=== PATIENT | female | born 1945 | race Caucasian/White ===

== ENCOUNTER 2016-12-06 22:24 | Inpatient (IN) | payer MEDICARE ==
[2016-12-06 22:41] LABS: Glucose,Whole Blood 226 mg/dL (75-99)
[2016-12-06] MEDS ORDERED: SODIUM CHLORIDE 0.9% 1,000 ML IV STA (22:51)
--- NOTE | 2016-12-06 22:58 | ED ---
Syncope HPI - General Chief Complaint: Syncope Stated Complaint: fall Time Seen by Provider: 12/06/16 22:44 Source: patient Mode of arrival: EMS Limitations: no limitations - History of Present Illness Initial Comments: This 71-year-old white female presents with a complaint of a syncopal episode. She states that she felt quite dizzy and lightheaded and then thinks she passed out felt and hit her head. She apparently hit her occipital region. She is complaining of a mild headache. She also is complaining of some pain into her sacral region of her pelvis. This occurred just prior to arrival and she presents via EMS. She further relates that she has had occasional chest pain and shortness breath or other day this is fairly normal for her. She does have a history of significant coronary artery disease with 7 previous stents. She obtained a slight abrasion to her right elbow. She denies any other injuries or complaints or modifying factors. - Related Data Home Medications Medication Instructions Recorded Confirmed Clopidogrel [Plavix] 75 mg PO DAILY 03/29/14 09/17/14 INSULIN LISPRO (humaLOG) [humaLOG 1 - 8 units SQ AC-TID PRN 03/29/14 09/17/14 (formulary)] Insulin Glargine [Lantus] 29 units SQ DAILY@1000 03/29/14 09/17/14 Lisinopril [Prinivil] 20 mg PO DAILY 03/29/14 09/17/14 Rosuvastatin Calcium [Crestor] 40 mg PO DAILY 03/29/14 09/17/14 Warfarin Sodium [Coumadin] 6 mg PO DAILY 03/29/14 09/17/14 Ascorbic Acid [Vitamin C] 500 mg PO DAILY@1200 07/01/14 09/17/14 Cholecalciferol [Vitamin D3] 1,000 unit PO DAILY@1200 07/01/14 09/17/14 Multivitamins, Thera [Multivitamin 1 tab PO DAILY@1200 07/01/14 09/17/14 (formulary)] Diazepam [Valium] 5 mg PO DAILY 08/24/14 09/17/14 Esomeprazole Magnesium [NexIUM] 40 mg PO DAILY 08/24/14 09/17/14 Loperamide [Imodium] 2 mg PO QID PRN 08/24/14 09/17/14 HYDROcodone/APAP 7.5-325MG [[place] 1 tab PO Q4H PRN 09/09/14 09/17/14 7.5-325] Levothyroxine Sodium [Synthroid] 150 mcg PO DAILY 09/09/14 09/17/14 Previous Rx's Medication Instructions Recorded Budesonide [Pulmicort] 0.5 mg INHALATION RT-BID #30 nebu 04/06/14 ALPRAZolam [Xanax] 0.25 mg PO HS PRN #14 tab 04/23/14 traMADol HCl [Ultram] 50 mg PO Q6H PRN #30 tab 04/23/14 Fludrocortisone [Florinef] 0.05 mg PO DAILY #60 tab 09/16/14 Gabapentin [Neurontin] 800 mg PO TID #180 cap 09/16/14 Levothyroxine Sodium [Synthroid] 150 mcg PO DAILY@0630 #120 tab 09/16/14 Allergies Allergy/AdvReac Type Severity Reaction Status Date / Time oxycodone HCl [From Percocet] AdvReac Rash/Hives Verified 09/17/14 12:53 oxycodone terephthalate AdvReac Rash/Hives Verified 09/17/14 12:53 [From Percodan] Review of Systems ROS Statement: Those systems with pertinent positive or pertinent negative responses have been documented in the HPI. ROS Other: All systems not noted in ROS Statement are negative. Past Medical History Past Medical History: Atrial Fibrillation, Asthma, Coronary Artery Disease (CAD) , Cancer, Chest Pain / Angina, Diabetes Mellitus, GERD/Reflux, Hyperlipidemia, Hypertension, Myocardial Infarction ([place]), Neurologic Disorder, Pulmonary Embolus (PE), Thyroid Disorder Additional Past Medical History / Comment(s): 09/09/14 Pt presented to [facility] ER with syncopal episode last Tuesday09/03/14 and painful L ribs following that fall. She had another syncopal episode today with no new injury. She is being admitted with syncopy and collapse, L rib injury. Other HX: Recent admission to [facility] 08/24/14 for abdominal pain N/V/D with acute gastroenteritis. Additional hx: [place] 2006 and 2011 or 2013, IDDM, chronic bronchial asthma, incontinent urine and stool, IBS, hemmorhoids, colonic polyps, R femur acetabular impingement syndrome, UTI with sepsis, DDD, RLS, neuropathy bilateral hands and feet, thyroid cancer with thyroidectomy, diverticulitis, pt takes coumadin for PE's, arthiritis, chronic back pain, laryngeal cancer with surgical removal. Last Myocardial Infarction Date:: 2011 or 2012 per pt History of Any Multi-Drug Resistant Organisms: None Reported, C-DIFF Date of last positivie culture/infection: 04/01/2014 MDRO Source:: stool Past Surgical History: Adenoidectomy, Bladder Surgery, Bowel Resection, Cholecystectomy, Coronary Bypass/CABG, Heart Catheterization With Stent, Hysterectomy, Joint Replacement, Orthopedic Surgery, Pacemaker, Tonsillectomy, Tubal Ligation Additional Past Surgical History / Comment(s): CABG 3 vessel in 2006, cardiac cath with stents 2007 and 2011, pacer 2011, total thyroidectomy, lap [place], total left shoulder, R shoulder arthroscopy, partial colectomy due to diverticulitis, bladder suspension and bladder repair and mesh x 2, rectal wall repair, hysterectomy 1977, laryngeal surgery for cancer, colonoscopy, EGD with bx, nasal deviated septum surgical correction, L knee arthroscopy. Past Anesthesia/Blood Transfusion Reactions: No Reported Reaction Additional Past Anesthesia/Blood Transfusion Reaction / Comment(s): Pt has recieved blood without any reaction. Date of Last Stent Placement:: 2011 Type of Cardiac Device: Permanent Pacemaker Device Placement Date:: 2010 or 2011 in [place], [place] Past Psychological History: No Psychological Hx Reported Smoking Status: Former smoker Past Alcohol Use History: None Reported Past Drug Use History: None Reported - Past Family History Father Family Medical History: Congestive Heart Failure (CHF), COPD Additional Family Medical History / Comment(s): Father at age 61 yrs of CHF and COPD. Mother Family Medical History: Congestive Heart Failure (CHF), COPD General Exam - General Exam Comments Initial Comments: GENERAL: The patient is well nourished and well hydrated. VITAL SIGNS: Heart rate, blood pressure, respiratory rate reviewed as recorded in nurse's notes. EYES: Pupils are round and reactive. Extraocular movements are intact. No conjunctival / lid redness or swelling. ENT: There is mild abrasion noted to the occipital region of the scalp. There is no swelling or hematoma noted. Airway is patent. Throat is clear. NECK: Nontender. No swelling or evidence of injury. No subcutaneous emphysema. Trachea is midline. No thyroid mass. HEART: Regular rate and rhythm. Good peripheral pulses. LUNGS/CHEST: Breath sounds clear and equal bilaterally. No rales, rhonchi, or wheezes. No ecchymosis, subcutaneous emphysema, or tenderness. ABDOMEN: Abdomen soft without tenderness. No palpable masses or organomegaly. No peritoneal signs. No abdominal wall swelling or ecchymosis. EXTREMITIES: No extremity tenderness. Normal muscle tone and function. No thoracolumbar tenderness. There is mild tenderness noted to the sacral region on the right side. There is no hip tenderness. There is excellent range of motion of the hips bilaterally. NEUROLOGIC: Sensation is grossly intact. Cranial nerve exam reveals face is symmetrical, tongue is midline, speech is clear. SKIN: There is a mild abrasion to the occiput. There is mild abrasion to the right elbow. No induration or masses noted. PSYCHIATRIC: Alert and oriented. Appropriate behavior and judgment. Limitations: no limitations Course Vital Signs 12/06/16 12/06/16 12/06/16 22:28 22:59 23:49 Temperature 97.4 F L 97.7 F Pulse Rate 60 60 60 Pulse Rate [ Sitting Software Developer] Pulse Rate [ Supine Software Developer] Respiratory 18 18 16 Rate Blood Pressure 130/65 135/68 148/66 Blood Pressure [Sitting] Blood Pressure [Standing] Blood Pressure [Supine] O2 Sat by Pulse 100 100 100 Oximetry 12/07/16 12/07/16 00:35 00:38 Temperature Pulse Rate 62 Pulse Rate [ 63 Sitting Software Developer] Pulse Rate [ 60 Supine Software Developer] Respiratory 18 18 Rate Blood Pressure 128/61 Blood Pressure 113/59 [Sitting] Blood Pressure 88/52 [Standing] Blood Pressure 128/60 [Supine] O2 Sat by Pulse 100 100 Oximetry Medical Decision Making - Medical Decision Making The patient was seen and examined. All diagnostics were reviewed. The patient had an EKG done which shows an atrial paced rhythm at a rate of 60. There is some mild artifact noted. There is mild ST-T wave changes noted more in the lateral and inferior leads. The OK interval is 184, QRS duration is 80, and the QTc interval is 370. The laboratory does show slight decrease in the CO2 consistent with some dehydration. The blood sugar is elevated as well. The patient has positive orthostatics and her blood pressure drops in the 80s with standing and she is very dizzy. The patient's computed tomography scan of the brain is negative for any acute processes. The x-rays of the chest, AP pelvis, sacrum/coccyx are all essentially negative or within normal limits. Is felt as though she does have some orthostatic hypotension causing her syncope. She does have a history of being on Coumadin however her INR is quite subtherapeutic at this time and is in the normal range. It is felt as though she would need to be admitted for further treatment in regards to her orthostatic hypotension and dehydration. Further workup of syncope may need to be further worked up as felt necessary per her primary service. It is not felt as though she needs admission in regards to the head injury along Coumadin as her INR is subtherapeutic and she would be discharged home for this complaint. It is not felt as though she requires transferred to any other facility in regards to the head injury. There is no signs of any intracranial bleed and her INR is subtherapeutic and normal. The case will be discussed with internal medicine the near future and patient will be admitted to the hospital for further treatment. Further anticoagulation will not be initiated at this time due to her recent history of falls/trauma. - Lab Data Result diagrams: 12/06/16 22:52 12/06/16 22:52 Lab Results 12/06/16 12/06/16 12/06/16 Range/Units 22:28 22:52 22:52 WBC 7.1 (3.8-10.6) k/uL RBC 4.43 (3.80-5.40) m/uL Hgb 14.1 (11.4-16.0) gm/dL Hct 40.7 (34.0-46.0) % MCV 91.8 (80.0-100.0) fL MCH 31.8 (25.0-35.0) pg MCHC 34.7 (31.0-37.0) g/dL RDW 13.1 (11.5-15.5) % Plt Count 227 (150-450) k/uL Neutrophils % 67 % Lymphocytes % 24 % Monocytes % 6 % Eosinophils % 2 % Basophils % 0 % Neutrophils # 4.8 (1.3-7.7) k/uL Lymphocytes # 1.7 (1.0-4.8) k/uL Monocytes # 0.4 (0-1.0) k/uL Eosinophils # 0.1 (0-0.7) k/uL Basophils # 0.0 (0-0.2) k/uL PT (9.0-12.0) sec INR (<1.2) APTT (22.0-30.0) sec Sodium (137-145) mmol/L Potassium (3.5-5.1) mmol/L Chloride (98-107) mmol/L Carbon Dioxide (22-30) mmol/L Anion Gap mmol/L BUN (7-17) mg/dL Creatinine (0.52-1.04) mg/dL Est GFR (MDRD) Af Amer (>60 ml/min/1.73 sqM) Est GFR (MDRD) Non-Af (>60 ml/min/1.73 sqM) Glucose (74-99) mg/dL POC Glucose (mg/dL) 226 H (75-99) mg/dL POC Glu Aircraft Loadmaster Superintendent ID Sarah Siddiqui Calcium (8.4-10.2) mg/dL Total Bilirubin (0.2-1.3) mg/dL AST (14-36) U/L ALT (9-52) U/L Alkaline Phosphatase (38-126) U/L Total Creatine Kinase 89 (30-135) U/L CK-MB (CK-2) 1.3 (0.0-2.4) ng/mL CK-MB (CK-2) Rel Index 1.5 Troponin I <0.012 (0.000-0.034) ng/mL Total Protein (6.3-8.2) g/dL Albumin (3.5-5.0) g/dL 12/06/16 12/06/16 Range/Units 22:52 22:52 WBC (3.8-10.6) k/uL RBC (3.80-5.40) m/uL Hgb (11.4-16.0) gm/dL Hct (34.0-46.0) % MCV (80.0-100.0) fL MCH (25.0-35.0) pg MCHC (31.0-37.0) g/dL RDW (11.5-15.5) % Plt Count (150-450) k/uL Neutrophils % % Lymphocytes % % Monocytes % % Eosinophils % % Basophils % % Neutrophils # (1.3-7.7) k/uL Lymphocytes # (1.0-4.8) k/uL Monocytes # (0-1.0) k/uL Eosinophils # (0-0.7) k/uL Basophils # (0-0.2) k/uL PT 10.4 (9.0-12.0) sec INR 1.0 (<1.2) APTT 22.2 (22.0-30.0) sec Sodium 139 (137-145) mmol/L Potassium 3.7 (3.5-5.1) mmol/L Chloride 109 H (98-107) mmol/L Carbon Dioxide 20 L (22-30) mmol/L Anion Gap 10 mmol/L BUN 14 (7-17) mg/dL Creatinine 0.70 (0.52-1.04) mg/dL Est GFR (MDRD) Af Amer >60 (>60 ml/min/1.73 sqM) Est GFR (MDRD) Non-Af >60 (>60 ml/min/1.73 sqM) Glucose 235 H (74-99) mg/dL POC Glucose (mg/dL) (75-99) mg/dL POC Glu Aircraft Loadmaster Superintendent ID Calcium 9.5 (8.4-10.2) mg/dL Total Bilirubin 1.6 H (0.2-1.3) mg/dL AST 16 (14-36) U/L ALT 33 (9-52) U/L Alkaline Phosphatase 89 (38-126) U/L Total Creatine Kinase (30-135) U/L CK-MB (CK-2) (0.0-2.4) ng/mL CK-MB (CK-2) Rel Index Troponin I (0.000-0.034) ng/mL Total Protein 6.2 L (6.3-8.2) g/dL Albumin 3.8 (3.5-5.0) g/dL Disposition Clinical Impression: Syncope, Head injury, Abrasion of right arm, Scalp abrasion, Sacral contusion, Chest pain, Dyspnea, Orthostatic hypotension, Dehydration, Subtherapeutic anticoagulation Disposition: ADMITTED IP TO THIS [facility] Condition: Fair Time of Disposition: 01:07 Decision Date: 12/07/16 Decision Time: 01:07
[2016-12-06 23:06] LABS: Basophils % (A) 0 %; CH 31.8; CHCM 34.7; Eosinophils # (A) 0.1 k/uL (0-0.7); Eosinophils % (A) 2 %; HCT 40.7 % (34.0-46.0); HGB 14.1 gm/dL (11.4-16.0); Luc # (Auto) 0.07; Luc % (Auto) 1; Lymphocytes # (A) 1.7 k/uL (1.0-4.8); Lymphocytes % (A) 24 %; MCH 31.8 pg (25.0-35.0); MCHC 34.7 g/dL (31.0-37.0); MCV 91.8 fL (80.0-100.0); Mean Platelet Volume 6.6; Monocytes # (A) 0.4 k/uL (0-1.0); Monocytes % (A) 6 %; Neutrophils # (A) 4.8 k/uL (1.3-7.7); Neutrophils % (A) 67 %; RBC 4.43 m/uL (3.80-5.40); RDW 13.1 % (11.5-15.5); WBC 7.1 k/uL (3.8-10.6); WBC (Perox) 7.18
[2016-12-06] MEDS ORDERED: ONDANSETRON 4 MG/2 ML VIAL IVP STA (23:06)
[2016-12-06 23:12] LABS: ALT 33 U/L (9-52); AST 16 U/L (14-36); Alkaline Phosphatase 89 U/L (38-126); Anion Gap 10 mmol/L; Blood Urea Nitrogen 14 mg/dL (7-17); Calcium 9.5 mg/dL (8.4-10.2); Carbon Dioxide 20 mmol/L (22-30); Chloride 109 mmol/L (98-107); Glucose 235 mg/dL (74-99); Non-African American GFR(MDRD) >60 (>60 ml/min/1.73 sqM); Potassium 3.7 mmol/L (3.5-5.1); Prothrombin Time 10.4 sec (9.0-12.0); Sodium 139 mmol/L (137-145); Total Bilirubin 1.6 mg/dL (0.2-1.3); Total Protein 6.2 g/dL (6.3-8.2)
[2016-12-06 23:19] LABS: Partial Thromboplastin Time 22.2 sec (22.0-30.0)
[2016-12-06 23:25] LABS: Creatine Kinase 89 U/L (30-135)
--- NOTE | 2016-12-06 23:34 | CT ---
EXAMINATION TYPE: CT brain wo con DATE OF EXAM: 12/06/2016 COMPARISON: 09/09/2014 HISTORY: fall, syncope CT DLP: 995.50 mGycm Automated exposure control for dose reduction was used. FINDINGS: There is cerebral cortical atrophy. There is no mass effect nor midline shift. There is no sign of in tracranial hemorrhage. There is symmetric thalamic calcification. The calvarium is intact. IMPRESSION: CEREBRAL ATROPHY. NO ACUTE INTRACRANIAL ABNORMALITY. NO CHANGE.
[2016-12-06 23:36] LABS: Creatine Kinase MB 1.3 ng/mL (0.0-2.4); Troponin I <0.012 ng/mL (0.000-0.034)
--- NOTE | 2016-12-07 00:04 | XR ---
EXAMINATION TYPE: XR chest 2V DATE OF EXAM: 12/06/2016 COMPARISON: 09/17/2014 HISTORY: Fall. Chest pain TECHNIQUE: Frontal and lateral views of the chest are obtained. FINDINGS: Heart and mediastinum are within normal limits. Lungs are clear. Left shoulder prosthesis is noted. There are sternal wires. There is left axillary pacemaker with the lead tips in the right v entricle. There is no sign of a pneumothorax. Thoracic spine is intact. IMPRESSION: No active cardiopulmonary disease. There is improved inspiration compared to old exam..
--- NOTE | 2016-12-07 00:05 | XR ---
EXAMINATION TYPE: XR sacrum coccyx DATE OF EXAM: 12/06/2016 COMPARISON: NONE HISTORY: Fall. Pain. TECHNIQUE: 3 views FINDINGS: Segments have normal alignment. I see no fracture. Sacroiliac joints are intact. IMPRESSION: No acute abnormality of the sacrum and coccyx.
--- NOTE | 2016-12-07 00:06 | XR ---
EXAMINATION TYPE: XR pelvis AP view DATE OF EXAM: 12/06/2016 COMPARISON: NONE HISTORY: Fall. Pain. TECHNIQUE: Single view FINDINGS: Pelvic ring is intact. Proximal femurs and hip joints are intact. Sacroiliac joints appear normal. IMPRESSION: Normal pelvis
[2016-12-07 01:06] LABS: Appearance,Urine Cloudy (Clear); Bacteria,Urine Many /hpf; Bilirubin,Urine Negative (Negative); Glucose,Urine (UA) 3+ (Negative); Ketones,Urine Trace (Negative); Leukocyte Esterase,Urine Small (Negative); Mucus,Urine Many /hpf; Nitrite,Urine Positive (Negative); Particle Count 32905; Protein,Urine Trace (Negative); Specific Gravity,Urine 1.018 (1.001-1.035); Squamous Epithelial Cell,Urine 5 /hpf (0-4); UA Billing (MACRO vs. MICRO) MICRO; Urobilinogen,Urine <2.0 mg/dL (<2.0); WBC,Urine 6 /hpf (0-5)
[2016-12-07] MEDS ORDERED: NITROGLYCERIN OINT 1 INCH/GM PACKET TOPICAL STA (01:08)
[2016-12-07] MEDS ORDERED: ASPIRIN 81 MG PO STA (01:08)
[2016-12-07] MEDS ORDERED: NITROGLYCERIN SL TABS 0.4 MG TAB SUBLINGUAL PRN (01:09)
[2016-12-07] MEDS ORDERED: ALPRAZolam 0.25 MG TAB PO PRN (01:13)
[2016-12-07] MEDS ORDERED: LOPERAMIDE 2 MG CAP PO PRN (01:13)
[2016-12-07] MEDS ORDERED: SODIUM CHLORIDE 0.9% 1,000 ML IV STA (01:16)
[2016-12-07] MEDS: HYDROcodone/APAP 7.5-325MG 1 EACH TAB PO PRN ×3 (01:32→22:43)
[2016-12-07 02:26] VITALS: BMI 20.9
[2016-12-07] MEDS: MORPHINE SULFATE 2 MG/ML SYRINGE IVP PRN ×5 (02:48→20:51)
[2016-12-07] MEDS: NITROGLYCERIN OINT 1 INCH/GM PACKET TOPICAL SCH ×3 (06:25→17:35)
[2016-12-07 06:29] LABS: Glucose,Whole Blood 236 mg/dL (75-99)
[2016-12-07 06:29] LABS: Creatine Kinase 74 U/L (30-135)
[2016-12-07] MEDS ORDERED: LEVOTHYROXINE 75 MCG TAB PO SCH ×2 (06:30→09:00)
[2016-12-07] MEDS: INSULIN LISPRO (humaLOG) 300 UNIT/3 ML VIAL SQ SCH ×4 (06:30→22:33)
[2016-12-07 06:41] LABS: Creatine Kinase MB 1.2 ng/mL (0.0-2.4); Troponin I <0.012 ng/mL (0.000-0.034)
[2016-12-07] MEDS: ONDANSETRON 4 MG/2 ML VIAL IVP PRN (07:58)
[2016-12-07] MEDS: DIAZEPAM 5 MG TAB PO SCH (08:14)
[2016-12-07] MEDS: CLOPIDOGREL 75 MG TAB PO SCH (08:14)
[2016-12-07] MEDS: LISINOPRIL 20 MG TAB PO SCH (08:15)
[2016-12-07] MEDS: FLUDROCORTISONE 0.1 MG TAB PO SCH (08:15)
[2016-12-07] MEDS: PANTOPRAZOLE 40 MG TABLET PO SCH (08:15)
[2016-12-07] MEDS: BUDESONIDE 0.5 MG/2 ML NEBU INHALATION SCH ×2 (08:59→21:03)
[2016-12-07] MEDS ORDERED: GABAPENTIN 400 MG CAP PO SCH (09:00)
[2016-12-07] MEDS ORDERED: WARFARIN 3 MG TAB PO SCH (09:00)
[2016-12-07] MEDS ORDERED: ATORVASTATIN 80 MG TAB PO SCH (09:00)
--- NOTE | 2016-12-07 09:25 | P.CRDCN ---
History of Present Illness Consult date: 12/07/16 Requesting physician: Darlene Sosa Reason for Consult (text): Syncope Chief complaint: Fall, intermittent chest discomfort and shortness of breath History of present illness: This is a Pleasant 71-year-old female with history of hypertension, hyperlipidemia, coronary artery disease with prior coronary artery bypass grafting and stent placement following, atrial fibrillation, PE, sick sinus syndrome, permanent pacemaker, hypothyroidism, diabetes, and asthma. She recently moved here from [place] approximately 3 weeks ago and has not established with healthcare providers as of yet. She apparently has been out of all of her medications for the last 2 weeks. She presented to the emergency department after falling. Patient does not recall feeling dizzy, lightheaded or actually having a syncopal episode however she is a poor historian. She says she may have lost consciousness after falling. From what she recalls, she was walking to her mailbox with a friend, turned to sit on the seat of her walker thinks she lost her footing and fell. Upon arrival, vital signs are stable. Chest x-ray showed no active cardiopulmonary disease. CT of the brain showed cerebral atrophy with no acute intracranial abnormality. Chest x-rays of the pelvis, sacrum and coccyx showed no acute abnormality. EKG showed atrial paced rhythm with nonspecific ST-T wave abnormalities. The patient was previously on warfarin at home, has been out for approximately 2 weeks and INR is 1.0. Troponins were negative 2. UA shows patient to be positive for UTI. She has been complaining of some intermittent chest discomfort and shortness of breath over the last week or 2. She says overall she has been feeling poorly. Past Medical History Past Medical History: Atrial Fibrillation, Asthma, Coronary Artery Disease (CAD) , Cancer, Chest Pain / Angina, Diabetes Mellitus, GERD/Reflux, Hyperlipidemia, Hypertension, Myocardial Infarction ([place]), Neurologic Disorder, Pulmonary Embolus (PE), Thyroid Disorder Additional Past Medical History / Comment(s): 09/09/14 Pt presented to [facility] ER with syncopal episode last Tuesday09/03/14 and painful L ribs following that fall. She had another syncopal episode today with no new injury. She is being admitted with syncopy and collapse, L rib injury. Other HX: Recent admission to [facility] 08/24/14 for abdominal pain N/V/D with acute gastroenteritis. Additional hx: [place] 2006 and 2011 or 2013, IDDM, chronic bronchial asthma, incontinent urine and stool, IBS, hemmorhoids, colonic polyps, R femur acetabular impingement syndrome, UTI with sepsis, DDD, RLS, neuropathy bilateral hands and feet, thyroid cancer with thyroidectomy, diverticulitis, pt takes coumadin for PE's, arthiritis, chronic back pain, laryngeal cancer with surgical removal. Last Myocardial Infarction Date:: 2011 or 2012 per pt History of Any Multi-Drug Resistant Organisms: None Reported, C-DIFF Date of last positivie culture/infection: 04/01/2014 MDRO Source:: stool Past Surgical History: Adenoidectomy, Bladder Surgery, Bowel Resection, Cholecystectomy, Coronary Bypass/CABG, Heart Catheterization With Stent, Hysterectomy, Joint Replacement, Orthopedic Surgery, Pacemaker, Tonsillectomy, Tubal Ligation Additional Past Surgical History / Comment(s): CABG 3 vessel in 2006, cardiac cath with stents 2007 and 2011, pacer 2011, total thyroidectomy, lap [place], total left shoulder, R shoulder arthroscopy, partial colectomy due to diverticulitis, bladder suspension and bladder repair and mesh x 2, rectal wall repair, hysterectomy 1977, laryngeal surgery for cancer, colonoscopy, EGD with bx, nasal deviated septum surgical correction, L knee arthroscopy. Past Anesthesia/Blood Transfusion Reactions: No Reported Reaction Additional Past Anesthesia/Blood Transfusion Reaction / Comment(s): Pt has recieved blood without any reaction. Date of Last Stent Placement:: 2011 Type of Cardiac Device: Permanent Pacemaker Device Placement Date:: 2010 or 2011 in [place], [place] Past Psychological History: No Psychological Hx Reported Additional Psychological History / Comment(s): Pt lives alone with her 2 cats. She is normally independent. She has a cane and walker and electric wheelchair. She has no home care. She no longer drives a car- she uses [employer] for ride needs. She is a retired nurse. She used to live in [place]. Smoking Status: Former smoker Past Alcohol Use History: None Reported Additional Past Alcohol Use History / Comment(s): Pt states she started smoking about 1963. She smoked for 50 yrs and quit in 2013. Past Drug Use History: None Reported - Past Family History Father Family Medical History: Congestive Heart Failure (CHF), COPD Additional Family Medical History / Comment(s): Father at age 61 yrs of CHF and COPD. Mother Family Medical History: Congestive Heart Failure (CHF), COPD Medications and Allergies Home Medications Medication Instructions Recorded Confirmed Type Clopidogrel [Plavix] 75 mg PO DAILY 03/29/14 09/17/14 History INSULIN LISPRO (humaLOG) [humaLOG 1 - 8 units SQ AC-TID PRN 03/29/14 09/17/14 History (formulary)] Insulin Glargine [Lantus] 29 units SQ DAILY@1000 03/29/14 09/17/14 History Lisinopril [Prinivil] 20 mg PO DAILY 03/29/14 09/17/14 History Rosuvastatin Calcium [Crestor] 40 mg PO DAILY 03/29/14 09/17/14 History Warfarin Sodium [Coumadin] 6 mg PO DAILY 03/29/14 09/17/14 History Budesonide [Pulmicort] 0.5 mg INHALATION RT-BID #30 nebu 04/06/14 09/17/14 Rx ALPRAZolam [Xanax] 0.25 mg PO HS PRN #14 tab 04/23/14 09/17/14 Rx traMADol HCl [Ultram] 50 mg PO Q6H PRN #30 tab 04/23/14 09/17/14 Rx Ascorbic Acid [Vitamin C] 500 mg PO DAILY@1200 07/01/14 09/17/14 History Cholecalciferol [Vitamin D3] 1,000 unit PO DAILY@1200 07/01/14 09/17/14 History Multivitamins, Thera [Multivitamin 1 tab PO DAILY@1200 07/01/14 09/17/14 History (formulary)] Diazepam [Valium] 5 mg PO DAILY 08/24/14 09/17/14 History Esomeprazole Magnesium [NexIUM] 40 mg PO DAILY 08/24/14 09/17/14 History Loperamide [Imodium] 2 mg PO QID PRN 08/24/14 09/17/14 History HYDROcodone/APAP 7.5-325MG [[place] 1 tab PO Q4H PRN 09/09/14 09/17/14 History 7.5-325] Levothyroxine Sodium [Synthroid] 150 mcg PO DAILY 09/09/14 09/17/14 History Fludrocortisone [Florinef] 0.05 mg PO DAILY #60 tab 09/16/14 09/17/14 Rx Gabapentin [Neurontin] 800 mg PO TID #180 cap 09/16/14 09/17/14 Rx Levothyroxine Sodium [Synthroid] 150 mcg PO DAILY@0630 #120 tab 09/16/14 Rx Allergies Allergy/AdvReac Type Severity Reaction Status Date / Time No Known Allergies Allergy Verified 12/07/16 01:32 Physical Exam Vitals: Vital Signs Temp Pulse Pulse Pulse Pulse Resp BP 12/07/16 09:02 62 12/07/16 07:52 61 16 12/07/16 07:51 97.7 F 12/07/16 07:48 61 16 12/07/16 03:16 98.7 F 66 16 12/07/16 01:31 99.1 F 67 16 12/07/16 01:24 98.0 F 66 18 158/68 12/07/16 00:38 63 60 18 12/07/16 00:35 62 18 128/61 12/06/16 23:49 97.7 F 60 16 148/66 12/06/16 22:59 60 18 135/68 12/06/16 22:28 97.4 F L 60 18 130/65 BP BP BP Pulse Ox 12/07/16 09:02 99 12/07/16 07:52 12/07/16 07:51 12/07/16 07:48 131/61 95 12/07/16 03:16 122/85 96 12/07/16 01:31 137/70 99 12/07/16 01:24 99 12/07/16 00:38 113/59 88/52 128/60 100 12/07/16 00:35 100 12/06/16 23:49 100 12/06/16 22:59 100 12/06/16 22:28 100 Intake and Output 12/06/16 12/07/16 12/07/16 22:59 06:59 14:59 Intake Total 500 Balance 500 Intake: IV 500 Sodium Chloride 0.9% 1, 500 000 ml @ 100 mls/hr IV . Q10H STA Rx#:[id number] Other: Voiding Method Diaper Diaper Weight 57.153 kg 58.9 kg PHYSICAL EXAMINATION: HEENT: Head is atraumatic, normocephalic. Pupils equal, round. Neck is supple. There is no elevated jugular venous pressure. No carotid bruit bilaterally. HEART EXAMINATION: Heart sounds regular, S1 and S2 normal. No murmur or gallop heard. CHEST EXAMINATION: Lungs are clear to auscultation and precussion. No chest wall tenderness is noted on palpation or with deep breathing. ABDOMEN: Soft, nontender. Bowel sounds are heard. No organomegaly noted. EXTREMITIES: 2+ peripheral pulses with no evidence of peripheral edema and no calf tenderness noted. NEUROLOGIC patient is awake, alert and oriented x3, mild forgetfulness and confusion noted. . Results 12/06/16 22:52 12/06/16 22:52 Cardiac Enzymes 12/06/16 12/06/16 12/07/16 Range/Units 22:52 22:52 05:18 AST 16 (14-36) U/L CK-MB (CK-2) 1.3 1.2 (0.0-2.4) ng/mL Troponin I <0.012 <0.012 (0.000-0.034) ng/mL Coagulation 12/06/16 Range/Units 22:52 PT 10.4 (9.0-12.0) sec APTT 22.2 (22.0-30.0) sec CBC 12/06/16 Range/Units 22:52 WBC 7.1 (3.8-10.6) k/uL RBC 4.43 (3.80-5.40) m/uL Hgb 14.1 (11.4-16.0) gm/dL Hct 40.7 (34.0-46.0) % Plt Count 227 (150-450) k/uL Comprehensive Metabolic Panel 12/06/16 Range/Units 22:52 Sodium 139 (137-145) mmol/L Potassium 3.7 (3.5-5.1) mmol/L Chloride 109 H (98-107) mmol/L Carbon Dioxide 20 L (22-30) mmol/L BUN 14 (7-17) mg/dL Creatinine 0.70 (0.52-1.04) mg/dL Glucose 235 H (74-99) mg/dL Calcium 9.5 (8.4-10.2) mg/dL AST 16 (14-36) U/L ALT 33 (9-52) U/L Alkaline Phosphatase 89 (38-126) U/L Total Protein 6.2 L (6.3-8.2) g/dL Albumin 3.8 (3.5-5.0) g/dL Current Medications Generic Name Dose Route Start Last Admin Trade Name Freq PRN Reason Stop Dose Admin Hydrocodone Bitart/Acetaminophen 1 each 12/07/16 01:13 12/07/16 01:32 [place] 7.5-325 PO 1 each Q4H PRN Administration Pain Scale 1 to 5 Alprazolam 0.25 mg 12/07/16 01:13 Xanax PO HS PRN Anxiety Ascorbic Acid 500 mg 12/07/16 12:00 Vitamin C PO DAILY@1200 [facility] Aspirin 325 mg 12/08/16 09:00 Aspirin PO DAILY [facility] Atorvastatin Calcium 80 mg 12/07/16 09:00 12/07/16 08:14 Lipitor PO 80 mg DAILY [facility] Administration Budesonide 0.5 mg 12/07/16 08:00 12/07/16 08:59 Pulmicort INHALATION 0.5 mg RT-BID [facility] Administration Cholecalciferol 1,000 unit 12/07/16 12:00 Vitamin D3 PO DAILY@1200 [facility] Clopidogrel Bisulfate 75 mg 12/07/16 09:00 12/07/16 08:14 Plavix PO 75 mg DAILY [facility] Administration Diazepam 5 mg 12/07/16 09:00 12/07/16 08:14 Valium PO 5 mg DAILY [facility] Administration Fludrocortisone Acetate 0.05 mg 12/07/16 09:00 12/07/16 08:15 Florinef PO 0.05 mg DAILY [facility] Administration Gabapentin 800 mg 12/07/16 09:00 12/07/16 08:15 Neurontin PO 800 mg TID [facility] Administration Insulin Glargine 29 unit 12/07/16 10:00 Lantus SQ DAILY@1000 [facility] Insulin Human Lispro 0 unit 12/07/16 07:30 12/07/16 06:30 Humalog SQ Not Given ACHS [facility] Protocol Levothyroxine Sodium 150 mcg 12/07/16 09:00 12/07/16 08:15 Synthroid PO 150 mcg DAILY [facility] Administration Lisinopril 20 mg 12/07/16 09:00 12/07/16 08:15 Zestril PO 20 mg DAILY [facility] Administration Loperamide HCl 2 mg 12/07/16 01:13 Imodium PO QID PRN Diarrhea Morphine Sulfate 2 mg 12/07/16 02:38 12/07/16 08:16 Morphine Sulfate (Inj) IVP 2 mg Q3H PRN Administration Pain Scale 6 to 10 Multivitamins 1 each 12/07/16 12:00 Theragran PO DAILY@1200 [facility] Nitroglycerin 1 inch 12/07/16 06:00 12/07/16 06:25 Nitro-Bid Oint TOPICAL Not Given Q6HR [facility] Nitroglycerin 0.4 mg 12/07/16 01:09 Nitrostat SUBLINGUAL Q5M PRN Chest Pain Ondansetron HCl 8 mg 12/07/16 01:13 12/07/16 07:58 Zofran IVP 8 mg Q8H PRN Administration Nausea Pantoprazole Sodium 40 mg 12/07/16 09:00 12/07/16 08:15 Protonix PO 40 mg DAILY [facility] Administration Warfarin Sodium 6 mg 12/07/16 09:00 12/07/16 08:15 Coumadin PO 6 mg DAILY [facility] Administration Intake and Output 12/06/16 12/07/16 12/07/16 22:59 06:59 14:59 Intake Total 500 Balance 500 Intake: IV 500 Sodium Chloride 0.9% 1, 500 000 ml @ 100 mls/hr IV . Q10H STA Rx#:[id number] Other: Voiding Method Diaper Diaper Weight 57.153 kg 58.9 kg 12/06/16 22:52 12/06/16 22:52 EKG Interpretations (text) Atrial paced rhythm with nonspecific ST-T wave abnormalities Assessment and Plan Plan: Assessment and plan #1 questionable syncope #2 fall #3 intermittent chest pain and shortness of breath #4 history of atrial fibrillation, paroxysmal, INR currently 1.0 #5 prior history of PE #6 coronary artery disease with prior coronary artery bypass grafting and stenting #7 diabetes mellitus #8 hypertension #9 hyperlipidemia #10 hypothyroidism #11 Permanent Pacemaker From cardiology's perspective, we will obtain a d-dimer, TSH and echocardiogram. We will call for pacemaker interrogation to ensure normal function of device. Further recommendations to follow. BILLBOARD MECHANIC note has been reviewed, I agree with a documented findings and plan of care. Patient was seen and examined.
[2016-12-07] MEDS: INSULIN GLARGINE 100 UNIT/ML 10 ML VIAL SQ SCH (10:13)
--- NOTE | 2016-12-07 11:55 | ECHOF ---
Referral Reason:cp, syncope MEASUREMENTS -------- HEIGHT: 167.6 cm WEIGHT: 58.5 kg BP: 122/85 IVSd: 1.0 cm (0.6 - 1.1) LVIDd: 3.6 cm (3.9 - 5.3) LVPWd: 1.2 cm (0.6 - 1.1) IVSs: 1.4 cm LVIDs: 2.2 cm LVPWs: 1.9 cm Ao Diam: 3.3 cm (2.0 - 3.7) AV Cusp: 1.8 cm (1.5 - 2.6) LA Diam: 3.3 cm (2.7 - 3.8) MV EXCURSION: 21.150 mm (> 18.000) MV EF SLOPE: 149 mm/s (70 - 150) EPSS: 0.9 cm MV E Joni: 0.78 m/s MV DecT: 228 ms MV A Joni: 0.73 m/s MV E/A Ratio: 1.07 AR PHT: 473 ms RAP: 5.00 mmHg RVSP: 10.61 mmHg FINDINGS -------- Sinus rhythm. This was a technically good study. The left ventricular size is normal. There is borderline concentric left ventricular hypertrophy. Overall left ventricular systolic function is normal with, an EF between 55 - 60 %. The right ventricle is normal in size and function. The left atrium is normal in size. The right atrium is normal in size. Aortic valve is trileaflet and is mildly thickened. Trace amount of aortic regurgitation. The mitral valve leaflets are mildly thickened. There is trace mitral regurgitation. Trace tricuspid regurgitation present. The right ventricular systolic pressure, as measured by Doppler, is 10.61mmHg. Pulmonic valve appears structurally normal. The aortic root size is normal. The pericardium is normal. CONCLUSIONS -------- 1. Sinus rhythm. 2. Trace amount of aortic regurgitation. 3. The mitral valve leaflets are mildly thickened. 4. There is trace mitral regurgitation. 5. Trace tricuspid regurgitation present. 6. The right ventricular systolic pressure, as measured by Doppler, is 10.61mmHg. 7. Pulmonic valve appears structurally normal. 8. The aortic root size is normal. 9. The pericardium is normal. 10. This was a technically good study. 11. The left ventricular size is normal. 12. There is borderline concentric left ventricular hypertrophy. 13. Overall left ventricular systolic function is normal with, an EF between 55 - 60 %. 14. The right ventricle is normal in size and function. 15. The left atrium is normal in size. 16. The right atrium is normal in size. 17. Aortic valve is trileaflet and is mildly thickened. MOTORSPORTS TECHNICIAN: Liv Daniel RDCS
[2016-12-07 12:05] LABS: Glucose,Whole Blood 279 mg/dL (75-99)
[2016-12-07] MEDS: CHOLECALCIFEROL 1,000 UNIT TAB PO SCH (12:18)
[2016-12-07] MEDS: MULTIVITAMINS, THERA 1 EACH TAB PO SCH (12:18)
[2016-12-07] MEDS: ASCORBIC ACID 500 MG TAB PO SCH (12:18)
--- NOTE | 2016-12-07 12:19 | NM ---
EXAMINATION TYPE: NM pul vent and perfuse DATE OF EXAM: 12/07/2016 COMPARISON: Chest x-ray 12/06/2016 HISTORY: Syncope elevated d-dimer TECHNIQUE: Utilizing inhalation of 67.4 mCi Tc 99m DTPA aerosol and intravenous injection of 5.5 mCi of Tc 99m MAA, ventilation and perfusion images are acquired post injection in multiple projections. FINDINGS: Normal radiotracer distribution is noted in the lungs. There is no evidence of mismatched defects. IMPRESSION: Low probability for pulmonary embolism.
[2016-12-07] MEDS ORDERED: REGADENOSON 0.4 MG/5 ML SYRINGE IV ONE (12:32)
[2016-12-07] MEDS ORDERED: AMINOPHYLLINE 500 MG/20 ML VIAL IV PRN (12:32)
[2016-12-07] MEDS ORDERED: SODIUM CHLORIDE 0.9% 1,000 ML IV ONE (12:32)
[2016-12-07 13:11] LABS: Creatine Kinase 75 U/L (30-135)
[2016-12-07 13:23] LABS: Hemoglobin A1C 9.4 % (4.2-6.1)
[2016-12-07 13:23] LABS: Creatine Kinase MB 1.1 ng/mL (0.0-2.4); Troponin I <0.012 ng/mL (0.000-0.034)
--- NOTE | 2016-12-07 13:55 | US ---
EXAMINATION TYPE: US venous doppler duplex LE BI DATE OF EXAM: 12/07/2016 1:08 PM COMPARISON: NONE CLINICAL HISTORY: r/o DVT. SOB, elevated d-dimer SIDE PERFORMED: Bilateral TECHNIQUE: The lower extremity deep venous system is examined utilizing real time linear array sonog adeline with graded compression, doppler sonography and color-flow sonography. VESSELS IMAGED: External Iliac Vein (EIV) Common Femoral Vein Deep Femoral Vein Greater Saphenous Vein * Femoral Vein Popliteal Vein Small Saphenous Vein * Proximal Calf Veins (* superficial vessels) Right Leg: Negative for DVT Left Leg: Negative for DVT IMPRESSION: 1. Bilateral lower extremity ultrasound negative for deep venous thrombosis.
--- NOTE | 2016-12-07 14:35 | P.HPIM ---
History of Present Illness This is a Pleasant 71-year-old female with history of hypertension, hyperlipidemia, coronary artery disease with prior coronary artery bypass grafting and stent placement following, atrial fibrillation, PE, sick sinus syndrome, permanent pacemaker, hypothyroidism, diabetes, and asthma. She recently moved here from [place] approximately 3 weeks ago and has not established with healthcare providers as of yet. She apparently has been out of all of her medications for the last 2 weeks. She presented to the emergency department after falling. Patient does not recall feeling dizzy, lightheaded or actually having a syncopal episode however she is a poor historian. She says she may have lost consciousness after falling. Upon arrival, vital signs are stable. Chest x-ray showed no active cardiopulmonary disease. CT of the brain showed cerebral atrophy with no acute intracranial abnormality. Chest x- rays of the pelvis, sacrum and coccyx showed no acute abnormality. EKG showed atrial paced rhythm with nonspecific ST-T wave abnormalities. The patient was previously on warfarin at home, has been out for approximately 2 weeks and INR is 1.0. Troponins were negative 3. Urinalysis was abnormal although patient denied any dysuria nausea or vomiting or fever chills. Considering her syncopal episode" and start her on antibiotics for 3 days patient was discharged on Cipro. Patient has not been taking any of her medications as she says she ran out of all the medications patient is on multiple narcotics including trazodone and Xanax along with oxycodone prescriptions of which will not be refilled today rest of the prescriptions will be provided and patient underwent workup with echocardiogram, VQ scan and bilateral lower limb Doppler all of which came back negative. Telemetry essentially normal sinus rhythm. Patient TSH is high in T4 is low as she is noncompliant with her medications and patient was started back on levothyroxin patient will be referred to Dr. Lara and will be discharged today Review of Systems REVIEW OF SYSTEMS: CONSTITUTIONAL: No fever, no malaise, no fatigue. HEENT: No recent visual problems or hearing problems. Denied any sore throat. CARDIOVASCULAR: No chest pain, orthopnea, PND, no palpitations, PULMONARY: No shortness of breath, no cough, no hemoptysis. GASTROINTESTINAL: No diarrhea, no nausea, no vomiting, no abdominal pain. Normoactive bowel sounds. NEUROLOGICAL: No headaches, no weakness, no numbness. HEMATOLOGICAL: Denies any bleeding or petechiae. GENITOURINARY: Denies any burning micturition, frequency, or urgency. MUSCULOSKELETAL/RHEUMATOLOGICAL: Denies any joint pain, swelling, or any muscle pain. ENDOCRINE: Denies any polyuria or polydipsia. The rest of the 14-point review of systems is negative. Past Medical History Past Medical History: Atrial Fibrillation, Asthma, Coronary Artery Disease (CAD) , Cancer, Chest Pain / Angina, Diabetes Mellitus, GERD/Reflux, Hyperlipidemia, Hypertension, Myocardial Infarction (CT), Neurologic Disorder, Pulmonary Embolus (PE), Thyroid Disorder Additional Past Medical History / Comment(s): 09/09/14 Pt presented to [facility] ER with syncopal episode last Tuesday09/03/14 and painful L ribs following that fall. She had another syncopal episode today with no new injury. She is being admitted with syncopy and collapse, L rib injury. Other HX: Recent admission to [facility] 08/24/14 for abdominal pain N/V/D with acute gastroenteritis. Additional hx: CT 2006 and 2011 or 2012, IDDM, chronic bronchial asthma, incontinent urine and stool, IBS, hemmorhoids, colonic polyps, R femur acetabular impingement syndrome, UTI with sepsis, DDD, RLS, neuropathy bilateral hands and feet, thyroid cancer with thyroidectomy, diverticulitis, pt takes coumadin for PE's, arthiritis, chronic back pain, laryngeal cancer with surgical removal. Last Myocardial Infarction Date:: 2011 or 2012 per pt History of Any Multi-Drug Resistant Organisms: None Reported Date of last positivie culture/infection: None MDRO Source:: None Past Surgical History: Adenoidectomy, Bladder Surgery, Bowel Resection, Cholecystectomy, Coronary Bypass/CABG, Heart Catheterization With Stent, Hysterectomy, Joint Replacement, Orthopedic Surgery, Pacemaker, Tonsillectomy, Tubal Ligation Additional Past Surgical History / Comment(s): CABG 3 vessel in 2006, cardiac cath with stents 2007 and 2011, pacer 2011, total thyroidectomy, lap [place]ia [place], total left shoulder, R shoulder arthroscopy, partial colectomy due to diverticulitis, bladder suspension and bladder repair and mesh x 2, rectal wall repair, hysterectomy 1977, laryngeal surgery for cancer, colonoscopy, EGD with bx, nasal deviated septum surgical correction, L knee arthroscopy. Past Anesthesia/Blood Transfusion Reactions: No Reported Reaction Additional Past Anesthesia/Blood Transfusion Reaction / Comment(s): Pt has recieved blood without any reaction. Date of Last Stent Placement:: 2011 Type of Cardiac Device: Permanent Pacemaker Device Placement Date:: 2010 or 2011 in [place], [place] Past Psychological History: No Psychological Hx Reported Additional Psychological History / Comment(s): Pt lives alone with her 2 cats. She is normally independent. She has a cane and walker and electric wheelchair. She has no home care. She no longer drives a car- she uses [employer] for ride needs. 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 Smoking Status: Former smoker Past Alcohol Use History: None Reported Additional Past Alcohol Use History / Comment(s): Pt states she started smoking about 1963. She smoked for 50 yrs and quit in 2013. Past Drug Use History: None Reported - Past Family History Father Family Medical History: Congestive Heart Failure (CHF), COPD Additional Family Medical History / Comment(s): Father at age 61 yrs of CHF and COPD. Mother Family Medical History: Congestive Heart Failure (CHF), COPD Medications and Allergies Home Medications Medication Instructions Recorded Confirmed Type INSULIN LISPRO (humaLOG) [humaLOG See Protocol SQ AC-TID PRN 03/29/14 12/07/16 History (formulary)] Atorvastatin Calcium [Lipitor] 80 mg PO HS #30 12/07/16 Rx Atorvastatin [Lipitor] 80 mg PO DAILY #30 tab 12/07/16 Rx Clopidogrel [Plavix] 75 mg PO DAILY #30 12/07/16 Rx Fludrocortisone [Florinef] 0.05 mg PO DAILY #30 tab 12/07/16 Rx Gabapentin [Neurontin] 100 mg PO HS #30 12/07/16 Rx Gabapentin [Neurontin] 800 mg PO TID #60 cap 12/07/16 Rx Insulin Glargine [Lantus] 29 units SQ HS #30 12/07/16 Rx Levothyroxine Sodium [Synthroid] 137 mcg PO DAILY 12/07/16 12/07/16 History Levothyroxine Sodium [Synthroid] 150 mcg PO DAILY #30 tab 12/07/16 Rx Lisinopril [Zestril] 10 mg PO DAILY #30 tab 12/07/16 Rx Loperamide [Imodium] 2 mg PO QID PRN #0 cap 12/07/16 Rx Warfarin Sodium [Coumadin] 5 mg PO DAILY #30 12/07/16 Rx Allergies Allergy/AdvReac Type Severity Reaction Status Date / Time No Known Allergies Allergy Verified 12/07/16 01:32 Physical Exam Vitals: Vital Signs Temp Pulse Pulse Pulse Pulse Resp BP 12/07/16 12:00 96.7 F L 62 16 12/07/16 09:09 68 12/07/16 09:02 62 12/07/16 07:52 61 16 12/07/16 07:51 97.7 F 12/07/16 07:48 61 16 12/07/16 03:16 98.7 F 66 16 12/07/16 01:31 99.1 F 67 16 12/07/16 01:24 98.0 F 66 18 158/68 12/07/16 00:38 63 60 18 12/07/16 00:35 62 18 128/61 12/06/16 23:49 97.7 F 60 16 148/66 12/06/16 22:59 60 18 135/68 12/06/16 22:28 97.4 F L 60 18 130/65 BP BP BP Pulse Ox 12/07/16 12:00 93/52 96 12/07/16 09:09 12/07/16 09:02 99 12/07/16 07:52 12/07/16 07:51 12/07/16 07:48 131/61 95 12/07/16 03:16 122/85 96 12/07/16 01:31 137/70 99 12/07/16 01:24 99 12/07/16 00:38 113/59 88/52 128/60 100 12/07/16 00:35 100 12/06/16 23:49 100 12/06/16 22:59 100 12/06/16 22:28 100 Intake and Output 12/06/16 12/07/16 12/07/16 22:59 06:59 14:59 Intake Total 500 360 Balance 500 360 Intake: IV 500 Sodium Chloride 0.9% 1, 500 000 ml @ 100 mls/hr IV . Q10H STA Rx#:[id number] Oral 360 Other: Voiding Method Diaper Diaper Weight 57.153 kg 58.9 kg PHYSICAL EXAMINATION: GENERAL: The patient is alert and oriented x3, not in any acute distress. Well developed, well nourished. HEENT: Pupils are round and equally reacting to light. EOMI. No scleral icterus. No conjunctival pallor. Normocephalic, atraumatic. No pharyngeal erythema. No thyromegaly. CARDIOVASCULAR: S1 and S2 present. No murmurs, rubs, or gallops. PULMONARY: Chest is clear to auscultation, no wheezing or crackles. ABDOMEN: Soft, nontender, nondistended, normoactive bowel sounds. No palpable organomegaly. MUSCULOSKELETAL: No joint swelling or deformity. EXTREMITIES: No cyanosis, clubbing, or pedal edema. NEUROLOGICAL: Gross neurological examination did not reveal any focal deficits. SKIN: No rashes. Results CBC & Chem 7: 12/06/16 22:52 12/06/16 22:52 Labs: Abnormal Lab Results - Last 24 Hours (Table) 12/06/16 12/06/16 12/07/16 Range/Units 22:28 22:52 00:32 D-Dimer (<0.60) mg/L FEU Chloride 109 H (98-107) mmol/L Carbon Dioxide 20 L (22-30) mmol/L Glucose 235 H (74-99) mg/dL POC Glucose (mg/dL) 226 H (75-99) mg/dL Hemoglobin A1c (4.2-6.1) % Total Bilirubin 1.6 H (0.2-1.3) mg/dL Total Protein 6.2 L (6.3-8.2) g/dL TSH (0.465-4.680) mIU/L Free T4 (0.78-2.19) ng/dL Urine Appearance Cloudy H (Clear) Urine Protein Trace H (Negative) Urine Glucose (UA) 3+ H (Negative) Urine Ketones Trace H (Negative) Urine Nitrite Positive H (Negative) Ur Leukocyte Esterase Small H (Negative) Urine WBC 6 H (0-5) /hpf Ur Squamous Epith Cells 5 H (0-4) /hpf Urine Bacteria Many H (None) /hpf Urine Mucus Many H (None) /hpf 12/07/16 12/07/16 12/07/16 Range/Units 05:18 05:20 06:26 D-Dimer 3.88 H (<0.60) mg/L FEU Chloride (98-107) mmol/L Carbon Dioxide (22-30) mmol/L Glucose (74-99) mg/dL POC Glucose (mg/dL) 236 H (75-99) mg/dL Hemoglobin A1c 9.4 H (4.2-6.1) % Total Bilirubin (0.2-1.3) mg/dL Total Protein (6.3-8.2) g/dL TSH (0.465-4.680) mIU/L Free T4 (0.78-2.19) ng/dL Urine Appearance (Clear) Urine Protein (Negative) Urine Glucose (UA) (Negative) Urine Ketones (Negative) Urine Nitrite (Negative) Ur Leukocyte Esterase (Negative) Urine WBC (0-5) /hpf Ur Squamous Epith Cells (0-4) /hpf Urine Bacteria (None) /hpf Urine Mucus (None) /hpf 12/07/16 12/07/16 Range/Units 12:01 12:29 D-Dimer (<0.60) mg/L FEU Chloride (98-107) mmol/L Carbon Dioxide (22-30) mmol/L Glucose (74-99) mg/dL POC Glucose (mg/dL) 279 H (75-99) mg/dL Hemoglobin A1c (4.2-6.1) % Total Bilirubin (0.2-1.3) mg/dL Total Protein (6.3-8.2) g/dL TSH 31.800 H (0.465-4.680) mIU/L Free T4 0.70 L (0.78-2.19) ng/dL Urine Appearance (Clear) Urine Protein (Negative) Urine Glucose (UA) (Negative) Urine Ketones (Negative) Urine Nitrite (Negative) Ur Leukocyte Esterase (Negative) Urine WBC (0-5) /hpf Ur Squamous Epith Cells (0-4) /hpf Urine Bacteria (None) /hpf Urine Mucus (None) /hpf Thrombosis Risk Factor Assmnt - Choose All That Apply Each Risk Factor Represents 2 Points: Age 61-74 years Thrombosis Risk Factor Assessment Total Risk Factor Score: 2 Thrombosis Risk Factor Assessment Level: Low Risk Assessment and Plan Plan: #1 possible syncope: Secondary to intravascular depletion and probable low blood pressure vasovagal event patient is highly noncompliant with medications counseling was provided all the workup is negative patient will be discharged today. After interrogation of the pacemaker. #2 atrial fibrillation: Rate controlled presently patient was on Coumadin will be started back on Coumadin and repeat INR need to be done in 3-5 days. #3 hypothyroidism: Patient will be restarted back on levothyroxine patient's TSH is 74 is low. #4 elevated d-dimer secondary to fall nonspecific ruled out PE and DVT in bilateral lower limbs. #5 type 2 diabetes mellitus highly noncompliant with medications counseling was provided patient will be given prescriptions and will be discharged. Patient did to check her blood sugars twice a day. #5 coronary artery disease #6 gastric residual effects disease #7 hyperlipidemia #8 hypertension #9 possibly of urinary tract infection for which patient will be discharged on 3 more days of Cipro #10 depression #11 noncompliance with medications, possible narcotic abuse
--- NOTE | 2016-12-07 14:36 | P.DS ---
Providers Date of admission: 12/07/16 01:16 Attending physician: Darlene Sosa Consults: 12/07/16 01:09 Consult Physician Urgent Consulting Provider: Erica Cosme Consult Reason/Comments: cp, syncope Do you want consulting provider notified?: Yes Primary care physician: Jane Urban [facility] Course: Please refer to my HPI Patient Condition at Discharge: Fair Plan - Discharge Summary New Discharge Prescriptions: New Atorvastatin [Lipitor] 80 mg PO DAILY #30 tab Fludrocortisone [Florinef] 0.05 mg PO DAILY #30 tab Gabapentin [Neurontin] 800 mg PO TID #60 cap Levothyroxine Sodium [Synthroid] 150 mcg PO DAILY #30 tab Lisinopril [Zestril] 10 mg PO DAILY #30 tab Loperamide [Imodium] 2 mg PO QID PRN #0 cap PRN Reason: Diarrhea Ciprofloxacin HCl [Cipro] 500 mg PO Q12HR #6 tablet Continue Levothyroxine Sodium [Synthroid] 137 mcg PO DAILY Atorvastatin Calcium [Lipitor] 80 mg PO HS #30 Clopidogrel [Plavix] 75 mg PO DAILY #30 Gabapentin [Neurontin] 100 mg PO HS #30 Insulin Glargine [Lantus] 29 units SQ HS #30 Warfarin Sodium [Coumadin] 5 mg PO DAILY #30 Discontinued traZODone HCL 50 mg PO HS Lisinopril [Zestril] 10 mg PO DAILY oxyCODONE HCL [oxyCODONE HCL] 20 mg PO QID No Action INSULIN LISPRO (humaLOG) [humaLOG (formulary)] See Protocol SQ AC-TID PRN PRN Reason: Blood Sugar - High Discharge Medication List INSULIN LISPRO (humaLOG) [humaLOG (formulary)] See Protocol SQ AC-TID PRN [History] Atorvastatin Calcium [Lipitor] 80 mg PO HS #30 12/07/16 [Rx] Atorvastatin [Lipitor] 80 mg PO DAILY #30 tab 12/07/16 [Rx] Ciprofloxacin HCl [Cipro] 500 mg PO Q12HR #6 tablet 12/07/16 [Rx] Clopidogrel [Plavix] 75 mg PO DAILY #30 12/07/16 [Rx] Fludrocortisone [Florinef] 0.05 mg PO DAILY #30 tab 12/07/16 [Rx] Gabapentin [Neurontin] 100 mg PO HS #30 12/07/16 [Rx] Gabapentin [Neurontin] 800 mg PO TID #60 cap 12/07/16 [Rx] Insulin Glargine [Lantus] 29 units SQ HS #30 12/07/16 [Rx] Levothyroxine Sodium [Synthroid] 137 mcg PO DAILY 12/07/16 [History] Levothyroxine Sodium [Synthroid] 150 mcg PO DAILY #30 tab 12/07/16 [Rx] Lisinopril [Zestril] 10 mg PO DAILY #30 tab 12/07/16 [Rx] Loperamide [Imodium] 2 mg PO QID PRN #0 cap 12/07/16 [Rx] Warfarin Sodium [Coumadin] 5 mg PO DAILY #30 12/07/16 [Rx] Follow up Appointment(s)/Referral(s): Raven Lara MD [Primary Care Provider] - 1 Week (PLEASE CALL TO MAKE APPOINMENT. UNABLE TO GET THROUGH AT THIS TIME) Patient Instructions/Handouts: Syncope (DC)
[2016-12-07 16:46] LABS: Glucose,Whole Blood 174 mg/dL (75-99)
[2016-12-07 20:58] LABS: Glucose,Whole Blood 151 mg/dL (75-99)
[2016-12-07] MEDS ORDERED: GABAPENTIN 100 MG CAP PO SCH (21:00)
[2016-12-08] MEDS: NITROGLYCERIN OINT 1 INCH/GM PACKET TOPICAL SCH ×3 (00:02→11:21)
[2016-12-08] MEDS: MORPHINE SULFATE 2 MG/ML SYRINGE IVP PRN (03:14)
[2016-12-08 06:02] LABS: Glucose,Whole Blood 162 mg/dL (75-99)
[2016-12-08 06:26] LABS: Cholesterol 174 mg/dL (<200); HDL Cholesterol 41 mg/dL (40-60)
[2016-12-08] MEDS ORDERED: LEVOTHYROXINE 137 MCG TAB PO SCH (06:30)
[2016-12-08] MEDS: INSULIN LISPRO (humaLOG) 300 UNIT/3 ML VIAL SQ SCH ×2 (06:34→13:35)
[2016-12-08] MEDS: ONDANSETRON 4 MG/2 ML VIAL IVP PRN (08:38)
[2016-12-08] MEDS: CLOPIDOGREL 75 MG TAB PO SCH (08:41)
[2016-12-08] MEDS: FLUDROCORTISONE 0.1 MG TAB PO SCH (08:41)
[2016-12-08] MEDS: PANTOPRAZOLE 40 MG TABLET PO SCH (08:42)
[2016-12-08] MEDS: LISINOPRIL 20 MG TAB PO SCH (08:42)
[2016-12-08] MEDS: DIAZEPAM 5 MG TAB PO SCH (08:48)
[2016-12-08] MEDS ORDERED: ASPIRIN 81 MG PO SCH (09:00)
[2016-12-08] MEDS ORDERED: ASPIRIN 325 MG TAB PO SCH (09:00)
[2016-12-08] MEDS: BUDESONIDE 0.5 MG/2 ML NEBU INHALATION SCH (09:04)
[2016-12-08] MEDS: INSULIN GLARGINE 100 UNIT/ML 10 ML VIAL SQ SCH (11:06)
[2016-12-08 11:18] VITALS: BP 156/72; RESP 16; TEMP 97.2
[2016-12-08] MEDS: MULTIVITAMINS, THERA 1 EACH TAB PO SCH (11:21)
[2016-12-08] MEDS: ASCORBIC ACID 500 MG TAB PO SCH (11:21)
[2016-12-08] MEDS: CHOLECALCIFEROL 1,000 UNIT TAB PO SCH (11:21)
[2016-12-08 11:37] LABS: Glucose,Whole Blood 211 mg/dL (75-99)
--- NOTE | 2016-12-08 11:55 | P.PN ---
Subjective Principal diagnosis: significant orthostatic hypotension This is a Pleasant 71-year-old female with history of hypertension, hyperlipidemia, coronary artery disease with prior coronary artery bypass grafting and stent placement most recent 2011 VG to RCA x2, atrial fibrillation , PE, sick sinus syndrome, permanent pacemaker, hypothyroidism, diabetes, and asthma. She recently moved here from [place] approximately 3 weeks ago and has not established with healthcare providers as of yet. She apparently has been out of all of her medications for the last 2 weeks. She presented to the emergency department after falling. Patient does not recall feeling dizzy, lightheaded or actually having a syncopal episode however she is a poor historian. She says she may have lost consciousness after falling. From what she recalls, she was walking to her mailbox with a friend, turned to sit on the seat of her walker thinks she lost her footing and fell. Upon arrival, vital signs are stable. Chest x-ray showed no active cardiopulmonary disease. CT of the brain showed cerebral atrophy with no acute intracranial abnormality. Chest x-rays of the pelvis, sacrum and coccyx showed no acute abnormality. EKG showed atrial paced rhythm with nonspecific ST-T wave abnormalities. The patient was previously on warfarin at home, has been out for approximately 2 weeks and INR is 1.0. Troponins were negative 3. UA shows patient to be positive for UTI. Her d-dimer came in to be positive and subsequent VQ scan showed low probability for PE. TSH came in to be elevated at 31.8 and a T4 of 0.70. Her pacemaker was interrogated yesterday and shows normal function and measurements. She was found to be significantly positive for orthostatic blood pressure changes, at one point dropped into the 60s systolic. Echocardiogram with Doppler shows an ejection fraction of 55-60% without any significant valvular abnormalities. Upon examination this morning, she's feeling fairly well but is a bit nauseous. She denies complaints of dizziness. According to the nursing staff, upon standing she does seem to be off balance but does not complain of any significant dizziness or lightheadedness. Objective - Vital Signs Vital signs: Vital Signs Temp 97.2 F L 12/08/16 11:16 Pulse 54 L 12/08/16 11:16 Resp 16 12/08/16 11:16 BP 156/72 12/08/16 11:16 Pulse Ox 98 12/08/16 11:16 Intake & Output 12/07/16 12/08/16 12/08/16 18:59 06:59 18:59 Intake Total 920 800 180 Output Total 2 289 Balance 918 800 -109 Weight 58.9 kg 63.5 kg Intake: IV 560 800 Sodium Chloride 0.9% 1, 560 800 000 ml @ 100 mls/hr IV . Q10H STA Rx#:[id number] Oral 360 180 Output: Post Void Residual 289 Stool 2 Other: Voiding Method Diaper Diaper Toilet Diaper # Voids 1 1 - Exam PHYSICAL EXAMINATION: HEENT: Head is atraumatic, normocephalic. Pupils equal, round. Neck is supple. There is no elevated jugular venous pressure. No carotid bruit bilaterally. HEART EXAMINATION: Heart sounds regular, S1 and S2 normal. No murmur or gallop heard. CHEST EXAMINATION: Lungs are clear to auscultation and precussion. No chest wall tenderness is noted on palpation or with deep breathing. ABDOMEN: Soft, nontender. Bowel sounds are heard. No organomegaly noted. EXTREMITIES: 2+ peripheral pulses with no evidence of peripheral edema and no calf tenderness noted. NEUROLOGIC patient is awake, alert and oriented x3, mild forgetfulness and confusion noted. - Labs CBC & Chem 7: 12/06/16 22:52 12/06/16 22:52 Labs: Abnormal Lab Results - Last 24 Hours (Table) 12/07/16 12/07/16 12/07/16 Range/Units 05:18 12:01 12:29 POC Glucose (mg/dL) 279 H (75-99) mg/dL Hemoglobin A1c 9.4 H (4.2-6.1) % Triglycerides (<150) mg/dL TSH 31.800 H (0.465-4.680) mIU/L Free T4 0.70 L (0.78-2.19) ng/dL Urine Opiates Screen (Negative) ng/mL U Benzodiazepines Scrn (Negative) ng/mL 12/07/16 12/07/16 12/07/16 Range/Units 16:33 19:00 20:56 POC Glucose (mg/dL) 174 H 151 H (75-99) mg/dL Hemoglobin A1c (4.2-6.1) % Triglycerides (<150) mg/dL TSH (0.465-4.680) mIU/L Free T4 (0.78-2.19) ng/dL Urine Opiates Screen Positive H (Negative) ng/mL U Benzodiazepines Scrn Positive H (Negative) ng/mL 12/08/16 12/08/16 12/08/16 Range/Units 05:18 05:58 11:32 POC Glucose (mg/dL) 162 H 211 H (75-99) mg/dL Hemoglobin A1c (4.2-6.1) % Triglycerides 172 H (<150) mg/dL TSH (0.465-4.680) mIU/L Free T4 (0.78-2.19) ng/dL Urine Opiates Screen (Negative) ng/mL U Benzodiazepines Scrn (Negative) ng/mL Assessment and Plan Plan: Assessment and plan #1 questionable syncope #2 fall #3 intermittent chest pain and shortness of breath #4 history of atrial fibrillation, paroxysmal, INR currently 1.0 #5 prior history of PE, current VQ scan low probability PE #6 coronary artery disease with prior coronary artery bypass grafting and stenting #7 diabetes mellitus #8 hypertension #9 hyperlipidemia #10 hypothyroidism, not well controlled, levothyroxine has been resumed #11 Permanent Pacemaker, functioning normally #12 positive orthostatic hypotension, Florinef has been resumed From cardiology's perspective, we will hold lisinopril due to significant hypotension. Continue Florinef. Ensure the patient is adequately hydrated. We recommend keeping the patient for observation for at least another 24 hours. And is at high risk for falling at home. We will continue to monitor the patient provide further recommendations accordingly. INSURANCE COMPLIANCE ANALYST note has been reviewed, I agree with a documented findings and plan of care. Patient was seen and examined.
[2016-12-08 12:59] VITALS: PULSE 60
--- NOTE | 2016-12-08 13:16 | P.DS ---
Providers Date of admission: 12/07/16 01:16 Attending physician: Darlene Sosa Consults: 12/07/16 01:09 Consult Physician Urgent Consulting Provider: Erica Cosme Consult Reason/Comments: cp, syncope Do you want consulting provider notified?: Yes Primary care physician: Jane Urban [facility] Course: This is a Pleasant 71-year-old female with history of hypertension, hyperlipidemia, coronary artery disease with prior coronary artery bypass grafting and stent placement following, atrial fibrillation, PE, sick sinus syndrome, permanent pacemaker, hypothyroidism, diabetes, and asthma. She recently moved here from [place] approximately 3 weeks ago and has not established with healthcare providers as of yet. She apparently has been out of all of her medications for the last 2 weeks. She presented to the emergency department after falling. Patient does not recall feeling dizzy, lightheaded or actually having a syncopal episode however she is a poor historian. She says she may have lost consciousness after falling. Upon arrival, vital signs are stable. Chest x-ray showed no active cardiopulmonary disease. CT of the brain showed cerebral atrophy with no acute intracranial abnormality. Chest x- rays of the pelvis, sacrum and coccyx showed no acute abnormality. EKG showed atrial paced rhythm with nonspecific ST-T wave abnormalities. The patient was previously on warfarin at home, has been out for approximately 2 weeks and INR is 1.0. Troponins were negative 3. Urinalysis was abnormal although patient denied any dysuria nausea or vomiting or fever chills. Considering her syncopal episode" and start her on antibiotics for 3 days patient was discharged on Cipro. Patient has not been taking any of her medications as she says she ran out of all the medications patient is on multiple narcotics including trazodone and Xanax along with oxycodone prescriptions of which will not be refilled today rest of the prescriptions will be provided and patient underwent workup with echocardiogram, VQ scan and bilateral lower limb Doppler all of which came back negative. Telemetry essentially normal sinus rhythm. Patient TSH is high in T4 is low as she is noncompliant with her medications and patient was started back on levothyroxin. 12/08/2016 Patient underwent interrogation of her pacemaker which did not show any significant abnormality and patient will be discharged today patient appears to be highly noncompliant with medications. Patient blood pressure is on on the low side because of which lisinopril will be completely discontinued. PHYSICAL EXAMINATION: GENERAL: The patient is alert and oriented x3, not in any acute distress. Well developed, well nourished. HEENT: Pupils are round and equally reacting to light. EOMI. No scleral icterus. No conjunctival pallor. Normocephalic, atraumatic. No pharyngeal erythema. No thyromegaly. CARDIOVASCULAR: S1 and S2 present. No murmurs, rubs, or gallops. PULMONARY: Chest is clear to auscultation, no wheezing or crackles. ABDOMEN: Soft, nontender, nondistended, normoactive bowel sounds. No palpable organomegaly. MUSCULOSKELETAL: No joint swelling or deformity. EXTREMITIES: No cyanosis, clubbing, or pedal edema. NEUROLOGICAL: Gross neurological examination did not reveal any focal deficits. SKIN: No rashes. #1 possible syncope: Secondary to intravascular depletion and probable low blood pressure vasovagal event patient is highly noncompliant with medications counseling was provided all the workup is negative patient will be discharged today. #2 atrial fibrillation: Rate controlled presently patient was on Coumadin will be started back on Coumadin and repeat INR need to be done in 3-5 days. #3 hypothyroidism: Patient will be restarted back on levothyroxine patient's TSH is 74 is low. #4 elevated d-dimer secondary to fall nonspecific ruled out PE and DVT in bilateral lower limbs. #5 type 2 diabetes mellitus highly noncompliant with medications counseling was provided patient will be given prescriptions and will be discharged. Patient did to check her blood sugars twice a day. #5 coronary artery disease #6 gastric residual effects disease #7 hyperlipidemia #8 hypertension #9 possibly of urinary tract infection for which patient will be discharged on 3 more days of Cipro #10 depression #11 noncompliance with medications, possible narcotic abuse Patient Condition at Discharge: Fair Plan - Discharge Summary New Discharge Prescriptions: New Atorvastatin [Lipitor] 80 mg PO DAILY #30 tab Fludrocortisone [Florinef] 0.05 mg PO DAILY #30 tab Gabapentin [Neurontin] 800 mg PO TID #60 cap Levothyroxine Sodium [Synthroid] 150 mcg PO DAILY #30 tab Loperamide [Imodium] 2 mg PO QID PRN #0 cap PRN Reason: Diarrhea Ciprofloxacin HCl [Cipro] 500 mg PO Q12HR #6 tablet Continue INSULIN LISPRO (humaLOG) [humaLOG (formulary)] See Protocol SQ AC-TID PRN PRN Reason: Blood Sugar - High Levothyroxine Sodium [Synthroid] 137 mcg PO DAILY Atorvastatin Calcium [Lipitor] 80 mg PO HS #30 Clopidogrel [Plavix] 75 mg PO DAILY #30 Gabapentin [Neurontin] 100 mg PO HS #30 Insulin Glargine [Lantus] 29 units SQ HS #30 Warfarin Sodium [Coumadin] 5 mg PO DAILY #30 Discontinued traZODone HCL 50 mg PO HS Lisinopril [Zestril] 10 mg PO DAILY oxyCODONE HCL [oxyCODONE HCL] 20 mg PO QID Discharge Medication List INSULIN LISPRO (humaLOG) [humaLOG (formulary)] See Protocol SQ AC-TID PRN [History] Atorvastatin Calcium [Lipitor] 80 mg PO HS #30 12/07/16 [Rx] Atorvastatin [Lipitor] 80 mg PO DAILY #30 tab 12/07/16 [Rx] Ciprofloxacin HCl [Cipro] 500 mg PO Q12HR #6 tablet 12/07/16 [Rx] Clopidogrel [Plavix] 75 mg PO DAILY #30 12/07/16 [Rx] Fludrocortisone [Florinef] 0.05 mg PO DAILY #30 tab 12/07/16 [Rx] Gabapentin [Neurontin] 100 mg PO HS #30 12/07/16 [Rx] Gabapentin [Neurontin] 800 mg PO TID #60 cap 12/07/16 [Rx] Insulin Glargine [Lantus] 29 units SQ HS #30 12/07/16 [Rx] Levothyroxine Sodium [Synthroid] 137 mcg PO DAILY 12/07/16 [History] Levothyroxine Sodium [Synthroid] 150 mcg PO DAILY #30 tab 12/07/16 [Rx] Loperamide [Imodium] 2 mg PO QID PRN #0 cap 12/07/16 [Rx] Warfarin Sodium [Coumadin] 5 mg PO DAILY #30 12/07/16 [Rx] Follow up Appointment(s)/Referral(s): Raven Lara MD [Primary Care Provider] - 1 Week (PLEASE CALL TO MAKE APPOINMENT. UNABLE TO GET THROUGH AT THIS TIME) [facility], [NON-STAFF] - 1 Week Patient Instructions/Handouts: Syncope (DC) Discharge Disposition: HOME SELF-CARE
[2016-12-08] MEDS ORDERED: WARFARIN 5 MG TAB PO SCH (18:00)
[2016-12-08] MEDS ORDERED: ATORVASTATIN 80 MG TAB PO SCH (21:00)
== END 2016-12-08 16:50 | disposition home health service (06) | DRG 312 ==
LOC: EC 22:24 → 6SEL 12-07 01:16
PROVIDERS: ADMIT Hospitalist; ATTEND Hospitalist
PROC: 4B02XSZ Measurement of Cardiac Pacemaker, External Approach (ICD-10-PCS; principal; 2016-12-07)
DX: I95.1 Orthostatic hypotension (principal); E11.42 Type 2 diabetes mellitus with diabetic polyneuropathy; I49.5 Sick sinus syndrome; N39.0 Urinary tract infection, site not specified; I48.0 Paroxysmal atrial fibrillation; E86.0 Dehydration; I10 Essential (primary) hypertension; F32.9 Major depressive disorder, single episode, unspecified; E11.9 Type 2 diabetes mellitus without complications; I25.10 Atherosclerotic heart disease of native coronary artery without angina pectoris; I67.9 Cerebrovascular disease, unspecified; F11.10 Opioid abuse, uncomplicated; T46.4X5A Adverse effect of angiotensin-converting-enzyme inhibitors, initial encounter; K21.9 Gastro-esophageal reflux disease without esophagitis; T38.1X6A Underdosing of thyroid hormones and substitutes, initial encounter; T45.516A Underdosing of anticoagulants, initial encounter; T46.6X6A Underdosing of antihyperlipidemic and antiarteriosclerotic drugs, initial encounter; T45.526A Underdosing of antithrombotic drugs, initial encounter; T42.6X6A Underdosing of other antiepileptic and sedative-hypnotic drugs, initial encounter; T38.3X6A Underdosing of insulin and oral hypoglycemic [antidiabetic] drugs, initial encounter; T46.4X6A Underdosing of angiotensin-converting-enzyme inhibitors, initial encounter; T38.0X6A Underdosing of glucocorticoids and synthetic analogues, initial encounter; I25.2 Old myocardial infarction; G89.29 Other chronic pain; M54.9 Dorsalgia, unspecified; R32 Unspecified urinary incontinence; K58.9 Irritable bowel syndrome, unspecified; R29.6 Repeated falls; E03.9 Hypothyroidism, unspecified; E78.5 Hyperlipidemia, unspecified; R94.6 Abnormal results of thyroid function studies; R11.0 Nausea; R07.9 Chest pain, unspecified; R51 Headache; R41.0 Disorientation, unspecified; S30.0XXA Contusion of lower back and pelvis, initial encounter; R79.1 Abnormal coagulation profile; S00.01XA Abrasion of scalp, initial encounter; S50.311A Abrasion of right elbow, initial encounter; G25.81 Restless legs syndrome; J45.909 Unspecified asthma, uncomplicated; Z82.5 Family history of asthma and other chronic lower respiratory diseases; Z82.49 Family history of ischemic heart disease and other diseases of the circulatory system; Z95.1 Presence of aortocoronary bypass graft; Z86.711 Personal history of pulmonary embolism; Z79.4 Long term (current) use of insulin; Z79.01 Long term (current) use of anticoagulants; Z79.899 Other long term (current) drug therapy; Z79.02 Long term (current) use of antithrombotics/antiplatelets; Z85.850 Personal history of malignant neoplasm of thyroid; Z85.21 Personal history of malignant neoplasm of larynx; Z86.010 Personal history of colon polyps; Z90.710 Acquired absence of both cervix and uterus; Z87.440 Personal history of urinary (tract) infections; Z87.828 Personal history of other (healed) physical injury and trauma; Z71.3 Dietary counseling and surveillance; Z91.81 History of falling; Z86.19 Personal history of other infectious and parasitic diseases; Z87.891 Personal history of nicotine dependence; Z95.0 Presence of cardiac pacemaker; Z95.5 Presence of coronary angioplasty implant and graft; Z91.14 Patient's other noncompliance with medication regimen; Z92.241 Personal history of systemic steroid therapy; Z90.02 Acquired absence of larynx; Z96.612 Presence of left artificial shoulder joint; Z90.49 Acquired absence of other specified parts of digestive tract; Z86.79 Personal history of other diseases of the circulatory system; Z51.81 Encounter for therapeutic drug level monitoring; W18.30XA Fall on same level, unspecified, initial encounter; Y93.01 Activity, walking, marching and hiking; Y92.096 Garden or yard of other non-institutional residence as the place of occurrence of the external cause
CPT/HCPCS: 36415; 70450; 71020; 72170; 72220; 78582; 80053; 80061; 80306; 81001; 82550; 82553; 83036; 84439; 84443; 84484; 85025; 85379; 85610; 85730; 87324; 93005; 93306; 93970; 94640; 94760; 96361; 96374; 99285

== ENCOUNTER 2017-03-15 14:56 | Inpatient (IN) | payer MEDICARE ==
[2017-03-15] MEDS ORDERED: ASPIRIN 81 MG PO STA (15:27)
[2017-03-15] MEDS ORDERED: NITROGLYCERIN SL TABS 0.4 MG TAB SUBLINGUAL STA (15:27)
[2017-03-15] MEDS ORDERED: ONDANSETRON 4 MG/2 ML VIAL IVP STA ×2 (15:28→16:39)
--- NOTE | 2017-03-15 15:41 | ED ---
General Adult HPI <Elton Way - Last Filed: 03/15/17 16:20> - General Source: patient, EMS, RN notes reviewed Mode of arrival: EMS Limitations: no limitations <VictorianoHector - Last Filed: 03/15/17 16:46> - General Chief complaint: Nausea/Vomiting/Diarrhea Stated complaint: Light Headed Time Seen by Provider: 03/15/17 15:23 - History of Present Illness Initial comments: Patient is a 71-year-old female who presents emergency room today with chief complaint of nausea vomiting chest pain. Patient does admit that she was at her neurologist's office. She states she was sitting down. She states she went to get up and skin feeling dizzy lightheaded and nauseated. She admits that she's experiencing some chest discomfort anterior chest wall. Scratchiness achy. Currently rates it 09/20. Patient denies any other complaints or symptoms. Patient denies any recent fever, chills, shortness of breath, back pain, numbness or tingling, dysuria or hematuria, constipation or diarrhea, headaches or visual changes, or any other complaints. (Hector Pastrana) - Related Data Home Medications Medication Instructions Recorded Confirmed Levothyroxine Sodium [Synthroid] 137 mcg PO DAILY 12/07/16 03/15/17 Insulin Aspart [NovoLOG Flexpen] See Protocol SQ AC-TID 01/04/17 03/15/17 Insulin Glargine [Lantus] 60 unit SQ DAILY 01/04/17 03/15/17 Warfarin Sodium [Coumadin] 5 mg PO HS 01/04/17 03/15/17 Montelukast [Singulair] 10 mg PO HS 03/15/17 03/15/17 oxyCODONE-APAP 10-325MG [Percocet 1 tab PO TID PRN 03/15/17 03/15/17 10-325 mg] traZODone HCL 150 mg PO HS 03/15/17 03/15/17 Previous Rx's Medication Instructions Recorded Atorvastatin Calcium [Lipitor] 80 mg PO HS #30 12/07/16 Clopidogrel [Plavix] 75 mg PO DAILY #30 12/07/16 Gabapentin [Neurontin] 800 mg PO TID #60 cap 12/07/16 Allergies Allergy/AdvReac Type Severity Reaction Status Date / Time No Known Allergies Allergy Verified 03/15/17 16:28 Review of Systems ROS Other: All systems not noted in ROS Statement are negative. <Elton Way - Last Filed: 03/15/17 16:20> ROS Other: All systems not noted in ROS Statement are negative. <Hector Pastrana - Last Filed: 03/15/17 16:46> ROS Statement: Those systems with pertinent positive or pertinent negative responses have been documented in the HPI. Past Medical History Past Medical History: Atrial Fibrillation, Asthma, Coronary Artery Disease (CAD) , Cancer, Chest Pain / Angina, Diabetes Mellitus, GERD/Reflux, Hyperlipidemia, Hypertension, Myocardial Infarction (RI), Neurologic Disorder, Pulmonary Embolus (PE), Thyroid Disorder Additional Past Medical History / Comment(s): gastroenteritis. Additional hx: incontinent urine and stool, IBS, hemmorhoids, colonic polyps, R femur acetabular impingement syndrome, UTI with sepsis, DDD, RLS, neuropathy bilateral hands and feet, thyroid cancer with thyroidectomy, diverticulitis, pt takes coumadin for PE's, arthiritis, chronic back pain, laryngeal cancer with surgical removal, syncope Last Myocardial Infarction Date:: 2011 or 2012 per pt History of Any Multi-Drug Resistant Organisms: None Reported Date of last positivie culture/infection: None MDRO Source:: None Past Surgical History: Adenoidectomy, Bladder Surgery, Bowel Resection, Cholecystectomy, Coronary Bypass/CABG, Heart Catheterization With Stent, Hysterectomy, Joint Replacement, Orthopedic Surgery, Pacemaker, Tonsillectomy, Tubal Ligation Additional Past Surgical History / Comment(s): CABG 3 vessel in 2006, cardiac cath with stents 2007 and 2011, pacer 2011, total thyroidectomy, lap [place]ia [place], total left shoulder, R shoulder arthroscopy, partial colectomy due to diverticulitis, bladder suspension and bladder repair and mesh x 2, rectal wall repair, hysterectomy 1977, laryngeal surgery for cancer, colonoscopy, EGD with bx, nasal deviated septum surgical correction, L knee arthroscopy. Past Anesthesia/Blood Transfusion Reactions: No Reported Reaction Additional Past Anesthesia/Blood Transfusion Reaction / Comment(s): Pt has recieved blood without any reaction. Date of Last Stent Placement:: 2011 Type of Cardiac Device: Permanent Pacemaker Device Placement Date:: 2010 or 2011 in [place], [place] Past Psychological History: No Psychological Hx Reported Smoking Status: Current some day smoker Past Alcohol Use History: None Reported Past Drug Use History: None Reported - Past Family History Father Family Medical History: Congestive Heart Failure (CHF), COPD Additional Family Medical History / Comment(s): Father at age 61 yrs of CHF and COPD. Mother Family Medical History: Congestive Heart Failure (CHF), COPD <Hector Pastrana - Last Filed: 03/15/17 16:46> General Exam <Elton Way - Last Filed: 03/15/17 16:20> Limitations: no limitations <Hector Pastrana - Last Filed: 03/15/17 16:46> - General Exam Comments Initial Comments: General: The patient is awake and alert, in no distress, and does not appear acutely ill. Eye: Pupils are equal, round and reactive to light, extra-ocular movements are intact. No nystagmus. There is normal conjunctiva bilaterally. No signs of icterus. Ears, nose, mouth and throat: There are moist mucous membranes and no oral lesions. Neck: The neck is supple, there is no tenderness or JVD. Cardiovascular: There is a regular rate and rhythm. No murmur, rub or gallop is appreciated. Respiratory: Lungs are clear to auscultation, respirations are non-labored, breath sounds are equal. No wheezes, stridor, rales, or rhonchi. Gastrointestinal: Soft, non-distended, non-tender abdomen without masses or organomegaly noted. There is no rebound or guarding present. No CVA tenderness. Bowel sounds are unremarkable. Musculoskeletal: Normal ROM, no tenderness. Strength 5/5. Sensation intact. Pulses equal bilaterally 2+. Neurological: A&O x 3. CN II-XII intact, There are no obvious motor or sensory deficits. Coordination appears grossly intact. Speech is normal. Skin: Skin is warm and dry and no rashes or lesions are noted. Psychiatric: Cooperative, appropriate mood & affect, normal judgment. (Pastrana Hector) Course <Elton Way - Last Filed: 03/15/17 16:20> <Hector Pastrana - Last Filed: 03/15/17 16:46> Vital Signs 03/15/17 03/15/17 15:00 15:50 Temperature 96.9 F L Pulse Rate 60 61 Respiratory 14 16 Rate Blood Pressure 204/82 125/68 O2 Sat by Pulse 99 99 Oximetry - Reevaluation(s) Reevaluation #1: 03/15/17 16:20 Chloride is personally do a [id number] evaluation patient did discuss the findings with her. Patient will be admitted for evaluation of chest pain. I did discuss case with Dr. Steele. (Elton Way) EKG Findings - EKG Comments: EKG Findings:: EKG performed at 1515: Shows an electronically paced rhythm at 60 bpm. AR interval 98. QRS 84. QT/QTc 426/426. No acute ST changes. Compared to previous EKG on 01/05/2017. <Hector Pastrana - Last Filed: 03/15/17 16:46> Medical Decision Making - Lab Data Result diagrams: 03/15/17 15:45 03/15/17 15:[address] <[address] - Last Filed: 03/15/17 16:20> - Lab Data Result diagrams: 03/15/17 15:45 03/15/17 15:45 <Hector Pastrana - Last Filed: 03/15/17 16:46> - Medical Decision Making Patient's EKG is reviewed. See changes. Patient's chest x-ray is negative for any acute abnormalities. Patient's labs show negative cardiac enzymes. Patient will be admitted for serial enzymes. Patient is aware the plan states understanding. (Hector Pastrana) - Lab Data Lab Results 03/15/17 03/15/17 03/15/17 Range/Units 15:45 15:45 15:45 WBC 7.9 (3.8-10.6) k/uL RBC 4.61 (3.80-5.40) m/uL Hgb 14.4 (11.4-16.0) gm/dL Hct 42.3 (34.0-46.0) % MCV 91.7 (80.0-100.0) fL MCH 31.3 (25.0-35.0) pg MCHC 34.2 (31.0-37.0) g/dL RDW 12.7 (11.5-15.5) % Plt Count 182 (150-450) k/uL Neutrophils % 72 % Lymphocytes % 21 % Monocytes % 5 % Eosinophils % 1 % Basophils % 1 % Neutrophils # 5.7 (1.3-7.7) k/uL Lymphocytes # 1.6 (1.0-4.8) k/uL Monocytes # 0.4 (0-1.0) k/uL Eosinophils # 0.0 (0-0.7) k/uL Basophils # 0.0 (0-0.2) k/uL PT (9.0-12.0) sec INR (<1.2) APTT (22.0-30.0) sec Sodium 143 (137-145) mmol/L Potassium 3.7 (3.5-5.1) mmol/L Chloride 105 (98-107) mmol/L Carbon Dioxide 23 (22-30) mmol/L Anion Gap 15 mmol/L BUN 17 (7-17) mg/dL Creatinine 0.70 (0.52-1.04) mg/dL Est GFR (MDRD) Af Amer >60 (>60 ml/min/1.73 sqM) Est GFR (MDRD) Non-Af >60 (>60 ml/min/1.73 sqM) Glucose 112 H (74-99) mg/dL Calcium 10.4 H (8.4-10.2) mg/dL Magnesium 2.2 (1.6-2.3) mg/dL Total Bilirubin 1.0 (0.2-1.3) mg/dL AST 17 (14-36) U/L ALT 29 (9-52) U/L Alkaline Phosphatase 76 (38-126) U/L Total Creatine Kinase 50 (30-135) U/L CK-MB (CK-2) 1.9 (0.0-2.4) ng/mL CK-MB (CK-2) Rel Index 3.8 Troponin I <0.012 (0.000-0.034) ng/mL Total Protein 7.4 (6.3-8.2) g/dL Albumin 4.8 (3.5-5.0) g/dL 03/15/17 Range/Units 15:45 WBC (3.8-10.6) k/uL RBC (3.80-5.40) m/uL Hgb (11.4-16.0) gm/dL Hct (34.0-46.0) % MCV (80.0-100.0) fL MCH (25.0-35.0) pg MCHC (31.0-37.0) g/dL RDW (11.5-15.5) % Plt Count (150-450) k/uL Neutrophils % % Lymphocytes % % Monocytes % % Eosinophils % % Basophils % % Neutrophils # (1.3-7.7) k/uL Lymphocytes # (1.0-4.8) k/uL Monocytes # (0-1.0) k/uL Eosinophils # (0-0.7) k/uL Basophils # (0-0.2) k/uL PT 10.4 (9.0-12.0) sec INR 1.1 (<1.2) APTT 21.6 L (22.0-30.0) sec Sodium (137-145) mmol/L Potassium (3.5-5.1) mmol/L Chloride (98-107) mmol/L Carbon Dioxide (22-30) mmol/L Anion Gap mmol/L BUN (7-17) mg/dL Creatinine (0.52-1.04) mg/dL Est GFR (MDRD) Af Amer (>60 ml/min/1.73 sqM) Est GFR (MDRD) Non-Af (>60 ml/min/1.73 sqM) Glucose (74-99) mg/dL Calcium (8.4-10.2) mg/dL Magnesium (1.6-2.3) mg/dL Total Bilirubin (0.2-1.3) mg/dL AST (14-36) U/L ALT (9-52) U/L Alkaline Phosphatase (38-126) U/L Total Creatine Kinase (30-135) U/L CK-MB (CK-2) (0.0-2.4) ng/mL CK-MB (CK-2) Rel Index Troponin I (0.000-0.034) ng/mL Total Protein (6.3-8.2) g/dL Albumin (3.5-5.0) g/dL Disposition <Elton Way - Last Filed: 03/15/17 16:20> Time of Disposition: 16:46 <Hector Pastrana - Last Filed: 03/15/17 16:46> Clinical Impression: Chest pain, Nausea & vomiting Disposition: ADMITTED IP TO THIS [facility] Condition: Stable Referrals: Raven Lara MD [Primary Care Provider] - 1-2 days
[2017-03-15 16:11] LABS: ALT 29 U/L (9-52); AST 17 U/L (14-36); Albumin 4.8 g/dL (3.5-5.0); Alkaline Phosphatase 76 U/L (38-126); Anion Gap 15 mmol/L; Blood Urea Nitrogen 17 mg/dL (7-17); Calcium 10.4 mg/dL (8.4-10.2); Carbon Dioxide 23 mmol/L (22-30); Chloride 105 mmol/L (98-107); Glucose 112 mg/dL (74-99); Magnesium 2.2 mg/dL (1.6-2.3); Potassium 3.7 mmol/L (3.5-5.1); Sodium 143 mmol/L (137-145); Total Protein 7.4 g/dL (6.3-8.2)
--- NOTE | 2017-03-15 16:12 | XR ---
EXAMINATION TYPE: XR chest 2V DATE OF EXAM: 03/15/2017 COMPARISON: NONE HISTORY: Shortness of breath TECHNIQUE: Frontal and lateral views of the chest are obtained. FINDINGS: Scattered senescent parenchymal changes noted. Hyperinflation compatible with COPD. No evidence for infiltrate. No evidence for atelectasis. Heart size is stable. Mediastinal structures are stable and grossly unremarkable. No evidence for hilar prominence. Degenerative changes dorsal spine. IMPRESSION: 1. No evidence for acute pulmonary disease.
[2017-03-15 16:15] LABS: Basophils % (A) 1 %; Eosinophils % (A) 1 %; HCT 42.3 % (34.0-46.0); HGB 14.4 gm/dL (11.4-16.0); Lymphocytes # (A) 1.6 k/uL (1.0-4.8); Lymphocytes % (A) 21 %; MCH 31.3 pg (25.0-35.0); MCHC 34.2 g/dL (31.0-37.0); MCV 91.7 fL (80.0-100.0); Mean Platelet Volume 6.5; Monocytes # (A) 0.4 k/uL (0-1.0); Monocytes % (A) 5 %; Neutrophils # (A) 5.7 k/uL (1.3-7.7); Neutrophils % (A) 72 %; Platelet Count 182 k/uL (150-450); RBC 4.61 m/uL (3.80-5.40); RDW 12.7 % (11.5-15.5); WBC 7.9 k/uL (3.8-10.6)
[2017-03-15 16:18] LABS: Creatine Kinase 50 U/L (30-135)
[2017-03-15 16:31] LABS: Creatine Kinase MB 1.9 ng/mL (0.0-2.4); Troponin I <0.012 ng/mL (0.000-0.034)
[2017-03-15 16:36] LABS: INR 1.1 (<1.2); Partial Thromboplastin Time 21.6 sec (22.0-30.0); Prothrombin Time 10.4 sec (9.0-12.0)
[2017-03-15] MEDS ORDERED: NITROGLYCERIN SL TABS 0.4 MG TAB SUBLINGUAL PRN (16:46)
[2017-03-15] MEDS ORDERED: HEPARIN SODIUM,PORCINE 5,000 UNIT/ML 1 ML VIAL IV ONE (16:46)
[2017-03-15] MEDS ORDERED: SODIUM CHLORIDE 0.9% 1,000 ML IV ONE (16:46)
[2017-03-15] MEDS ORDERED: HEPARIN SOD,PORK IN 0.45% NACL 25,000 UNIT in 0.45% NACL 1 500ML.BAG IV SCH (17:00)
[2017-03-15] MEDS ORDERED: NITROGLYCERIN OINT 1 INCH/GM PACKET TOPICAL STA (17:24)
[2017-03-15] MEDS ORDERED: TEMAZEPAM 15 MG CAP PO PRN (19:39)
[2017-03-15] MEDS: ONDANSETRON 4 MG/2 ML VIAL IVP PRN (19:48)
[2017-03-15] MEDS: HYDROmorphone 1 MG/ML 1 ML SYRINGE IVP PRN (19:58)
[2017-03-15] MEDS ORDERED: diphenhydrAMINE 50 MG/ML 1 ML VIAL IVP PRN (20:26)
[2017-03-15] MEDS ORDERED: METOCLOPRAMIDE 5 MG/ML 2 ML VIAL IVP PRN (20:26)
[2017-03-15 20:50] LABS: Glucose,Whole Blood 161 mg/dL (75-99)
[2017-03-15] MEDS ORDERED: WARFARIN 5 MG TAB PO SCH (21:00)
[2017-03-15 21:27] LABS: Creatine Kinase MB 2.2 ng/mL (0.0-2.4); Troponin I 0.016 ng/mL (0.000-0.034)
[2017-03-15] MEDS: INSULIN ASPART 100 UNIT/ML 1 ML 10 ML VIAL SQ SCH (21:56)
[2017-03-15] MEDS: GABAPENTIN 400 MG CAP PO SCH (22:14)
[2017-03-15] MEDS: MONTELUKAST 10 MG TAB PO SCH (22:14)
[2017-03-15] MEDS: traZODone HCL 50 MG TAB PO SCH (22:14)
[2017-03-15] MEDS: ATORVASTATIN 80 MG TAB PO SCH (22:14)
[2017-03-15] MEDS: PANTOPRAZOLE 40 MG/10 ML VIAL IVP SCH (22:15)
--- NOTE | 2017-03-15 22:25 | HP ---
HISTORY AND PHYSICAL DATE OF SERVICE: 03/15/2017 CHIEF COMPLAINTS: Abdominal and chest pain as well as vomiting and presyncope. HISTORY OF PRESENT ILLNESS: This 71-year-old woman with a past medical history of multiple medical problems including atrial fibrillation, CAD, history of diabetes, hypertension, myocardial infarction, history of pulmonary embolism being followed by Dr. Lara in the outpatient setting apparently was in Dr. Gordon's office for the preliminary testing before inserting a pain pump. Apparently in the office, the patient passed out almost syncopal episode. Subsequently patient had weakness, aching and chills and the patient felt dizzy. Patient taken to [facility] and was admitted for further evaluation and treatment. Patient also complaining of pain in the upper abdomen as well as radiating chest pain up to the left shoulder. The patient also had an episode of vomiting and the patient admitted for further evaluation and treatment. The patient also had hypotension in the office, but hypertension in the office. There is no history of fever, chills at this time. PAST MEDICAL HISTORY: History of atrial fibrillation, history of CAD, chest pain, GERD, diabetes, hypertension, hyperlipidemia, myocardial infarction, history of pulmonary embolism. MEDICATIONS: Prior to admission include home medications are: 1. Trazodone 150 mg p.o. q.h.s. 2. Oxycodone 10 mg t.i.d. p.r.n. 3. Coumadin 5 mg q.h.s. 4. Singular 10 mg q.h.s. 5. Synthroid 137 mcg p.o. daily. 6. Lantus 60 units subcu daily. 7. NovoLog FlexPen a.c. t.i.d. 8. Neurontin 800 mg t.i.d. 9. Plavix 75 mg p.o. daily. 10.Lipitor 80 mg q.h.s. ALLERGIES: None. FAMILY HISTORY: History of CHF and COPD in the family. SOCIAL HISTORY: History of smoking on a daily basis. No history of alcohol intake. REVIEW OF SYSTEMS: ENT: As mentioned earlier. Cardiovascular System: As mentioned earlier. RESPIRATORY: As mentioned earlier. GI: No nausea or vomiting. : No dysuria. Nervous system: No numbness, weakness. Allergy/Immunology: No asthma or hayfever. Musculoskeletal as mentioned earlier. Hematology/Oncology: No history of anemia. Endocrine: Hypothyroidism. Constitutional: As mentioned earlier. Dermatology negative. Rheumatology negative. Psychiatric : As mentioned earlier. PHYSICAL EXAMINATION: Alert and oriented x3. Pulse 64, blood pressure 118/92, respiration 18, temperature 98.4, pulse ox 100% on room air. HEENT is conjunctivae normal. Oral mucosa moist. Neck is no jugular venous distention. No carotid bruit. No lymph node enlargement. Cardiovascular system: S1, S2 muffled. Respiratory: Breath sounds diminished in the bases. No rhonchi. No crackles. ABDOMEN: Soft, nontender. No mass palpable. Legs no edema. No swelling. Central nervous system: Higher functions as mentioned earlier. Moves all four extremities. No focal deficits. Lymphatics: No lymph nodes palpable in the neck, axillae or groin. SKIN: No ulcer, rash or bleeding. LABS: CBC within normal limits. INR is 1.1. Calcium is 10.4. ASSESSMENT: 1. Chest pain, abdominal pain for evaluation rule out coronary artery disease. 2. Possible acute gastritis. 3. Presyncope, rule out orthostatic hypotension. 4. History of atrial fibrillation. 5. History of asthma. 6. History of diabetes type 2. 7. Gastroesophageal reflux disease. 8. Hypertension. 9. History of myocardial infarction. 10.History of pulmonary embolism. 11.History of degenerative joint disease. 12.History of restless leg syndrome. 13.History of chronic pain syndrome. 14.History of adenoidectomy. 15.History of coronary artery disease, coronary artery bypass grafting, stent. 16.History of pacemaker. RECOMMENDATIONS AND DISCUSSION: In this 71-year-old woman who presented with multiple complex medical issues, we will monitor the patient closely. Continue the current medications. Continue symptomatic treatment. Otherwise, at this time, I recommend to resume the home medications. Keep the patient n.p.o. or clear liquids. The patient is still asymptomatic. Orthostatic vitals. Cardiology consultation. Overall prognosis guarded because of multiple complex medical issues. Further recommendations to follow. A copy of dictation being forwarded to Dr. Lara, who is the primary physician. [id number] / MARYN: [id number] / [id number]
[2017-03-15] MEDS: oxyCODONE-APAP 10-325MG 1 EACH TAB PO PRN (22:42)
[2017-03-16 01:08] LABS: Hemoglobin A1C 10.2 % (4.0-6.0)
[2017-03-16] MEDS: NITROGLYCERIN OINT 1 INCH/GM PACKET TOPICAL SCH ×2 (02:54→05:54)
[2017-03-16 04:11] LABS: Creatine Kinase 52 U/L (30-135)
[2017-03-16 04:24] LABS: Creatine Kinase MB 2.1 ng/mL (0.0-2.4); Troponin I <0.012 ng/mL (0.000-0.034)
[2017-03-16] MEDS: HYDROmorphone 1 MG/ML 1 ML SYRINGE IVP PRN (04:53)
[2017-03-16] MEDS: LEVOTHYROXINE 137 MCG TAB PO SCH (05:54)
[2017-03-16 06:46] LABS: Glucose,Whole Blood 150 mg/dL (75-99)
[2017-03-16 06:58] LABS: Basophils % (A) 1 %; Eosinophils # (A) 0.1 k/uL (0-0.7); Eosinophils % (A) 1 %; HCT 38.2 % (34.0-46.0); HGB 12.6 gm/dL (11.4-16.0); Lymphocytes # (A) 1.7 k/uL (1.0-4.8); Lymphocytes % (A) 24 %; MCH 30.9 pg (25.0-35.0); MCHC 32.9 g/dL (31.0-37.0); MCV 93.9 fL (80.0-100.0); Monocytes # (A) 0.3 k/uL (0-1.0); Monocytes % (A) 4 %; Neutrophils # (A) 5.1 k/uL (1.3-7.7); Neutrophils % (A) 70 %; Platelet Count 175 k/uL (150-450); RBC 4.07 m/uL (3.80-5.40); RDW 12.5 % (11.5-15.5); WBC 7.3 k/uL (3.8-10.6)
[2017-03-16 07:05] LABS: INR 1.1 (<1.2); Partial Thromboplastin Time 59.5 sec (22.0-30.0); Prothrombin Time 11.1 sec (9.0-12.0)
[2017-03-16 07:37] LABS: Anion Gap 8 mmol/L; Blood Urea Nitrogen 17 mg/dL (7-17); Calcium 9.3 mg/dL (8.4-10.2); Carbon Dioxide 24 mmol/L (22-30); Chloride 108 mmol/L (98-107); Cholesterol 233 mg/dL (<200); Glucose 166 mg/dL (74-99); HDL Cholesterol 56 mg/dL (40-60); LDL Cholesterol,Calculated 145 mg/dL (0-99); Potassium 4.1 mmol/L (3.5-5.1); Sodium 140 mmol/L (137-145); Triglycerides 158 mg/dL (<150)
[2017-03-16] MEDS ORDERED: CLOPIDOGREL 75 MG TAB PO SCH (09:00)
[2017-03-16] MEDS ORDERED: ASPIRIN 325 MG TAB PO SCH (09:00)
--- NOTE | 2017-03-16 09:23 | P.CRDCN ---
History of Present Illness History of present illness: Patient interviewed and examined. Please see full dictation by nurse practitioner Patient presented with nausea and vomiting as well as a syncopal spell in the neurologists office as she will be evaluated for pain pump. She is a dual- chamber pacemaker implanted at an outside hospital She's been a patient of Dr. KURT Cobb Heart sounds are normal abdomen is soft nontender She denies any chest discomfort at this time She has known coronary artery disease and she underwent coronary angiography by Dr. Cobb about 2 years back She has diabetes, dyslipidemia LDL is high and apparently she is on atorvastatin 80 mg by mouth daily Suggest Interrogation of the dual-chamber pacemaker [facility] Continue cardiac medications Follow-up with Dr. Cobb as an outpatient within the next 2-3 weeks Past Medical History Past Medical History: Atrial Fibrillation, Asthma, Coronary Artery Disease (CAD) , Cancer, Chest Pain / Angina, Diabetes Mellitus, GERD/Reflux, Hyperlipidemia, Hypertension, Myocardial Infarction ([place]), Neurologic Disorder, Pulmonary Embolus (PE), Thyroid Disorder Additional Past Medical History / Comment(s): gastroenteritis. Additional hx: incontinent urine and stool, IBS, hemmorhoids, colonic polyps, R femur acetabular impingement syndrome, UTI with sepsis, DDD, RLS, neuropathy bilateral hands and feet, thyroid cancer with thyroidectomy, diverticulitis, pt takes coumadin for PE's, arthiritis, chronic back pain, laryngeal cancer with surgical removal, syncope Last Myocardial Infarction Date:: 2011 or 2012 per pt History of Any Multi-Drug Resistant Organisms: None Reported Date of last positivie culture/infection: None MDRO Source:: None Past Surgical History: Adenoidectomy, Bladder Surgery, Bowel Resection, Cholecystectomy, Coronary Bypass/CABG, Heart Catheterization With Stent, Hysterectomy, Joint Replacement, Orthopedic Surgery, Pacemaker, Tonsillectomy, Tubal Ligation Additional Past Surgical History / Comment(s): CABG 3 vessel in 2006, cardiac cath with stents 2007 and 2011, pacer 2011, total thyroidectomy, lap maria del rosario, total left shoulder, R shoulder arthroscopy, partial colectomy due to diverticulitis, bladder suspension and bladder repair and mesh x 2, rectal wall repair, hysterectomy 1977, laryngeal surgery for cancer, colonoscopy, EGD with bx, nasal deviated septum surgical correction, L knee arthroscopy. Past Anesthesia/Blood Transfusion Reactions: No Reported Reaction Additional Past Anesthesia/Blood Transfusion Reaction / Comment(s): Pt has recieved blood without any reaction. Date of Last Stent Placement:: 2011 Type of Cardiac Device: Permanent Pacemaker Device Placement Date:: 2010 or 2011 in [place], [place] Past Psychological History: No Psychological Hx Reported Additional Psychological History / Comment(s): Pt lives with a "friend" with her 2 cats. She is normally independent. She has a cane and walker and electric wheelchair. She has no home care. She no longer drives a car- she uses [employer] for ride needs. 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 Smoking Status: Current some day smoker Past Alcohol Use History: None Reported Additional Past Alcohol Use History / Comment(s): Pt states she started smoking about 1963. patient states she stil smokes a cigarette on occasion. Past Drug Use History: None Reported - Past Family History Father Family Medical History: Congestive Heart Failure (CHF), COPD Additional Family Medical History / Comment(s): Father at age 61 yrs of CHF and COPD. Mother Family Medical History: Congestive Heart Failure (CHF), COPD Medications and Allergies Home Medications Medication Instructions Recorded Confirmed Type Atorvastatin Calcium [Lipitor] 80 mg PO HS #30 12/07/16 03/15/17 Rx Clopidogrel [Plavix] 75 mg PO DAILY #30 12/07/16 03/15/17 Rx Gabapentin [Neurontin] 800 mg PO TID #60 cap 12/07/16 03/15/17 Rx Levothyroxine Sodium [Synthroid] 137 mcg PO DAILY 12/07/16 03/15/17 History Insulin Aspart [NovoLOG Flexpen] See Protocol SQ AC-TID 01/04/17 03/15/17 History Insulin Glargine [Lantus] 60 unit SQ DAILY 01/04/17 03/15/17 History Warfarin Sodium [Coumadin] 5 mg PO HS 01/04/17 03/15/17 History Montelukast [Singulair] 10 mg PO HS 03/15/17 03/15/17 History oxyCODONE-APAP 10-325MG [Percocet 1 tab PO TID PRN 03/15/17 03/15/17 History 10-325 mg] traZODone HCL 150 mg PO HS 03/15/17 03/15/17 History Allergies Allergy/AdvReac Type Severity Reaction Status Date / Time No Known Allergies Allergy Verified 03/15/17 16:28 Physical Exam Vitals: Vital Signs Temp Pulse Pulse Pulse Pulse Pulse Resp 03/16/17 07:35 98.2 F 67 16 03/16/17 06:04 77 80 70 03/16/17 04:00 98.1 F 66 16 03/16/17 00:00 98.5 F 68 16 03/15/17 20:00 81 18 03/15/17 19:52 97.6 F 63 18 03/15/17 19:05 98.4 F 64 18 03/15/17 18:00 97.1 F L 03/15/17 17:48 60 16 03/15/17 17:18 60 16 03/15/17 16:43 61 16 03/15/17 15:50 61 16 03/15/17 15:00 96.9 F L 60 14 BP BP BP BP BP Pulse Ox 03/16/17 07:35 111/98 98 03/16/17 06:04 106/52 78/44 95/50 03/16/17 04:00 116/60 99 03/16/17 00:00 151/82 94 L 03/15/17 20:00 03/15/17 19:52 182/91 100 03/15/17 19:05 184/92 100 03/15/17 18:00 03/15/17 17:48 168/81 100 03/15/17 17:18 195/79 100 03/15/17 16:43 196/89 96 03/15/17 15:50 125/68 99 03/15/17 15:00 204/82 99 Intake and Output 03/15/17 03/16/17 03/16/17 22:59 06:59 14:59 Other: Voiding Method Toilet Toilet Diaper Diaper # Voids 1 # Bowel Movements 1 Weight 60.237 kg Results 03/16/17 06:26 03/16/17 06:26 Cardiac Enzymes 03/15/17 03/15/17 03/15/17 Range/Units 15:45 15:45 20:35 AST 17 (14-36) U/L CK-MB (CK-2) 1.9 2.2 (0.0-2.4) ng/mL Troponin I <0.012 0.016 (0.000-0.034) ng/mL 03/16/17 Range/Units 03:23 AST (14-36) U/L CK-MB (CK-2) 2.1 (0.0-2.4) ng/mL Troponin I <0.012 (0.000-0.034) ng/mL Coagulation 03/15/17 03/16/17 03/16/17 Range/Units 15:45 00:30 06:26 PT 10.4 11.1 (9.0-12.0) sec APTT 21.6 L 70.8 H 59.5 H (22.0-30.0) sec Lipids 03/16/17 Range/Units 06:26 Triglycerides 158 H (<150) mg/dL Cholesterol 233 H (<200) mg/dL HDL Cholesterol 56 (40-60) mg/dL CBC 03/15/17 03/16/17 Range/Units 15:45 06:26 WBC 7.9 7.3 (3.8-10.6) k/uL RBC 4.61 4.07 (3.80-5.40) m/uL Hgb 14.4 12.6 (11.4-16.0) gm/dL Hct 42.3 38.2 (34.0-46.0) % Plt Count 182 175 (150-450) k/uL Comprehensive Metabolic Panel 03/15/17 03/16/17 Range/Units 15:45 06:26 Sodium 143 140 (137-145) mmol/L Potassium 3.7 4.1 (3.5-5.1) mmol/L Chloride 105 108 H (98-107) mmol/L Carbon Dioxide 23 24 (22-30) mmol/L BUN 17 17 (7-17) mg/dL Creatinine 0.70 0.72 (0.52-1.04) mg/dL Glucose 112 H 166 H (74-99) mg/dL Calcium 10.4 H 9.3 (8.4-10.2) mg/dL AST 17 (14-36) U/L ALT 29 (9-52) U/L Alkaline Phosphatase 76 (38-126) U/L Total Protein 7.4 (6.3-8.2) g/dL Albumin 4.8 (3.5-5.0) g/dL Current Medications Generic Name Dose Route Start Last Admin Trade Name Freq PRN Reason Stop Dose Admin Alprazolam 0.25 mg 03/15/17 19:39 Xanax PO TID PRN Anxiety Aspirin 325 mg 03/16/17 09:00 Aspirin PO DAILY [facility] Atorvastatin Calcium 80 mg 03/15/17 21:00 03/15/17 22:14 Lipitor PO 80 mg HS [facility] Administration Clopidogrel Bisulfate 75 mg 03/16/17 09:00 Plavix PO DAILY [facility] Diphenhydramine HCl 25 mg 03/15/17 20:26 03/15/17 20:34 Benadryl IVP 25 mg ONCE PRN Administration Itching Gabapentin 800 mg 03/15/17 22:00 03/15/17 22:14 Neurontin PO 800 mg TID [facility] Administration Hydromorphone HCl 0.25 mg 03/15/17 19:39 03/16/17 04:53 Dilaudid IVP 0.25 mg Q6HR PRN Administration Severe Pain Sodium Chloride 1,000 mls @ 20 mls/hr 03/15/17 16:46 03/15/17 17:10 Saline 0.9% IV 03/16/17 16:45 20 mls/hr .Q24H ONE Administration Insulin Aspart 0 unit 03/15/17 21:00 03/15/17 21:56 Novolog SQ Not Given [facility] Protocol Insulin Detemir 60 unit 03/16/17 09:00 Levemir SQ DAILY [facility] Levothyroxine Sodium 137 mcg 03/16/17 06:30 03/16/17 05:54 Synthroid PO Not Given DAILY@0630 [facility] Metoclopramide HCl 10 mg 03/15/17 20:26 03/15/17 20:34 Reglan IVP 10 mg Q6HR PRN Administration Nausea Montelukast Sodium 10 mg 03/15/17 21:00 03/15/17 22:14 Singulair PO 10 mg HS [facility] Administration Nitroglycerin 1 inch 03/16/17 00:00 03/16/17 05:54 Nitro-Bid Oint TOPICAL Not Given Q6HR [facility] Ondansetron HCl 4 mg 03/15/17 16:48 03/15/17 19:48 Zofran IVP 4 mg Q6HR PRN Administration Nausea And Vomiting Oxycodone/Acetaminophen 1 each 03/15/17 19:38 03/15/17 22:42 Percocet 10-325 PO 1 each TID PRN Administration MODERATE Pain Pantoprazole Sodium 40 mg 03/15/17 21:00 03/15/17 22:15 Protonix IVP 40 mg BID [facility] Administration Temazepam 15 mg 03/15/17 19:39 Restoril PO HS PRN Insomnia Trazodone HCl 150 mg 03/15/17 21:00 03/15/17 22:14 Desyrel PO 150 mg HS [facility] Administration Intake and Output 03/15/17 03/16/17 03/16/17 22:59 06:59 14:59 Other: Voiding Method Toilet Toilet Diaper Diaper # Voids 1 # Bowel Movements 1 Weight 60.237 kg 03/16/17 06:26 03/16/17 06:26
[2017-03-16] MEDS: INSULIN ASPART 100 UNIT/ML 1 ML 10 ML VIAL SQ SCH ×4 (09:28→22:09)
[2017-03-16] MEDS: GABAPENTIN 400 MG CAP PO SCH ×3 (09:36→22:11)
[2017-03-16] MEDS: INSULIN DETEMIR 100 UNIT/ML 10 ML VIAL SQ SCH (09:37)
[2017-03-16] MEDS: PANTOPRAZOLE 40 MG/10 ML VIAL IVP SCH ×2 (09:37→22:11)
[2017-03-16] MEDS ORDERED: FLUDROCORTISONE 0.1 MG TAB PO SCH (11:00)
[2017-03-16 12:12] LABS: Glucose,Whole Blood 304 mg/dL (75-99)
[2017-03-16] MEDS: ONDANSETRON 4 MG/2 ML VIAL IVP PRN (13:04)
--- NOTE | 2017-03-16 14:08 | P.CRDCN ---
History of Present Illness Consult date: 03/16/17 History of present illness: Mrs. Donahue is a pleasant 71-year-old female with past medical history significant for CABG with subsequent stenting, hypertension, dyslipidemia, paroxysmal atrial fibrillation, pulmonary embolism, sick sinus syndrome with permanent pacemaker implantation, hypothyroidism and diabetes mellitus. She had most of her cardiac care out of state in [place] and [place]. She sees Dr. KURT Cobb as an outpatient, last appointment was 2014. We have been asked to see her in consultation for a pre-syncopal episode yesterday at Dr. Rogers's office after getting a pain shot injection in the back. She states she was sitting on the exam table and waiting for her ride. When he arrived she stood up and walked towards the counter to get her things. She then felt dizzy and lightheaded. She denies loc but did become nauseated and vomited. She denies chest pain, shortness of breath, dizziness, palpitations, diaphoresis, nausea or vomiting at the time of my exam. She is concerned with getting her pain pump implanted. She is somewhat of a poor historian. Plavix was discontinued at recent hospitalization but she continues to take. Again was recommended she stop taking secondary to no recent stenting in the previous year. At the time of my exam patient is very lethargic. Per nursing staff she was up all night agitated, arguing with the staff and pulled out her IV. EKG on arrival sinus mechanism with nonspecific lateral ST changes that are consistent with old EKG's. Chest xray is negative for an acute cardiopulmonary process. Laboratory data reviewed, INR 1.1, potassium 4.1, HDL 56, LDL 145, triglycerides 158, total cholesterol 233. Most recent echocardiogram performed reveals preserved LV function with EF 55-60 % with mild AR and trace MR. Most recent catheterization done by Dr. Cobb in 2014 reveals 2 grafts . GRANT- LAD was occluded with a patent stent of the [place] LAD. Left main is widely patent, RCA totally occluded, SVG to PDA branch of RCA and diagonal branch of LAD with 30-40% narrowing. Current cardiac medications include coumadin 5mg daily, plavix 75mg daily and atorvastatin 80mg daily. Orthostatic vital signs actually reveal the blood pressure rising with movement although all blood pressure readings are low. Telemetry tracings reveal sinus mechanism with no episodes of atrial fibrillation evident. Review of Systems CONSTITUTIONAL: Denies fever. Denies chills. EYES: Denies blurred vision. Denies vision changes. Denies eye pain. EARS, NOSE, MOUTH & THROAT: Denies headache. Denies sore throat. Denies ear pain. CARDIOVASCULAR: Denies chest pain. Denies shortness of breath. Denies orthopnea. Denies PND. Denies palpitations. RESPIRATORY: Denies cough. GASTROINTESTINAL: Denies abdominal pain. Denies diarrhea. Denies constipation. Denies nausea. Denies vomiting. MUSCULOSKELETAL: Complains of lower back pain. INTEGUMENTARY: Denies pruitis. Denies rash. NEUROLOGIC: Denies numbness. Denies tingling. Denies weakness. PSYCHIATRIC: Denies anxiety. Denies depression. ENDOCRINE: Denies fatigue. Denies weight change. Denies polydipsia. Denies polyurina. GENITOURINARY: Denies burning, hematuria or urgency with micturation. HEMATOLOGIC: Denies history of anemia. Denies bleeding. Past Medical History Past Medical History: Atrial Fibrillation, Asthma, Coronary Artery Disease (CAD) , Cancer, Chest Pain / Angina, Diabetes Mellitus, GERD/Reflux, Hyperlipidemia, Hypertension, Myocardial Infarction ([place]), Neurologic Disorder, Pulmonary Embolus (PE), Thyroid Disorder Additional Past Medical History / Comment(s): gastroenteritis. Additional hx: incontinent urine and stool, IBS, hemmorhoids, colonic polyps, R femur acetabular impingement syndrome, UTI with sepsis, DDD, RLS, neuropathy bilateral hands and feet, thyroid cancer with thyroidectomy, diverticulitis, pt takes coumadin for PE's, arthiritis, chronic back pain, laryngeal cancer with surgical removal, syncope Last Myocardial Infarction Date:: 2011 or 2012 per pt History of Any Multi-Drug Resistant Organisms: None Reported Date of last positivie culture/infection: None MDRO Source:: None Past Surgical History: Adenoidectomy, Bladder Surgery, Bowel Resection, Cholecystectomy, Coronary Bypass/CABG, Heart Catheterization With Stent, Hysterectomy, Joint Replacement, Orthopedic Surgery, Pacemaker, Tonsillectomy, Tubal Ligation Additional Past Surgical History / Comment(s): CABG 3 vessel in 2006, cardiac cath with stents 2007 and 2011, pacer 2011, total thyroidectomy, lap maria del rosario, total left shoulder, R shoulder arthroscopy, partial colectomy due to diverticulitis, bladder suspension and bladder repair and mesh x 2, rectal wall repair, hysterectomy 1977, laryngeal surgery for cancer, colonoscopy, EGD with bx, nasal deviated septum surgical correction, L knee arthroscopy. Past Anesthesia/Blood Transfusion Reactions: No Reported Reaction Additional Past Anesthesia/Blood Transfusion Reaction / Comment(s): Pt has recieved blood without any reaction. Date of Last Stent Placement:: 2011 Type of Cardiac Device: Permanent Pacemaker Device Placement Date:: 2010 or 2011 in [place], [place] Past Psychological History: No Psychological Hx Reported Additional Psychological History / Comment(s): Pt lives with a "friend" with her 2 cats. She is normally independent. She has a cane and walker and electric wheelchair. She has no home care. She no longer drives a car- she uses [employer] for ride needs. 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 Smoking Status: Current some day smoker Past Alcohol Use History: None Reported Additional Past Alcohol Use History / Comment(s): Pt states she started smoking about 1963. patient states she stil smokes a cigarette on occasion. Past Drug Use History: None Reported - Past Family History Father Family Medical History: Congestive Heart Failure (CHF), COPD Additional Family Medical History / Comment(s): Father at age 61 yrs of CHF and COPD. Mother Family Medical History: Congestive Heart Failure (CHF), COPD Medications and Allergies Home Medications Medication Instructions Recorded Confirmed Type Atorvastatin Calcium [Lipitor] 80 mg PO HS #30 12/07/16 03/15/17 Rx Clopidogrel [Plavix] 75 mg PO DAILY #30 12/07/16 03/15/17 Rx Gabapentin [Neurontin] 800 mg PO TID #60 cap 12/07/16 03/15/17 Rx Levothyroxine Sodium [Synthroid] 137 mcg PO DAILY 12/07/16 03/15/17 History Insulin Aspart [NovoLOG Flexpen] See Protocol SQ AC-TID 01/04/17 03/15/17 History Insulin Glargine [Lantus] 60 unit SQ DAILY 01/04/17 03/15/17 History Warfarin Sodium [Coumadin] 5 mg PO HS 01/04/17 03/15/17 History Montelukast [Singulair] 10 mg PO HS 03/15/17 03/15/17 History oxyCODONE-APAP 10-325MG [Percocet 1 tab PO TID PRN 03/15/17 03/15/17 History 10-325 mg] traZODone HCL 150 mg PO HS 03/15/17 03/15/17 History Allergies Allergy/AdvReac Type Severity Reaction Status Date / Time No Known Allergies Allergy Verified 03/15/17 16:28 Physical Exam Vitals: Vital Signs Temp Pulse Pulse Pulse Pulse Pulse Resp 03/16/17 07:35 98.2 F 67 16 03/16/17 06:04 77 80 70 03/16/17 04:00 98.1 F 66 16 03/16/17 00:00 98.5 F 68 16 03/15/17 20:00 81 18 03/15/17 19:52 97.6 F 63 18 03/15/17 19:05 98.4 F 64 18 03/15/17 18:00 97.1 F L 03/15/17 17:48 60 16 03/15/17 17:18 60 16 03/15/17 16:43 61 16 03/15/17 15:50 61 16 03/15/17 15:00 96.9 F L 60 14 BP BP BP BP BP Pulse Ox 03/16/17 07:35 111/98 98 03/16/17 06:04 106/52 78/44 95/50 03/16/17 04:00 116/60 99 03/16/17 00:00 151/82 94 L 03/15/17 20:00 03/15/17 19:52 182/91 100 03/15/17 19:05 184/92 100 03/15/17 18:00 03/15/17 17:48 168/81 100 03/15/17 17:18 195/79 100 03/15/17 16:43 196/89 96 03/15/17 15:50 125/68 99 03/15/17 15:00 204/82 99 Intake and Output 03/15/17 03/16/17 03/16/17 22:59 06:59 14:59 Other: Voiding Method Toilet Toilet Diaper Diaper # Voids 1 # Bowel Movements 1 Weight 60.237 kg Blood pressure 111/98 with a heart rate of 67 afebrile GENERAL: This is a 71-year-old female in no apparent distress at the time of my examination. Lethargic and mumbling. HEENT: Head is atraumatic, normocephalic. Pupils are equal, round. Sclerae anicteric. Conjunctivae are clear. Mucous membranes of the mouth are moist. Neck is supple. There is no jugular venous distention. No carotid bruit is heard. LUNGS: Clear to auscultation no wheezes, rales or rhonchi. No chest wall tenderness is noted on palpation or with deep breathing. HEART: Regular rate and rhythm without murmurs, rubs or gallops. S1 and S2 heard. ABDOMEN: Soft, nontender. Bowel sounds are heard. No organomegaly noted. EXTREMITIES: 2+ peripheral pulses with no evidence of peripheral edema and no calf tenderness noted. NEUROLOGIC: Patient is lethargic and talks with eyes closed. She is mumbling her words and seems sleepy during exam. Results 03/16/17 06:26 03/16/17 06:26 Cardiac Enzymes 03/15/17 03/15/17 03/15/17 Range/Units 15:45 15:45 20:35 AST 17 (14-36) U/L CK-MB (CK-2) 1.9 2.2 (0.0-2.4) ng/mL Troponin I <0.012 0.016 (0.000-0.034) ng/mL 03/16/17 Range/Units 03:23 AST (14-36) U/L CK-MB (CK-2) 2.1 (0.0-2.4) ng/mL Troponin I <0.012 (0.000-0.034) ng/mL Coagulation 03/15/17 03/16/17 03/16/17 Range/Units 15:45 00:30 06:26 PT 10.4 11.1 (9.0-12.0) sec APTT 21.6 L 70.8 H 59.5 H (22.0-30.0) sec Lipids 03/16/17 Range/Units 06:26 Triglycerides 158 H (<150) mg/dL Cholesterol 233 H (<200) mg/dL HDL Cholesterol 56 (40-60) mg/dL CBC 03/15/17 03/16/17 Range/Units 15:45 06:26 WBC 7.9 7.3 (3.8-10.6) k/uL RBC 4.61 4.07 (3.80-5.40) m/uL Hgb 14.4 12.6 (11.4-16.0) gm/dL Hct 42.3 38.2 (34.0-46.0) % Plt Count 182 175 (150-450) k/uL Comprehensive Metabolic Panel 03/15/17 03/16/17 Range/Units 15:45 06:26 Sodium 143 140 (137-145) mmol/L Potassium 3.7 4.1 (3.5-5.1) mmol/L Chloride 105 108 H (98-107) mmol/L Carbon Dioxide 23 24 (22-30) mmol/L BUN 17 17 (7-17) mg/dL Creatinine 0.70 0.72 (0.52-1.04) mg/dL Glucose 112 H 166 H (74-99) mg/dL Calcium 10.4 H 9.3 (8.4-10.2) mg/dL AST 17 (14-36) U/L ALT 29 (9-52) U/L Alkaline Phosphatase 76 (38-126) U/L Total Protein 7.4 (6.3-8.2) g/dL Albumin 4.8 (3.5-5.0) g/dL Current Medications Generic Name Dose Route Start Last Admin Trade Name Freq PRN Reason Stop Dose Admin Alprazolam 0.25 mg 03/15/17 19:39 Xanax PO TID PRN Anxiety Aspirin 325 mg 03/16/17 09:00 Aspirin PO DAILY [facility] Atorvastatin Calcium 80 mg 03/15/17 21:00 03/15/17 22:14 Lipitor PO 80 mg HS [facility] Administration Clopidogrel Bisulfate 75 mg 03/16/17 09:00 Plavix PO DAILY [facility] Diphenhydramine HCl 25 mg 03/15/17 20:26 03/15/17 20:34 Benadryl IVP 25 mg ONCE PRN Administration Itching Gabapentin 800 mg 03/15/17 22:00 03/15/17 22:14 Neurontin PO 800 mg TID [facility] Administration Hydromorphone HCl 0.25 mg 03/15/17 19:39 03/16/17 04:53 Dilaudid IVP 0.25 mg Q6HR PRN Administration Severe Pain Heparin Sodium/Sodium Chloride 500 mls @ 14.45 mls/hr 03/15/17 17:00 17:12 25,000 unit/ Sodium Chloride IV 12 units/kg/hr .Q24H [facility] 14.45 mls/hr Protocol Administration 12 UNITS/KG/HR Sodium Chloride 1,000 mls @ 20 mls/hr 03/15/17 16:46 03/15/17 17:10 Saline 0.9% IV 03/16/17 16:45 20 mls/hr .Q24H ONE Administration Insulin Aspart 0 unit 03/15/17 21:00 03/15/17 21:56 Novolog SQ Not Given ACHS [facility] Protocol Insulin Detemir 60 unit 03/16/17 09:00 Levemir SQ DAILY [facility] Levothyroxine Sodium 137 mcg 03/16/17 06:30 03/16/17 05:54 Synthroid PO Not Given DAILY@0630 [facility] Metoclopramide HCl 10 mg 03/15/17 20:26 03/15/17 20:34 Reglan IVP 10 mg Q6HR PRN Administration Nausea Montelukast Sodium 10 mg 03/15/17 21:00 03/15/17 22:14 Singulair PO 10 mg HS [facility] Administration Nitroglycerin 1 inch 03/16/17 00:00 03/16/17 05:54 Nitro-Bid Oint TOPICAL Not Given Q6HR [facility] Ondansetron HCl 4 mg 03/15/17 16:48 03/15/17 19:48 Zofran IVP 4 mg Q6HR PRN Administration Nausea And Vomiting Oxycodone/Acetaminophen 1 each 03/15/17 19:38 03/15/17 22:42 Percocet 10-325 PO 1 each TID PRN Administration MODERATE Pain Pantoprazole Sodium 40 mg 03/15/17 21:00 03/15/17 22:15 Protonix IVP 40 mg BID [facility] Administration Temazepam 15 mg 03/15/17 19:39 Restoril PO HS PRN Insomnia Trazodone HCl 150 mg 03/15/17 21:00 03/15/17 22:14 Desyrel PO 150 mg HS [facility] Administration Intake and Output 03/15/17 03/16/17 03/16/17 22:59 06:59 14:59 Other: Voiding Method Toilet Toilet Diaper Diaper # Voids 1 # Bowel Movements 1 Weight 60.237 kg 03/16/17 06:26 01/03/18 06:26 Assessment and Plan Assessment: ASSESSMENT 1. Questionable pre-syncope 2. Increased agitation and lethargy possibly related to overuse of pain medication 3. Coronary artery disease with subsequent 2-vessel CABG and stenting 4. Paroxysmal atrial fibrillation on intermediate teacher anti-coagulation with coumadin 5. Subtherapeutic INR, questionable whether she is taking at all. 6. Dyslipidemia on statin with LDL 145, questionable whether she is taking at all. PLAN Pacemaker was recently interrogated and revealed proper functionality with no AF /AT burden reported. She no longer requires plavix, stents are over 1 year. Unclear how compliant she is with medication secondary to sub-therapeutic INR. Consider decreasing pain medications and any mind altering medications. If she is consistently falling coumadin may need to be discontinued as well. Please have her follow up with Dr. Cobb as an outpatient. Nurse Practitioner note has been reviewed, I agree with a documented findings and plan of care. Patient was seen and examined.
[2017-03-16] MEDS: oxyCODONE-APAP 10-325MG 1 EACH TAB PO PRN ×2 (15:48→23:45)
[2017-03-16 16:33] LABS: Appearance,Urine Cloudy (Clear); Bacteria,Urine Rare /hpf; Bilirubin,Urine Negative (Negative); Blood,Urine Negative (Negative); Color,Urine Yellow; Glucose,Urine (UA) 3+ (Negative); Hyaline Casts,Urine 4 /lpf (0-2); Ketones,Urine Negative (Negative); Leukocyte Esterase,Urine Negative (Negative); Mucus,Urine Few /hpf; Nitrite,Urine Negative (Negative); PH, Urine 5.5 (5.0-8.0); Protein,Urine Trace (Negative); RBC,Urine 5 /hpf (0-5); Specific Gravity,Urine 1.021 (1.001-1.035); Squamous Epithelial Cell,Urine 7 /hpf (0-4); Urobilinogen,Urine <2.0 mg/dL (<2.0); WBC,Urine 4 /hpf (0-5)
[2017-03-16 17:35] LABS: Glucose,Whole Blood 101 mg/dL (75-99)
[2017-03-16] MEDS: FLUDROCORTISONE 0.1 MG TAB PO SCH (18:38)
[2017-03-16] MEDS: WARFARIN 5 MG TAB PO SCH (18:46)
--- NOTE | 2017-03-16 19:35 | PN ---
PROGRESS NOTE DATE OF SERVICE: 03/16/2017. HISTORY: This is a 71-year-old woman who was admitted with chest pain and possibly gastritis, also presyncope and orthostatic hypotension also. No chest pain. No palpitations. No fever. EXAM: Alert, oriented x3. Pulse 77, blood pressure is 130/94, orthostatic changes present, going down to 84/49. HEENT: Conjunctivae normal. NECK: No jugular venous distention. CARDIOVASCULAR: S1, S2 muffled. RESPIRATORY: Breath sounds diminished in the bases. Few scattered rhonchi and crackles. ABDOMEN: Soft. EXTREMITIES: Legs, no edema. NERVOUS SYSTEM: No focal deficits. LABS: Labs Accu-Cheks 150, 304. Cholesterol is 233. UA noted. INR is 1.1. ASSESSMENT: 1. Chest pain and abdominal pain, rule out coronary artery disease. 2. Possible acute gastritis. 3. Presyncope with orthostatic hypotension. 4. History of atrial fibrillation. 5. History of asthma. 6. History of diabetes mellitus type 2. 7. History of gastroesophageal reflux disease. 8. Hypertension history. 9. History of myocardial infarction. 10.History of pulmonary embolism. 11.History of degenerative joint disease. 12.Restless legs syndrome. 13.Chronic pain syndrome. 14.History of adenoidectomy. 15.History of coronary artery disease, coronary artery bypass grafting with stenting. 16.History of pacemaker. RECOMMENDATIONS AND DISCUSSION: Continue current medications, continue with monitoring and symptomatic treatment. Otherwise I would recommend to add Florinef to the current regimen. Otherwise there is a strong possibility of noncompliance in this patient because the patient is subtherapeutic as far as INR is concerned. I would recommend to continue evaluation by social science professor and continue to monitor. Further recommendations to follow. MMODL / IJN: [id number] /
[2017-03-16] MEDS ORDERED: VANCOMYCIN 1,250 MG in SODIUM CHLORIDE 0.9% 250 ML IVPB STA (20:36)
[2017-03-16] MEDS ORDERED: VANCOMYCIN IV PER PHARMACY 1 EACH MISC MISCELLANE PRN (20:37)
[2017-03-16 20:51] LABS: Glucose,Whole Blood 145 mg/dL (75-99)
[2017-03-16] MEDS: ATORVASTATIN 80 MG TAB PO SCH (22:11)
[2017-03-16] MEDS: traZODone HCL 50 MG TAB PO SCH (22:11)
[2017-03-16] MEDS: MONTELUKAST 10 MG TAB PO SCH (22:12)
[2017-03-16 23:15] VITALS: BMI 21.4
[2017-03-17] MEDS ORDERED: VANCOMYCIN 1,000 MG in SODIUM CHLORIDE 0.9% 250 ML IVPB SCH (06:00)
[2017-03-17] MEDS: FLUDROCORTISONE 0.1 MG TAB PO SCH ×2 (06:13→17:05)
[2017-03-17] MEDS: LEVOTHYROXINE 137 MCG TAB PO SCH (06:14)
[2017-03-17] MEDS: HYDROmorphone 1 MG/ML 1 ML SYRINGE IVP PRN (06:26)
[2017-03-17 07:06] LABS: Glucose,Whole Blood 197 mg/dL (75-99)
[2017-03-17 07:54] LABS: Basophils % (A) 1 %; Eosinophils # (A) 0.1 k/uL (0-0.7); Eosinophils % (A) 2 %; HCT 35.6 % (34.0-46.0); HGB 11.3 gm/dL (11.4-16.0); Lymphocytes # (A) 1.7 k/uL (1.0-4.8); Lymphocytes % (A) 31 %; MCH 30.9 pg (25.0-35.0); MCHC 31.9 g/dL (31.0-37.0); MCV 96.8 fL (80.0-100.0); Mean Platelet Volume 7.3; Monocytes # (A) 0.3 k/uL (0-1.0); Monocytes % (A) 5 %; Neutrophils # (A) 3.3 k/uL (1.3-7.7); Neutrophils % (A) 61 %; Platelet Count 142 k/uL (150-450); RBC 3.67 m/uL (3.80-5.40); WBC 5.4 k/uL (3.8-10.6)
[2017-03-17 08:04] LABS: INR 1.2 (<1.2); Prothrombin Time 11.1 sec (9.0-12.0)
[2017-03-17 08:30] LABS: Anion Gap 7 mmol/L; Blood Urea Nitrogen 14 mg/dL (7-17); Calcium 8.7 mg/dL (8.4-10.2); Carbon Dioxide 23 mmol/L (22-30); Chloride 110 mmol/L (98-107); Glucose 181 mg/dL (74-99); Potassium 3.8 mmol/L (3.5-5.1); Sodium 140 mmol/L (137-145)
[2017-03-17] MEDS: GABAPENTIN 400 MG CAP PO SCH ×3 (08:34→22:08)
[2017-03-17] MEDS: INSULIN ASPART 100 UNIT/ML 1 ML 10 ML VIAL SQ SCH ×4 (08:35→21:14)
[2017-03-17] MEDS: ASPIRIN 81 MG PO SCH (08:35)
[2017-03-17] MEDS: PANTOPRAZOLE 40 MG TABLET PO SCH ×2 (08:35→22:08)
[2017-03-17] MEDS: INSULIN DETEMIR 100 UNIT/ML 10 ML VIAL SQ SCH (09:02)
[2017-03-17 11:48] LABS: Glucose,Whole Blood 121 mg/dL (75-99)
[2017-03-17 12:02] LABS: Amphetamine Screen,Urine Not Detected (NotDetected); Benzodiazepines Screen,Urine Detected (NotDetected); Cocaine Screen,Urine Not Detected (NotDetected); Methadone Screen, Urine Not Detected (NotDetected); Opiate Screen,Urine Detected (NotDetected); Phencyclidine Screen,Urine Not Detected (NotDetected); Tricyclic Antidepressant,Urine Not Detected (NotDetected); Urn Cannabinoid Scrn Not Detected (NotDetected)
[2017-03-17 12:03] LABS: Barbiturate Screen,Urine Not Detected (NotDetected); Oxycodone Screen, Urine Detected (NotDetected)
--- NOTE | 2017-03-17 15:24 | CONS ---
CONSULTATION DATE OF SERVICE: 03/17/2017 REASON FOR CONSULTATION: Positive blood culture. HISTORY OF PRESENT ILLNESS: The patient is a 71-year-old female who was admitted to the hospital at [facility] from neurology office where apparently the patient felt dizzy and passed out. The patient felt some nauseated prior to that episode and some chest pain, but no vomiting. No diarrhea. No fever. No chills. Subsequently, the patient was evaluated by the ER physician. On arrival to the ER, patient has been afebrile. Patient did not have any elevated white count. As a part of the workup, the patient did have a UA that was negative. Influenza serology was negative. She did have blood cultures drawn, which was came in gram-positive cocci. Hence, ID was consulted for further recommendation regarding antibiotic therapy. As of this morning, the patient remains to be afebrile. She denies having any chest pain or shortness of breath. Occasional cough. No abdominal pain. No nausea, vomiting. No diarrhea. The patient did have a pacemaker, that side looks clean on the left chest wall. She has no joint replacement, currently with no cellulitis and no skin wounds. REVIEW OF SYSTEMS: CONSTITUTIONAL: Positive for weakness, no fever. EYES: No complaint. ENT: No complaint. RESPIRATORY: As per HPI. CARDIOVASCULAR: As per HPI. GENITOURINARY: No complaint. GASTROINTESTINAL: No complaint. MUSCULOSKELETAL: No complaint. INTEGUMENTARY: No complaint. PSYCHOLOGICAL: No complaint. ENDOCRINE: No complaint. NEUROLOGIC: No complaint. PAST MEDICAL HISTORY: Significant for atrial fibrillation, asthma, coronary artery disease, diabetes mellitus, gastroesophageal reflux disease, hypertension, hyperlipidemia, pulmonary embolism, UTI. PAST SURGICAL HISTORY: Adenoidectomy, bladder surgery, bowel resection, cholecystectomy, coronary bypass grafting, PTCA with stenting, hysterectomy, pacemaker placement, tonsillectomy and tubal ligation. SOCIAL HISTORY: Current everyday smoker. No drinking or drug use. FAMILY HISTORY: Father history of COPD, congestive heart failure. Mother with COPD, congestive heart failure as well. ALLERGIES: No known drug allergies. MEDICATION: Include the patient is currently on Xanax, aspirin, Lipitor, Benadryl, Florinef, Neurontin, Dilaudid, NovoLog, Levemir, Synthroid, vancomycin pharmacy to dose. She is on Singulair, Zofran, Percocet, Protonix, Restoril, Desyrel, and Coumadin. PHYSICAL EXAMINATION: Her blood pressure is 117/63 with a pulse of 61, temperature of 97.8. She is 94 % on room air. General description is an elderly female, lying in bed in no distress. No tachypnea or accessory muscle for respiration use. HEENT: Shows no pallor or scleral icterus. Oral mucosa is dry. No pharyngeal erythema or thrush NECK: Trachea central, no thyromegaly. LUNGS: Unlabored breathing, clear to auscultation anteriorly. HEART: S1, S2. Regular rate and rhythm. No murmur, the mid left chest wall, pacemaker site looks clean. ABDOMEN: Soft, no tenderness. No guarding. EXTREMITIES: No edema of the feet. SKIN EXAMINATION: No rash or mass palpable. No joint swelling or redness was noticed. NEUROLOGICAL: Patient is awake, alert, oriented x3. Mood and affect normal. LABS: Hemoglobin is 11.8, white count 5.4, BUN of 14, creatinine 0.72. Electrolytes have been normal. Urine was negative. Influenza serology was negative. Blood culture with E coli with negative Staph. DIAGNOSTIC IMPRESSION AND PLAN: Patient with a positive blood culture with coagulase-negative Staph, likely representing a skin contamination as the patient has no clinical disease to go along with it. She is afebrile, white count normal. No evidence of any active cellulitis or wound. PLAN: 1. Will recommend discontinuation of vancomycin as clinically doubt any significant infection. 2. Monitor closely off antibiotic therapy. If she does spike any fever or any change in condition, she may be recultured and started on appropriate antibiotic at that time. MMODL / IJN: [id number] / [facility]
[2017-03-17] MEDS: WARFARIN 5 MG TAB PO SCH (17:06)
[2017-03-17 17:12] LABS: Glucose,Whole Blood 48 mg/dL (75-99)
[2017-03-17 17:12] LABS: Glucose,Whole Blood 52 mg/dL (75-99)
[2017-03-17 17:17] LABS: Glucose,Whole Blood 75 mg/dL (75-99)
[2017-03-17 20:53] LABS: Glucose,Whole Blood 132 mg/dL (75-99)
--- NOTE | 2017-03-17 21:48 | PN ---
PROGRESS NOTE DATE OF SERVICE: 03/17/2017 This 71-year-old woman who was admitted with chest and abdominal pain is being closely monitored. Patient was found to have severe orthostatic hypotension. Patient also had coag-negative staph in the blood from the blood culture, one out of two. There is no history of any fever, rigor, chills. No history of headache, loss of consciousness, seizures. PHYSICAL EXAMINATION: Alert and oriented x3. Pulse 61, blood pressure 117/63 and orthostatic 87/47, respiration 20, temperature 97.8, pulse ox 97% on room air. HEENT: Conjunctivae normal. NECK: No jugular venous distention. CARDIOVASCULAR SYSTEM: S1, S2 muffled. RESPIRATORY SYSTEM: Breath sounds diminished at the bases. A few scattered rhonchi and crackles. ABDOMEN: Soft, non-tender. No mass palpable. LEGS: No edema. No swelling. NERVOUS SYSTEM: No focal deficit. LABS: WBC 5.4, hemoglobin 7.3. Accu-Cheks 120, 152. ASSESSMENT: 1. Chest pain and abdominal pain, possibly musculoskeletal. 2. Myocardial infarction ruled out. Possible acute gastritis. 3. Presyncope as well as orthostatic hypotension. 4. History of atrial fibrillation. 5. History of asthma. 6. Diabetes mellitus, type 2, with hypoglycemia. 7. Gastroesophageal reflux disease. 8. Hypertension. 9. History of myocardial infarction. 10.History of pulmonary embolism. 11.History of degenerative joint disease. 12.History of restless leg syndrome. 13.History of chronic pain syndrome. 14.History of adenoidectomy. 15.History of coronary artery disease, coronary artery bypass grafting and stenting. 16.History of pacemaker. RECOMMENDATIONS AND DISCUSSION: I recommend to continue current medication, continue with the monitoring, symptomatic treatment. Otherwise, at this time we will we will monitor the patient closely. I would recommend holding the anti-diabetic continue with Levemir to 40 and continue to monitor. Further recommendations to follow. MMODL / IJN: [id number] / MTDD
[2017-03-17] MEDS: ATORVASTATIN 80 MG TAB PO SCH (22:07)
[2017-03-17] MEDS: MIDODRINE 5 MG TAB PO SCH (22:07)
[2017-03-17] MEDS: traZODone HCL 50 MG TAB PO SCH (22:08)
[2017-03-17] MEDS: MONTELUKAST 10 MG TAB PO SCH (22:08)
[2017-03-17] MEDS: oxyCODONE-APAP 10-325MG 1 EACH TAB PO PRN (22:14)
[2017-03-18] MEDS: HYDROmorphone 1 MG/ML 1 ML SYRINGE IVP PRN (03:44)
[2017-03-18] MEDS: LEVOTHYROXINE 137 MCG TAB PO SCH (06:38)
[2017-03-18] MEDS: FLUDROCORTISONE 0.1 MG TAB PO SCH ×2 (06:38→17:05)
[2017-03-18 08:11] LABS: Basophils % (A) 1 %; Eosinophils # (A) 0.1 k/uL (0-0.7); Eosinophils % (A) 2 %; HCT 38.7 % (34.0-46.0); HGB 12.1 gm/dL (11.4-16.0); Lymphocytes # (A) 1.8 k/uL (1.0-4.8); Lymphocytes % (A) 39 %; MCH 30.3 pg (25.0-35.0); MCHC 31.2 g/dL (31.0-37.0); MCV 97.2 fL (80.0-100.0); Mean Platelet Volume 7.3; Monocytes # (A) 0.3 k/uL (0-1.0); Monocytes % (A) 6 %; Neutrophils # (A) 2.3 k/uL (1.3-7.7); Neutrophils % (A) 50 %; Platelet Count 141 k/uL (150-450); RBC 3.98 m/uL (3.80-5.40); RDW 14.3 % (11.5-15.5); WBC 4.6 k/uL (3.8-10.6)
[2017-03-18 08:11] LABS: Glucose,Whole Blood 59 mg/dL (75-99)
[2017-03-18 08:12] LABS: Glucose,Whole Blood 77 mg/dL (75-99)
[2017-03-18 08:13] LABS: INR 1.3 (<1.2)
[2017-03-18 08:20] LABS: Anion Gap 10 mmol/L; Blood Urea Nitrogen 13 mg/dL (7-17); Calcium 8.9 mg/dL (8.4-10.2); Carbon Dioxide 21 mmol/L (22-30); Chloride 112 mmol/L (98-107); Glucose 93 mg/dL (74-99); Potassium 3.4 mmol/L (3.5-5.1); Sodium 143 mmol/L (137-145)
[2017-03-18] MEDS ORDERED: HYDROmorphone 2 MG/ML 1 ML SYRINGE IVP PRN (08:54)
[2017-03-18] MEDS: INSULIN ASPART 100 UNIT/ML 1 ML 10 ML VIAL SQ SCH ×4 (09:11→20:57)
[2017-03-18] MEDS: MIDODRINE 5 MG TAB PO SCH ×2 (09:14→17:05)
[2017-03-18] MEDS: PANTOPRAZOLE 40 MG TABLET PO SCH ×2 (09:14→20:53)
[2017-03-18] MEDS: GABAPENTIN 400 MG CAP PO SCH ×3 (09:15→20:53)
[2017-03-18] MEDS: ASPIRIN 81 MG PO SCH (09:15)
[2017-03-18] MEDS: INSULIN DETEMIR 100 UNIT/ML 10 ML VIAL SQ SCH (09:15)
[2017-03-18] MEDS: POTASSIUM CHLORIDE ER 20 MEQ TAB.ER PO SCH (11:03)
[2017-03-18 12:14] LABS: Glucose,Whole Blood 184 mg/dL (75-99)
[2017-03-18] MEDS ORDERED: VANCOMYCIN TROUGH DUE 1 EACH MISC MISCELLANE ONE (17:00)
[2017-03-18] MEDS: WARFARIN 5 MG TAB PO SCH (17:05)
[2017-03-18 17:18] LABS: Glucose,Whole Blood 214 mg/dL (75-99)
--- NOTE | 2017-03-18 18:49 | PN ---
PROGRESS NOTE DATE OF SERVICE: 03/18/2017 This 71-year-old woman was admitted chest pain also had orthostatic hypotension. The patient also appears to have coagulase negative contaminated in the blood culture. No chest pain. No palpitations. No fever. EXAM: Alert and oriented times three. Pulse 63, blood pressure 140/72. Minimal orthostatic changes. Respiration 18, temperature 97.2, pulse ox 88% on room air. HEENT: Conjunctivae normal. Neck: No jugular venous distention. Cardiovascular: S1, S2 muffled. Respiratory: Breath sounds diminished in the bases. No rhonchi and no crackles. Abdomen is soft, nontender. No edema. Central nervous system: No focal deficits. LABS: Potassium 3.4. Other labs are noted. ASSESSMENT: 1. Chest pain, abdominal pain possibly musculoskeletal. 2. Presyncope with orthostatic hypotension. 3. Myocardial infarction ruled out. Possible acute gastritis. 4. Coagulase negative contaminant from blood cultures. 5. History of atrial fibrillation. 6. History of asthma. 7. Diabetes type 2 with hypoglycemia. 8. Gastroesophageal reflux disease. 9. Hypertension. 10.History of myocardial infarction. 11.History of pulmonary embolism. 12.History of degenerative joint disease. 13.History of restless leg syndrome. 14.History of chronic pain syndrome. 15.History of adenoidectomy. 16.History of coronary artery disease, coronary artery bypass grafting. 17.History of pacemaker. RECOMMENDATIONS AND DISCUSSION: Recommend to continue current medications, continue with monitoring, symptomatic treatment. Otherwise, at this time, I recommend continue the current medication, continue symptomatic treatment. Otherwise continue with PT/OT evaluation and increase ambulation. Further recommendations to follow. MMODL / IJN: [id number] /
[2017-03-18] MEDS: oxyCODONE-APAP 10-325MG 1 EACH TAB PO PRN (20:51)
[2017-03-18] MEDS: MONTELUKAST 10 MG TAB PO SCH (20:53)
[2017-03-18] MEDS: ATORVASTATIN 80 MG TAB PO SCH (20:53)
[2017-03-18] MEDS: traZODone HCL 50 MG TAB PO SCH (20:53)
[2017-03-18 20:54] LABS: Glucose,Whole Blood 183 mg/dL (75-99)
[2017-03-19] MEDS: ALPRAZolam 0.25 MG TAB PO PRN ×2 (00:39→07:59)
[2017-03-19] MEDS: oxyCODONE-APAP 10-325MG 1 EACH TAB PO PRN ×2 (05:12→11:57)
[2017-03-19] MEDS: FLUDROCORTISONE 0.1 MG TAB PO SCH (06:36)
[2017-03-19] MEDS: LEVOTHYROXINE 137 MCG TAB PO SCH (06:36)
[2017-03-19 07:16] LABS: Glucose,Whole Blood 209 mg/dL (75-99)
--- NOTE | 2017-03-19 07:44 | PN ---
PROGRESS NOTE DATE OF SERVICE: 03/18/2017 REASON FOR FOLLOWUP: Positive blood culture. INTERVAL HISTORY: The patient is afebrile. She has been breathing comfortably. Denies significant chest pain. Occasional cough. No abdominal pain. No nausea, vomiting, or any diarrhea. EXAMINATION: Her blood pressure is 144/72 with a pulse of 53. Temperature 97.5. She is 98% on room air. General description is an elderly female lying in bed in no distress. Respiratory system: Unlabored breathing. Clear to auscultation anteriorly. Heart S1, S2. Regular rate and rhythm. Abdomen soft, no tenderness. LABS: Hemoglobin 12.1, white count 4.6, BUN of 13, creatinine 0.73. DIAGNOSTIC IMPRESSION AND PLAN: Patient with a positive blood culture with a coagulase-negative staph. Repeat blood culture has been negative. Patient has known disease to go along with it. Pacemaker site looks clean and no history of any joint replacement. The patient is currently off antibiotic therapy and doing well with the repeat blood culture negative. No need no need for further workup. ID will sign off. MMODL / IJN: [id number] / MTDD
[2017-03-19] MEDS: INSULIN ASPART 100 UNIT/ML 1 ML 10 ML VIAL SQ SCH ×2 (07:52→13:01)
[2017-03-19] MEDS: MIDODRINE 5 MG TAB PO SCH (07:53)
[2017-03-19] MEDS: ASPIRIN 81 MG PO SCH (07:53)
[2017-03-19] MEDS: INSULIN DETEMIR 100 UNIT/ML 10 ML VIAL SQ SCH (07:53)
[2017-03-19] MEDS: PANTOPRAZOLE 40 MG TABLET PO SCH (07:53)
[2017-03-19] MEDS: GABAPENTIN 400 MG CAP PO SCH (07:53)
[2017-03-19 07:59] VITALS: PULSE 60; RESP 18
[2017-03-19 08:26] LABS: INR 1.6 (<1.2)
[2017-03-19 08:31] LABS: Basophils % (A) 1 %; Eosinophils # (A) 0.1 k/uL (0-0.7); Eosinophils % (A) 2 %; HCT 36.8 % (34.0-46.0); Lymphocytes # (A) 1.7 k/uL (1.0-4.8); Lymphocytes % (A) 34 %; MCH 30.5 pg (25.0-35.0); MCHC 32.7 g/dL (31.0-37.0); MCV 93.3 fL (80.0-100.0); Mean Platelet Volume 7.5; Monocytes # (A) 0.3 k/uL (0-1.0); Monocytes % (A) 6 %; Neutrophils # (A) 2.8 k/uL (1.3-7.7); Neutrophils % (A) 57 %; Platelet Count 160 k/uL (150-450); RBC 3.94 m/uL (3.80-5.40); RDW 14.3 % (11.5-15.5); WBC 4.9 k/uL (3.8-10.6)
[2017-03-19 08:42] LABS: Anion Gap 8 mmol/L; Blood Urea Nitrogen 15 mg/dL (7-17); Calcium 9.2 mg/dL (8.4-10.2); Carbon Dioxide 26 mmol/L (22-30); Chloride 107 mmol/L (98-107); Glucose 214 mg/dL (74-99); Potassium 3.8 mmol/L (3.5-5.1); Sodium 141 mmol/L (137-145)
[2017-03-19 12:08] LABS: Glucose,Whole Blood 142 mg/dL (75-99)
[2017-03-19 15:33] VITALS: BP 126/64; TEMP 96.8
--- NOTE | 2017-03-20 10:51 | DS ---
DISCHARGE SUMMARY FINAL DIAGNOSES: 1. Chest pain, abdominal pain possibly musculoskeletal. 2. Presyncope with orthostatic hypotension. 3. Myocardial infarction ruled out. 4. Possible acute gastritis. 5. Coagulase-negative Staph, possibly contaminant from blood cultures. 6. History atrial fibrillation. 7. History of asthma. 8. Diabetes mellitus type 2 with hypoglycemia. 9. Gastroesophageal reflux disease. 10.Hypertension. 11.History of myocardial infarction. 12.History of pulmonary embolism. 13.History of degenerative joint disease. 14.History of restless legs syndrome. 15.History of chronic pain syndrome. 16.History of adenoidectomy. 17.History of coronary artery disease, CABG. 18.History of pacemaker. DISCHARGE DISPOSITION: The patient is discharged in stable condition with guarded prognosis. HISTORY OF PRESENT ILLNESS: This 71-year-old woman with a past medical history of multiple medical problems was admitted chest and abdominal pain as well as orthostatic hypotension, treated symptomatically, improved significantly. Patient started on Florinef also. On exam, vitals are stable. Cardiovascular: S1, S2. Abdomen: Soft. Nervous System: No focal deficits. DISCHARGE ADVICE: 1. Diet is cardiac. 2. Activities limited until followup. 3. Follow with Dr. Lara in 2 to 3 days. 4. Follow up with Cardiology as recommended. MEDICATIONS: 1. Xanax 0.5 t.i.d. p.r.n. 2. Aspirin 81 mg. 3. Lipitor 80 mg q.h.s. 4. Florinef 0.2 b.i.d. 5. Neurontin 800 mg p.o. t.i.d. 6. NovoLog FlexPen as before. 7. Lantus 45 units subcu daily. 8. Synthroid 137 mcg p.o. 9. Midodrine 5 mg a.c. b.i.d. 10.Singular 10 mg q.h.s. 11.Oxycodone 10 mg t.i.d. p.r.n. 12.Protonix 40 mg p.o. b.i.d. 13.Trazodone 50 mg q.h.s. 14.Coumadin 5 mg p.o. daily. Follow up labs with CMP, CBC, PT and INR with Dr. Lara. Dose of midodrine and Florinef to be adjusted in the outpatient setting depending upon the blood pressure. MMODL / IJN: [id number] /
== END 2017-03-19 16:00 | disposition home health service (06) | DRG 392 ==
LOC: EC 14:56 → 3OBS 16:21 → OBSVTOIN 03-17 12:18 → 4MS4W 03-17 20:31
PROVIDERS: ADMIT Internal Medicine; ATTEND Internal Medicine
DX: K29.00 Acute gastritis without bleeding (principal); E11.42 Type 2 diabetes mellitus with diabetic polyneuropathy; E11.649 Type 2 diabetes mellitus with hypoglycemia without coma; I48.0 Paroxysmal atrial fibrillation; G25.81 Restless legs syndrome; E78.5 Hyperlipidemia, unspecified; E89.0 Postprocedural hypothyroidism; F17.210 Nicotine dependence, cigarettes, uncomplicated; I95.1 Orthostatic hypotension; G89.4 Chronic pain syndrome; R07.89 Other chest pain; J45.909 Unspecified asthma, uncomplicated; K21.9 Gastro-esophageal reflux disease without esophagitis; M19.90 Unspecified osteoarthritis, unspecified site; I25.10 Atherosclerotic heart disease of native coronary artery without angina pectoris; I10 Essential (primary) hypertension; R79.1 Abnormal coagulation profile; K29.70 Gastritis, unspecified, without bleeding; R45.1 Restlessness and agitation; K58.0 Irritable bowel syndrome with diarrhea; I25.2 Old myocardial infarction; Z86.711 Personal history of pulmonary embolism; Z90.89 Acquired absence of other organs; Z95.1 Presence of aortocoronary bypass graft; Z95.0 Presence of cardiac pacemaker; Z82.49 Family history of ischemic heart disease and other diseases of the circulatory system; Z82.5 Family history of asthma and other chronic lower respiratory diseases; Z79.899 Other long term (current) drug therapy; Z79.4 Long term (current) use of insulin; Z79.01 Long term (current) use of anticoagulants; Z79.02 Long term (current) use of antithrombotics/antiplatelets; Z79.891 Long term (current) use of opiate analgesic; Z85.850 Personal history of malignant neoplasm of thyroid; Z85.21 Personal history of malignant neoplasm of larynx; Z87.19 Personal history of other diseases of the digestive system; Z90.49 Acquired absence of other specified parts of digestive tract; Z90.710 Acquired absence of both cervix and uterus; Z98.51 Tubal ligation status; Z86.010 Personal history of colon polyps; Z87.440 Personal history of urinary (tract) infections; Z91.19 Patient's noncompliance with other medical treatment and regimen
CPT/HCPCS: 36415; 71046; 80048; 80053; 80061; 80306; 81001; 82550; 82553; 83036; 83735; 84484; 85025; 85610; 85730; 87040; 87077; 87086; 87186; 87502; 93005; 94760; 96365; 96375; 96376; 99285

== ENCOUNTER 2017-03-24 00:54 | Observation (INO) | payer MEDICARE ==
[2017-03-24] MEDS ORDERED: NITROGLYCERIN SL TABS 0.4 MG TAB SUBLINGUAL STA (00:57)
[2017-03-24] MEDS ORDERED: SODIUM CHLORIDE 0.9% 1,000 ML IV STA (00:57)
--- NOTE | 2017-03-24 01:01 | ED ---
Chest Pain HPI - General Stated Complaint: chest pain,diabetes Time Seen by Provider: 03/24/17 00:54 Source: patient, EMS, RN notes reviewed Mode of arrival: EMS - History of Present Illness Initial Comments: This is a 71-year-old female history of diabetes and heart disease who called EMS prior to admission with complaints of suspected low blood sugar. She was found have a blood sugar 75 upon arrival he was cool and diaphoretic that she started developing retrosternal left-sided upper chest pain radiated to her left arm and shoulder. It was 6/10 severity she was given aspirin and nitro with some relief upon arrival she states the pain was up to a 9/10 however. No cough or phlegm production no other complaints at this time. MD Complaint: chest pain, other - Related Data Home Medications Medication Instructions Recorded Confirmed Levothyroxine Sodium [Synthroid] 137 mcg PO DAILY 12/07/16 03/24/17 Insulin Aspart [NovoLOG Flexpen] See Protocol SQ AC-TID 01/04/17 03/24/17 Warfarin Sodium [Coumadin] 5 mg PO HS 01/04/17 03/24/17 Montelukast [Singulair] 10 mg PO HS 03/15/17 03/24/17 oxyCODONE-APAP 10-325MG [Percocet 1 tab PO TID PRN 03/15/17 03/24/17 10-325 mg] traZODone HCL 150 mg PO HS 03/15/17 03/24/17 Previous Rx's Medication Instructions Recorded Gabapentin [Neurontin] 800 mg PO TID #60 cap 12/07/16 Aspirin 81 mg PO DAILY chew 03/18/17 Fludrocortisone [Florinef] 0.2 mg PO Q12H #60 tab 03/18/17 Midodrine [ProAmatine] 5 mg PO AC-BID #60 tab 03/18/17 Pantoprazole [Protonix] 40 mg PO BID #60 tablet. 03/18/17 ALPRAZolam [Xanax] 0.25 mg PO TID PRN #20 tab 03/19/17 Insulin Glargine [Lantus] 45 unit SQ DAILY #0 03/19/17 oxyCODONE-APAP 5-325MG [Percocet 1 tab PO Q6HR PRN #20 tab 03/19/17 5-325 mg] Allergies Allergy/AdvReac Type Severity Reaction Status Date / Time No Known Allergies Allergy Verified 03/15/17 16:28 Review of Systems ROS Statement: Those systems with pertinent positive or pertinent negative responses have been documented in the HPI. ROS Other: All systems not noted in ROS Statement are negative. EKG Findings - EKG Results: EKG: interpreted by JORGED, sinus rhythm ( and duration) Past Medical History Past Medical History: Atrial Fibrillation, Asthma, Coronary Artery Disease (CAD) , Cancer, Chest Pain / Angina, Diabetes Mellitus, GERD/Reflux, Hyperlipidemia, Hypertension, Myocardial Infarction (GA), Neurologic Disorder, Pulmonary Embolus (PE), Thyroid Disorder Additional Past Medical History / Comment(s): gastroenteritis. Additional hx: incontinent urine and stool, IBS, hemmorhoids, colonic polyps, R femur acetabular impingement syndrome, UTI with sepsis, DDD, RLS, neuropathy bilateral hands and feet, thyroid cancer with thyroidectomy, diverticulitis, pt takes coumadin for PE's, arthiritis, chronic back pain, laryngeal cancer with surgical removal, syncope Last Myocardial Infarction Date:: 2011 or 2012 per pt History of Any Multi-Drug Resistant Organisms: None Reported Date of last positivie culture/infection: None MDRO Source:: None Past Surgical History: Adenoidectomy, Bladder Surgery, Bowel Resection, Cholecystectomy, Coronary Bypass/CABG, Heart Catheterization With Stent, Hysterectomy, Joint Replacement, Orthopedic Surgery, Pacemaker, Tonsillectomy, Tubal Ligation Additional Past Surgical History / Comment(s): CABG 3 vessel in 2006, cardiac cath with stents 2007 and 2011, pacer 2011, total thyroidectomy, lap [place], total left shoulder, R shoulder arthroscopy, partial colectomy due to diverticulitis, bladder suspension and bladder repair and mesh x 2, rectal wall repair, hysterectomy 1977, laryngeal surgery for cancer, colonoscopy, EGD with bx, nasal deviated septum surgical correction, L knee arthroscopy. Past Anesthesia/Blood Transfusion Reactions: No Reported Reaction Additional Past Anesthesia/Blood Transfusion Reaction / Comment(s): Pt has recieved blood without any reaction. Date of Last Stent Placement:: 2011 Type of Cardiac Device: Permanent Pacemaker Device Placement Date:: 2010 or 2011 in [place], [place] Past Psychological History: No Psychological Hx Reported Additional Psychological History / Comment(s): Pt lives with a "friend" with her 2 cats. She is normally independent. She has a cane and walker and electric wheelchair. She has no home care. She no longer drives a car- she uses [email or web address] for ride needs. She is a retired nurse. She used to live in [place]. Smoking Status: Current some day smoker Past Alcohol Use History: None Reported Additional Past Alcohol Use History / Comment(s): Pt states she started smoking about 1963. patient states she stil smokes a cigarette on occasion. Past Drug Use History: None Reported - Past Family History Father Family Medical History: Congestive Heart Failure (CHF), COPD Additional Family Medical History / Comment(s): Father at age 61 yrs of CHF and COPD. Mother Family Medical History: Congestive Heart Failure (CHF), COPD General Exam - General Exam Comments Initial Comments: This is a well-developed asthenic appearing female General appearance: alert, anxious Head exam: Present: atraumatic, normocephalic, normal inspection Eye exam: Present: normal appearance, PERRL, EOMI. Absent: scleral icterus, conjunctival injection, periorbital swelling ENT exam: Present: normal exam, mucous membranes moist Neck exam: Present: normal inspection. Absent: tenderness, meningismus, lymphadenopathy Respiratory exam: Present: normal lung sounds bilaterally, chest wall tenderness (This tenderness is different than the complaint of chest pain that she stated to the paramedics.). Absent: respiratory distress, wheezes, rales, rhonchi, stridor Cardiovascular Exam: Present: regular rate, normal rhythm, normal heart sounds. Absent: systolic murmur, diastolic murmur, rubs, gallop, clicks GI/Abdominal exam: Present: soft, normal bowel sounds. Absent: distended, tenderness, guarding, rebound, rigid Extremities exam: Present: normal inspection, full ROM, normal capillary refill. Absent: tenderness, pedal edema, joint swelling, calf tenderness Back exam: Present: normal inspection Neurological exam: Present: alert, oriented X3, CN II-XII intact Psychiatric exam: Present: normal affect, normal mood Skin exam: Present: warm, dry, intact, normal color. Absent: rash Course Vital Signs 03/24/17 03/24/17 03/24/17 00:59 01:27 01:38 Temperature 96.1 F L Pulse Rate 60 60 60 Respiratory 20 18 20 Rate Blood Pressure 142/79 142/79 112/62 O2 Sat by Pulse 99 100 98 Oximetry 03/24/17 02:36 Temperature Pulse Rate 60 Respiratory 20 Rate Blood Pressure 146/68 O2 Sat by Pulse 99 Oximetry Chest Pain MDM - MDM X-ray shows no acute findings. I did discuss findings with the patient she is feeling improved she will be admitted for evaluation chest pain. There is a reproducible component but also a nonreproducible component. Critical Care Time Critical Care Time: Yes Critical Care Time: 31 minutes of critical care time which includes initial presentation with history and physical monitoring the EMS run and discussed with paramedics reevaluation the patient discussion with the admitting service admitting orders and documentation of the above Disposition Clinical Impression: Unstable angina, Atypical chest pain, Hypokalemia Disposition: ADMITTED IP TO THIS HOSP Condition: Stable Referrals: Raven Lara MD [Primary Care Provider] - 1-2 days
[2017-03-24 01:02] LABS: Glucose,Whole Blood 92 mg/dL (75-99)
[2017-03-24 01:40] LABS: Basophils % (A) 0 %; Eosinophils % (A) 1 %; HCT 38.6 % (34.0-46.0); HGB 12.9 gm/dL (11.4-16.0); Lymphocytes # (A) 1.2 k/uL (1.0-4.8); Lymphocytes % (A) 26 %; MCH 30.4 pg (25.0-35.0); MCHC 33.4 g/dL (31.0-37.0); Mean Platelet Volume 6.4; Monocytes # (A) 0.4 k/uL (0-1.0); Monocytes % (A) 9 %; Neutrophils # (A) 2.8 k/uL (1.3-7.7); Neutrophils % (A) 63 %; Platelet Count 213 k/uL (150-450); RBC 4.25 m/uL (3.80-5.40); WBC 4.4 k/uL (3.8-10.6)
[2017-03-24] MEDS ORDERED: NITROGLYCERIN OINT 1 INCH/GM PACKET TOPICAL STA (01:48)
[2017-03-24 01:49] LABS: D-Dimer 0.71 mg/L FEU (<0.60)
[2017-03-24 01:51] LABS: ALT 29 U/L (9-52); AST 19 U/L (14-36); Alkaline Phosphatase 77 U/L (38-126); Amylase 62 U/L (30-110); Anion Gap 13 mmol/L; Blood Urea Nitrogen 12 mg/dL (7-17); Calcium 9.7 mg/dL (8.4-10.2); Carbon Dioxide 27 mmol/L (22-30); Chloride 106 mmol/L (98-107); Glucose 91 mg/dL (74-99); Lipase 64 U/L (23-300); Magnesium 2.2 mg/dL (1.6-2.3); Sodium 146 mmol/L (137-145); Total Bilirubin 0.5 mg/dL (0.2-1.3); Total Protein 6.4 g/dL (6.3-8.2)
[2017-03-24 01:53] LABS: Partial Thromboplastin Time 22.4 sec (22.0-30.0)
[2017-03-24 01:54] LABS: Potassium 2.8 mmol/L (3.5-5.1)
[2017-03-24 01:55] LABS: Prothrombin Time 10.1 sec (9.0-12.0)
[2017-03-24 01:59] LABS: Creatine Kinase 49 U/L (30-135)
[2017-03-24 02:12] LABS: Creatine Kinase MB 1.1 ng/mL (0.0-2.4); Troponin I <0.012 ng/mL (0.000-0.034)
--- NOTE | 2017-03-24 02:16 | XR ---
EXAM: XR Chest, 2 Views CLINICAL HISTORY: Reason: Chest Pain TECHNIQUE: Frontal and lateral views of the chest. COMPARISON: 03-15-17 FINDINGS: Lungs: Unremarkable. No consolidation. Pleural space: Unremarkable. No pneumothorax. Heart: Unremarkable. No cardiomegaly. Mediastinum: Unremarkable. Bones/joints: Left shoulder arthroplasty. Tubes, lines and devices: Stable left-sided cardiac device with intact leads. IMPRESSION: No acute findings.
[2017-03-24] MEDS ORDERED: NITROGLYCERIN SL TABS 0.4 MG TAB SUBLINGUAL PRN (03:09)
[2017-03-24] MEDS ORDERED: oxyCODONE-APAP 10-325MG 1 EACH TAB PO PRN (03:13)
[2017-03-24] MEDS ORDERED: oxyCODONE-APAP 5-325MG 1 EACH TAB PO PRN (03:13)
[2017-03-24] MEDS ORDERED: SODIUM CHLORIDE 0.9% 1,000 ML IV SCH (03:15)
[2017-03-24] MEDS ORDERED: POTASSIUM CHLORIDE 20 MEQ in WATER FOR INJECTION 1 100ML.BAG IVPB STA (03:18)
[2017-03-24 04:16] VITALS: RESP 18
[2017-03-24 05:32] VITALS: BMI 21.4
[2017-03-24] MEDS: FLUDROCORTISONE 0.1 MG TAB PO SCH ×2 (06:06→18:04)
[2017-03-24] MEDS: NITROGLYCERIN OINT 1 INCH/GM PACKET TOPICAL SCH ×3 (06:06→18:03)
[2017-03-24] MEDS ORDERED: LEVOTHYROXINE 137 MCG TAB PO SCH (06:30)
[2017-03-24 08:21] LABS: Creatine Kinase 38 U/L (30-135)
[2017-03-24 08:35] LABS: Creatine Kinase MB 1.1 ng/mL (0.0-2.4); Troponin I <0.012 ng/mL (0.000-0.034)
[2017-03-24] MEDS ORDERED: ASPIRIN 325 MG TAB PO SCH (09:00)
[2017-03-24] MEDS ORDERED: ASPIRIN 81 MG PO SCH (09:00)
[2017-03-24] MEDS ORDERED: INSULIN DETEMIR 100 UNIT/ML 10 ML VIAL SQ SCH (09:00)
[2017-03-24] MEDS: INSULIN ASPART 100 UNIT/ML 1 ML 10 ML VIAL SQ SCH ×3 (09:08→18:04)
[2017-03-24 09:15] LABS: Glucose,Whole Blood 133 mg/dL (75-99)
[2017-03-24 09:31] LABS: ALT 33 U/L (9-52); AST 17 U/L (14-36); Albumin 3.1 g/dL (3.5-5.0); Alkaline Phosphatase 58 U/L (38-126); Anion Gap 8 mmol/L; Blood Urea Nitrogen 11 mg/dL (7-17); Calcium 8.7 mg/dL (8.4-10.2); Carbon Dioxide 25 mmol/L (22-30); Chloride 110 mmol/L (98-107); Glucose 112 mg/dL (74-99); Potassium 3.4 mmol/L (3.5-5.1); Sodium 143 mmol/L (137-145); Total Bilirubin 0.5 mg/dL (0.2-1.3); Total Protein 5.2 g/dL (6.3-8.2)
--- NOTE | 2017-03-24 10:28 | P.CRDCN ---
History of Present Illness Consult date: 03/24/17 History of present illness: Mrs. Donahue is a pleasant 71-year-old female with past medical history significant for CABG with subsequent stenting, hypertension, dyslipidemia, paroxysmal atrial fibrillation, pulmonary embolism, sick sinus syndrome with permanent pacemaker implantation, hypothyroidism and diabetes mellitus. She had most of her cardiac care out of state in [place] and [place]. She sees Dr. KURT Cobb as an outpatient, last appointment was 2014. We have been asked to see her in consultation for an episode of left shoulder pain she experienced yesterday. She states she felt as though her blood sugar was getting low because she was getting very diaphorestic so she quickly ate 2 spoonfuls of sugar. She then developed pain in her back, left shoulder and left anterior chest wall. She denies associated shortness of breath, palpitations, dizziness or nausea/vomiting. She states she felt back to normal by the time she arrived to ED but thinks her sugar had normalized secondary to eating sugar. EKG on arrival atrial paced rhythm with nonspecific lateral ST changes that are consistent with old EKG's. Chest xray is negative for an acute cardiopulmonary process. Laboratory data reviewed, hemoglobin 12.9, platelets 213, d-dimer 0.71, potassium 2.8, magnesium 2.2, creatinine 0.7, cardiac enzymes negative 2, INR 1. Most recent echocardiogram performed reveals preserved LV function with EF 55-60 % with mild AR and trace MR. done November 2016. Most recent catheterization done by Dr. Cobb in 2014 reveals 2 grafts: GRANT- LAD was occluded with a patent stent of the chitimacha LAD. Left main is widely patent, RCA totally occluded, SVG to PDA branch of RCA and diagonal branch of LAD with 30-40% narrowing. Current cardiac medications include coumadin 5mg daily, aspirin 81 mg, Florinef 0.2 mg twice a day and Midodrine 5 mg twice a day. Of note the patient has multiple hospital visits for reasons chest pain, syncope , abdominal pain, COPD. She appears to be fairly noncompliant with medication recommendations. She states she has not taken her coumadin in the last few days because she dropped the bottle under the bed and feels too weak Review of Systems CONSTITUTIONAL: Denies fever. Denies chills. Complains of generalized fatigue. EYES: Denies blurred vision. Denies vision changes. Denies eye pain. EARS, NOSE, MOUTH & THROAT: Denies headache. Denies sore throat. Denies ear pain. CARDIOVASCULAR: Denies chest pain. Denies shortness of breath. Denies orthopnea. Denies PND. Denies palpitations. RESPIRATORY: Denies cough. GASTROINTESTINAL: Denies abdominal pain. Denies diarrhea. Denies constipation. Denies nausea. Denies vomiting. MUSCULOSKELETAL: Denies myalgias. INTEGUMENTARY: Denies pruitis. Denies rash. NEUROLOGIC: Denies numbness. Denies tingling. Denies weakness. PSYCHIATRIC: Denies anxiety. Denies depression. ENDOCRINE: Denies weight change. Denies polydipsia. Denies polyurina. GENITOURINARY: Denies burning, hematuria or urgency with micturation. HEMATOLOGIC: Denies history of anemia. Denies bleeding. Past Medical History Past Medical History: Atrial Fibrillation, Asthma, Coronary Artery Disease (CAD) , Cancer, Chest Pain / Angina, Diabetes Mellitus, GERD/Reflux, Hyperlipidemia, Hypertension, Myocardial Infarction ([place]), Neurologic Disorder, Pulmonary Embolus (PE), Thyroid Disorder Additional Past Medical History / Comment(s): gastroenteritis. Additional hx: incontinent urine and stool, IBS, hemmorhoids, colonic polyps, R femur acetabular impingement syndrome, UTI with sepsis, DDD, RLS, neuropathy bilateral hands and feet, thyroid cancer with thyroidectomy, diverticulitis, pt takes coumadin for PE's, arthiritis, chronic back pain, laryngeal cancer with surgical removal, syncope Last Myocardial Infarction Date:: 2011 or 2012 per pt History of Any Multi-Drug Resistant Organisms: None Reported Date of last positivie culture/infection: None MDRO Source:: None Past Surgical History: Adenoidectomy, Bladder Surgery, Bowel Resection, Cholecystectomy, Coronary Bypass/CABG, Heart Catheterization With Stent, Hysterectomy, Joint Replacement, Orthopedic Surgery, Pacemaker, Tonsillectomy, Tubal Ligation Additional Past Surgical History / Comment(s): CABG 3 vessel in 2006, cardiac cath with stents 2007 and 2011, pacer 2011, total thyroidectomy, lap maria del rosario, total left shoulder, R shoulder arthroscopy, partial colectomy due to diverticulitis, bladder suspension and bladder repair and mesh x 2, rectal wall repair, hysterectomy 1977, laryngeal surgery for cancer, colonoscopy, EGD with bx, nasal deviated septum surgical correction, L knee arthroscopy. Past Anesthesia/Blood Transfusion Reactions: No Reported Reaction Additional Past Anesthesia/Blood Transfusion Reaction / Comment(s): Pt has recieved blood without any reaction. Date of Last Stent Placement:: 2011 Type of Cardiac Device: Permanent Pacemaker Device Placement Date:: 2010 or 2011 in [place], [place] Past Psychological History: No Psychological Hx Reported Additional Psychological History / Comment(s): Pt lives with a "friend" with her 2 cats. She is normally independent. She has a cane and walker and electric wheelchair. She has no home care. She no longer drives a car- she uses [employer] for ride needs. She is a retired nurse. She used to live in [place]. Smoking Status: Current some day smoker Past Alcohol Use History: None Reported Additional Past Alcohol Use History / Comment(s): Pt states she started smoking about 1963. patient states she stil smokes a cigarette on occasion. Past Drug Use History: None Reported - Past Family History Father Family Medical History: Congestive Heart Failure (CHF), COPD Additional Family Medical History / Comment(s): Father at age 61 yrs of CHF and COPD. Mother Family Medical History: Congestive Heart Failure (CHF), COPD Medications and Allergies Home Medications Medication Instructions Recorded Confirmed Type Gabapentin [Neurontin] 800 mg PO TID #60 cap 12/07/16 03/24/17 Rx Levothyroxine Sodium [Synthroid] 137 mcg PO DAILY 12/07/16 03/24/17 History Insulin Aspart [NovoLOG Flexpen] See Protocol SQ AC-TID 01/04/17 03/24/17 History Warfarin Sodium [Coumadin] 5 mg PO HS 01/04/17 03/24/17 History Montelukast [Singulair] 10 mg PO HS 03/15/17 03/24/17 History traZODone HCL 150 mg PO HS 03/15/17 03/24/17 History Aspirin 81 mg PO DAILY chew 03/18/17 03/24/17 Rx Fludrocortisone [Florinef] 0.2 mg PO Q12H #60 tab 03/18/17 03/24/17 Rx Midodrine [ProAmatine] 5 mg PO AC-BID #60 tab 03/18/17 03/24/17 Rx Pantoprazole [Protonix] 40 mg PO BID #60 tablet 03/18/17 03/24/17 Rx ALPRAZolam [Xanax] 0.25 mg PO TID PRN #20 tab 03/19/17 03/24/17 Rx Insulin Glargine [Lantus] 45 unit SQ DAILY #0 03/19/17 03/24/17 Rx oxyCODONE-APAP 5-325MG [Percocet 1 tab PO Q6HR PRN #20 tab 03/19/17 03/24/17 Rx 5-325 mg] Allergies Allergy/AdvReac Type Severity Reaction Status Date / Time No Known Allergies Allergy Verified 03/24/17 06:43 Physical Exam Vitals: Vital Signs Temp Pulse Pulse Resp BP BP Pulse Ox 03/24/17 08:00 97.7 F 62 18 123/58 99 03/24/17 04:45 18 03/24/17 04:15 97.7 F 60 18 163/72 98 03/24/17 03:43 67 16 174/68 97 03/24/17 02:36 60 20 146/68 99 03/24/17 01:38 60 20 112/62 98 03/24/17 01:27 60 18 142/79 100 03/24/17 00:59 96.1 F L 60 20 142/79 99 Intake and Output 03/23/17 03/24/17 03/24/17 22:59 06:59 14:59 Intake Total 250 Balance 250 Intake: Amount of Fluid Infused ( 250 ml) Other: Weight 60.328 kg Blood pressure 123/58 heart rate 62 afebrile GENERAL: This is a 71-year-old female in no apparent distress at the time of my examination. HEENT: Head is atraumatic, normocephalic. Pupils are equal, round. Sclerae anicteric. Conjunctivae are clear. Mucous membranes of the mouth are moist. Neck is supple. There is no jugular venous distention. No carotid bruit is heard. LUNGS: Clear to auscultation no wheezes, rales or rhonchi. No chest wall tenderness is noted on palpation or with deep breathing. HEART: Regular rate and rhythm without murmurs, rubs or gallops. S1 and S2 heard. ABDOMEN: Soft, nontender. Bowel sounds are heard. No organomegaly noted. EXTREMITIES: 2+ peripheral pulses with no evidence of peripheral edema and no calf tenderness noted. NEUROLOGIC: Alert and oriented 3. Results 03/24/17 01:25 03/24/17 07:07 Cardiac Enzymes 03/24/17 03/24/17 03/24/17 Range/Units 01:25 01: 07:07 AST 19 (14-36) U/L CK-MB (CK-2) 1.1 1.1 (0.0-2.4) ng/mL Troponin I <0.012 <0.012 (0.000-0.034) ng/mL Coagulation 03/24/17 Range/Units 01: PT 10.1 (9.0-12.0) sec APTT 22.4 (22.0-30.0) sec CBC 03/24/17 Range/Units 01:25 WBC 4.4 (3.8-10.6) k/uL RBC 4.25 (3.80-5.40) m/uL Hgb 12.9 (11.4-16.0) gm/dL Hct 38.6 (34.0-46.0) % Plt Count 213 (150-450) k/uL Comprehensive Metabolic Panel 03/24/17 Range/Units 01:25 Sodium 146 H (137-145) mmol/L Potassium 2.8 L* (3.5-5.1) mmol/L Chloride 106 (98-107) mmol/L Carbon Dioxide 27 (22-30) mmol/L BUN 12 (7-17) mg/dL Creatinine 0.70 (0.52-1.04) mg/dL Glucose 91 (74-99) mg/dL Calcium 9.7 (8.4-10.2) mg/dL AST 19 (14-36) U/L ALT 29 (9-52) U/L Alkaline Phosphatase 77 (38-126) U/L Total Protein 6.4 (6.3-8.2) g/dL Albumin 4.0 (3.5-5.0) g/dL Current Medications Generic Name Dose Route Start Last Admin Trade Name Freq PRN Reason Stop Dose Admin Aspirin 325 mg 03/24/17 09:00 Aspirin PO DAILY HILARIA Fludrocortisone Acetate 0.2 mg 03/24/17 03:15 03/24/17 06:06 Florinef PO Not Given Q12H [facility]ILAR[facility] Gabapentin 800 mg 03/24/17 09:00 Neurontin PO TID HILARIA Sodium Chloride 1,000 mls @ 100 mls/hr 03/24/17 00:57 03/24/17 01:33 Saline 0.9% IV 03/24/17 10:56 100 mls/hr .Q10H STA Administration Sodium Chloride 1,000 mls @ 20 mls/hr 03/24/17 03:15 Saline 0.9% IV .Q24H [facility] Insulin Aspart 0 unit 03/24/17 07:30 03/24/17 09:08 Novolog SQ Not Given ACHS [facility] Protocol Insulin Detemir 45 unit 03/24/17 09:00 Levemir SQ DAILY [facility] Levothyroxine Sodium 137 mcg 03/24/17 06:30 03/24/17 06:42 Synthroid PO Not Given 0630 [facility] Midodrine 5 mg 03/24/17 07:30 Proamatine PO AC-BID [facility] Montelukast Sodium 10 mg 03/24/17 21:00 Singulair PO HS [facility] Nitroglycerin 0.5 inch 03/24/17 06:00 03/24/17 06:06 Nitro-Bid Oint TOPICAL Not Given Q6HR [facility] Nitroglycerin 0.4 mg 03/24/17 03:09 Nitrostat SUBLINGUAL Q5M PRN Chest Pain Oxycodone/Acetaminophen 1 each 03/24/17 03:13 Percocet 5-325 PO Q6HR PRN moderate Pain Pantoprazole Sodium 40 mg 03/24/17 07:30 Protonix PO AC-BID [facility] Trazodone HCl 150 mg 03/24/17 21:00 Desyrel PO HS [facility] Warfarin Sodium 5 mg 03/24/17 18:00 Coumadin PO 1800 [facility] Intake and Output 03/23/17 03/24/17 03/24/17 22:59 06:59 14:59 Intake Total 250 Balance 250 Intake: Amount of Fluid Infused ( 250 ml) Other: Weight 60.328 kg 03/24/17 01:25 03/24/17 01:25 Assessment and Plan Assessment: ASSESSMENT 1. Hypoglycemia 2. Atypical chest pain possibly secondary to hyoglycemia 3. Known history of coronary artery disease with bypass grafting 4. Paroxysmal atrial fibrillation on continuous churn buttermaker anticoagulation with coumadin, non-compliant 5. Sub-therapeutic INR, non-compliant with coumadin 6. Hypokalemia PLAN Cardiac enzymes and EKG are unremarkable. Acute coronary event has been ruled out. Importance of proper medication administration was discussed. Replace potassium per protocol. Possible consideration for assisted living setting was also recommended secondary to her co-morbid conditions and non-compliance. No further cardiac workup at this time. She should see Dr. Cobb in 2-3 weeks. Please make appointment before she leaves the hospital. The above impression and plan of care have been discussed and directed by the signing physician. Kacy Apple, nurse practitioner, acting as scribe for signing physician.
[2017-03-24] MEDS: MIDODRINE 5 MG TAB PO SCH ×2 (10:35→18:03)
[2017-03-24] MEDS: GABAPENTIN 400 MG CAP PO SCH ×2 (10:35→18:03)
[2017-03-24] MEDS: PANTOPRAZOLE 40 MG TABLET PO SCH ×2 (10:36→18:04)
[2017-03-24 12:22] LABS: Glucose,Whole Blood 331 mg/dL (75-99)
[2017-03-24 12:22] LABS: Glucose,Whole Blood 309 mg/dL (75-99)
[2017-03-24 14:34] LABS: Creatine Kinase 40 U/L (30-135)
--- NOTE | 2017-03-24 14:39 | P.HPIM ---
History of Present Illness 71-year-old female came to the hospital believing that she has low blood sugars patient is complaining of some suprapubic pain as well as epigastric abdominal pain and comparing of acid reflux symptoms although apparently she complained about chest pain in ER and does have history of CABG and subcu subsequent stenting in the past because of which cardiology was consulted the rule out acute coronary syndromes and patient was cleared for discharge patient has normal ejection fraction LV function in the past patient appears to have had history of orthostatic hypotension patient stays sugars she has been feeling weak and patient already has physical therapy at home patient checked her blood sugars after an episode of diaphoresis yesterday morning after she woke up and found to have blood sugars of 35. Patient denied any fever chills per her suprapubic pain is very minimal at this point of time and if UA if that's negative will also obtain a consultation from physical therapy, we'll get their opinion regarding necessity for subacute rehabitation patient already has home PT patient was comparing of some vague symptoms of dark stools although she didn 't have any stools today she had one episode yesterday she says will monitor the her for any clinical GI bleed including.stools here if she doesn't have any dark stools after evaluation by physical therapy patient will be discharged on decrease dose of Lantus from 40 pain next to 38 units. Patient is supposed to take Coumadin I do not believe she is taking Coumadin and her INR is subtherapeutic and patient had history of DVTs which is remote counseling regarding complex with medications was provided Review of Systems REVIEW OF SYSTEMS: CONSTITUTIONAL: As mentioned in HPI HEENT: No recent visual problems or hearing problems. Denied any sore throat. CARDIOVASCULAR: No chest pain, orthopnea, PND, no palpitations, no syncope. PULMONARY: No shortness of breath, no cough, no hemoptysis. GASTROINTESTINAL: As mentioned in HPI NEUROLOGICAL: No headaches, no weakness, no numbness. HEMATOLOGICAL: Denies any bleeding or petechiae. GENITOURINARY: Denies any burning micturition, frequency, or urgency. MUSCULOSKELETAL/RHEUMATOLOGICAL: Denies any joint pain, swelling, or any muscle pain. ENDOCRINE: Denies any polyuria or polydipsia. The rest of the 14-point review of systems is negative. Past Medical History Past Medical History: Atrial Fibrillation, Asthma, Coronary Artery Disease (CAD) , Cancer, Chest Pain / Angina, Diabetes Mellitus, GERD/Reflux, Hyperlipidemia, Hypertension, Myocardial Infarction ([place]), Neurologic Disorder, Pulmonary Embolus (PE), Thyroid Disorder Additional Past Medical History / Comment(s): gastroenteritis. Additional hx: incontinent urine and stool, IBS, hemmorhoids, colonic polyps, R femur acetabular impingement syndrome, UTI with sepsis, DDD, RLS, neuropathy bilateral hands and feet, thyroid cancer with thyroidectomy, diverticulitis, pt takes coumadin for PE's, arthiritis, chronic back pain, laryngeal cancer with surgical removal, syncope Last Myocardial Infarction Date:: 2011 or 2013 per pt History of Any Multi-Drug Resistant Organisms: None Reported Date of last positivie culture/infection: None MDRO Source:: None Past Surgical History: Adenoidectomy, Bladder Surgery, Bowel Resection, Cholecystectomy, Coronary Bypass/CABG, Heart Catheterization With Stent, Hysterectomy, Joint Replacement, Orthopedic Surgery, Pacemaker, Tonsillectomy, Tubal Ligation Additional Past Surgical History / Comment(s): CABG 3 vessel in 2006, cardiac cath with stents 2007 and 2011, pacer 2011, total thyroidectomy, lap maria del rosario, total left shoulder, R shoulder arthroscopy, partial colectomy due to diverticulitis, bladder suspension and bladder repair and mesh x 2, rectal wall repair, hysterectomy 1977, laryngeal surgery for cancer, colonoscopy, EGD with bx, nasal deviated septum surgical correction, L knee arthroscopy. Past Anesthesia/Blood Transfusion Reactions: No Reported Reaction Additional Past Anesthesia/Blood Transfusion Reaction / Comment(s): Pt has recieved blood without any reaction. Date of Last Stent Placement:: 2011 Type of Cardiac Device: Permanent Pacemaker Device Placement Date:: 2010 or 2011 in [place], [place] Past Psychological History: No Psychological Hx Reported Additional Psychological History / Comment(s): Pt lives with a "friend" with her 2 cats. She is normally independent. She has a cane and walker and electric wheelchair. She has no home care. She no longer drives a car- she uses [employer] [address] for ride needs. 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 Smoking Status: Current some day smoker Past Alcohol Use History: None Reported Additional Past Alcohol Use History / Comment(s): Pt states she started smoking about 1963. patient states she stil smokes a cigarette on occasion. Past Drug Use History: None Reported - Past Family History Father Family Medical History: Congestive Heart Failure (CHF), COPD Additional Family Medical History / Comment(s): Father at age 61 yrs of CHF and COPD. Mother Family Medical History: Congestive Heart Failure (CHF), COPD Medications and Allergies Home Medications Medication Instructions Recorded Confirmed Type Gabapentin [Neurontin] 800 mg PO TID #60 cap 12/07/16 03/24/17 Rx Levothyroxine Sodium [Synthroid] 137 mcg PO DAILY 12/07/16 03/24/17 History Insulin Aspart [NovoLOG Flexpen] See Protocol SQ AC-TID 01/04/17 03/24/17 History Warfarin Sodium [Coumadin] 5 mg PO HS 01/04/17 03/24/17 History Montelukast [Singulair] 10 mg PO HS 03/15/17 03/24/17 History traZODone HCL 150 mg PO HS 03/15/17 03/24/17 History Aspirin 81 mg PO DAILY chew 03/18/17 03/24/17 Rx Fludrocortisone [Florinef] 0.2 mg PO Q12H #60 tab 03/18/17 03/24/17 Rx Midodrine [ProAmatine] 5 mg PO AC-BID #60 tab 03/18/17 03/24/17 Rx Pantoprazole [Protonix] 40 mg PO BID #60 tablet. 03/18/17 03/24/17 Rx ALPRAZolam [Xanax] 0.25 mg PO TID PRN #20 tab 03/19/17 03/24/17 Rx oxyCODONE-APAP 5-325MG [Percocet 1 tab PO Q6HR PRN #20 tab 03/19/17 03/24/17 Rx 5-325 mg] Insulin Glargine [Lantus] 35 unit SQ DAILY #0 03/24/17 03/24/17 Rx Allergies Allergy/AdvReac Type Severity Reaction Status Date / Time No Known Allergies Allergy Verified 03/24/17 06:43 Physical Exam Vitals: Vital Signs Temp Pulse Pulse Resp BP BP BP 03/24/17 12:00 98.9 F 66 18 138/78 03/24/17 08:00 97.7 F 62 18 123/58 03/24/17 04:45 18 03/24/17 04:15 97.7 F 60 18 163/72 03/24/17 03:43 67 16 174/68 03/24/17 02:36 60 20 146/68 03/24/17 01:38 60 20 112/62 03/24/17 01:27 60 18 142/79 03/24/17 00:59 96.1 F L 60 20 142/79 Pulse Ox 03/24/17 12:00 99 03/24/17 08:00 99 03/24/17 04:45 03/24/17 04:15 98 03/24/17 03:43 97 03/24/17 02:36 99 03/24/17 01:38 98 03/24/17 01:27 100 03/24/17 00:59 99 Intake and Output 03/23/17 03/24/17 03/24/17 22:59 06:59 14:59 Intake Total 250 360 Balance 250 360 Intake: Amount of Fluid Infused ( 250 ml) Oral 360 Other: Voiding Method Diaper # Voids 1 Weight 60.328 kg PHYSICAL EXAMINATION: GENERAL: The patient is alert and oriented x3, not in any acute distress. Well developed, well nourished. HEENT: Pupils are round and equally reacting to light. EOMI. No scleral icterus. No conjunctival pallor. Normocephalic, atraumatic. No pharyngeal erythema. No thyromegaly. CARDIOVASCULAR: S1 and S2 present. No murmurs, rubs, or gallops. PULMONARY: Chest is clear to auscultation, no wheezing or crackles. ABDOMEN: Soft, nontender, nondistended, normoactive bowel sounds. No palpable organomegaly. MUSCULOSKELETAL: No joint swelling or deformity. EXTREMITIES: No cyanosis, clubbing, or pedal edema. NEUROLOGICAL: Gross neurological examination did not reveal any focal deficits. SKIN: No rashes. Results CBC & Chem 7: 03/24/17 01:25 03/24/17 07:07 Labs: Abnormal Lab Results - Last 24 Hours (Table) 03/24/17 03/24/17 03/24/17 Range/Units 01:25 01: 07:07 D-Dimer 0.71 H (<0.60) mg/L FEU Sodium 146 H (137-145) mmol/L Potassium 2.8 L* 3.4 L (3.5-5.1) mmol/L Chloride 110 H (98-107) mmol/L Glucose 112 H (74-99) mg/dL POC Glucose (mg/dL) (75-99) mg/dL Total Protein 5.2 L (6.3-8.2) g/dL Albumin 3.1 L (3.5-5.0) g/dL 03/24/17 03/24/17 03/24/17 Range/Units 09:07 12:10 12:14 D-Dimer (<0.60) mg/L FEU Sodium (137-145) mmol/L Potassium (3.5-5.1) mmol/L Chloride (98-107) mmol/L Glucose (74-99) mg/dL POC Glucose (mg/dL) 133 H 331 H 309 H (75-99) mg/dL Total Protein (6.3-8.2) g/dL Albumin (3.5-5.0) g/dL Thrombosis Risk Factor Assmnt - Choose All That Apply Each Factor Represents 1 point: Abnormal pulmonary function (COPD) Each Risk Factor Represents 2 Points: Age 61-74 years Each Risk Factor Represents 3 Points: History of DVT/PE Thrombosis Risk Factor Assessment Total Risk Factor Score: 6 Thrombosis Risk Factor Assessment Level: High Risk Assessment and Plan Plan: -Chest pain rule out acute concurrent syndromes daily valid the patient cleared for discharge. -Hypoglycemia insulin-dependent diabetes mellitus we'll increase the dose of Lantus here -History of orthostatic hypotension for which patient is on Florinef and midodrine which will be continued. -Generalized deconditioning for which patient has home PT -Suprapubic pain and vague we'll rule out cystitis patient does not have any fever or leukocytosis. -History of coronary artery disease with CABG in the past -History of DVTs. Subtherapeutic INR due to noncompliance with medication counseling was provided -Hypokalemia potassium, fasting will be supplemented -Gastroesophageal reflux disease with uncontrolled symptoms, patient was asked to take the proton pump inhibitor twice a day instead of once a day. -History of atrial fibrillation presently rate controlled -Hyperlipidemia
--- NOTE | 2017-03-24 14:39 | P.DS ---
Providers Date of admission: 03/24/17 03:15 Attending physician: Darlene Sosa Consults: 03/24/17 03:09 Consult Physician Urgent Consulting Provider: Travis Tate Consult Reason/Comments: Chest pain Do you want consulting provider notified?: Yes, Notify in am Primary care physician: Jane Carbajal [facility] Course: Please refer to my HPI Patient Condition at Discharge: Stable Plan - Discharge Summary New Discharge Prescriptions: Continue Levothyroxine Sodium [Synthroid] 137 mcg PO DAILY Gabapentin [Neurontin] 800 mg PO TID #60 cap Warfarin Sodium [Coumadin] 5 mg PO HS Insulin Aspart [NovoLOG Flexpen] See Protocol SQ AC-TID traZODone HCL 150 mg PO HS Montelukast [Singulair] 10 mg PO HS Fludrocortisone [Florinef] 0.2 mg PO Q12H #60 tab Midodrine [ProAmatine] 5 mg PO AC-BID #60 tab Pantoprazole [Protonix] 40 mg PO BID #60 tablet.dr Aspirin 81 mg PO DAILY chew oxyCODONE-APAP 5-325MG [Percocet 5-325 mg] 1 tab PO Q6HR PRN #20 tab PRN Reason: Pain ALPRAZolam [Xanax] 0.25 mg PO TID PRN #20 tab PRN Reason: Anxiety Changed Insulin Glargine [Lantus] 35 unit SQ DAILY #0 Discharge Medication List Gabapentin [Neurontin] 800 mg PO TID #60 cap 12/07/16 [Rx] Levothyroxine Sodium [Synthroid] 137 mcg PO DAILY 12/07/16 [History] Insulin Aspart [NovoLOG Flexpen] See Protocol SQ AC-TID 01/04/17 [History] Warfarin Sodium [Coumadin] 5 mg PO HS 01/04/17 [History] Montelukast [Singulair] 10 mg PO HS 03/15/17 [History] traZODone HCL 150 mg PO HS 03/15/17 [History] Aspirin 81 mg PO DAILY chew 03/18/17 [Rx] Fludrocortisone [Florinef] 0.2 mg PO Q12H #60 tab 03/18/17 [Rx] Midodrine [ProAmatine] 5 mg PO AC-BID #60 tab 03/18/17 [Rx] Pantoprazole [Protonix] 40 mg PO BID #60 tablet. 03/18/17 [Rx] ALPRAZolam [Xanax] 0.25 mg PO TID PRN #20 tab 03/19/17 [Rx] oxyCODONE-APAP 5-325MG [Percocet 5-325 mg] 1 tab PO Q6HR PRN #20 tab 03/19/17 [ Rx] Insulin Glargine [Lantus] 35 unit SQ DAILY #0 03/24/17 [Rx] Follow up Appointment(s)/Referral(s): Raven Lara MD [Primary Care Provider] - 3 Days Discharge Disposition: HOME WITH HOME HEALTH SERVICES
[2017-03-24 14:46] LABS: Troponin I <0.012 ng/mL (0.000-0.034)
[2017-03-24 15:45] VITALS: BP 158/83; PULSE 65; TEMP 98.1
[2017-03-24 17:24] LABS: Glucose,Whole Blood 217 mg/dL (75-99)
[2017-03-24 17:53] LABS: Appearance,Urine Clear (Clear); Bilirubin,Urine Negative (Negative); Blood,Urine Negative (Negative); Color,Urine Yellow; Glucose,Urine (UA) 4+ (Negative); Hyaline Casts,Urine 1 /lpf (0-2); Ketones,Urine Negative (Negative); Leukocyte Esterase,Urine Trace (Negative); Mucus,Urine Rare /hpf; Nitrite,Urine Negative (Negative); PH, Urine 6.5 (5.0-8.0); Protein,Urine Negative (Negative); RBC,Urine 2 /hpf (0-5); Specific Gravity,Urine 1.011 (1.001-1.035); Squamous Epithelial Cell,Urine 6 /hpf (0-4); Urobilinogen,Urine <2.0 mg/dL (<2.0); WBC,Urine 2 /hpf (0-5)
[2017-03-24] MEDS ORDERED: WARFARIN 5 MG TAB PO SCH (18:00)
[2017-03-24] MEDS ORDERED: traZODone HCL 100 MG TAB PO SCH (21:00)
[2017-03-24] MEDS ORDERED: MONTELUKAST 10 MG TAB PO SCH (21:00)
== END 2017-03-24 18:51 | disposition home health service (06) ==
LOC: EC 00:54 → 3OBS 03:15
PROVIDERS: ADMIT Hospitalist; ATTEND Hospitalist
DX: R07.89 Other chest pain (principal); E87.6 Hypokalemia; I25.10 Atherosclerotic heart disease of native coronary artery without angina pectoris; E11.649 Type 2 diabetes mellitus with hypoglycemia without coma; E11.40 Type 2 diabetes mellitus with diabetic neuropathy, unspecified; I95.1 Orthostatic hypotension; I48.0 Paroxysmal atrial fibrillation; K21.9 Gastro-esophageal reflux disease without esophagitis; I10 Essential (primary) hypertension; E78.5 Hyperlipidemia, unspecified; R79.1 Abnormal coagulation profile; E89.0 Postprocedural hypothyroidism; G89.29 Other chronic pain; M54.9 Dorsalgia, unspecified; G25.81 Restless legs syndrome; K58.9 Irritable bowel syndrome, unspecified; M19.90 Unspecified osteoarthritis, unspecified site; R53.81 Other malaise; R10.30 Lower abdominal pain, unspecified; F17.210 Nicotine dependence, cigarettes, uncomplicated; J45.909 Unspecified asthma, uncomplicated; Z79.01 Long term (current) use of anticoagulants; Z79.82 Long term (current) use of aspirin; Z79.4 Long term (current) use of insulin; Z79.52 Long term (current) use of systemic steroids; Z79.899 Other long term (current) drug therapy; Z91.14 Patient's other noncompliance with medication regimen; I25.2 Old myocardial infarction; Z86.711 Personal history of pulmonary embolism; Z86.718 Personal history of other venous thrombosis and embolism; Z87.440 Personal history of urinary (tract) infections; Z85.850 Personal history of malignant neoplasm of thyroid; Z85.21 Personal history of malignant neoplasm of larynx; Z95.1 Presence of aortocoronary bypass graft; Z95.5 Presence of coronary angioplasty implant and graft; Z90.49 Acquired absence of other specified parts of digestive tract; Z95.0 Presence of cardiac pacemaker; Z82.49 Family history of ischemic heart disease and other diseases of the circulatory system; Z83.6 Family history of other diseases of the respiratory system; Z90.710 Acquired absence of both cervix and uterus; Z90.02 Acquired absence of larynx; Z71.89 Other specified counseling
CPT/HCPCS: 96366; 96365; 99291; 36415; 93005; 97162; 85379; 80053; 82150; 82550; 82553; 83690; 83735; 84484; 85025; 85610; 85730; 81001; 71046; G0378; J3480

== ENCOUNTER 2017-05-08 21:13 | Inpatient (IN) | payer MEDICARE ==
[2017-05-08] MEDS ORDERED: METOCLOPRAMIDE 5 MG/ML 2 ML VIAL IVP STA (21:31)
[2017-05-08] MEDS ORDERED: SODIUM CHLORIDE 0.9% 1,000 ML IV STA (21:31)
[2017-05-08] MEDS ORDERED: SODIUM CHLORIDE 0.9% 500 ML IV ONE (21:32)
--- NOTE | 2017-05-08 21:38 | ED ---
General Adult HPI - General Chief complaint: Headache Stated complaint: hypertension Time Seen by Provider: 05/08/17 21:19 Source: patient, EMS Mode of arrival: EMS Limitations: no limitations - History of Present Illness Initial comments: 72-year-old female presents for evaluation of hypertension. Patient had a blood pressure 190/100 at home. She checked this because she developed a gradual onset frontal headache and thought this could be related to her blood pressure. She normally has an issue with low blood pressure and is on several medications to raise her blood pressure. No history of hypertension. Patient also had several episodes of vomiting earlier in the day. Denies abdominal pain with this. Denies diarrhea. Denies fever or chills. Headache is minimal at the time of my evaluation. This was gradual onset bifrontal headache similar to patient's previous headaches. Patient also is complaining of some mild anterior right-sided chest pain which is intermittent, sharp and minimal in nature. She does have history of coronary artery bypass grafting and multiple stents. No central substernal crushing or radiating chest pain. - Related Data Home Medications Medication Instructions Recorded Confirmed Levothyroxine Sodium [Synthroid] 137 mcg PO DAILY 12/07/16 05/08/17 Insulin Aspart [NovoLOG Flexpen] See Protocol SQ AC-TID 01/04/17 05/08/17 traZODone HCL 150 mg PO HS 03/15/17 05/08/17 Diazepam [Valium] 5 mg PO HS 05/08/17 05/08/17 Fludrocortisone [Florinef] 0.1 mg PO Q12H 05/08/17 05/08/17 Gabapentin [Neurontin] 800 mg PO QID 05/08/17 05/08/17 Lisinopril [Zestril] 10 mg PO DAILY 05/08/17 05/08/17 Warfarin Sodium 6 mg PO HS 05/08/17 05/08/17 oxyCODONE-APAP 5-325MG [Percocet 1 tab PO TID PRN 05/08/17 05/08/17 5-325 mg] Previous Rx's Medication Instructions Recorded Midodrine [ProAmatine] 5 mg PO AC-BID #60 tab 03/18/17 Pantoprazole [Protonix] 40 mg PO BID #60 tablet. 03/18/17 Insulin Glargine [Lantus] 35 unit SQ DAILY #0 01/11/18 Allergies Allergy/AdvReac Type Severity Reaction Status Date / Time No Known Allergies Allergy Verified 05/08/17 22:05 Review of Systems ROS Statement: Those systems with pertinent positive or pertinent negative responses have been documented in the HPI. ROS Other: All systems not noted in ROS Statement are negative. Past Medical History Past Medical History: Atrial Fibrillation, Asthma, Coronary Artery Disease (CAD) , Cancer, Chest Pain / Angina, Diabetes Mellitus, GERD/Reflux, Hyperlipidemia, Hypertension, Myocardial Infarction ([place]), Neurologic Disorder, Pulmonary Embolus (PE), Thyroid Disorder Additional Past Medical History / Comment(s): gastroenteritis. Additional hx: incontinent urine and stool, IBS, hemmorhoids, colonic polyps, R femur acetabular impingement syndrome, UTI with sepsis, DDD, RLS, neuropathy bilateral hands and feet, thyroid cancer with thyroidectomy, diverticulitis, pt takes coumadin for PE's, arthiritis, chronic back pain, laryngeal cancer with surgical removal, syncope Last Myocardial Infarction Date:: 2011 or 2012 per pt History of Any Multi-Drug Resistant Organisms: None Reported Date of last positivie culture/infection: None MDRO Source:: None Past Surgical History: Adenoidectomy, Bladder Surgery, Bowel Resection, Cholecystectomy, Coronary Bypass/CABG, Heart Catheterization With Stent, Hysterectomy, Joint Replacement, Orthopedic Surgery, Pacemaker, Tonsillectomy, Tubal Ligation Additional Past Surgical History / Comment(s): CABG 3 vessel in 2006, cardiac cath with stents 2007 and 2011, pacer 2011, total thyroidectomy, lap [place], total left shoulder, R shoulder arthroscopy, partial colectomy due to diverticulitis, bladder suspension and bladder repair and mesh x 2, rectal wall repair, hysterectomy 1977, laryngeal surgery for cancer, colonoscopy, EGD with bx, nasal deviated septum surgical correction, L knee arthroscopy. Past Anesthesia/Blood Transfusion Reactions: No Reported Reaction Additional Past Anesthesia/Blood Transfusion Reaction / Comment(s): Pt has recieved blood without any reaction. Date of Last Stent Placement:: 2011 Type of Cardiac Device: Permanent Pacemaker Device Placement Date:: 2010 or 2011 in [place], [place] Past Psychological History: No Psychological Hx Reported Smoking Status: Current some day smoker Past Alcohol Use History: None Reported Past Drug Use History: None Reported - Past Family History Father Family Medical History: Congestive Heart Failure (CHF), COPD Additional Family Medical History / Comment(s): Father at age 61 yrs of CHF and COPD. Mother Family Medical History: Congestive Heart Failure (CHF), COPD General Exam Limitations: no limitations General appearance: alert, in no apparent distress Head exam: Present: atraumatic, normocephalic Eye exam: Present: normal appearance, PERRL, EOMI ENT exam: Present: normal exam Neck exam: Present: normal inspection. Absent: tenderness, meningismus Respiratory exam: Present: normal lung sounds bilaterally. Absent: respiratory distress, wheezes Cardiovascular Exam: Present: regular rate, normal rhythm GI/Abdominal exam: Present: soft. Absent: distended, tenderness, guarding Extremities exam: Present: normal inspection, normal capillary refill. Absent: pedal edema Neurological exam: Present: alert, oriented X3, CN II-XII intact. Absent: motor sensory deficit Psychiatric exam: Present: normal affect, normal mood Skin exam: Present: warm, dry, intact. Absent: cyanosis, diaphoretic Course Vital Signs 05/08/17 05/08/17 05/08/17 21:19 22:02 22:25 Temperature 98.7 F Pulse Rate 60 69 64 Respiratory 16 16 18 Rate Blood Pressure 191/81 180/84 159/81 O2 Sat by Pulse 98 95 96 Oximetry EKG Findings - EKG Comments: EKG Findings:: EKG shows normal sinus rhythm, T-wave inversion in 23 and aVF, no ST segment elevation, ventricular rate 63, para 186, castration 86, QTC 374 Medical Decision Making - Medical Decision Making 72-year-old female presenting with headache, nausea vomiting, and chest pain. Chest pain is atypical and not concerning for ACS, EKG shows no significant changes regarding ischemia compared to prior. Patient has history of hypotension and is significantly elevated blood pressure. She did not take her Florinef or Midrin today secondary to her vomiting. Headache is gradual in onset, and bifrontal. CT is obtained, this is negative for intracranial hemorrhage or mass effect. Laboratory studies reveal normal white blood cell count 5.3, hemoglobin 13.1, electrolytes are normal, serum glucose is mildly elevated 310. Troponin is negative. Chest x-ray negative for focal pneumonia. Patient's Florinef and Midrin will be held, she is given IV hydration for degree of dehydration with contraction. On reevaluation, her headache is significantly improved. She will be placed in observation for continued IV hydration, and reevaluation. - Lab Data Result diagrams: 05/08/17 21:25 05/08/17 21:25 Lab Results 05/08/17 05/08/17 05/08/17 Range/Units 21:25 21:25 21:25 WBC 5.3 (3.8-10.6) k/uL RBC 4.27 (3.80-5.40) m/uL Hgb 13.1 (11.4-16.0) gm/dL Hct 40.9 (34.0-46.0) % MCV 95.9 (80.0-100.0) fL MCH 30.6 (25.0-35.0) pg MCHC 31.9 (31.0-37.0) g/dL RDW 12.8 (11.5-15.5) % Plt Count 181 (150-450) k/uL Neutrophils % 51 % Lymphocytes % 37 % Monocytes % 6 % Eosinophils % 4 % Basophils % 1 % Neutrophils # 2.7 (1.3-7.7) k/uL Lymphocytes # 2.0 (1.0-4.8) k/uL Monocytes # 0.3 (0-1.0) k/uL Eosinophils # 0.2 (0-0.7) k/uL Basophils # 0.1 (0-0.2) k/uL PT (9.0-12.0) sec INR (<1.2) APTT (22.0-30.0) sec Sodium 139 (137-145) mmol/L Potassium 4.1 (3.5-5.1) mmol/L Chloride 105 (98-107) mmol/L Carbon Dioxide 24 (22-30) mmol/L Anion Gap 10 mmol/L BUN 15 (7-17) mg/dL Creatinine 0.50 L (0.52-1.04) mg/dL Est GFR (MDRD) Af Amer >60 (>60 ml/min/1.73 sqM) Est GFR (MDRD) Non-Af >60 (>60 ml/min/1.73 sqM) Glucose 311 H (74-99) mg/dL Calcium 9.2 (8.4-10.2) mg/dL Magnesium 2.1 (1.6-2.3) mg/dL Total Bilirubin 0.7 (0.2-1.3) mg/dL AST 20 (14-36) U/L ALT 22 (9-52) U/L Alkaline Phosphatase 99 (38-126) U/L Total Creatine Kinase 31 (30-135) U/L CK-MB (CK-2) 0.8 (0.0-2.4) ng/mL CK-MB (CK-2) Rel Index 2.6 Troponin I <0.012 (0.000-0.034) ng/mL Total Protein 6.2 L (6.3-8.2) g/dL Albumin 3.7 (3.5-5.0) g/dL Lipase 142 (23-300) U/L 05/08/ Range/Units 21:25 WBC (3.8-10.6) k/uL RBC (3.80-5.40) m/uL Hgb (11.4-16.0) gm/dL Hct (34.0-46.0) % MCV (80.0-100.0) fL MCH (25.0-35.0) pg MCHC (31.0-37.0) g/dL RDW (11.5-15.5) % Plt Count (150-450) k/uL Neutrophils % % Lymphocytes % % Monocytes % % Eosinophils % % Basophils % % Neutrophils # (1.3-7.7) k/uL Lymphocytes # (1.0-4.8) k/uL Monocytes # (0-1.0) k/uL Eosinophils # (0-0.7) k/uL Basophils # (0-0.2) k/uL PT 9.7 (9.0-12.0) sec INR 1.0 (<1.2) APTT 21.5 L (22.0-30.0) sec Sodium (137-145) mmol/L Potassium (3.5-5.1) mmol/L Chloride (98-107) mmol/L Carbon Dioxide (22-30) mmol/L Anion Gap mmol/L BUN (7-17) mg/dL Creatinine (0.52-1.04) mg/dL Est GFR (MDRD) Af Amer (>60 ml/min/1.73 sqM) Est GFR (MDRD) Non-Af (>60 ml/min/1.73 sqM) Glucose (74-99) mg/dL Calcium (8.4-10.2) mg/dL Magnesium (1.6-2.3) mg/dL Total Bilirubin (0.2-1.3) mg/dL AST (14-36) U/L ALT (9-52) U/L Alkaline Phosphatase (38-126) U/L Total Creatine Kinase (30-135) U/L CK-MB (CK-2) (0.0-2.4) ng/mL CK-MB (CK-2) Rel Index Troponin I (0.000-0.034) ng/mL Total Protein (6.3-8.2) g/dL Albumin (3.5-5.0) g/dL Lipase (23-300) U/L Disposition Clinical Impression: Headache, Nausea & vomiting, Dehydration, Atypical chest pain, Hypertension Disposition: ADMITTED IP TO THIS [facility] Condition: Stable Referrals: Raven Lara MD [Primary Care Provider] - 1-2 days Decision to Admit Reason: Admit from EC Decision Date: 05/08/17 Decision Time: 22:59
[2017-05-08 21:47] LABS: Basophils # (A) 0.1 k/uL (0-0.2); Basophils % (A) 1 %; Eosinophils # (A) 0.2 k/uL (0-0.7); Eosinophils % (A) 4 %; HCT 40.9 % (34.0-46.0); HGB 13.1 gm/dL (11.4-16.0); Lymphocytes % (A) 37 %; MCH 30.6 pg (25.0-35.0); MCHC 31.9 g/dL (31.0-37.0); MCV 95.9 fL (80.0-100.0); Mean Platelet Volume 6.4; Monocytes # (A) 0.3 k/uL (0-1.0); Monocytes % (A) 6 %; Neutrophils # (A) 2.7 k/uL (1.3-7.7); Neutrophils % (A) 51 %; Platelet Count 181 k/uL (150-450); RBC 4.27 m/uL (3.80-5.40); RDW 12.8 % (11.5-15.5); WBC 5.3 k/uL (3.8-10.6)
[2017-05-08 21:55] LABS: Prothrombin Time 9.7 sec (9.0-12.0)
[2017-05-08 21:58] LABS: ALT 22 U/L (9-52); AST 20 U/L (14-36); Albumin 3.7 g/dL (3.5-5.0); Alkaline Phosphatase 99 U/L (38-126); Anion Gap 10 mmol/L; Blood Urea Nitrogen 15 mg/dL (7-17); Calcium 9.2 mg/dL (8.4-10.2); Carbon Dioxide 24 mmol/L (22-30); Chloride 105 mmol/L (98-107); Glucose 311 mg/dL (74-99); Lipase 142 U/L (23-300); Potassium 4.1 mmol/L (3.5-5.1); Sodium 139 mmol/L (137-145); Total Bilirubin 0.7 mg/dL (0.2-1.3); Total Protein 6.2 g/dL (6.3-8.2)
--- NOTE | 2017-05-08 21:58 | XR ---
EXAMINATION TYPE: XR chest 2V DATE OF EXAM: 05/08/2017 COMPARISON: 03/24/2017 HISTORY: Chest pain TECHNIQUE: Frontal and lateral views of the chest are obtained. FINDINGS: Dual lead left-sided cardiac device is again demonstrated. Mild multilevel degenerative ch anges of the thoracic spine are seen. Cardiac silhouette is within normal limits. No focal consolidat ion, pleural effusion or pneumothorax. Left humeral arthroplasty is again seen. Minimal left basilar subsegmental atelectasis is seen near the costophrenic angle. IMPRESSION: Minimal left basilar subsegmental atelectasis with no acute cardiopulmonary process.
[2017-05-08 22:02] LABS: Creatine Kinase 31 U/L (30-135)
--- NOTE | 2017-05-08 22:02 | CT ---
EXAMINATION TYPE: CT brain wo con DATE OF EXAM: 05/08/2017 COMPARISON: 12/06/2016 HISTORY: Hypertension and headache CT DLP: 1031.70 mGycm Automated exposure control for dose reduction was used. TECHNIQUE: CT scan of the head is performed without contrast. FINDINGS: There is no acute intracranial hemorrhage or midline shift identified. Dystrophic basal g anglia calcifications are seen bilaterally. There is diffuse ventricular and sulcal prominence consis tent with diffuse age-related cerebral atrophy. There is low-attenuation in the periventricular whit e matter consistent with chronic small vessel ischemic change. The globes are intact and the visuali zed sinuses are clear. IMPRESSION: No acute intracranial hemorrhage or midline shift. There is diffuse age-related cerebra l atrophy and chronic small vessel ischemic change noted.
[2017-05-08 22:05] LABS: Partial Thromboplastin Time 21.5 sec (22.0-30.0)
[2017-05-08 22:15] LABS: Creatine Kinase MB 0.8 ng/mL (0.0-2.4); Troponin I <0.012 ng/mL (0.000-0.034)
[2017-05-08] MEDS ORDERED: KETOROLAC 30 MG/ML 1 ML VIAL IVP STA (22:51)
[2017-05-08] MEDS ORDERED: ONDANSETRON 4 MG/2 ML VIAL IVP PRN (22:53)
[2017-05-08] MEDS ORDERED: NALOXONE 0.4 MG/ML 1 ML VIAL IV PRN (22:53)
[2017-05-09] LABS: Glucose,Whole Blood 253 mg/dL (75-99)
[2017-05-09] MEDS: MORPHINE SULFATE 4 MG/ML SYRINGE IV PRN ×3 (00:48→12:03)
[2017-05-09 07:14] LABS: Glucose,Whole Blood 323 mg/dL (75-99)
[2017-05-09] MEDS: LEVOTHYROXINE 137 MCG TAB PO SCH (07:20)
[2017-05-09 07:21] LABS: Basophils # (A) 0.1 k/uL (0-0.2); Basophils % (A) 1 %; Eosinophils # (A) 0.2 k/uL (0-0.7); Eosinophils % (A) 4 %; HCT 37.7 % (34.0-46.0); HGB 12.4 gm/dL (11.4-16.0); Lymphocytes # (A) 1.8 k/uL (1.0-4.8); Lymphocytes % (A) 42 %; MCH 30.6 pg (25.0-35.0); MCHC 32.8 g/dL (31.0-37.0); MCV 93.3 fL (80.0-100.0); Mean Platelet Volume 6.4; Monocytes # (A) 0.2 k/uL (0-1.0); Monocytes % (A) 6 %; Neutrophils % (A) 45 %; Platelet Count 203 k/uL (150-450); RBC 4.05 m/uL (3.80-5.40); RDW 12.8 % (11.5-15.5); WBC 4.4 k/uL (3.8-10.6)
[2017-05-09 07:35] LABS: ALT 22 U/L (9-52); AST 13 U/L (14-36); Alkaline Phosphatase 85 U/L (38-126); Anion Gap 7 mmol/L; Blood Urea Nitrogen 13 mg/dL (7-17); Calcium 8.6 mg/dL (8.4-10.2); Carbon Dioxide 25 mmol/L (22-30); Chloride 105 mmol/L (98-107); Glucose 344 mg/dL (74-99); Potassium 3.9 mmol/L (3.5-5.1); Sodium 137 mmol/L (137-145); Total Bilirubin 0.6 mg/dL (0.2-1.3); Total Protein 5.2 g/dL (6.3-8.2)
[2017-05-09 07:52] LABS: Prothrombin Time 10.1 sec (9.0-12.0)
[2017-05-09] MEDS ORDERED: INSULIN ASPART 100 UNIT/ML 1 ML 10 ML VIAL SQ ONE (08:30)
[2017-05-09] MEDS: LISINOPRIL 10 MG TAB PO SCH (09:18)
[2017-05-09] MEDS: INSULIN DETEMIR 100 UNIT/ML 10 ML VIAL SQ SCH (09:18)
[2017-05-09] MEDS: SODIUM CHLORIDE 0.9% 1,000 ML IV SCH (09:19)
[2017-05-09] MEDS ORDERED: RX INFO: IV CONTRAST WAS GIVEN 1 EACH MISC MISCELLANE PRN (10:13)
--- NOTE | 2017-05-09 10:43 | CONS ---
CONSULTATION Mrs. Donahue is a 72-year-old female with a known history of coronary artery disease who has been followed by Dr. Terri Cobb in the past, status post coronary artery bypass grafting who usually runs a low blood pressure. Yesterday, did not feel too well. Checked her blood pressure at home, it was elevated and because of that came into the emergency room and subsequently admitted. She has complained of some chest discomfort. The discomfort was in the middle, but according to her, that discomfort is chronic. She had that discomfort for many times and it is not any different than her baseline. She has dyspnea on exertion. She has some dizziness and palpitation. She has cough, but no fever. She denies any syncope. She has underwent the coronary artery bypass grafting and subsequent percutaneous revascularization of the LAD in 2008 and subsequently in 2011. She underwent a repeat cardiac catheterization by Dr. Terri Cobb in June of 2014 and at that time, there was no significant progression of disease and medical therapy was recommended. The patient is not very active physically, has the dyspnea on exertion. She had an echocardiogram performed in December 2016 and at that time, her left ventricular systolic function was preserved. She had mild tricuspid and aortic regurgitation. She has been feeling nauseated and weak recently. On her cardiac catheterization, she had the GRANT to LAD was occluded with patent chilkoot LAD. The RCA was totally occluded. Saphenous vein graft to the PDA and diagonal branch of the LAD had mild disease on her most recent cardiac catheterization. Her past medical history is remarkable for the history of coronary artery disease, history of paroxysmal atrial fibrillation, prior history of pulmonary embolism, history of sick sinus syndrome and permanent pacemaker implantation. Her coronary risk factors are positive for smoking. She has prior history of hypertension, although at times she has been hypotensive. She has history of diabetes. Her medications include Valium, Florinef 0.1 mg twice a day, gabapentin, insulin, levothyroxine 0.137 mg daily, Zestril 10 mg daily, Midodrine 5 mg twice a day, Protonix 40 mg daily, Coumadin, and trazodone. REVIEW OF SYSTEMS: RESPIRATORY SYSTEM: She had dyspnea on exertion and cough. GI SYSTEM: She had nausea. No vomiting. No GI bleeding. SYSTEM: No dysuria or hematuria. NERVOUS SYSTEM: No history of seizure. PHYSICAL EXAMINATION: She is a 72-year-old female, alert, oriented, in no apparent distress. Blood pressure 145/70 with a the heart rate in 60s. HEAD: Normocephalic. EYES: Sclerae anicteric. NECK: Good upstroke. No bruit. LUNGS: With decreased air exchange. No wheezes. HEART: Regular rate and rhythm. S1, S2. No S3 with systolic murmur. No diastolic murmur. ABDOMEN: Soft, nontender. Positive bowel sounds. No organomegaly. EXTREMITIES: No edema. Intact distal pulses. LAB DATA: Lab data revealed troponin less than 0.012. BUN and creatinine 13 and 0.55. Potassium 3.9. D-dimer 0.63, hemoglobin 12.4. EKG revealed a sinus mechanism, poor R progression, nonspecific ST-T wave changes. Chest x-ray revealed questionable left basilar subsegmental atelectasis. IMPRESSION: 1. Episode of hypertension on presentation in a patient with history of orthostatic hypotension. Her blood pressure is stable at this time. 2. History of coronary artery disease, status post coronary artery bypass grafting. 3. Chest discomfort, atypical for ischemic heart disease. 4. Symptoms of nausea and headache. 5. History of diabetes. 6. Chronic tobacco use. RECOMMENDATION: From the cardiac standpoint, I see no active cardiac disease. At this time, her blood pressure is stable and her chest discomfort according to her is not any different than her baseline. I will continue present therapy. Increase her level of activity and when she is stable and discharged home, then I would recommend that she follows up on a regular basis with Dr. Terri Cobb. Thank you for this consult. I will follow with you. MMODL / IJN: [id number] /
--- NOTE | 2017-05-09 11:24 | CT ---
CT CHEST FOR PULMONARY EMBOLISM. EXAMINATION TYPE: CT chest angio for PE DATE OF EXAM: 05/09/2017 INDICATION: Shortness of breath. CT DLP: 240.3 mGycm, Automated exposure control for dose reduction was used. CONTRAST: Patient injected with 67 mL of Omnipaque 350. COMPARISON: NONE TECHNIQUE: CT of the chest is performed on a spiral scan at 2 mm thick sections. Study is performed with intravenous contrast timed for evaluation for pulmonary embolism. This will limit additional po rtions of the evaluation. 3-D MIP images reconstructed by the technologist are reviewed on the compu ter in the coronal and sagittal planes. FINDINGS: No persistent filling defects are evident to suggest an acute pulmonary embolism. No mediastinal or hilar adenopathy enlarged by CT criteria is evident. The ascending aorta diameter at the level of the main pulmonary artery is 3.2 cm. The main pulmonary artery diameter at the bifur cation is 3.2 cm. Some minimal subsegmental atelectasis is likely present bilateral lung bases. Mild bronchiectasis is noted. Limited CT section through the upper abdomen are unremarkable. IMPRESSIONS: 1. No acute pulmonary embolism. 2. Minimal bronchiectasis.
[2017-05-09 11:35] LABS: Glucose,Whole Blood 221 mg/dL (75-99)
--- NOTE | 2017-05-09 12:06 | CT ---
EXAMINATION TYPE: CT abdomen pelvis wo con DATE OF EXAM: 05/09/2017 COMPARISON: 08/23/2014 INDICATION: Generalized pain with nausea DLP: 316.8 mGycm, Automated exposure control for dose reduction was used. CONTRAST: None Study performed without Oral Contrast TECHNIQUE: Axial images were obtained from above the diaphragm to the pubic rami in the axial plane a t 5 mm thick sections. Reconstructed images are reviewed on the computer in the coronal plane. FINDINGS: Limited CT sections are obtained the lung bases. There is some subtle groundglass opacities in the p osterior lateral left lung base. This was present previously. Reticular nodular pattern appears dimin ished. CT ABDOMEN: Liver: Normal Spleen: Normal Pancreas: Atrophic Adrenal glands: The adrenal glands are normal. Gallbladder: Surgically absent Kidneys: No masses are evident. No hydronephrosis is present. No cysts are present. No suspicious renal calcifications are evident. Aorta: Vascular calcification is within the aorta. Inferior vena cava: Normal. CT PELVIS: Loops of bowel within the abdomen and pelvis are normal. Fecal debris is within the colon. Appendix: Normal as visualized. Urinary bladder: Normal. Genitourinary structures: Uterus and ovaries are not identified. Osseous structures: No suspicious lytic or sclerotic lesions. Facet degenerative changes are within t he lower lumbar spine. IMPRESSIONS: 1. Mild fecal retention. 2. Stable appearance of the left posterior lateral left lung.
[2017-05-09 13:06] LABS: Appearance,Urine Clear (Clear); Bilirubin,Urine Negative (Negative); Blood,Urine Negative (Negative); Color,Urine Yellow; Glucose,Urine (UA) 4+ (Negative); Ketones,Urine Negative (Negative); Leukocyte Esterase,Urine Negative (Negative); PH, Urine 5.5 (5.0-8.0); Protein,Urine Negative (Negative); Specific Gravity,Urine 1.039 (1.001-1.035); Urobilinogen,Urine <2.0 mg/dL (<2.0)
[2017-05-09] MEDS: INSULIN ASPART 100 UNIT/ML 1 ML 10 ML VIAL SQ SCH ×3 (13:15→22:22)
[2017-05-09] MEDS ORDERED: MORPHINE ORAL SOLN 10 MG/5 ML CUP PO PRN (13:19)
[2017-05-09 13:28] LABS: Amphetamine Screen,Urine Not Detected (NotDetected); Barbiturate Screen,Urine Not Detected (NotDetected); Benzodiazepines Screen,Urine Detected (NotDetected); Cocaine Screen,Urine Not Detected (NotDetected); Methadone Screen, Urine Not Detected (NotDetected); Opiate Screen,Urine Detected (NotDetected); Oxycodone Screen, Urine Not Detected (NotDetected); Phencyclidine Screen,Urine Not Detected (NotDetected); Tricyclic Antidepressant,Urine Not Detected (NotDetected); Urn Cannabinoid Scrn Not Detected (NotDetected)
[2017-05-09] MEDS: ACETAMINOPHEN TAB 325 MG TAB PO PRN (16:45)
[2017-05-09 16:55] LABS: Glucose,Whole Blood 72 mg/dL (75-99)
--- NOTE | 2017-05-09 17:06 | HP ---
HISTORY AND PHYSICAL CHIEF COMPLAINTS: Hypertension, headache as well as nausea and vomiting. HISTORY OF PRESENT ILLNESS: This 72-year-old woman with a past medical history of multiple medical problems, including CAD, CABG, history of atrial fibrillation, history of asthma, chest pain, CHF, GERD, hypertension, hyperlipidemia, history of myocardial function, history of pulmonary embolism, being followed by Dr. Lara in the outpatient setting, is also following with Cardiology. Yesterday the patient had elevated blood pressure of 190/100 and the patient also had gradual onset of frontal headache and also felt nauseous. Some vomiting was also recorded. The patient came to [facility] and was admitted for further evaluation and treatment. Patient also complains of vague chest pains in the anterior part of the chest, and cardiology evaluation is in progress at this time. The pain is situated in the right side of the chest, sharp and mild to moderate in intensity. There is no history of any fever, rigor or chills. No history of headache, loss of consciousness, seizures at this time. PAST MEDICAL HISTORY: 1. History of atrial fibrillation. 2. History of CAD, CABG and stent. 3. History of GERD. 4. Hypertension. 5. Hyperlipidemia. 6. History of pulmonary embolism. 7. History of adenoidectomy. 8. History of bladder surgery. HOME MEDICATIONS: 1. Zestril 10 mg p.o. daily. 2. Neurontin 800 mg p.o. q.i.d. 3. Florinef 0.1 b.i.d. 4. Valium 5 mg at bedtime. 5. Protonix 40 mg b.i.d. 6. ProAmatine 5 mg before meals b.i.d. 7. Synthroid 137 mcg p.o. daily. 8. Lantus 35 units subcutaneously daily. 9. NovoLog FlexPen. 10.Percocet 5 mg t.i.d. p.r.n. 11.Coumadin 6 mg p.o. at bedtime. 12.Trazodone 50 mg at bedtime. ALLERGIES: NONE. FAMILY HISTORY: History of CHF and COPD in the family. SOCIAL HISTORY: History of smoking, continued, ongoing. No history of alcohol intake. REVIEW OF SYSTEMS: ENT: No diminished hearing. No diminished vision. CARDIOVASCULAR SYSTEM: No angina, palpitations. RESPIRATORY SYSTEM: As mentioned earlier. GI: No nausea, vomiting. : No dysuria or retention. NERVOUS SYSTEM: No numbness, weakness. ALLERGY/IMMUNOLOGY: No asthma, hayfever. MUSCULOSKELETAL: As mentioned earlier. HEMATOLOGY/ONCOLOGY: No history of anemia. ENDOCRINE: Hypothyroidism and diabetes mellitus. CONSTITUTIONAL: As mentioned earlier. DERMATOLOGY: Negative. RHEUMATOLOGY: Negative. PSYCHIATRY: As mentioned earlier. PHYSICAL EXAMINATION: Patient is alert and oriented x3. Pulse 60, blood pressure 140/74, respiration 16, temperature 98.4, pulse ox 97% on room air. HEENT: Conjunctivae normal. Oral mucosa moist. NECK: No jugular venous distention. No carotid bruit. No lymph node enlargement. CARDIOVASCULAR SYSTEM: S1, S2 muffled. RESPIRATORY SYSTEM: Breath sounds diminished at the bases. A few scattered rhonchi. No crackles. ABDOMEN: Soft, nontender. No mass palpable. LEGS: No edema. No swelling. NERVOUS SYSTEM: Higher functions as mentioned earlier. Moves all 4 limbs. No focal motor or sensory deficit. LYMPHATICS: No lymph node palpable in neck, axillae or groin. SKIN: No ulcer, rash, bleeding. LABS: CBC within normal limits and glucose 344 and 323. UA noted. Drug screen is negative. Influenza negative. ASSESSMENT: 1. Nausea, vomiting; possible acute gastritis. 2. Accelerated hypertension with hypertensive urgency. 3. Chest pain for evaluation. 4. Diabetes mellitus, type 2, uncontrolled. 5. History of atrial fibrillation. 6. History of coronary artery disease, coronary artery bypass grafting, stent. 7. History of congestive heart failure. 8. Gastroesophageal reflux disease. 9. Hyperlipidemia. 10.History of myocardial infarction. 11.History of pulmonary embolism. 12.History of gastroenteritis. 13.History of irritable bowel syndrome. 14.Restless leg syndrome. 15.History of bowel resection. 16.History of pacemaker. 17.Degenerative joint disease. RECOMMENDATIONS AND DISCUSSION: In this 72-year-old woman who presented with multiple complex medical issues, at this time we will monitor the patient closely, continue the current medications, continue symptomatic treatment. Otherwise at this time I recommend rule out myocardial infarction. Cardiology evaluation. Symptomatic treatment for the GI symptoms will be provided. Otherwise the blood pressure will be closely monitored. Medications will be adjusted. The prognosis is guarded because of the multiple complex medical issues. P.r.n. medication ordered. Discussed with staff. Monitor blood sugars closely. Further recommendations to follow. A copy of this dictation is being forwarded to Dr. Lara, who is the primary physician. We will monitor the PT/INR closely also. MMODL / IJN: [id number] /
[2017-05-09] MEDS: GABAPENTIN 400 MG CAP PO SCH ×2 (18:12→22:21)
[2017-05-09] MEDS: WARFARIN 3 MG TAB PO SCH (18:12)
[2017-05-09] MEDS: PANTOPRAZOLE 40 MG TABLET PO SCH (18:13)
[2017-05-09 18:49] LABS: Hemoglobin A1C 10.7 % (4.0-6.0)
[2017-05-09] MEDS ORDERED: INFLUENZA VACCINE (6 MOS+) 60 MCG/0.5 ML SYRINGE IM ONE (18:54)
[2017-05-09 20:39] LABS: Glucose,Whole Blood 188 mg/dL (75-99)
[2017-05-09] MEDS: traZODone HCL 50 MG TAB PO SCH (20:43)
[2017-05-09] MEDS: DIAZEPAM 5 MG TAB PO SCH (20:43)
[2017-05-09] MEDS ORDERED: PANTOPRAZOLE 40 MG/10 ML VIAL IVP SCH (21:00)
[2017-05-10 01:51] LABS: Glucose,Whole Blood 171 mg/dL (75-99)
[2017-05-10 07:03] LABS: Glucose,Whole Blood 120 mg/dL (75-99)
[2017-05-10 07:14] LABS: Basophils # (A) 0.1 k/uL (0-0.2); Basophils % (A) 1 %; Eosinophils # (A) 0.2 k/uL (0-0.7); Eosinophils % (A) 5 %; HCT 37.8 % (34.0-46.0); HGB 12.3 gm/dL (11.4-16.0); Lymphocytes # (A) 1.9 k/uL (1.0-4.8); Lymphocytes % (A) 45 %; MCH 30.1 pg (25.0-35.0); MCHC 32.5 g/dL (31.0-37.0); MCV 92.5 fL (80.0-100.0); Mean Platelet Volume 6.5; Monocytes # (A) 0.2 k/uL (0-1.0); Monocytes % (A) 5 %; Neutrophils # (A) 1.9 k/uL (1.3-7.7); Neutrophils % (A) 43 %; Platelet Count 181 k/uL (150-450); Prothrombin Time 10.2 sec (9.0-12.0); RBC 4.09 m/uL (3.80-5.40); RDW 12.8 % (11.5-15.5); WBC 4.3 k/uL (3.8-10.6)
[2017-05-10 07:19] LABS: ALT 23 U/L (9-52); AST 15 U/L (14-36); Albumin 2.8 g/dL (3.5-5.0); Alkaline Phosphatase 58 U/L (38-126); Anion Gap 4 mmol/L; Blood Urea Nitrogen 12 mg/dL (7-17); Calcium 9.2 mg/dL (8.4-10.2); Carbon Dioxide 28 mmol/L (22-30); Chloride 107 mmol/L (98-107); Glucose 117 mg/dL (74-99); Sodium 139 mmol/L (137-145); Total Bilirubin 0.5 mg/dL (0.2-1.3); Total Protein 4.9 g/dL (6.3-8.2)
[2017-05-10] MEDS: LEVOTHYROXINE 137 MCG TAB PO SCH (07:20)
[2017-05-10] MEDS: SODIUM CHLORIDE 0.9% 1,000 ML IV SCH ×2 (07:21→13:06)
[2017-05-10] MEDS: INSULIN ASPART 100 UNIT/ML 1 ML 10 ML VIAL SQ SCH ×4 (07:58→21:37)
[2017-05-10] MEDS: PANTOPRAZOLE 40 MG TABLET PO SCH ×2 (08:50→17:31)
[2017-05-10] MEDS: INSULIN DETEMIR 100 UNIT/ML 10 ML VIAL SQ SCH (08:50)
[2017-05-10] MEDS ORDERED: SODIUM CHLORIDE 0.9% 250 ML IV ONE (09:09)
[2017-05-10] MEDS: ACETAMINOPHEN TAB 325 MG TAB PO PRN ×2 (09:11→18:05)
[2017-05-10] MEDS: LISINOPRIL 10 MG TAB PO SCH (09:13)
[2017-05-10] MEDS ORDERED: SODIUM CHLORIDE 0.9% 250 ML IV SCH (09:15)
[2017-05-10] MEDS: GABAPENTIN 400 MG CAP PO SCH ×4 (10:24→21:38)
[2017-05-10 11:51] LABS: Glucose,Whole Blood 222 mg/dL (75-99)
[2017-05-10] MEDS: oxyCODONE-APAP 5-325MG 1 EACH TAB PO PRN ×2 (12:44→21:38)
[2017-05-10 16:42] LABS: Glucose,Whole Blood 299 mg/dL (75-99)
[2017-05-10] MEDS: FLUDROCORTISONE 0.1 MG TAB PO SCH (17:28)
[2017-05-10] MEDS: WARFARIN 3 MG TAB PO SCH (17:31)
[2017-05-10] MEDS: MIDODRINE 5 MG TAB PO SCH (17:32)
--- NOTE | 2017-05-10 17:47 | PN ---
PROGRESS NOTE DATE OF SERVICE: 05/10/2017 This 72-year-old woman was admitted with nausea, vomiting, possible acute gastritis, also complained of abdomen discomfort. Patient also had accelerated hypertension also. The patient underwent abdominal and pelvis CAT scan and chest CT also. Abdomen and pelvis CAT scan showed mild fecal retention and stable appearance of the left posterior lateral lung. CTA of the chest showed no evidence of pulmonary embolism and minimal bronchiectasis also noted. No chest pain. No palpitations. No fever. EXAM: Alert and oriented x3. Pulse is 62, blood pressure 116/70, respiration 20, temperature normal. Pulse ox 98% on room air. HEENT: Conjunctivae normal. Neck: No jugular venous distention. Cardiovascular: S1, S2 muffled. Respirations: Breath sounds diminished in the bases. A few scattered rhonchi. No crackles. Abdomen is soft, nontender. Legs are no edema. No swelling. central nervous system: No focal deficits. LABS: CBC and BMP within normal limits. Glucose 120 and albumin is 2.8. ASSESSMENT: 1. Nausea, vomiting, possible acute gastritis or gastroenteritis. 2. Accelerated hypertension with hypertensive urgency. 3. Chest pain possibly musculoskeletal. 4. Diabetes type 2 uncontrolled. 5. History of atrial fibrillation. 6. History of coronary artery disease, coronary artery bypass grafting stent. 7. History of congestive heart failure. 8. Gastroesophageal reflux disease. 9. Hyperlipidemia. 10.History of myocardial infarction. 11.History of pulmonary embolus. 12.History of gastroenteritis. 13.Irritable bowel syndrome. 14.Restless legs syndrome. 15.History of bowel resection. 16.History of pacemaker. 17.History bronchiectasis. 18.History of degenerative joint disease. RECOMMENDATIONS AND DISCUSSION: Recommend to continue current medications, management and symptomatic treatment. Otherwise closely monitor. Cardiology has been consulted because of chest pain. The evaluation was noted. CT scans as mentioned earlier. I would recommend continue with current medications. The patient's blood pressure is fluctuating. The patient had history of orthostatic hypotension. I would recommend restart some of the home medications at this point and continue to monitor. I would recommend midodrine and fludrocortisone to be restarted. See orders for further details. The drug screen is positive only for opiates and benzodiazepines. Influenza is negative. MMODL / IJN: [id number] /
[2017-05-10 20:04] LABS: Glucose,Whole Blood 237 mg/dL (75-99)
[2017-05-10] MEDS: DIAZEPAM 5 MG TAB PO SCH (21:37)
[2017-05-10] MEDS: traZODone HCL 50 MG TAB PO SCH (21:38)
[2017-05-11] MEDS: oxyCODONE-APAP 5-325MG 1 EACH TAB PO PRN ×3 (05:17→21:15)
[2017-05-11] MEDS: FLUDROCORTISONE 0.1 MG TAB PO SCH ×2 (06:00→17:59)
[2017-05-11] MEDS: LEVOTHYROXINE 137 MCG TAB PO SCH (06:00)
[2017-05-11 07:05] LABS: Glucose,Whole Blood 206 mg/dL (75-99)
[2017-05-11 07:16] LABS: INR 1.2 (<1.2); Prothrombin Time 11.3 sec (9.0-12.0)
[2017-05-11 07:19] LABS: Basophils % (A) 1 %; Eosinophils # (A) 0.2 k/uL (0-0.7); Eosinophils % (A) 5 %; HCT 36.5 % (34.0-46.0); HGB 11.8 gm/dL (11.4-16.0); Lymphocytes # (A) 1.4 k/uL (1.0-4.8); Lymphocytes % (A) 41 %; MCH 30.3 pg (25.0-35.0); MCHC 32.4 g/dL (31.0-37.0); MCV 93.5 fL (80.0-100.0); Mean Platelet Volume 6.8; Monocytes # (A) 0.2 k/uL (0-1.0); Monocytes % (A) 7 %; Neutrophils # (A) 1.6 k/uL (1.3-7.7); Neutrophils % (A) 46 %; Platelet Count 162 k/uL (150-450); RDW 13.1 % (11.5-15.5); WBC 3.5 k/uL (3.8-10.6)
[2017-05-11] MEDS: SODIUM CHLORIDE 0.9% 1,000 ML IV SCH ×4 (09:19→17:59)
[2017-05-11] MEDS: INSULIN ASPART 100 UNIT/ML 1 ML 10 ML VIAL SQ SCH ×4 (09:25→21:14)
[2017-05-11] MEDS: ACETAMINOPHEN TAB 325 MG TAB PO PRN (09:26)
[2017-05-11] MEDS: INSULIN DETEMIR 100 UNIT/ML 10 ML VIAL SQ SCH (09:26)
[2017-05-11] MEDS: GABAPENTIN 400 MG CAP PO SCH ×4 (09:26→21:15)
[2017-05-11] MEDS: PANTOPRAZOLE 40 MG TABLET PO SCH ×2 (09:27→17:59)
[2017-05-11] MEDS: LISINOPRIL 10 MG TAB PO SCH (09:27)
[2017-05-11] MEDS: MIDODRINE 5 MG TAB PO SCH ×2 (09:27→17:59)
[2017-05-11 11:49] LABS: Glucose,Whole Blood 264 mg/dL (75-99)
[2017-05-11] MEDS ORDERED: SODIUM CHLORIDE 0.9% 500 ML IV ONE (13:18)
[2017-05-11 16:28] LABS: Glucose,Whole Blood 168 mg/dL (75-99)
[2017-05-11] MEDS: WARFARIN 3 MG TAB PO SCH (17:59)
[2017-05-11 20:13] LABS: Glucose,Whole Blood 204 mg/dL (75-99)
--- NOTE | 2017-05-11 20:27 | PN ---
PROGRESS NOTE DATE OF SERVICE: 05/11/2017 This 72-year-old woman who was admitted with nausea and vomiting also had significant orthostatic hypotension. The patient has dropped almost 30 points in the blood pressure. The patient is symptomatic also. No chest pain. No palpitations. No fever. On exam, alert and oriented x3. Pulse is 63. Blood pressure is 157/80 lying and then 112/61 standing. Respiration 18, temperature 97.24, pulse ox 99% on room air. HEENT: Conjunctivae normal. Oral mucosa moist. NECK: No jugular venous distention. No carotid bruit. No lymph node enlargement. CARDIOVASCULAR SYSTEM: S1, S2 muffled. No S3. No S4. RESPIRATORY SYSTEM: Breath sounds diminished at the bases. A few scattered rhonchi and crackles. ABDOMEN: Soft, non-tender. LEGS: No edema. No swelling. NERVOUS SYSTEM: No focal deficit. LABS: WBC 3.5, INR 3.2. ASSESSMENT: 1. Nausea, vomiting; possible acute gastritis and gastroenteritis. 2. Accelerated hypertension with hypertensive urgency. 3. Chest pain, possibly musculoskeletal. 4. Orthostatic hypotension, symptomatic. 5. Diabetes mellitus, type 2, uncontrolled. 6. History of atrial fibrillation. 7. History of coronary artery disease, coronary artery bypass grafting, stent. 8. History of congestive heart failure. 9. Gastroesophageal reflux disease. 10.Hyperlipidemia. 11.History of myocardial infarction. 12.History of pulmonary embolism. 13.History of gastroenteritis. 14.History of irritable bowel syndrome. 15.History of restless leg syndrome. 16.History of bowel resection. 17.History of pacemaker. 18.History of bronchiectasis. 19.History of degenerative joint disease. RECOMMENDATIONS AND DISCUSSION: I recommend to continue current medication, continue symptomatic treatment. Otherwise I would continue with IV fluids, resume the home medications. CT scan of the abdomen and pelvis noted. I would repeat the portable chest x-ray tomorrow to rule out the possibility of CHF. We will continue to monitor. Prognosis guarded. Discussed with the patient. Further recommendations to follow. MMODL / IJN: [id number] /
[2017-05-11] MEDS: traZODone HCL 50 MG TAB PO SCH (21:14)
[2017-05-11] MEDS: DIAZEPAM 5 MG TAB PO SCH (21:14)
[2017-05-12] MEDS: SODIUM CHLORIDE 0.9% 1,000 ML IV SCH ×2 (04:14→13:41)
[2017-05-12] MEDS: LEVOTHYROXINE 137 MCG TAB PO SCH ×2 (04:15→04:45)
[2017-05-12] MEDS: FLUDROCORTISONE 0.1 MG TAB PO SCH ×4 (04:15→21:13)
[2017-05-12 06:52] LABS: INR 1.3 (<1.2)
[2017-05-12 06:53] LABS: Basophils % (A) 1 %; Eosinophils # (A) 0.2 k/uL (0-0.7); Eosinophils % (A) 4 %; HCT 35.2 % (34.0-46.0); HGB 11.5 gm/dL (11.4-16.0); Lymphocytes # (A) 1.4 k/uL (1.0-4.8); Lymphocytes % (A) 34 %; MCH 30.8 pg (25.0-35.0); MCHC 32.6 g/dL (31.0-37.0); MCV 94.5 fL (80.0-100.0); Mean Platelet Volume 6.6; Monocytes # (A) 0.2 k/uL (0-1.0); Monocytes % (A) 6 %; Neutrophils # (A) 2.2 k/uL (1.3-7.7); Neutrophils % (A) 54 %; Platelet Count 171 k/uL (150-450); RBC 3.73 m/uL (3.80-5.40); RDW 13.1 % (11.5-15.5); WBC 4.1 k/uL (3.8-10.6)
[2017-05-12 07:01] LABS: Glucose,Whole Blood 260 mg/dL (75-99)
--- NOTE | 2017-05-12 07:47 | XR ---
EXAMINATION TYPE: XR chest 1V portable DATE OF EXAM: 05/12/2017 CLINICAL HISTORY: Difficulty breathing and CHF progress study. TECHNIQUE: Single AP portable frontal view of the chest is obtained. COMPARISON: Chest x-ray from May 08, 2017. CTA chest May 09, 2017. FINDINGS: Sternal wires are redemonstrated. Inferior sternal wire is broken similar to prior. There is mild cardiomegaly with dual lead pacemaker redemonstrated. There is new right basilar opacity cons istent with developing infiltrate and atelectasis. There is interval resolution of left basilar atele ctasis. Metallic hardware from left shoulder surgery is partially imaged. IMPRESSION: New developing right basilar atelectasis and/or infiltrate.
[2017-05-12] MEDS: INSULIN ASPART 100 UNIT/ML 1 ML 10 ML VIAL SQ SCH ×4 (08:22→21:13)
[2017-05-12] MEDS: INSULIN DETEMIR 100 UNIT/ML 10 ML VIAL SQ SCH (08:23)
[2017-05-12] MEDS: GABAPENTIN 400 MG CAP PO SCH ×4 (08:23→21:13)
[2017-05-12] MEDS: oxyCODONE-APAP 5-325MG 1 EACH TAB PO PRN ×2 (08:23→16:48)
[2017-05-12] MEDS: LISINOPRIL 10 MG TAB PO SCH (08:24)
[2017-05-12] MEDS: PANTOPRAZOLE 40 MG TABLET PO SCH ×2 (08:24→16:44)
[2017-05-12] MEDS: MIDODRINE 5 MG TAB PO SCH ×2 (08:24→16:52)
[2017-05-12 11:19] LABS: Glucose,Whole Blood 239 mg/dL (75-99)
[2017-05-12 17:13] LABS: Glucose,Whole Blood 191 mg/dL (75-99)
[2017-05-12] MEDS: WARFARIN 3 MG TAB PO SCH (17:29)
[2017-05-12] MEDS: traZODone HCL 50 MG TAB PO SCH (21:12)
[2017-05-12] MEDS: DIAZEPAM 5 MG TAB PO SCH (21:12)
[2017-05-12 21:18] LABS: Glucose,Whole Blood 303 mg/dL (75-99)
[2017-05-12] MEDS ORDERED: LEVOFLOXACIN 500MG-D5W PMX 500 MG in DEXTROSE/WATER 1 100ML.BAG IVPB SCH (23:00)
--- NOTE | 2017-05-12 23:39 | PN ---
PROGRESS NOTE DATE OF SERVICE: 05/12/2017 This 72-year-old woman who was admitted with nausea and vomiting also had significant orthostatic hypotension. The patient is dropping about 30 to 40 points. The patient is highly symptomatic with dizziness and nausea. The patient is being closely monitored. Patient is on IV fluid boluses, and they are also giving increased doses of Florinef and midodrine. Otherwise, a chest x-ray was ordered today which showed new developing possible right basilar infiltrate and atelectasis indicating pneumonia, also. Past medical history reviewed. REVIEW OF SYSTEMS: CARDIOVASCULAR SYSTEM: As mentioned earlier. RESPIRATORY SYSTEM: As mentioned earlier. GI: As mentioned earlier. : No dysuria or retention NERVOUS SYSTEM: No numbness, weakness. CURRENT MEDICATIONS: Current medications are reviewed and include: 1. Tylenol 650 q.6 p.r.n. 2. Valium 5 mg at bedtime p.r.n. 3. Florinef 0.1 t.i.d. 4. Neurontin 800 mg daily. 5. NovoLog scale. 6. Synthroid. 7. Zestril. 8. Narcan. 9. Zofran. 10.Percocet. 11.Protonix. 12.Desyrel. 13.Coumadin. PHYSICAL EXAMINATION: Patient is alert, oriented x3. Pulse 71, blood pressure 170/74, respiration 18, temperature 97.2, pulse ox 97% on room air. HEENT: Conjunctivae normal. Oral mucosa moist. NECK: No jugular venous distention. No carotid bruit. No lymph node enlargement. CARDIOVASCULAR SYSTEM: S1, S2 muffled. RESPIRATORY SYSTEM: Breath sounds diminished at the bases. A few scattered rhonchi and crackles. ABDOMEN: Soft, non-tender. No mass palpable. LEGS: No edema. No swelling. NERVOUS SYSTEM: No focal deficit. LABS AT THIS TIME: CBC noted. INR is 1.3. Glucose 303. Albumin is 2.8. Influenza is negative. ASSESSMENT: 1. Nausea, vomiting; possible acute gastritis and gastroenteritis. 2. Right lower lobe pneumonia, possibly community-acquired. 3. Accelerated hypertension with hypertensive urgency. 4. Severe orthostatic hypotension, symptomatic. 5. Chest pain, possibly musculoskeletal. 6. Diabetes mellitus, type 2, uncontrolled. 7. History of atrial fibrillation. 8. Coronary artery disease, coronary artery bypass grafting, stent. 9. History of congestive heart failure. 10.Gastroesophageal reflux disease. 11.Hyperlipidemia. 12.History of myocardial infarction. 13.History of pulmonary embolism. 14.History of gastroenteritis. 15.History of irritable bowel syndrome. 16.History of restless leg syndrome. 17.History of bowel resection. 18.History of pacemaker. 19.History of bronchiectasis. 20.History of degenerative joint disease. RECOMMENDATIONS AND DISCUSSION: I recommend to continue current medication, continue symptomatic treatment. I would also recommend adding Levaquin to the current regimen. We will obtain cultures. Otherwise, continue the rest of the medications. Prognosis guarded. Further recommendations to follow. This patient requires more than a 2-night stay in the hospital as a full admit for evaluation and treatment of the above-mentioned multiple medical issues. SARMAD / DOMENICO: [id number] /
[2017-05-13] MEDS: oxyCODONE-APAP 5-325MG 1 EACH TAB PO PRN ×3 (01:29→17:51)
[2017-05-13] MEDS: LEVOTHYROXINE 137 MCG TAB PO SCH (06:22)
[2017-05-13] MEDS: SODIUM CHLORIDE 0.9% 1,000 ML IV SCH ×2 (06:23→10:38)
[2017-05-13 06:56] LABS: Glucose,Whole Blood 131 mg/dL (75-99)
[2017-05-13 07:11] LABS: Basophils % (A) 1 %; Eosinophils # (A) 0.2 k/uL (0-0.7); Eosinophils % (A) 4 %; HCT 33.6 % (34.0-46.0); HGB 11.1 gm/dL (11.4-16.0); Lymphocytes # (A) 1.7 k/uL (1.0-4.8); Lymphocytes % (A) 39 %; MCH 30.6 pg (25.0-35.0); MCHC 33.2 g/dL (31.0-37.0); MCV 92.4 fL (80.0-100.0); Monocytes # (A) 0.3 k/uL (0-1.0); Monocytes % (A) 7 %; Neutrophils # (A) 2.1 k/uL (1.3-7.7); Neutrophils % (A) 48 %; Platelet Count 172 k/uL (150-450); RBC 3.63 m/uL (3.80-5.40); RDW 13.4 % (11.5-15.5); WBC 4.4 k/uL (3.8-10.6)
[2017-05-13 07:16] LABS: INR 1.6 (<1.2); Prothrombin Time 15.1 sec (9.0-12.0)
[2017-05-13] MEDS: INSULIN ASPART 100 UNIT/ML 1 ML 10 ML VIAL SQ SCH ×4 (09:25→20:34)
[2017-05-13] MEDS: LISINOPRIL 10 MG TAB PO SCH (09:39)
[2017-05-13] MEDS: GABAPENTIN 400 MG CAP PO SCH ×4 (09:39→21:20)
[2017-05-13] MEDS: MIDODRINE 5 MG TAB PO SCH ×2 (09:39→17:52)
[2017-05-13] MEDS: FLUDROCORTISONE 0.1 MG TAB PO SCH ×3 (09:39→20:13)
[2017-05-13] MEDS: PANTOPRAZOLE 40 MG TABLET PO SCH ×2 (09:40→17:52)
[2017-05-13] MEDS: INSULIN DETEMIR 100 UNIT/ML 10 ML VIAL SQ SCH (09:42)
[2017-05-13 11:35] LABS: Anion Gap 3 mmol/L; Blood Urea Nitrogen 17 mg/dL (7-17); Calcium 8.4 mg/dL (8.4-10.2); Carbon Dioxide 25 mmol/L (22-30); Chloride 114 mmol/L (98-107); Glucose 136 mg/dL (74-99); Potassium 3.4 mmol/L (3.5-5.1); Sodium 142 mmol/L (137-145)
[2017-05-13 11:48] LABS: Glucose,Whole Blood 157 mg/dL (75-99)
[2017-05-13] MEDS ORDERED: FUROSEMIDE 10 MG/ML 4 ML VIAL IV STA (12:23)
--- NOTE | 2017-05-13 13:54 | P.GSCN ---
History of Present Illness Consult date: 05/13/17 Reason for Consult: Abdominal pain, dysphagia History of present illness: We were asked to see this patient for complaints of abdominal pain. She is also having complaints of dysphagia although states this is chronic and is been going on for at least 10 years and it relates to a prior thyroidectomy for cancer. She was told back in 2004 she had residual cancer but that it could not be treated further. She feels food gets stuck in the upper aspect of her throat at times. Bedside swallow evaluation was reportedly normal. She is currently on a diet. Also complaining of left lower quadrant abdominal pain. CT done on 05/09 showed significant constipation but otherwise normal. She is now stooling nicely. No vomiting. No fevers. White blood cell count normal. History of previous sigmoid colectomy for diverticulitis. The anastomosis seemed widely patent on recent CAT scan. Patient's last colonoscopy approximately 8-10 years ago. She believes that she had polyps. No recent upper GI or upper endoscopy. Admitting diagnosis was primarily headache and hypertension. Denies rectal bleeding or melena. Review of Systems The patient denies any acute changes in vision or hearing, no odynophagia, no chest pain or shortness of breath, no dysuria or hematuria, no headache, no runny nose, no rectal bleeding or melena, no unexplained weight loss Past Medical History Past Medical History: Atrial Fibrillation, Asthma, Coronary Artery Disease (CAD) , Cancer, Chest Pain / Angina, Heart Failure, Diabetes Mellitus, GERD/Reflux, Hyperlipidemia, Hypertension, Myocardial Infarction (DE), Neurologic Disorder, Pulmonary Embolus (PE), Thyroid Disorder Additional Past Medical History / Comment(s): gastroenteritis. Additional hx: incontinent urine and stool, IBS, hemmorhoids, colonic polyps, R femur acetabular impingement syndrome, UTI with sepsis, DDD, RLS, neuropathy bilateral hands and feet, thyroid cancer with thyroidectomy, diverticulitis, pt takes coumadin for PE's, arthiritis, chronic back pain, laryngeal cancer with surgical removal, syncope Last Myocardial Infarction Date:: 2011 or 2012 per pt History of Any Multi-Drug Resistant Organisms: None Reported Year Discovered:: None MDRO Source:: None Past Surgical History: Adenoidectomy, Bladder Surgery, Bowel Resection, Cholecystectomy, Coronary Bypass/CABG, Heart Catheterization With Stent, Hysterectomy, Joint Replacement, Orthopedic Surgery, Pacemaker, Tonsillectomy, Tubal Ligation Additional Past Surgical History / Comment(s): CABG 3 vessel in 2006, cardiac cath with stents 2007 and 2011, pacer 2011, total thyroidectomy, lap [place], total left shoulder, R shoulder arthroscopy, partial colectomy due to diverticulitis, bladder suspension and bladder repair and mesh x 2, rectal wall repair, hysterectomy 1977, laryngeal surgery for cancer, colonoscopy, EGD with bx, nasal deviated septum surgical correction, L knee arthroscopy. Past Anesthesia/Blood Transfusion Reactions: No Reported Reaction Additional Past Anesthesia/Blood Transfusion Reaction / Comm: Pt has recieved blood without any reaction. Date of Last Stent Placement:: 2011 Type of Cardiac Device: Permanent Pacemaker Device Placement Date:: 2010 or 2011 in [place], [place] Past Psychological History: No Psychological Hx Reported Additional Psychological History / Comment(s): Pt lives with a "friend" with her 2 cats. She is normally independent. She has a cane and walker and electric wheelchair. She has no home care. She no longer drives a car- she uses [facility] [employer] for ride needs. She is a retired nurse. She used to live in [place]. Smoking Status: Current some day smoker Past Alcohol Use History: None Reported Additional Past Alcohol Use History / Comment(s): Pt states she started smoking about 1963. patient states she stil smokes a cigarette on occasion. Past Drug Use History: None Reported - Past Family History Father Family Medical History: Congestive Heart Failure (CHF), COPD Additional Family Medical History / Comment(s): Father at age 61 yrs of CHF and COPD. Mother Family Medical History: Congestive Heart Failure (CHF), COPD Medications and Allergies Home Medications Medication Instructions Recorded Confirmed Type Levothyroxine Sodium [Synthroid] 137 mcg PO DAILY 12/07/16 05/08/17 History Insulin Aspart [NovoLOG Flexpen] See Protocol SQ AC-TID 01/04/17 05/08/17 History traZODone HCL 150 mg PO HS 03/15/17 05/08/17 History Midodrine [ProAmatine] 5 mg PO AC-BID #60 tab 03/18/17 05/08/17 Rx Pantoprazole [Protonix] 40 mg PO BID #60 tablet. 03/18/17 05/08/17 Rx Diazepam [Valium] 5 mg PO HS 05/08/17 05/08/17 History Fludrocortisone [Florinef] 0.1 mg PO Q12H 05/08/17 05/08/17 History Gabapentin [Neurontin] 800 mg PO QID 05/08/17 05/08/17 History Lisinopril [Zestril] 10 mg PO DAILY 05/08/17 05/08/17 History Warfarin Sodium 6 mg PO HS 05/08/17 05/08/17 History oxyCODONE-APAP 5-325MG [Percocet 1 tab PO TID PRN 05/08/17 05/08/17 History 5-325 mg] Insulin Glargine [Lantus] 40 unit SQ DAILY #0 05/11/17 05/08/17 Rx Allergies Allergy/AdvReac Type Severity Reaction Status Date / Time No Known Allergies Allergy Verified 05/08/17 22:05 Surgical - Exam Vital Signs Temp Pulse Resp BP Pulse Ox 98.7 F 60 16 191/81 98 05/08/17 21:19 05/08/17 21:19 05/08/17 21:19 05/08/17 21:19 05/08/17 21:19 Physical exam: General: Well-developed, well-nourished HEENT: Normocephalic, sclerae nonicteric Abdomen: Mild left lower quadrant tenderness, nondistended Extremities: No edema Neuro: Alert and oriented Results - Labs 05/13/17 06:33 05/13/17 06:33 Abnormal Lab Results - Last 24 Hours (Table) 05/12/17 05/12/17 05/13/17 Range/Units 17:11 21:06 06:33 RBC 3.63 L (3.80-5.40) m/uL Hgb 11.1 L (11.4-16.0) gm/dL Hct 33.6 L (34.0-46.0) % PT (9.0-12.0) sec INR (<1.2) Potassium (3.5-5.1) mmol/L Chloride (98-107) mmol/L Glucose (74-99) mg/dL POC Glucose (mg/dL) 191 H 303 H (75-99) mg/dL 05/13/17 05/13/17 05/13/17 Range/Units 06:33 06:33 06:44 RBC (3.80-5.40) m/uL Hgb (11.4-16.0) gm/dL Hct (34.0-46.0) % PT 15.1 H (9.0-12.0) sec INR 1.6 H (<1.2) Potassium 3.4 L (3.5-5.1) mmol/L Chloride 114 H (98-107) mmol/L Glucose 136 H (74-99) mg/dL POC Glucose (mg/dL) 131 H (75-99) mg/dL 05/13/17 Range/Units 11:35 RBC (3.80-5.40) m/uL Hgb (11.4-16.0) gm/dL Hct (34.0-46.0) % PT (9.0-12.0) sec INR (<1.2) Potassium (3.5-5.1) mmol/L Chloride (98-107) mmol/L Glucose (74-99) mg/dL POC Glucose (mg/dL) 157 H (75-99) mg/dL Microbiology - Last 24 Hours (Table) 05/13/17 01:25 Urine Culture - Preliminary Urine,Clean Catch Diabetes panel 05/13/17 Range/Units 06:33 Sodium 142 (137-145) mmol/L Potassium 3.4 L (3.5-5.1) mmol/L Chloride 114 H (98-107) mmol/L Carbon Dioxide 25 (22-30) mmol/L BUN 17 (7-17) mg/dL Creatinine 0.59 (0.52-1.04) mg/dL Glucose 136 H (74-99) mg/dL Calcium 8.4 (8.4-10.2) mg/dL Calcium panel 05/13/17 Range/Units 06:33 Calcium 8.4 (8.4-10.2) mg/dL Pituitary panel 05/13/17 Range/Units 06:33 Sodium 142 (137-145) mmol/L Potassium 3.4 L (3.5-5.1) mmol/L Chloride 114 H (98-107) mmol/L Carbon Dioxide 25 (22-30) mmol/L BUN 17 (7-17) mg/dL Creatinine 0.59 (0.52-1.04) mg/dL Glucose 136 H (74-99) mg/dL Calcium 8.4 (8.4-10.2) mg/dL Adrenal panel 05/13/17 Range/Units 06:33 Sodium 142 (137-145) mmol/L Potassium 3.4 L (3.5-5.1) mmol/L Chloride 114 H (98-107) mmol/L Carbon Dioxide 25 (22-30) mmol/L BUN 17 (7-17) mg/dL Creatinine 0.59 (0.52-1.04) mg/dL Glucose 136 H (74-99) mg/dL Calcium 8.4 (8.4-10.2) mg/dL Assessment and Plan (1) Abdominal pain Narrative/Plan: Recent CAT scan reviewed. Constipation seems to be partially explaining her complaints of abdominal pain. Dysphagia seems to be chronic. Would recommend upper and lower endoscopy either later during this hospitalization or possibly as an outpatient. We'll follow with you. Current Visit: No Status: Acute Code(s): R10.9 - UNSPECIFIED ABDOMINAL PAIN SNOMED Code(s): 06563246
[2017-05-13 17:18] LABS: Glucose,Whole Blood 134 mg/dL (75-99)
[2017-05-13] MEDS: WARFARIN 3 MG TAB PO SCH (17:52)
[2017-05-13] MEDS: traZODone HCL 50 MG TAB PO SCH (20:13)
[2017-05-13] MEDS: DIAZEPAM 5 MG TAB PO SCH (20:13)
[2017-05-13] MEDS: LEVOFLOXACIN 500 MG TAB PO SCH (20:13)
[2017-05-13 20:34] LABS: Glucose,Whole Blood 95 mg/dL (75-99)
--- NOTE | 2017-05-13 21:49 | PN ---
PROGRESS NOTE DATE OF SERVICE: 05/13/2017. HISTORY OF PRESENT ILLNESS: This 72-year-old woman was admitted to the hospital with multiple medical problems, also had complaints of abdominal pain. Patient also had hypertension at this time. Patient also had orthostatic hypotension. Dr. Schulz has evaluated the patient today and thought constipation is a major issue at this time. No chest pain. No palpitations. No fever. Recommend endoscope as an outpatient. EXAM: Alert and oriented x3. Pulse 65, blood pressure 190/80, respiration 18, temperature 98.2, pulse ox 97% on room air. HEENT: Conjunctivae normal. Neck: No jugular venous distention. Cardiovascular: S1, S2 muffled. Respiratory: Breath sounds diminished in the bases. No rhonchi. No crackles. Abdomen is soft. Mild diffuse discomfort. Legs are no edema. No swelling. Central nervous system: No focal deficits. LABS: Sodium 142, potassium 3.4, hemoglobin 11.1. ASSESSMENT: 1. Nausea, vomiting, possible acute gastritis and gastroenteritis. 2. History of constipation. 3. Right lower lobe pneumonia possibly community acquired. 4. Accelerated hypertension with hypertensive urgency. 5. Severe orthostatic hypotension, asymptomatic. 6. Labile hypertension. 7. Chest pain possibly musculoskeletal. 8. Diabetes type 2 uncontrolled. 9. History atrial fibrillation, history of CAD, CABG, stent. 10.History of congestive heart failure. 11.Gastroesophageal reflux disease. 12.Hyperlipidemia. 13.History of myocardial infarction. 14.History of pulmonary embolism. 15.History of gastroenteritis. 16.History of irritable bowel syndrome. 17.History of restless legs. 18.History of bowel resection. 19.History of pacemaker. 20.History of bronchiectasis. 21.History of degenerative joint disease. RECOMMENDATIONS AND DISCUSSION: Recommend to continue current medications, management and symptomatic treatment. I would recommend to monitor the blood pressure closely. Otherwise, guarded prognosis because of multiple complex medical issues. Further recommendations to follow. MMODL / IJN: [id number] /
[2017-05-14] MEDS: oxyCODONE-APAP 5-325MG 1 EACH TAB PO PRN ×3 (02:32→20:26)
[2017-05-14] MEDS: LEVOTHYROXINE 137 MCG TAB PO SCH (05:45)
[2017-05-14 07:22] LABS: Glucose,Whole Blood 140 mg/dL (75-99)
[2017-05-14 08:06] LABS: Basophils % (A) 1 %; Eosinophils # (A) 0.2 k/uL (0-0.7); Eosinophils % (A) 4 %; HCT 35.7 % (34.0-46.0); HGB 11.6 gm/dL (11.4-16.0); Lymphocytes # (A) 1.4 k/uL (1.0-4.8); Lymphocytes % (A) 33 %; MCH 30.5 pg (25.0-35.0); MCHC 32.4 g/dL (31.0-37.0); MCV 94.4 fL (80.0-100.0); Mean Platelet Volume 6.5; Monocytes # (A) 0.2 k/uL (0-1.0); Monocytes % (A) 5 %; Neutrophils # (A) 2.3 k/uL (1.3-7.7); Neutrophils % (A) 56 %; Platelet Count 176 k/uL (150-450); RBC 3.79 m/uL (3.80-5.40); RDW 13.5 % (11.5-15.5); WBC 4.2 k/uL (3.8-10.6)
[2017-05-14 08:15] LABS: INR 2.1 (<1.2)
[2017-05-14 08:19] LABS: Anion Gap 7 mmol/L; Blood Urea Nitrogen 14 mg/dL (7-17); Calcium 8.3 mg/dL (8.4-10.2); Carbon Dioxide 26 mmol/L (22-30); Chloride 109 mmol/L (98-107); Glucose 115 mg/dL (74-99); Sodium 142 mmol/L (137-145)
[2017-05-14] MEDS: GABAPENTIN 400 MG CAP PO SCH ×4 (08:22→21:15)
[2017-05-14] MEDS: PANTOPRAZOLE 40 MG TABLET PO SCH ×2 (08:22→18:26)
[2017-05-14] MEDS: FLUDROCORTISONE 0.1 MG TAB PO SCH ×2 (08:22→21:15)
[2017-05-14] MEDS: MIDODRINE 5 MG TAB PO SCH ×2 (08:22→18:26)
[2017-05-14] MEDS: INSULIN ASPART 100 UNIT/ML 1 ML 10 ML VIAL SQ SCH ×4 (08:22→21:34)
[2017-05-14] MEDS: LISINOPRIL 10 MG TAB PO SCH (08:23)
[2017-05-14] MEDS: INSULIN DETEMIR 100 UNIT/ML 10 ML VIAL SQ SCH (08:24)
[2017-05-14 08:30] LABS: Potassium 2.6 mmol/L (3.5-5.1)
[2017-05-14] MEDS ORDERED: Potassium Replacement Protocol 1 EACH MISC MISCELLANE PRN (09:32)
--- NOTE | 2017-05-14 10:09 | P.PN ---
Subjective Progress Note Date: 05/14/17 Patient is a 72-year-old white female who was admitted with complaints of headache and hypertension. Surgery was consult is secondary to abdominal discomfort and chronic left lower quadrant abdominal discomfort. The patient states today she is feeling well. She has no change in abdominal discomfort at this time. Objective - Vital Signs Vital signs: Vital Signs Temp 97.3 F L 05/14/17 07:24 Pulse 60 05/14/17 07:24 Resp 16 05/14/17 07:24 BP 139/77 05/14/17 07:24 Pulse Ox 98 05/14/17 07:24 Intake & Output 05/13/17 05/14/17 05/14/17 18:59 06:59 18:59 Intake Total 640 620 Balance 640 620 Weight 74 kg Intake: IV 160 80 Sodium Chloride 0.9% 1, 160 80 000 ml @ 100 mls/hr IV . Q10H HILARIA Rx#:[id number] Oral 480 540 Other: Voiding Method Toilet Diaper # Voids 3 - Constitutional General appearance: Present: average body habitus - Respiratory Details: Decreased breath sounds bilaterally at the bases - Cardiovascular Rhythm: regular Heart sounds: normal: S1, S2 - Gastrointestinal General gastrointestinal: Present: normal bowel sounds, soft - Psychiatric Psychiatric: Present: A&O x's 3, appropriate affect, intact judgment & insight - Labs CBC & Chem 7: 05/14/17 07:43 05/14/17 07:43 Labs: Abnormal Lab Results - Last 24 Hours (Table) 05/13/17 05/13/17 05/13/17 Range/Units 06:33 11:35 17:15 RBC (3.80-5.40) m/uL PT (9.0-12.0) sec INR (<1.2) Potassium 3.4 L (3.5-5.1) mmol/L Chloride 114 H (98-107) mmol/L Glucose 136 H (74-99) mg/dL POC Glucose (mg/dL) 157 H 134 H (75-99) mg/dL Calcium (8.4-10.2) mg/dL 05/14/17 05/14/17 05/14/17 Range/Units 07:07 07:43 07:43 RBC 3.79 L (3.80-5.40) m/uL PT 19.0 H (9.0-12.0) sec INR 2.1 H (<1.2) Potassium (3.5-5.1) mmol/L Chloride (98-107) mmol/L Glucose (74-99) mg/dL POC Glucose (mg/dL) 140 H (75-99) mg/dL Calcium (8.4-10.2) mg/dL 05/14/17 Range/Units 07:43 RBC (3.80-5.40) m/uL PT (9.0-12.0) sec INR (<1.2) Potassium 2.6 L* (3.5-5.1) mmol/L Chloride 109 H (98-107) mmol/L Glucose 115 H (74-99) mg/dL POC Glucose (mg/dL) (75-99) mg/dL Calcium 8.3 L (8.4-10.2) mg/dL Microbiology - Last 24 Hours (Table) 05/12/17 23:35 Blood Culture - Preliminary Blood No Growth after 24 hours 05/13/17 01:25 Urine Culture - Preliminary Urine,Clean Catch Assessment and Plan Plan: Impression/plan: 1. Chronic difficulty with swallowing 2. Constipation with resolved abdominal discomfort at this time 3. Patient does not have an acute surgical problem at this time Plan: 1. We'll follow as needed would plan on EGD and colonoscopy as an outpatient or later during this hospitalization
[2017-05-14] MEDS: POTASSIUM CHLORIDE ER 20 MEQ TAB.ER PO SCH ×2 (10:58→12:11)
[2017-05-14] MEDS: POTASSIUM CHLORIDE 10 MEQ in SODIUM CHLORIDE 0.9% 100 ML IVPB SCH ×4 (11:05→16:27)
[2017-05-14 11:19] LABS: Glucose,Whole Blood 181 mg/dL (75-99)
--- NOTE | 2017-05-14 12:16 | P.NPCON ---
History of Present Illness - Reason for Consult Consult date: 05/14/17 hypokalemia - Chief Complaint Hypotension orthostatic, hypokalemia - History of Present Illness This is 72-year-old female seen in consultation because of hypokalemia and labile blood pressure. She is diabetic since 1999 and has neuropathy. She has orthostatic changes. Home pressures are 160s lying down supine and standing up is 80. She has had history of falls. She came in because of abdominal discomfort as well as a pressure of 190 systolic at home one time. Denies any chest pain no nausea vomiting diarrhea. She has a good appetite. No fever chills. Her past history significant for diabetes for the last 17-18 years, uncontrolled. Also she is known with thyroid cancer, pulmonary embolism, neurogenic bladder, pacemaker A. fib and coronary artery disease. Past Medical History Past Medical History: Atrial Fibrillation, Asthma, Coronary Artery Disease (CAD) , Cancer, Chest Pain / Angina, Heart Failure, Diabetes Mellitus, GERD/Reflux, Hyperlipidemia, Hypertension, Myocardial Infarction (IN), Neurologic Disorder, Pulmonary Embolus (PE), Thyroid Disorder Additional Past Medical History / Comment(s): gastroenteritis. Additional hx: incontinent urine and stool, IBS, hemmorhoids, colonic polyps, R femur acetabular impingement syndrome, UTI with sepsis, DDD, RLS, neuropathy bilateral hands and feet, thyroid cancer with thyroidectomy, diverticulitis, pt takes coumadin for PE's, arthiritis, chronic back pain, laryngeal cancer with surgical removal, syncope Last Myocardial Infarction Date:: 2011 or 2012 per pt History of Any Multi-Drug Resistant Organisms: None Reported Date of last positivie culture/infection: None MDRO Source:: None Past Surgical History: Adenoidectomy, Bladder Surgery, Bowel Resection, Cholecystectomy, Coronary Bypass/CABG, Heart Catheterization With Stent, Hysterectomy, Joint Replacement, Orthopedic Surgery, Pacemaker, Tonsillectomy, Tubal Ligation Additional Past Surgical History / Comment(s): CABG 3 vessel in 2006, cardiac cath with stents 2007 and 2011, pacer 2011, total thyroidectomy, lap [place], total left shoulder, R shoulder arthroscopy, partial colectomy due to diverticulitis, bladder suspension and bladder repair and mesh x 2, rectal wall repair, hysterectomy 1977, laryngeal surgery for cancer, colonoscopy, EGD with bx, nasal deviated septum surgical correction, L knee arthroscopy. Past Anesthesia/Blood Transfusion Reactions: No Reported Reaction Additional Past Anesthesia/Blood Transfusion Reaction / Comment(s): Pt has recieved blood without any reaction. Date of Last Stent Placement:: 2011 Type of Cardiac Device: Permanent Pacemaker Device Placement Date:: 2010 or 2011 in [place], [place] Past Psychological History: No Psychological Hx Reported Additional Psychological History / Comment(s): Pt lives with a "friend" with her 2 cats. She is normally independent. She has a cane and walker and electric wheelchair. She has no home care. She no longer drives a car- she uses [employer] for ride needs. She is a retired nurse. She used to live in [place]. Smoking Status: Current some day smoker Past Alcohol Use History: None Reported Additional Past Alcohol Use History / Comment(s): Pt states she started smoking about 1963. patient states she stil smokes a cigarette on occasion. Past Drug Use History: None Reported - Past Family History Father Family Medical History: Congestive Heart Failure (CHF), COPD Additional Family Medical History / Comment(s): Father at age 61 yrs of CHF and COPD. Mother Family Medical History: Congestive Heart Failure (CHF), COPD Medications and Allergies Home Medications Medication Instructions Recorded Confirmed Type Levothyroxine Sodium [Synthroid] 137 mcg PO DAILY 12/07/16 05/08/17 History Insulin Aspart [NovoLOG Flexpen] See Protocol SQ AC-TID 01/04/17 05/08/17 History traZODone HCL 150 mg PO HS 03/15/17 05/08/17 History Midodrine [ProAmatine] 5 mg PO AC-BID #60 tab 03/18/17 05/08/17 Rx Pantoprazole [Protonix] 40 mg PO BID #60 tablet.dr 03/18/17 05/08/17 Rx Diazepam [Valium] 5 mg PO HS 05/08/17 05/08/17 History Fludrocortisone [Florinef] 0.1 mg PO Q12H 05/08/17 05/08/17 History Gabapentin [Neurontin] 800 mg PO QID 05/08/17 05/08/17 History Lisinopril [Zestril] 10 mg PO DAILY 05/08/17 05/08/17 History Warfarin Sodium 6 mg PO HS 05/08/17 05/08/17 History oxyCODONE-APAP 5-325MG [Percocet 1 tab PO TID PRN 05/08/17 05/08/17 History 5-325 mg] Insulin Glargine [Lantus] 40 unit SQ DAILY #0 05/11/17 05/08/17 Rx Allergies Allergy/AdvReac Type Severity Reaction Status Date / Time peaches AdvReac Nausea & Uncoded 05/13/17 18:02 Vomiting Physical Exam Vitals: Vital Signs Temp Pulse Pulse Resp BP BP BP 05/14/17 10:30 114/69 132/75 98/55 05/14/17 07:24 97.3 F L 60 16 05/14/17 02:28 156/84 05/14/17 02:15 126/72 05/14/17 01:45 85/42 05/13/17 19:00 60 161/69 119/58 175/76 05/13/17 15:00 96.9 F L 65 18 195/88 BP Pulse Ox 05/14/17 10:30 05/14/17 07:24 139/77 98 05/14/17 02:28 05/14/17 02:15 05/14/17 01:45 05/13/17 19:00 05/13/17 15:00 Intake and Output 05/13/17 05/14/17 05/14/17 22:59 06:59 14:59 Intake Total 80 540 Balance 80 540 Intake: IV 80 Sodium Chloride 0.9% 1, 80 000 ml @ 100 mls/hr IV . Q10H HILARIA Rx#:[id number] Oral 540 Other: Voiding Method Toilet Diaper # Voids 3 1 # Bowel Movements 1 Weight 74 kg On examination she is comfortable cheerful and has no significant complaints she wants to eat normal food she is currently on a soft diet. HEENT exam no JVP neck is supple no facial asymmetry Pupils are equal. Heart sounds are unremarkable for any murmur rub gallop. She is in atrial fib. Lungs are clear to auscultation good air entry bilaterally no dullness to percussion Abdomen soft nontender, no organomegaly status masses Extremity exam was trace edema Neurologically awake alert oriented no focal motor deficit. Results - Lab Results Most recent lab results Calcium 8.3 mg/dL (8.4-10.2) L 05/14/17 07:43 Magnesium 2.1 mg/dL (1.6-2.3) 05/08/17 21:25 05/14/17 07:43 05/14/17 07:43 Assessment and Plan Assessment: Impression. 1. Hypokalemia secondary to combination of Florinef and high blood sugars with osmotic diuresis. Potassium is 2.6 2 orthostatic hypotension secondary to severe diabetic autonomic neuropathy. History of falls and pressure in the 80s. Currently on Midrin and Florinef for the last few months. 3. Supine hypertension with blood pressure in the 160s usually at home. 4. Creatinine is normal at 0.5 5. Atrial fibrillation, but currently in normal sinus rhythm 6. History of coronary artery disease 7. History of hypothyroidism on replacement. Recommendation. 1. Replace potassium with 80 mEq, 20 mg hourly by mouth for 4 doses. 2. Check serum magnesium 3. Check TSH. 4. Convert to regular diet with diabetic restriction. 5. Check orthostatic changes.
[2017-05-14] MEDS ORDERED: POTASSIUM CHLORIDE ER 20 MEQ TAB.ER PO ONE (13:00)
[2017-05-14] MEDS ORDERED: POTASSIUM CHLORIDE ER 20 MEQ TAB.ER PO SCH (14:00)
[2017-05-14 17:11] LABS: Glucose,Whole Blood 116 mg/dL (75-99)
--- NOTE | 2017-05-14 17:18 | PN ---
PROGRESS NOTE DATE OF SERVICE: 05/14/2017. This 72-year-old woman is admitted with nausea and vomiting for possible acute gastroenteritis, also had fluctuating labile hypertension also. The patient also had constipation issues improving. Multiple consultants are following the patient closely including Nephrology and Surgery. The potassium is 2.6 today. EXAM: Alert and oriented x3. Pulse is 56, blood pressure 130/72, respiration 14, temperature 97.6, pulse ox 97% on room air. HEENT: Conjunctivae normal. NECK: No jugular venous distention. CARDIOVASCULAR: S1, S2. RESPIRATORY: Breath sounds diminished in the bases. ABDOMEN: Soft, nontender. No mass palpable. LEGS: No edema. NERVOUS SYSTEM: No focal deficits. LABS: WBC 4.2, hemoglobin 11, INR is 2.1, sodium 140, potassium 2.6. TSH is 19.700. ASSESSMENT: 1. Nausea, vomiting, possible acute gastritis and gastroenteritis. 2. History of constipation. 3. Right lower lobe pneumonia possibly community-acquired. 4. Accelerated hypertension with hypertensive urgency. 5. Severe orthostatic hypotension, symptomatic. 6. Labile hypertension. 7. Severe hypokalemia. 8. Chest pain possibly musculoskeletal. 9. Diabetes mellitus type 2 uncontrolled. 10.History atrial fibrillation, history of coronary artery disease, CABG and stent. 11.History of congestive heart failure. 12.History of gastroesophageal reflux disease. 13.Hyperlipidemia. 14.History of myocardial infarction. 15.History of pulmonary embolism. 16.History of gastroenteritis. 17.History of irritable bowel syndrome. 18.History of restless leg syndrome. 19.History of bowel resection. 20.History of pacemaker. 21.History of bronchitis. 22.History of degenerative joint disease. 23.Increased TSH. RECOMMENDATIONS AND DISCUSSION: I recommend to continue current medications, continue with monitoring, and symptomatic treatment at this time. We will monitor the patient closely. Otherwise continue with the current medications. Continue symptomatic treatment. Supplement potassium. Hold lisinopril. Free T3 and free T4. Guarded prognosis. Further recommendations to follow. MMODL / IJN: [id number] /
[2017-05-14 18:04] LABS: Potassium 4.2 mmol/L (3.5-5.1)
[2017-05-14 18:20] LABS: T4, Free (Free Thyroxine) 0.6 ng/dL (0.78-2.19)
[2017-05-14] MEDS: WARFARIN 3 MG TAB PO SCH (18:25)
[2017-05-14] MEDS ORDERED: NITROGLYCERIN SL TABS 0.4 MG TAB SUBLINGUAL PRN (18:40)
[2017-05-14] MEDS ORDERED: IPRATROPIUM-ALBUTEROL 3 ML NEB INHALATION PRN (18:47)
[2017-05-14] MEDS ORDERED: MORPHINE SULFATE 4 MG/ML SYRINGE IVP PRN (18:48)
[2017-05-14] MEDS: IPRATROPIUM-ALBUTEROL 3 ML NEB INHALATION SCH (18:52)
[2017-05-14 19:25] LABS: Creatine Kinase 38 U/L (30-135)
[2017-05-14 19:39] LABS: Creatine Kinase MB 0.6 ng/mL (0.0-2.4); Troponin I <0.012 ng/mL (0.000-0.034)
[2017-05-14] MEDS: traZODone HCL 50 MG TAB PO SCH (21:15)
[2017-05-14] MEDS: LEVOFLOXACIN 500 MG TAB PO SCH (21:15)
[2017-05-14] MEDS: DIAZEPAM 5 MG TAB PO SCH (21:15)
[2017-05-14 21:26] LABS: Glucose,Whole Blood 218 mg/dL (75-99)
[2017-05-15 00:04] LABS: Creatine Kinase 35 U/L (30-135)
[2017-05-15 00:17] LABS: Creatine Kinase MB 0.5 ng/mL (0.0-2.4); Troponin I <0.012 ng/mL (0.000-0.034)
[2017-05-15] MEDS: oxyCODONE-APAP 5-325MG 1 EACH TAB PO PRN ×2 (05:57→19:36)
[2017-05-15] MEDS: MIDODRINE 5 MG TAB PO SCH ×2 (05:57→17:43)
[2017-05-15] MEDS: LEVOTHYROXINE 137 MCG TAB PO SCH (05:57)
[2017-05-15] MEDS: PANTOPRAZOLE 40 MG TABLET PO SCH ×2 (05:58→17:43)
[2017-05-15 06:23] LABS: Basophils % (A) 1 %; Eosinophils # (A) 0.2 k/uL (0-0.7); Eosinophils % (A) 5 %; HCT 35.9 % (34.0-46.0); HGB 11.6 gm/dL (11.4-16.0); Lymphocytes # (A) 1.6 k/uL (1.0-4.8); Lymphocytes % (A) 38 %; MCH 30.7 pg (25.0-35.0); MCHC 32.3 g/dL (31.0-37.0); MCV 95.3 fL (80.0-100.0); Mean Platelet Volume 6.8; Monocytes # (A) 0.3 k/uL (0-1.0); Monocytes % (A) 6 %; Neutrophils # (A) 2.1 k/uL (1.3-7.7); Neutrophils % (A) 48 %; Platelet Count 185 k/uL (150-450); RBC 3.77 m/uL (3.80-5.40); RDW 13.6 % (11.5-15.5); WBC 4.3 k/uL (3.8-10.6)
[2017-05-15 06:39] LABS: Anion Gap 5 mmol/L; Blood Urea Nitrogen 17 mg/dL (7-17); Calcium 8.6 mg/dL (8.4-10.2); Carbon Dioxide 24 mmol/L (22-30); Chloride 112 mmol/L (98-107); Glucose 172 mg/dL (74-99); Potassium 3.5 mmol/L (3.5-5.1); Sodium 141 mmol/L (137-145)
[2017-05-15 06:40] LABS: Glucose,Whole Blood 193 mg/dL (75-99)
[2017-05-15 06:47] LABS: Creatine Kinase 29 U/L (30-135)
[2017-05-15] MEDS: INSULIN ASPART 100 UNIT/ML 1 ML 10 ML VIAL SQ SCH ×4 (06:49→21:43)
[2017-05-15 07:01] LABS: Creatine Kinase MB 0.4 ng/mL (0.0-2.4); Troponin I <0.012 ng/mL (0.000-0.034)
[2017-05-15] MEDS: IPRATROPIUM-ALBUTEROL 3 ML NEB INHALATION SCH ×4 (08:07→20:15)
[2017-05-15] MEDS: FLUDROCORTISONE 0.1 MG TAB PO SCH ×2 (08:55→21:43)
[2017-05-15] MEDS: GABAPENTIN 400 MG CAP PO SCH ×4 (08:55→21:42)
[2017-05-15] MEDS: INSULIN DETEMIR 100 UNIT/ML 10 ML VIAL SQ SCH (08:57)
--- NOTE | 2017-05-15 09:48 | P.PN ---
Subjective Progress Note Date: 05/15/17 Principal diagnosis: This is a 72-year-old female seen because of hypokalemia and orthostatic hypotension, with falls. She is known with diabetes since 2014 with neuropathy orthostatic changes. She is on Midrin and Florinef for that time. She has hypokalemia, Likely from the Florinef. She had replacement with 80 mEq., Potassium is up to 3.5 today. Her renal function is normal with creatinine 0.54. Also a TSH is extremely high at 19, with low free T3 and T4 both. she is on on any replacement at home because she could not afford it I discontinued the lisinopril yesterday to allow her standing blood pressure to be reasonable so she doesn't fall Objective - Vital Signs Vital signs: Vital Signs Temp 97 F L 05/14/17 20:00 Pulse 60 05/15/17 08:17 Resp 16 05/15/17 04:00 BP 132/72 05/15/17 04:00 Pulse Ox 95 05/15/17 04:00 Intake & Output 05/14/17 05/15/17 05/15/17 18:59 06:59 18:59 Intake Total 590 360 Balance 590 360 Weight 74 kg Intake: Oral 590 360 Other: Voiding Method Toilet Diaper # Voids 2 1 # Bowel Movements 1 On examination she is comfortable cheerful and has no significant complaints she wants to eat normal food she is currently on a soft diet. HEENT exam no JVP neck is supple no facial asymmetry Pupils are equal. Heart sounds are unremarkable for any murmur rub gallop. She is in atrial fib. Lungs are clear to auscultation good air entry bilaterally no dullness to percussion Abdomen soft nontender, no organomegaly status masses Extremity exam was trace edema Neurologically awake alert oriented no focal motor deficit. - Labs CBC & Chem 7: 05/15/17 05:28 05/15/17 05:28 Labs: Abnormal Lab Results - Last 24 Hours (Table) 05/14/17 05/14/17 05/14/17 Range/Units 07:43 11:15 17:09 RBC (3.80-5.40) m/uL Chloride (98-107) mmol/L Glucose (74-99) mg/dL POC Glucose (mg/dL) 181 H 116 H (75-99) mg/dL Total Creatine Kinase (30-135) U/L TSH 19.700 H (0.465-4.680) mIU/L Free T4 (0.78-2.19) ng/dL Free T3 pg/mL (2.8-5.3) pg/ml 05/14/17 05/14/17 05/15/17 Range/Units 17:20 21:23 05:28 RBC 3.77 L (3.80-5.40) m/uL Chloride 111 H (98-107) mmol/L Glucose (74-99) mg/dL POC Glucose (mg/dL) 218 H (75-99) mg/dL Total Creatine Kinase (30-135) U/L TSH (0.465-4.680) mIU/L Free T4 0.60 L (0.78-2.19) ng/dL Free T3 pg/mL 1.8 L (2.8-5.3) pg/ml 05/15/17 05/15/17 05/15/17 Range/Units 05:28 05:28 06:37 RBC (3.80-5.40) m/uL Chloride 112 H (98-107) mmol/L Glucose 172 H (74-99) mg/dL POC Glucose (mg/dL) 193 H (75-99) mg/dL Total Creatine Kinase 29 L (30-135) U/L TSH (0.465-4.680) mIU/L Free T4 (0.78-2.19) ng/dL Free T3 pg/mL (2.8-5.3) pg/ml Microbiology - Last 24 Hours (Table) 05/12/17 23:35 Blood Culture - Preliminary Blood No Growth after 48 hours 05/13/17 01:25 Urine Culture - Final Urine,Clean Catch Assessment and Plan Assessment: Impression. 1. Hypokalemia secondary to combination of Florinef and high blood sugars with osmotic diuresis. Potassium is 2.6 improved to 3.5 with replacement., 2 orthostatic hypotension secondary to severe diabetic autonomic neuropathy. History of falls and pressure in the 80s. Currently on Midrin and Florinef for the last few months.Improved blood pressure currently with stocking up to her knees which she does not like 3. Supine hypertension with blood pressure in the 160s usually at home. 4. Creatinine is normal at 0.5 5. Atrial fibrillation, but currently in normal sinus rhythm 6. History of coronary artery disease 7. History of hypothyroidism on replacement.Patient has been missing and her TSH is 19 and she has low free T3 and free T4. Recommendation. 1. maintain potassium 20 mEq a day and watch closely if discharged. She needs to have repeat labs done in 24-48 hours on maintenance doses of potassium. 2. Because of monetary constraints we'll have to help her with her medications reduce the cost and ensure she is able to afford her medication including the levothyroxine which she admitted to not taking because of problems buying it. 3. resume Synthroid at her 137 g does 3. continue to monitor labs
--- NOTE | 2017-05-15 11:30 | P.PN ---
Subjective Progress Note Date: 05/15/17 Patient is a 72-year-old white female who was admitted with complaints of headache and hypertension. Surgery was consult is secondary to abdominal discomfort and chronic left lower quadrant abdominal discomfort. The patient states today she is feeling well. She has no change in abdominal discomfort at this time. Patient is being followed by medicine secondary to her hypokalemia and orthostatic hypotension. She had her lisinopril discontinued. At this time she is feeling well. She is tolerating her diet. Objective - Vital Signs Vital signs: Vital Signs Temp 96.6 F L 05/15/17 08:00 Pulse 60 05/15/17 08:17 Resp 18 05/15/17 08:00 BP 106/61 05/15/17 08:00 Pulse Ox 96 05/15/17 08:00 Intake & Output 05/14/17 05/15/17 05/15/17 18:59 06:59 18:59 Intake Total 590 360 Balance 590 360 Weight 74 kg Intake: Oral 590 360 Other: Voiding Method Toilet Toilet Diaper Diaper # Voids 2 1 # Bowel Movements 1 - Constitutional General appearance: Present: average body habitus - Respiratory Respiratory: bilateral: CTA - Cardiovascular Rhythm: regular Heart sounds: normal: S1, S2 - Gastrointestinal General gastrointestinal: Present: normal bowel sounds, soft - Psychiatric Psychiatric: Present: A&O x's 3, appropriate affect - Labs CBC & Chem 7: 05/15/17 05:28 05/15/17 05:28 Labs: Abnormal Lab Results - Last 24 Hours (Table) 05/14/17 05/14/17 05/14/17 Range/Units 07:43 17:09 17:20 RBC (3.80-5.40) m/uL Chloride 111 H (98-107) mmol/L Glucose (74-99) mg/dL POC Glucose (mg/dL) 116 H (75-99) mg/dL Total Creatine Kinase (30-135) U/L TSH 19.700 H (0.465-4.680) mIU/L Free T4 0.60 L (0.78-2.19) ng/dL Free T3 pg/mL 1.8 L (2.8-5.3) pg/ml 05/14/17 05/15/17 05/15/17 Range/Units 21:23 05:28 05:28 RBC 3.77 L (3.80-5.40) m/uL Chloride 112 H (98-107) mmol/L Glucose 172 H (74-99) mg/dL POC Glucose (mg/dL) 218 H (75-99) mg/dL Total Creatine Kinase (30-135) U/L TSH (0.465-4.680) mIU/L Free T4 (0.78-2.19) ng/dL Free T3 pg/mL (2.8-5.3) pg/ml 05/15/17 05/15/17 Range/Units 05:28 06:37 RBC (3.80-5.40) m/uL Chloride (98-107) mmol/L Glucose (74-99) mg/dL POC Glucose (mg/dL) 193 H (75-99) mg/dL Total Creatine Kinase 29 L (30-135) U/L TSH (0.465-4.680) mIU/L Free T4 (0.78-2.19) ng/dL Free T3 pg/mL (2.8-5.3) pg/ml Microbiology - Last 24 Hours (Table) 05/12/17 23:35 Blood Culture - Preliminary Blood No Growth after 48 hours 05/13/17 01:25 Urine Culture - Final Urine,Clean Catch Assessment and Plan Plan: Impression/plan: 1. Chronic difficulty with swallowing 2. Constipation with resolved abdominal discomfort at this time 3. Patient does not have an acute surgical problem at this time Plan: 1. Will follow as needed would plan on EGD and colonoscopy as an outpatient or later during this hospitalization 2. Continued medical management of hypokalemia and orthostatic hypotension
[2017-05-15 11:45] LABS: Glucose,Whole Blood 217 mg/dL (75-99)
--- NOTE | 2017-05-15 13:27 | XR ---
EXAMINATION TYPE: XR chest 1V portable DATE OF EXAM: 05/15/2017 COMPARISON: 05/12/2017 HISTORY: Heart failure or chest pain TECHNIQUE: Single frontal view of the chest is obtained. FINDINGS: I see no heart failure nor confluent pneumonic infiltrate. There is left axillary pacemake r with the lead tip in the right ventricle. There are chest leads. There are sternal wires. There is very slight blunting of costophrenic angles. IMPRESSION: Small pleural effusions. Pleural fluid is improved on the right side and probably increa sed on the left side compared to last exam. No gross heart failure. There is clearing of infiltrate a t the right lung base compared to last exam.
[2017-05-15 16:36] LABS: Glucose,Whole Blood 190 mg/dL (75-99)
[2017-05-15] MEDS: WARFARIN 3 MG TAB PO SCH (17:43)
--- NOTE | 2017-05-15 19:34 | PN ---
PROGRESS NOTE DATE OF SERVICE: 05/15/2017 INTERVAL HISTORY: This 72-year-old woman is admitted with possible acute gastritis and gastroenteritis is being closely monitored. Patient also has a history of constipation, pneumonia. The patient is complaining of left-sided chest pain. A chest x-ray which I ordered today showed . The patient was transferred to telemetry last night to rule out the possibility of cardiac cause of chest pain. The chest x-ray showed significant clearing and multiple consultants are following the patient closely. EXAM: Alert and oriented times three. Pulse is 60. Blood pressure 140/60, respiration 18, temperature 97 degrees, pulse ox 93% on room air. HEENT: Conjunctivae normal. Neck: No jugular venous distention. Cardiovascular : S1, S2 muffled. Respiratory: Breath sounds diminished in the bases. A few rhonchi. No crackles. Abdomen is soft, nontender. No mass palpable. Legs are no edema. No swelling. Central nervous system: No focal deficits. LABS: WBC 4.2, hemoglobin 11.6, sodium 140, potassium 3.5. Accu-Cheks noted. ASSESSMENT: 1. Nausea, vomiting, possible acute gastritis, gastroenteritis, history of constipation. 2. History of right lower lobe pneumonia possibly community-acquired. 3. Left sided chest tube, possible bronchitis. 4. Severe orthostatic hypotension, symptomatic. 5. Labile hypertension. 6. Severe hypokalemia. 7. Chest pain possible musculoskeletal. 8. Diabetes type 2 uncontrolled. 9. History of atrial fibrillation. 10.History of coronary artery disease/coronary artery bypass grafting stent. 11.History of congestive heart failure. 12.History of gastroesophageal reflux disease. 13.Hyperlipidemia. 14.History of myocardial infarction. 15.History of pulmonary embolus. 16.History of gastroenteritis. 17.History of irritable bowel syndrome. 18.History of restless legs syndrome. 19.History of bowel resection. 20.History of pacemaker. 21.History of bronchitis. 22.History of degenerative joint disease. 23.Increased TSH low free T3 and free T4. 24.Hypothyroidism. RECOMMENDATIONS AND DISCUSSION: Recommend to continue current medication, continue symptomatic treatment. Otherwise I would increase the dose of levothyroxine to 200 mg daily and continue to monitor. Guarded prognosis. Further recommendations to follow. MMODL / IJN: [id number] / [facility]
[2017-05-15 21:14] LABS: Glucose,Whole Blood 233 mg/dL (75-99)
[2017-05-15] MEDS: traZODone HCL 50 MG TAB PO SCH (21:42)
[2017-05-15] MEDS: LEVOFLOXACIN 500 MG TAB PO SCH (21:43)
[2017-05-15] MEDS: DIAZEPAM 5 MG TAB PO SCH (21:43)
[2017-05-16] MEDS: oxyCODONE-APAP 5-325MG 1 EACH TAB PO PRN ×2 (04:28→23:12)
[2017-05-16 06:10] LABS: Glucose,Whole Blood 132 mg/dL (75-99)
[2017-05-16] MEDS: LEVOTHYROXINE 100 MCG TAB PO SCH (06:12)
[2017-05-16] MEDS: PANTOPRAZOLE 40 MG TABLET PO SCH ×2 (06:12→17:14)
[2017-05-16] MEDS: INSULIN ASPART 100 UNIT/ML 1 ML 10 ML VIAL SQ SCH ×4 (06:13→21:34)
[2017-05-16] MEDS: MIDODRINE 5 MG TAB PO SCH ×2 (06:13→17:14)
[2017-05-16 06:26] LABS: Basophils # (A) 0.1 k/uL (0-0.2); Basophils % (A) 1 %; Eosinophils # (A) 0.2 k/uL (0-0.7); Eosinophils % (A) 4 %; HCT 35.3 % (34.0-46.0); HGB 11.2 gm/dL (11.4-16.0); Lymphocytes # (A) 1.4 k/uL (1.0-4.8); Lymphocytes % (A) 34 %; MCH 30.5 pg (25.0-35.0); MCHC 31.7 g/dL (31.0-37.0); MCV 96.4 fL (80.0-100.0); Mean Platelet Volume 6.9; Monocytes # (A) 0.2 k/uL (0-1.0); Monocytes % (A) 6 %; Neutrophils # (A) 2.1 k/uL (1.3-7.7); Neutrophils % (A) 51 %; Platelet Count 174 k/uL (150-450); RBC 3.66 m/uL (3.80-5.40); RDW 13.6 % (11.5-15.5); WBC 4.2 k/uL (3.8-10.6)
[2017-05-16 06:43] LABS: Anion Gap 6 mmol/L; Blood Urea Nitrogen 18 mg/dL (7-17); Calcium 8.6 mg/dL (8.4-10.2); Carbon Dioxide 26 mmol/L (22-30); Chloride 111 mmol/L (98-107); Glucose 140 mg/dL (74-99); Potassium 3.5 mmol/L (3.5-5.1); Sodium 143 mmol/L (137-145)
[2017-05-16 08:15] LABS: INR 2.1 (<1.2); Prothrombin Time 18.9 sec (9.0-12.0)
[2017-05-16] MEDS: IPRATROPIUM-ALBUTEROL 3 ML NEB INHALATION SCH ×4 (08:46→21:22)
[2017-05-16] MEDS: GABAPENTIN 400 MG CAP PO SCH ×4 (09:15→21:33)
[2017-05-16] MEDS: FLUDROCORTISONE 0.1 MG TAB PO SCH ×2 (09:15→21:33)
[2017-05-16] MEDS: POTASSIUM CHLORIDE ER 20 MEQ TAB.ER PO SCH (09:16)
[2017-05-16] MEDS: INSULIN DETEMIR 100 UNIT/ML 10 ML VIAL SQ SCH (09:18)
[2017-05-16 09:53] LABS: Glucose,Whole Blood 221 mg/dL (75-99)
[2017-05-16 11:41] LABS: Glucose,Whole Blood 235 mg/dL (75-99)
--- NOTE | 2017-05-16 13:12 | P.DS ---
Providers Date of admission: 05/12/17 08:22 Expected date of discharge: 05/16/17 Attending physician: Darlene Sosa Consults: 05/09/17 08:33 Consult Physician Routine Consulting Provider: Travis Tate Consult Reason/Comments: chest pain Do you want consulting provider notified?: Yes 05/13/17 11:07 Consult Physician Routine Consulting Provider: Yesica Hagan Consult Reason/Comments: hypertension Do you want consulting provider notified?: Yes 05/13/17 11:22 Consult Physician Routine Consulting Provider: Hector Schulz Consult Reason/Comments: abdominal pain, difficulty swallowing Do you want consulting provider notified?: Yes 05/14/17 18:48 Consult Physician Routine Consulting Provider: Brooks Villeda Consult Reason/Comments: Chest pressure Do you want consulting provider notified?: Yes Primary care physician: Jane Carbajal [facility] Course: Final Diagnoses: 1. Nausea, vomiting, possible acute gastritis, gastroenteritis, history of constipation 2. History of right lower lobe pneumonia, possibly community-acquired 3. Left-sided chest tube, possible bronchitis 4. Severe orthostatic hypotension, symptomatic 5. Labile hypertension 6. Severe hypokalemia 7. Chest pain, possible muscle skeletal 8. Diabetes mellitus type 2 9. Chronic persistent atrial fibrillation 10. hypothyroidism, Increased TSH, low free T3 and free T4 11. CAD Hospital course:this is a 72-year-old female admitted with possible acute gastritis and gastroenteritis, severe hypokalemia, severe symptomatic orthostatic hypotension,chest pain and multiple other medical issues.evaluated by cardiology, nephrology,Gen. surgery.received IV fluid hydration. maintained on Florinef, potassium, increased level thyroxineand antibiotics.Recent chest x -ray reporting small bilateral pleural effusions, clearing of infiltrate at right lung base, no gross heart failure. Significant clinical improvement. Patient has been cleared for discharge by all consults. Patient is being discharged to [facility] in a stable condition with guarded prognosis. Physical exam;VSS, alert and oriented 3, no acute distress.CV: irregular, S1 and O6whhmptk,LUNGS: bilateral bases diminished occasional scattered rhonchi and crackles.ABD: soft nontender positive bowel sounds.Neuro: no focal deficits. Microbiology 05/12/17 23:35 Blood Blood Culture - Preliminary No Growth after 72 hours 03/02/18 01:25 Urine,Clean Catch Urine Culture - Final The impression and plan of care has been dictated as directed. : I performed a history and examination of this patient, discussed the same with the dictator. I agree with the dictator's note ,documented as a scribe. Any additional findings or plans will be noted. Time taken: 35 minutes Patient Condition at Discharge: Stable Plan - Discharge Summary Discharge Rx Participant: Yes New Discharge Prescriptions: New Fludrocortisone [Florinef] 0.1 mg PO BID #60 tab Levofloxacin [Levaquin] 500 mg PO Q24H #5 tab Levothyroxine Sodium [Synthroid] 200 mcg PO DAILY@0630 #30 tab Ipratropium-Albuterol Nebulize [Duoneb 0.5 mg-3 mg/3 ml Soln] 3 ml INHALATION RT-QID ampul.neb Ipratropium-Albuterol Nebulize [Duoneb 0.5 mg-3 mg/3 ml Soln] 3 ml INHALATION Q4H PRN #1 ampul.neb PRN Reason: Shortness Of Breath Or Wheezing Potassium Chloride ER [K-Dur 20] 20 meq PO DAILY tab.er.prt Continue traZODone HCL 150 mg PO HS Midodrine [ProAmatine] 5 mg PO AC-BID #60 tab Pantoprazole [Protonix] 40 mg PO BID #60 tablet. Gabapentin [Neurontin] 800 mg PO QID Fludrocortisone [Florinef] 0.1 mg PO Q12H Warfarin Sodium 6 mg PO HS Diazepam [Valium] 5 mg PO HS #5 tab oxyCODONE-APAP 5-325MG [Percocet 5-325 mg] 1 tab PO TID PRN #20 tab PRN Reason: Pain Changed Insulin Glargine [Lantus] 40 unit SQ DAILY #0 Discontinued Levothyroxine Sodium [Synthroid] 137 mcg PO DAILY Insulin Aspart [NovoLOG Flexpen] See Protocol SQ AC-TID Lisinopril [Zestril] 10 mg PO DAILY Discharge Medication List traZODone HCL 150 mg PO HS 03/15/17 [History] Midodrine [ProAmatine] 5 mg PO AC-BID #60 tab 03/18/17 [Rx] Pantoprazole [Protonix] 40 mg PO BID #60 tablet. 03/18/17 [Rx] Fludrocortisone [Florinef] 0.1 mg PO Q12H 05/08/17 [History] Gabapentin [Neurontin] 800 mg PO QID 05/08/17 [History] Warfarin Sodium 6 mg PO HS 05/08/17 [History] Insulin Glargine [Lantus] 40 unit SQ DAILY #0 05/11/17 [Rx] Diazepam [Valium] 5 mg PO HS #5 tab 05/16/17 [Rx] Fludrocortisone [Florinef] 0.1 mg PO BID #60 tab 05/16/17 [Rx] Ipratropium-Albuterol Nebulize [Duoneb 0.5 mg-3 mg/3 ml Soln] 3 ml INHALATION Q4H PRN #1 ampul.neb 05/16/17 [Rx] Ipratropium-Albuterol Nebulize [Duoneb 0.5 mg-3 mg/3 ml Soln] 3 ml INHALATION RT -QID ampul.neb 05/16/17 [Rx] Levofloxacin [Levaquin] 500 mg PO Q24H #5 tab 05/16/17 [Rx] Levothyroxine Sodium [Synthroid] 200 mcg PO DAILY@0630 #30 tab 05/16/17 [Rx] Potassium Chloride ER [K-Dur 20] 20 meq PO DAILY tab.er.prt 05/16/17 [Rx] oxyCODONE-APAP 5-325MG [Percocet 5-325 mg] 1 tab PO TID PRN #20 tab 05/16/17 [Rx ] Follow up Appointment(s)/Referral(s): Hector Schulz MD [Medical Doctor] - 06/01/17 4:20 pm Yesica Hagan MD [STAFF PHYSICIAN] - 1 Week (Office will call patient with follow -up appointment) Travis Tate MD [STAFF PHYSICIAN] - 1 Week (Office will call you with your follow-up appt.) [facility], [NON-STAFF] - Raven Lara MD [Primary Care Provider] - 1 Week (after discharge from subacute rehab) Phil Capellan DO [STAFF PHYSICIAN] - 3 Days (while at [facility]) Ambulatory/Diagnostic Orders: Complete Blood Count w/diff [LAB.AMB] Time Frame: 3 Days, Location: Determined By Patient Activity/Diet/Wound Care/Special Instructions: [facility] orthostatic vital signs:pending Confirm follow-up visit with cardiology per to discharge. Diet: Cardiac, consistent carb Accu-Cheks before meals and at bedtime Activity: Limited until follow up PT/INR daily CBC, BMP in 3 days
--- NOTE | 2017-05-16 16:04 | P.PN ---
Subjective Progress Note Date: 05/16/17 Principal diagnosis: Abdominal pain Patient seems to be doing better. She is tolerating her diet. She is having normal bowel movements. Still having some abdominal discomfort. Dysphagia see says his back to its chronic nature. Plans are underway for discharge currently. Objective - Vital Signs Vital signs: Vital Signs Temp 97.9 F 05/16/17 15:55 Pulse 60 05/16/17 15:55 Resp 20 05/16/17 15:55 BP 106/56 05/16/17 15:55 Pulse Ox 95 05/16/17 15:55 Intake & Output 05/15/17 05/16/17 05/16/17 18:59 06:59 18:59 Intake Total 1080 650 580 Output Total 200 100 Balance 1080 450 480 Weight 77.2 kg Intake: Oral 1080 650 580 Output: Urine 200 100 Other: Voiding Method Toilet Toilet Bedside Commode Diaper Diaper Diaper # Voids 1 1 # Bowel Movements 1 - Exam Abdomen: Soft, nondistended, mild lower abdominal tenderness, no rebound or guarding - Labs CBC & Chem 7: 05/16/17 05:59 05/16/17 05:59 Labs: Abnormal Lab Results - Last 24 Hours (Table) 05/15/17 05/15/17 05/16/17 Range/Units 16:35 21:02 05:59 RBC 3.66 L (3.80-5.40) m/uL Hgb 11.2 L (11.4-16.0) gm/dL PT (9.0-12.0) sec INR (<1.2) Chloride (98-107) mmol/L BUN (7-17) mg/dL Glucose (74-99) mg/dL POC Glucose (mg/dL) 190 H 233 H (75-99) mg/dL 05/16/17 05/16/17 05/16/17 Range/Units 05:59 05:59 06:09 RBC (3.80-5.40) m/uL Hgb (11.4-16.0) gm/dL PT 18.9 H (9.0-12.0) sec INR 2.1 H (<1.2) Chloride 111 H (98-107) mmol/L BUN 18 H (7-17) mg/dL Glucose 140 H (74-99) mg/dL POC Glucose (mg/dL) 132 H (75-99) mg/dL 05/16/17 05/16/17 Range/Units 09:50 11:36 RBC (3.80-5.40) m/uL Hgb (11.4-16.0) gm/dL PT (9.0-12.0) sec INR (<1.2) Chloride (98-107) mmol/L BUN (7-17) mg/dL Glucose (74-99) mg/dL POC Glucose (mg/dL) 221 H 235 H (75-99) mg/dL Microbiology - Last 24 Hours (Table) 05/12/17 23:35 Blood Culture - Preliminary Blood No Growth after 72 hours Assessment and Plan (1) Abdominal pain Narrative/Plan: Continue diet as tolerated. Follow up as outpatient for upper and lower endoscopy. We'll sign off at this point. Please contact if needed. Current Visit: No Status: Acute Code(s): R10.9 - UNSPECIFIED ABDOMINAL PAIN SNOMED Code(s): 43625519
[2017-05-16 16:49] LABS: Glucose,Whole Blood 222 mg/dL (75-99)
[2017-05-16] MEDS: WARFARIN 3 MG TAB PO SCH (17:14)
[2017-05-16] MEDS: MORPHINE ORAL SOLN 10 MG/5 ML CUP PO PRN (19:57)
[2017-05-16 21:25] LABS: Glucose,Whole Blood 241 mg/dL (75-99)
[2017-05-16] MEDS: DIAZEPAM 5 MG TAB PO SCH (21:32)
[2017-05-16] MEDS: traZODone HCL 50 MG TAB PO SCH (21:33)
[2017-05-16] MEDS: LEVOFLOXACIN 500 MG TAB PO SCH (21:33)
--- NOTE | 2017-05-17 02:52 | PN ---
PROGRESS NOTE DATE OF SERVICE: 05/16/2017 This 72-year-old woman was admitted to the hospital with multiple medical problems, also complaining of generalized weakness and tiredness. ECF rehab is being planned. No chest pain. No palpitations. No fever. EXAM: Alert and oriented times three. Pulse 86, blood pressure 141/64, respiration 18, temperature 97.2, pulse ox 98% on room air. HEENT: Conjunctivae normal. Oral mucosa moist. Neck: No jugular venous distention. Cardiovascular: S1, S2 muffled. Respiratory: Breath sounds diminished in the bases. A few rhonchi. No. Crackles abdomen is soft, nontender. Legs are no edema. No swelling. Central nervous system: Diffusely weak. LABS: Accu-Cheks 224, 220, 240, other labs are noted. ASSESSMENT: 1. Nausea, vomiting, possible acute gastritis, gastroesophageal reflux disease, history of constipation. 2. History of right lower lobe pneumonia possibly community acquired. 3. History of left-sided chest pain, possible bronchitis. 4. Severe orthostatic hypotension, symptomatic. 5. Labile hypertension. 6. Multiple medical problems. RECOMMENDATIONS AND DISCUSSION: Recommend to continue current management and symptomatic treatment. Otherwise await preauthorization PT/OT evaluation, possible ECF rehab. Guarded prognosis. Further recommendations to follow. MMODL / IJN: [id number] /
[2017-05-17] MEDS: MORPHINE ORAL SOLN 10 MG/5 ML CUP PO PRN ×2 (05:14→11:44)
[2017-05-17] MEDS: LEVOTHYROXINE 100 MCG TAB PO SCH (06:19)
[2017-05-17 07:40] LABS: Glucose,Whole Blood 162 mg/dL (75-99)
[2017-05-17 08:07] LABS: Basophils % (A) 1 %; Eosinophils # (A) 0.2 k/uL (0-0.7); Eosinophils % (A) 5 %; HCT 32.8 % (34.0-46.0); HGB 10.6 gm/dL (11.4-16.0); Lymphocytes # (A) 1.3 k/uL (1.0-4.8); Lymphocytes % (A) 32 %; MCH 30.3 pg (25.0-35.0); MCHC 32.4 g/dL (31.0-37.0); MCV 93.5 fL (80.0-100.0); Mean Platelet Volume 7.4; Monocytes # (A) 0.3 k/uL (0-1.0); Monocytes % (A) 7 %; Neutrophils # (A) 2.3 k/uL (1.3-7.7); Neutrophils % (A) 54 %; Platelet Count 166 k/uL (150-450); RBC 3.51 m/uL (3.80-5.40); RDW 13.7 % (11.5-15.5); WBC 4.2 k/uL (3.8-10.6)
[2017-05-17] MEDS: INSULIN ASPART 100 UNIT/ML 1 ML 10 ML VIAL SQ SCH ×4 (08:33→21:44)
[2017-05-17] MEDS: MIDODRINE 5 MG TAB PO SCH ×2 (08:34→17:29)
[2017-05-17] MEDS: INSULIN DETEMIR 100 UNIT/ML 10 ML VIAL SQ SCH (08:34)
[2017-05-17] MEDS: GABAPENTIN 400 MG CAP PO SCH ×4 (08:34→21:42)
[2017-05-17] MEDS: FLUDROCORTISONE 0.1 MG TAB PO SCH ×2 (08:35→21:42)
[2017-05-17] MEDS: POTASSIUM CHLORIDE ER 20 MEQ TAB.ER PO SCH (08:35)
[2017-05-17] MEDS: IPRATROPIUM-ALBUTEROL 3 ML NEB INHALATION SCH ×4 (08:35→20:01)
[2017-05-17] MEDS: PANTOPRAZOLE 40 MG TABLET PO SCH ×2 (08:35→17:30)
[2017-05-17 08:40] LABS: Anion Gap 5 mmol/L; Blood Urea Nitrogen 17 mg/dL (7-17); Calcium 8.6 mg/dL (8.4-10.2); Carbon Dioxide 28 mmol/L (22-30); Chloride 110 mmol/L (98-107); Glucose 157 mg/dL (74-99); Potassium 3.8 mmol/L (3.5-5.1); Sodium 143 mmol/L (137-145)
[2017-05-17 10:38] LABS: INR 2.6 (<1.2); Prothrombin Time 23.1 sec (9.0-12.0)
[2017-05-17 11:38] VITALS: BMI 28.3
[2017-05-17 11:52] LABS: Glucose,Whole Blood 150 mg/dL (75-99)
[2017-05-17 17:18] LABS: Glucose,Whole Blood 144 mg/dL (75-99)
[2017-05-17] MEDS: WARFARIN 3 MG TAB PO SCH (17:29)
[2017-05-17 21:10] LABS: Glucose,Whole Blood 134 mg/dL (75-99)
[2017-05-17] MEDS: traZODone HCL 50 MG TAB PO SCH (21:41)
[2017-05-17] MEDS: LEVOFLOXACIN 500 MG TAB PO SCH (21:41)
[2017-05-17] MEDS: DIAZEPAM 5 MG TAB PO SCH (21:44)
[2017-05-18] MEDS: LEVOTHYROXINE 100 MCG TAB PO SCH (06:21)
[2017-05-18] MEDS: MORPHINE ORAL SOLN 10 MG/5 ML CUP PO PRN ×2 (06:26→21:38)
[2017-05-18 07:23] LABS: Glucose,Whole Blood 157 mg/dL (75-99)
[2017-05-18] MEDS: IPRATROPIUM-ALBUTEROL 3 ML NEB INHALATION SCH ×4 (07:31→20:28)
[2017-05-18] MEDS: MIDODRINE 5 MG TAB PO SCH ×2 (09:06→17:14)
[2017-05-18] MEDS: PANTOPRAZOLE 40 MG TABLET PO SCH ×2 (09:06→17:14)
[2017-05-18] MEDS: FLUDROCORTISONE 0.1 MG TAB PO SCH ×2 (09:06→21:39)
[2017-05-18] MEDS: POTASSIUM CHLORIDE ER 20 MEQ TAB.ER PO SCH (09:06)
[2017-05-18] MEDS: INSULIN DETEMIR 100 UNIT/ML 10 ML VIAL SQ SCH (09:07)
[2017-05-18] MEDS: GABAPENTIN 400 MG CAP PO SCH ×4 (09:07→21:40)
[2017-05-18] MEDS: INSULIN ASPART 100 UNIT/ML 1 ML 10 ML VIAL SQ SCH ×4 (09:07→21:40)
[2017-05-18 09:42] LABS: Prothrombin Time 26.6 sec (9.0-12.0)
[2017-05-18 09:53] LABS: Basophils % (A) 1 %; Eosinophils # (A) 0.2 k/uL (0-0.7); Eosinophils % (A) 4 %; HCT 35.2 % (34.0-46.0); HGB 11.7 gm/dL (11.4-16.0); Lymphocytes # (A) 1.4 k/uL (1.0-4.8); Lymphocytes % (A) 24 %; MCHC 33.3 g/dL (31.0-37.0); MCV 93.1 fL (80.0-100.0); Mean Platelet Volume 7.1; Monocytes # (A) 0.4 k/uL (0-1.0); Monocytes % (A) 7 %; Neutrophils # (A) 3.7 k/uL (1.3-7.7); Neutrophils % (A) 63 %; Platelet Count 179 k/uL (150-450); RBC 3.78 m/uL (3.80-5.40); RDW 13.6 % (11.5-15.5); WBC 5.9 k/uL (3.8-10.6)
[2017-05-18 10:11] LABS: Anion Gap 7 mmol/L; Blood Urea Nitrogen 18 mg/dL (7-17); Calcium 8.7 mg/dL (8.4-10.2); Carbon Dioxide 27 mmol/L (22-30); Chloride 107 mmol/L (98-107); Glucose 175 mg/dL (74-99); Potassium 4.1 mmol/L (3.5-5.1); Sodium 141 mmol/L (137-145)
[2017-05-18 12:47] LABS: Glucose,Whole Blood 158 mg/dL (75-99)
[2017-05-18 17:06] LABS: Glucose,Whole Blood 199 mg/dL (75-99)
[2017-05-18] MEDS: WARFARIN 3 MG TAB PO SCH (17:15)
--- NOTE | 2017-05-18 20:21 | P.PN ---
Subjective Progress Note Date: 05/17/17 Progress note being dictated for Dr. Sosa. Interval history: This is a 72-year-old female admitted with possible acute gastritis and gastroenteritis, severe hypokalemia, severe symptomatic orthostatic hypotension,chest pain and multiple other medical issues.evaluated by cardiology, nephrology,Gen. surgery.maintained on Florinef, potassium, increased levo- thyroxine and antibiotics.Recent chest x-ray reporting small bilateral pleural effusions, clearing of infiltrate at right lung base, no gross heart failure. Tolerating diet, no nausea or vomiting. Positive bowel movement. Objective - Vital Signs Vital signs: Vital Signs Temp 97.3 F L 05/18/17 15:00 Pulse 72 05/18/17 16:13 Resp 18 05/18/17 15:00 BP 145/69 05/18/17 15:00 Pulse Ox 94 L 05/18/17 15:00 Intake & Output 05/18/17 05/18/17 05/19/17 06:59 18:59 06:59 Intake Total 500 Balance 500 Weight 77 kg Intake: Oral 500 Other: Voiding Method Toilet Diaper # Voids 3 2 # Bowel Movements 1 1 - Exam PHYSICAL EXAM: VITAL SIGNS: Temperature 97.9, pulse 60, respiratory rate 20, blood pressure 106 /56, O2 sat 95% on room air GENERAL: Sitting up in bed, no acute distress HEENT: Conjunctivae normal. eyes normal. Oral mucosa moist NECK: No JVD. No thyroid enlargement. No LNs CARDIOVASCULAR: S1, S2 muffled. No murmur RESPIRATION: Breath sounds diminished in the bases. Occasional scattered rhonchi, fine crackles. ABDOMEN: Soft, minimal lower abdominal tenderness . No guarding. no masses palpable.Bowel sounds heard. LEGS: No edema. no swelling PSYCHIATRY: Alert and oriented -3, mood and affect normal. NERVOUS SYSTEM: Cranial N 2-12 grossly normal. Moves all 4 limbs. Diffuse weakness No focal deficits. Skin: no ulcer no rash Joints: No active swelling. No inflammation. Lymphatic system. No LN neck axilla or groin. - Labs CBC & Chem 7: 05/18/17 09:03 05/18/17 09:03 Labs: Abnormal Lab Results - Last 24 Hours (Table) 05/17/17 05/18/17 05/18/17 Range/Units 20:41 07:15 09:03 RBC 3.78 L (3.80-5.40) m/uL PT (9.0-12.0) sec INR (<1.2) BUN (7-17) mg/dL Glucose (74-99) mg/dL POC Glucose (mg/dL) 134 H 157 H (75-99) mg/dL 05/18/17 05/18/17 05/18/17 Range/Units 09:03 09:03 12:17 RBC (3.80-5.40) m/uL PT 26.6 H (9.0-12.0) sec INR 3.0 H (<1.2) BUN 18 H (7-17) mg/dL Glucose 175 H (74-99) mg/dL POC Glucose (mg/dL) 158 H (75-99) mg/dL 05/18/17 Range/Units 16:55 RBC (3.80-5.40) m/uL PT (9.0-12.0) sec INR (<1.2) BUN (7-17) mg/dL Glucose (74-99) mg/dL POC Glucose (mg/dL) 199 H (75-99) mg/dL Microbiology - Last 24 Hours (Table) 05/12/17 23:35 Blood Culture - Preliminary Blood No Growth after 120 hours Assessment and Plan Assessment: 1. Nausea, vomiting, possible acute gastritis, gastroenteritis, history of constipation 2. History of right lower lobe pneumonia, possibly community-acquired 3. Left-sided chest tube, possible bronchitis 4. Severe orthostatic hypotension, symptomatic 5. Labile hypertension 6. Severe hypokalemia 7. Chest pain, possible muscle skeletal 8. Diabetes mellitus type 2 9. Chronic persistent atrial fibrillation 10. hypothyroidism, Increased TSH, low free T3 and free T4 11. CAD Plan: Continue on current medication regime ,monitoring and symptomatic treatment. Aggressive pulmonary toileting. Continue diet as tolerated. Discharge planning in progress for subacute rehab pending preauthorization. Daily PT INR. Further recommendations to follow. The impression and plan of care has been dictated as directed. : I performed a history and examination of this patient, discussed the same with the dictator. I agree with the dictator's note ,documented as a scribe. Any additional findings or plans will be noted.
--- NOTE | 2017-05-18 20:23 | P.PN ---
Subjective Progress Note Date: 05/18/17 Progress note being dictated for Dr. Sosa. Interval history: This is a 72-year-old female admitted with possible acute gastritis and gastroenteritis, severe hypokalemia, severe symptomatic orthostatic hypotension,chest pain and multiple other medical issues.evaluated by cardiology, nephrology,Gen. surgery.maintained on Florinef, potassium, increased levo- thyroxine and antibiotics.Recent chest x-ray reporting small bilateral pleural effusions, clearing of infiltrate at right lung base, no gross heart failure. Tolerating diet, no nausea or vomiting. Positive bowel movement. 05/18/17 no overnight events. Tolerating diet. Blood sugars controlled. Afebrile. INR 3. Awaiting discharge to subacute rehab. Denies chest pain, palpitations. Objective - Vital Signs Vital signs: Vital Signs Temp 97.3 F L 05/18/17 15:00 Pulse 72 05/18/17 16:13 Resp 18 05/18/17 15:00 BP 145/69 05/18/17 15:00 Pulse Ox 94 L 05/18/17 15:00 Intake & Output 05/18/17 05/18/17 05/19/17 06:59 18:59 06:59 Intake Total 500 Balance 500 Weight 77 kg Intake: Oral 500 Other: Voiding Method Toilet Diaper # Voids 3 2 # Bowel Movements 1 1 - Exam PHYSICAL EXAM: VITAL SIGNS: As above GENERAL: Sitting up in bed, no acute distress HEENT: Conjunctivae normal. eyes normal. Oral mucosa moist NECK: No JVD. No thyroid enlargement. No LNs CARDIOVASCULAR: S1, S2 muffled. No murmur RESPIRATION: Breath sounds diminished in the bases. Occasional scattered rhonchi, fine crackles. ABDOMEN: Soft, minimal lower abdominal tenderness . No guarding. no masses palpable.Bowel sounds heard. LEGS: No edema. no swelling PSYCHIATRY: Alert and oriented -3, mood and affect normal. NERVOUS SYSTEM: Cranial N 2-12 grossly normal. Moves all 4 limbs. Diffuse weakness No focal deficits. Skin: no ulcer no rash Joints: No active swelling. No inflammation. Lymphatic system. No LN neck axilla or groin. - Labs CBC & Chem 7: 05/18/17 09:03 05/18/17 09:03 Labs: Abnormal Lab Results - Last 24 Hours (Table) 05/17/17 05/18/17 05/18/17 Range/Units 20:41 07:15 09:03 RBC 3.78 L (3.80-5.40) m/uL PT (9.0-12.0) sec INR (<1.2) BUN (7-17) mg/dL Glucose (74-99) mg/dL POC Glucose (mg/dL) 134 H 157 H (75-99) mg/dL 05/18/17 05/18/17 05/18/17 Range/Units 09:03 09:03 12:17 RBC (3.80-5.40) m/uL PT 26.6 H (9.0-12.0) sec INR 3.0 H (<1.2) BUN 18 H (7-17) mg/dL Glucose 175 H (74-99) mg/dL POC Glucose (mg/dL) 158 H (75-99) mg/dL 05/18/17 Range/Units 16:55 RBC (3.80-5.40) m/uL PT (9.0-12.0) sec INR (<1.2) BUN (7-17) mg/dL Glucose (74-99) mg/dL POC Glucose (mg/dL) 199 H (75-99) mg/dL Microbiology - Last 24 Hours (Table) 05/12/17 23:35 Blood Culture - Preliminary Blood No Growth after 120 hours Assessment and Plan Assessment: 1. Nausea, vomiting, possible acute gastritis, gastroenteritis, history of constipation 2. History of right lower lobe pneumonia, possibly community-acquired 3. Left-sided chest tube, possible bronchitis 4. Severe orthostatic hypotension, symptomatic 5. Labile hypertension 6. Severe hypokalemia 7. Chest pain, possible muscle skeletal 8. Diabetes mellitus type 2 9. Chronic persistent atrial fibrillation 10. hypothyroidism, Increased TSH, low free T3 and free T4 11. CAD Plan: Continue on current medication regime ,monitoring and symptomatic treatment. INR 3, hold Coumadin tonight Discharge planning in progress for subacute rehab pending preauthorization. Daily PT INR. Further recommendations to follow. The impression and plan of care has been dictated as directed. : I performed a history and examination of this patient, discussed the same with the dictator. I agree with the dictator's note ,documented as a scribe. Any additional findings or plans will be noted.
[2017-05-18 21:04] LABS: Glucose,Whole Blood 226 mg/dL (75-99)
[2017-05-18] MEDS: DIAZEPAM 5 MG TAB PO SCH (21:39)
[2017-05-18] MEDS: LEVOFLOXACIN 500 MG TAB PO SCH (21:40)
[2017-05-18] MEDS: traZODone HCL 50 MG TAB PO SCH (21:40)
[2017-05-19] MEDS: LEVOTHYROXINE 100 MCG TAB PO SCH (06:15)
[2017-05-19 07:31] LABS: Glucose,Whole Blood 157 mg/dL (75-99)
[2017-05-19 07:41] VITALS: BP 111/54; RESP 18; TEMP 99.1
[2017-05-19] MEDS: INSULIN ASPART 100 UNIT/ML 1 ML 10 ML VIAL SQ SCH (07:41)
[2017-05-19] MEDS: MIDODRINE 5 MG TAB PO SCH (07:43)
[2017-05-19] MEDS: GABAPENTIN 400 MG CAP PO SCH (07:43)
[2017-05-19] MEDS: FLUDROCORTISONE 0.1 MG TAB PO SCH (07:44)
[2017-05-19] MEDS: POTASSIUM CHLORIDE ER 20 MEQ TAB.ER PO SCH (07:44)
[2017-05-19] MEDS: IPRATROPIUM-ALBUTEROL 3 ML NEB INHALATION SCH (07:44)
[2017-05-19] MEDS: PANTOPRAZOLE 40 MG TABLET PO SCH (07:44)
[2017-05-19 08:30] VITALS: PULSE 66
[2017-05-19 09:15] LABS: Basophils % (A) 1 %; Eosinophils # (A) 0.2 k/uL (0-0.7); Eosinophils % (A) 4 %; HCT 33.2 % (34.0-46.0); HGB 11.1 gm/dL (11.4-16.0); Lymphocytes # (A) 1.5 k/uL (1.0-4.8); Lymphocytes % (A) 30 %; MCHC 33.4 g/dL (31.0-37.0); MCV 92.9 fL (80.0-100.0); Mean Platelet Volume 7.2; Monocytes # (A) 0.3 k/uL (0-1.0); Monocytes % (A) 7 %; Neutrophils # (A) 2.8 k/uL (1.3-7.7); Neutrophils % (A) 56 %; Platelet Count 198 k/uL (150-450); RBC 3.57 m/uL (3.80-5.40); RDW 13.5 % (11.5-15.5)
[2017-05-19 09:34] LABS: Anion Gap 5 mmol/L; Blood Urea Nitrogen 17 mg/dL (7-17); Calcium 8.4 mg/dL (8.4-10.2); Carbon Dioxide 27 mmol/L (22-30); Chloride 107 mmol/L (98-107); Glucose 191 mg/dL (74-99); Potassium 4.1 mmol/L (3.5-5.1); Sodium 139 mmol/L (137-145)
--- NOTE | 2017-05-19 21:20 | DS ---
DISCHARGE SUMMARY DATE OF SERVICE: 05/19/2017. DISCHARGE ADDENDUM: This 72-year-old woman who was admitted with nausea, vomiting and acute gastritis also had right lower lobe pneumonia. The patient had multiple other medical problems, including worsening chest pain, shortness of breath, and multiple other medical issues. The patient was monitored closely and the patient will be discharged to [facility] at this time. Please refer to my previous dictation for a list of diagnoses and list of medications. On exam, currently vitals are stable. CARDIOVASCULAR SYSTEM: S1, S2 muffled. RESPIRATORY SYSTEM: A few scattered rhonchi. ABDOMEN: Soft. NERVOUS SYSTEM: No focal deficit. I recommend that the patient follow up closely with Dr. Capellan in the ECF and Dr. Lara [facility] outpatient setting [facility] and with multiple other consultants, including Dr. Schulz, Dr. Hagan and Dr. Tate. The prognosis is guarded. MMODL / IJN: [id number] /
== END 2017-05-19 09:15 | DRG 391 ==
LOC: EC 21:13 → 3SUR 22:53 → OBSVTOIN 05-12 08:22 → 6SEL 05-14 19:19 → 4MS4W 05-16 18:34
PROVIDERS: ADMIT Hospitalist; ATTEND Hospitalist
DX: K29.00 Acute gastritis without bleeding (principal); J18.9 Pneumonia, unspecified organism; E11.65 Type 2 diabetes mellitus with hyperglycemia; E11.42 Type 2 diabetes mellitus with diabetic polyneuropathy; I48.0 Paroxysmal atrial fibrillation; I11.0 Hypertensive heart disease with heart failure; I08.2 Rheumatic disorders of both aortic and tricuspid valves; I50.9 Heart failure, unspecified; I48.1 Persistent atrial fibrillation; I48.2 Chronic atrial fibrillation; I25.82 Chronic total occlusion of coronary artery; G25.81 Restless legs syndrome; R13.10 Dysphagia, unspecified; E78.5 Hyperlipidemia, unspecified; E89.0 Postprocedural hypothyroidism; I25.10 Atherosclerotic heart disease of native coronary artery without angina pectoris; M19.90 Unspecified osteoarthritis, unspecified site; R51 Headache; K21.9 Gastro-esophageal reflux disease without esophagitis; I95.1 Orthostatic hypotension; E87.6 Hypokalemia; N31.9 Neuromuscular dysfunction of bladder, unspecified; J45.909 Unspecified asthma, uncomplicated; I16.0 Hypertensive urgency; F17.210 Nicotine dependence, cigarettes, uncomplicated; Z95.1 Presence of aortocoronary bypass graft; I25.2 Old myocardial infarction; Z86.711 Personal history of pulmonary embolism; Z90.89 Acquired absence of other organs; Z95.0 Presence of cardiac pacemaker; Z82.49 Family history of ischemic heart disease and other diseases of the circulatory system; Z82.5 Family history of asthma and other chronic lower respiratory diseases; Z79.899 Other long term (current) drug therapy; Z79.4 Long term (current) use of insulin; Z79.01 Long term (current) use of anticoagulants; Z91.81 History of falling; Z90.710 Acquired absence of both cervix and uterus; Z90.49 Acquired absence of other specified parts of digestive tract; Z85.850 Personal history of malignant neoplasm of thyroid; Z87.19 Personal history of other diseases of the digestive system; Z85.21 Personal history of malignant neoplasm of larynx; Z87.440 Personal history of urinary (tract) infections; Z86.010 Personal history of colon polyps; Z79.891 Long term (current) use of opiate analgesic
CPT/HCPCS: 36415; 70450; 71045; 71046; 71275; 74176; 80048; 80051; 80053; 80306; 81003; 82550; 82553; 83036; 83690; 83735; 84439; 84443; 84481; 84484; 85025; 85379; 85610; 85730; 87040; 87086; 87502; 90686; 93005; 94640; 94760; 96374; 96375; 99285

== ENCOUNTER 2017-06-06 18:37 | Inpatient (IN) | payer MEDICARE ==
[2017-06-06] MEDS ORDERED: SODIUM CHLORIDE 0.9% 1,000 ML IV STA ×2 (18:53)
--- NOTE | 2017-06-06 18:54 | ED ---
Chest Pain HPI - General Source: patient, RN notes reviewed, old records reviewed Mode of arrival: EMS Limitations: no limitations <Roxi Rdz - Last Filed: 06/06/17 23:38> <Chris Roca - Last Filed: 06/07/17 08:44> - General Chief Complaint: Chest Pain Stated Complaint: Increased Lethargy Time Seen by Provider: 06/06/17 18:50 - History of Present Illness Initial Comments: This patient is a 72-year-old female presents emergency department today chief complaint of increased lethargy for the past week. Patient was recently diagnosed with pneumonia and finished her antibiotics one week ago. Patient states that for the past week she's been having some discomfort in her chest. She states it occasionally seems to worse with movement and taking a deep breath. Patient reports that she is also having a headache at this time. She rates her chest pain is 7 out of 10 and her headache he 10 out of 10. She reports that when she started to have these chest pains the [facility] placed her on oxygen. Patient states that she normally does not have to have oxygen. She does complain of some difficulty in breathing. Patient reports that she has no nausea or vomiting. She's had normal bowel movements. She also complains of increased urinary frequency. (Roxi Rdz) - Related Data Home Medications Medication Instructions Recorded Confirmed traZODone HCL 150 mg PO HS 03/15/17 06/06/17 Gabapentin [Neurontin] 800 mg PO QID 05/08/17 06/06/17 Diazepam [Valium] 5 mg PO HS@199906/06/17 06/06/17 Furosemide [Lasix] 20 mg PO BID 06/06/17 06/06/17 Omeprazole 20 mg PO HS 06/06/17 06/06/17 Potassium Chloride ER [K-Dur 20] 20 meq PO BID 06/06/17 06/06/17 Warfarin Sodium [Coumadin] 5 mg PO HS@199906/06/17 06/06/17 Previous Rx's Medication Instructions Recorded Midodrine [ProAmatine] 5 mg PO AC-BID #60 tab 03/18/17 Fludrocortisone [Florinef] 0.1 mg PO BID #60 tab 05/16/17 Ipratropium-Albuterol Nebulize 3 ml INHALATION RT-QID ampul.neb 05/16/17 [Duoneb 0.5 mg-3 mg/3 ml Soln] Levothyroxine Sodium [Synthroid] 200 mcg PO DAILY@0630 #30 tab 05/16/17 oxyCODONE-APAP 5-325MG [Percocet 1 tab PO TID PRN #20 tab 05/16/17 5-325 mg] Allergies Allergy/AdvReac Type Severity Reaction Status Date / Time peaches AdvReac Nausea & Uncoded 06/07/17 01:23 Vomiting Review of Systems ROS Other: All systems not noted in ROS Statement are negative. <Roxi Rdz - Last Filed: 06/06/17 23:38> ROS Other: All systems not noted in ROS Statement are negative. <Chris Roca - Last Filed: 06/07/17 08:44> ROS Statement: Those systems with pertinent positive or pertinent negative responses have been documented in the HPI. EKG Findings - EKG Comments: EKG Findings:: Patient's EKG shows atrial paced rhythm. Nonspecific ST and T- wave abnormality. Prolonged QT. Abnormal EKG noted. No jugular rate of 60 bpm. CO interval 186 ms. QT QTc is 474 ms. QRS duration 82 ms. <Roxi Rdz - Last Filed: 06/06/17 23:38> Past Medical History Past Medical History: Atrial Fibrillation, Asthma, Coronary Artery Disease (CAD) , Cancer, Chest Pain / Angina, Heart Failure, Diabetes Mellitus, GERD/Reflux, Hyperlipidemia, Hypertension, Myocardial Infarction ([place]), Neurologic Disorder, Pulmonary Embolus (PE), Thyroid Disorder Additional Past Medical History / Comment(s): gastroenteritis. Additional hx: incontinent urine and stool, IBS, hemmorhoids, colonic polyps, R femur acetabular impingement syndrome, UTI with sepsis, DDD, RLS, neuropathy bilateral hands and feet, thyroid cancer with thyroidectomy, diverticulitis, pt takes coumadin for PE's, arthiritis, chronic back pain, laryngeal cancer with surgical removal, syncope Last Myocardial Infarction Date:: 2011 or 2012 per pt History of Any Multi-Drug Resistant Organisms: None Reported Date of last positivie culture/infection: None MDRO Source:: None Past Surgical History: Adenoidectomy, Bladder Surgery, Bowel Resection, Cholecystectomy, Coronary Bypass/CABG, Heart Catheterization With Stent, Hysterectomy, Joint Replacement, Orthopedic Surgery, Pacemaker, Tonsillectomy, Tubal Ligation Additional Past Surgical History / Comment(s): CABG 3 vessel in 2006, cardiac cath with stents 2007 and 2011, pacer 2011, total thyroidectomy, lap maria del rosario, total left shoulder, R shoulder arthroscopy, partial colectomy due to diverticulitis, bladder suspension and bladder repair and mesh x 2, rectal wall repair, hysterectomy 1977, laryngeal surgery for cancer, colonoscopy, EGD with bx, nasal deviated septum surgical correction, L knee arthroscopy. Past Anesthesia/Blood Transfusion Reactions: No Reported Reaction Additional Past Anesthesia/Blood Transfusion Reaction / Comment(s): Pt has recieved blood without any reaction. Date of Last Stent Placement:: 2011 Type of Cardiac Device: Permanent Pacemaker Device Placement Date:: 2010 or 2011 in [place], [place] Past Psychological History: No Psychological Hx Reported Smoking Status: Current some day smoker Past Alcohol Use History: None Reported Past Drug Use History: None Reported - Past Family History Father Family Medical History: Congestive Heart Failure (CHF), COPD Additional Family Medical History / Comment(s): Father at age 61 yrs of CHF and COPD. Mother Family Medical History: Congestive Heart Failure (CHF), COPD <Roxi Rdz - Last Filed: 06/06/17 23:38> General Exam Limitations: no limitations General appearance: alert, in no apparent distress Head exam: Present: atraumatic, normocephalic, normal inspection Eye exam: Present: normal appearance, PERRL, EOMI. Absent: scleral icterus, conjunctival injection, periorbital swelling ENT exam: Present: normal exam, mucous membranes moist Neck exam: Present: normal inspection. Absent: tenderness, meningismus, lymphadenopathy Respiratory exam: Present: normal lung sounds bilaterally, decreased breath sounds. Absent: respiratory distress, wheezes, rales, rhonchi, stridor Cardiovascular Exam: Present: regular rate, normal rhythm, normal heart sounds. Absent: systolic murmur, diastolic murmur, rubs, gallop, clicks GI/Abdominal exam: Present: soft, normal bowel sounds. Absent: distended, tenderness, guarding, rebound, rigid Extremities exam: Present: normal inspection, full ROM, normal capillary refill. Absent: tenderness, pedal edema, joint swelling, calf tenderness Back exam: Present: normal inspection Neurological exam: Present: alert, oriented X3, CN II-XII intact Psychiatric exam: Present: normal affect, normal mood Skin exam: Present: warm, dry, intact, normal color. Absent: rash <Roix Rdz - Last Filed: 06/06/17 23:38> <Chris Roca - Last Filed: 06/07/17 08:44> - General Exam Comments Initial Comments: Frail-appearing 72-year-old female. No acute distress. Patient is somewhat hard of hearing. She is pleasant. 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 Vitals are temperature 98.2. Pulse 61. Respiratory rate 17. Blood pressure 121/69. O2 saturation is 95% on room air. (Roxi Rdz) Course <Roxi Rdz - Last Filed: 06/06/17 23:38> <Chris Roca - Last Filed: 06/07/17 08:44> Vital Signs 06/06/17 06/06/17 06/06/17 18:45 20:10 23:21 Temperature 98.2 F Pulse Rate 61 66 60 Respiratory 17 17 16 Rate Blood Pressure 121/69 179/84 176/79 O2 Sat by Pulse 95 92 L 99 Oximetry - Reevaluation(s) Reevaluation #1: 06/06/17 19:11 Upon review patient's nursing records from patient's [facility] metal on she had a chest x-ray performed on 06/02/2017 which showed mild congestive heart failure. BNP at that time was 2720. Potassium was low at 3.2. White blood cell count was 4.8. Hemoglobin at that time was 13.0. Per the nursing records she is a full code. 06/06/17 19:11 (Roxi Rdz) Chest Pain [facility] <Roxi Rdz - Last Filed: 06/06/17 23:38> <Chris Roca - Last Filed: 06/07/17 08:44> - [facility] Patient is 72-year-old female brought in from [facility] care facility to plan of increased lethargy. She also complains of some chest pain and increasing shortness of breath. She has a history of heart failure she also reports that she is on Coumadin for history of blood clots. Patient does have some diminished lung sounds. Chest x-ray shows evidence of increasing pleural effusions. She has no significant coughing. She also complains of a headache. We did do a CT. CT brain shows mild atrophy but no acute intracranial normality. No changes. Chest x-ray shows new increasing bilateral pleural effusions compared to last exam. Cardiomegaly. No gross heart failure seen. Bilateral lower lobe pneumonia is possible. White blood cell count is within normal limits. Hemoglobin is stable. She did have a slightly elevated INR of 3.8. Patient is given oral potassium supplementation as well as 2 units of KCl IV. Discussed with Dr. Cervantes. Patient does appear not to be any acute distress. Her BNP is decreased from previous test done 1 week ago at 2700 is currently 1800. Vital signs are stable. We will check a urinalysis, no sign of infection. Patient is planning on some chest pain and discomfort. Patient will be admitted this time for chest pain, heart failure and bilateral pleural effusion. Increased lethargy. Dr. Cervantes discussed this with his Sound physician. (Roxi Rdz) I saw this patient in conjunction with the physician corporate administrative assistant. I performed independent history and physical exam. Agree with case management. (Chris Roca) Disposition Time of Disposition: 20:48 <Roxi Rdz - Last Filed: 06/06/17 23:38> <Chris Roca - Last Filed: 06/07/17 08:44> Clinical Impression: CHF (congestive heart failure), Hypokalemia, Headache, Diabetes, Lethargy, Bilateral pleural effusion Disposition: ADMITTED IP TO THIS HOSP Condition: Stable
[2017-06-06] MEDS ORDERED: ACETAMINOPHEN TAB 500 MG TAB PO STA (19:04)
[2017-06-06 19:47] LABS: Basophils # (A) 0.1 k/uL (0-0.2); Basophils % (A) 1 %; Eosinophils # (A) 0.2 k/uL (0-0.7); Eosinophils % (A) 5 %; HCT 38.9 % (34.0-46.0); HGB 13.1 gm/dL (11.4-16.0); Lymphocytes # (A) 1.5 k/uL (1.0-4.8); Lymphocytes % (A) 32 %; MCH 30.2 pg (25.0-35.0); MCHC 33.6 g/dL (31.0-37.0); Mean Platelet Volume 6.5; Monocytes # (A) 0.3 k/uL (0-1.0); Monocytes % (A) 6 %; Neutrophils # (A) 2.5 k/uL (1.3-7.7); Neutrophils % (A) 54 %; Platelet Count 212 k/uL (150-450); RBC 4.32 m/uL (3.80-5.40); RDW 13.1 % (11.5-15.5); WBC 4.6 k/uL (3.8-10.6)
[2017-06-06 19:55] LABS: ALT 18 U/L (9-52); AST 14 U/L (14-36); Albumin 3.4 g/dL (3.5-5.0); Alkaline Phosphatase 73 U/L (38-126); Anion Gap 11 mmol/L; Blood Urea Nitrogen 15 mg/dL (7-17); Carbon Dioxide 35 mmol/L (22-30); Chloride 102 mmol/L (98-107); Glucose 172 mg/dL (74-99); Magnesium 1.8 mg/dL (1.6-2.3); Sodium 148 mmol/L (137-145); Total Bilirubin 0.7 mg/dL (0.2-1.3); Total Protein 5.6 g/dL (6.3-8.2)
[2017-06-06 19:56] LABS: INR 3.8 (<1.2); Prothrombin Time 33.8 sec (9.0-12.0)
[2017-06-06 19:58] LABS: Potassium 2.9 mmol/L (3.5-5.1)
[2017-06-06 20:01] LABS: Partial Thromboplastin Time 33.4 sec (22.0-30.0)
[2017-06-06 20:13] LABS: Creatine Kinase 21 U/L (30-135)
--- NOTE | 2017-06-06 20:19 | CT ---
EXAMINATION TYPE: CT brain wo con DATE OF EXAM: 06/06/2017 COMPARISON: 05/08/2017 HISTORY: Headache. Increased lethargy. CT DLP: 1039.1 mGycm Automated exposure control for dose reduction was used. FINDINGS: There is mild cerebral cortical atrophy. There is no mass effect nor midline shift. There is no sign of intracranial hemorrhage. There is symmetric thalamic calcification. Calvarium is intact. IMPRESSION: MILD ATROPHY. NO ACUTE INTRACRANIAL ABNORMALITY. NO CHANGE.
--- NOTE | 2017-06-06 20:20 | XR ---
EXAMINATION TYPE: XR chest 2V DATE OF EXAM: 06/06/2017 COMPARISON: 05/15/2017 HISTORY: Chest pain TECHNIQUE: Frontal and lateral views of the chest are obtained. FINDINGS: There is blunting of the costophrenic angles bilaterally. Heart appears enlarged. There is left axillary pacemaker with the lead tips in the right ventricle. There are sternal wires. There is no gross heart failure. IMPRESSION: There are new or increasing bilateral pleural effusions compared to last exam. Cardiomeg robert. No gross heart failure seen. Bilateral lower lobe pneumonia is possible.
[2017-06-06 20:24] LABS: Creatine Kinase MB <0.2 ng/mL (0.0-2.4); Troponin I 0.012 ng/mL (0.000-0.034)
[2017-06-06] MEDS ORDERED: POTASSIUM CHLORIDE ER 20 MEQ TAB.ER PO STA (20:27)
[2017-06-06] MEDS ORDERED: MORPHINE SULFATE/PF 10MG/10ML VL IVP ONE (20:44)
[2017-06-06] MEDS: SODIUM CHLORIDE 0.9% 1,000 ML IV SCH (20:48)
[2017-06-06] MEDS ORDERED: METOCLOPRAMIDE 5 MG/ML 2 ML VIAL IVP STA (20:49)
[2017-06-06] MEDS ORDERED: diphenhydrAMINE 50 MG/ML 1 ML VIAL IVP STA (20:49)
[2017-06-06] MEDS ORDERED: POTASSIUM CHLORIDE 20 MEQ in WATER FOR INJECTION 1 100ML.BAG IVPB STA (20:51)
[2017-06-06 22:55] LABS: Appearance,Urine Clear (Clear); Bilirubin,Urine Negative (Negative); Blood,Urine Negative (Negative); Color,Urine Light Yellow; Glucose,Urine (UA) Negative (Negative); Ketones,Urine Negative (Negative); Leukocyte Esterase,Urine Negative (Negative); Nitrite,Urine Negative (Negative); Protein,Urine Negative (Negative); Specific Gravity,Urine 1.011 (1.001-1.035); Urobilinogen,Urine <2.0 mg/dL (<2.0)
--- NOTE | 2017-06-07 00:35 | P.HPIM ---
Past Medical History Past Medical History: Atrial Fibrillation, Asthma, Coronary Artery Disease (CAD) , Cancer, Chest Pain / Angina, Heart Failure, Diabetes Mellitus, GERD/Reflux, Hyperlipidemia, Hypertension, Myocardial Infarction ([place]), Neurologic Disorder, Pulmonary Embolus (PE), Thyroid Disorder Additional Past Medical History / Comment(s): gastroenteritis. Additional hx: incontinent urine and stool, IBS, hemmorhoids, colonic polyps, R femur acetabular impingement syndrome, UTI with sepsis, DDD, RLS, neuropathy bilateral hands and feet, thyroid cancer with thyroidectomy, diverticulitis, pt takes coumadin for PE's, arthiritis, chronic back pain, laryngeal cancer with surgical removal, syncope Last Myocardial Infarction Date:: 2011 or 2012 per pt History of Any Multi-Drug Resistant Organisms: None Reported Date of last positivie culture/infection: None MDRO Source:: None Past Surgical History: Adenoidectomy, Bladder Surgery, Bowel Resection, Cholecystectomy, Coronary Bypass/CABG, Heart Catheterization With Stent, Hysterectomy, Joint Replacement, Orthopedic Surgery, Pacemaker, Tonsillectomy, Tubal Ligation Additional Past Surgical History / Comment(s): CABG 3 vessel in 2006, cardiac cath with stents 2007 and 2011, pacer 2011, total thyroidectomy, lap maria del rosario, total left shoulder, R shoulder arthroscopy, partial colectomy due to diverticulitis, bladder suspension and bladder repair and mesh x 2, rectal wall repair, hysterectomy 1977, laryngeal surgery for cancer, colonoscopy, EGD with bx, nasal deviated septum surgical correction, L knee arthroscopy. Past Anesthesia/Blood Transfusion Reactions: No Reported Reaction Additional Past Anesthesia/Blood Transfusion Reaction / Comment(s): Pt has recieved blood without any reaction. Date of Last Stent Placement:: 2011 Type of Cardiac Device: Permanent Pacemaker Device Placement Date:: 2010 or 2011 in [place], [place] Past Psychological History: No Psychological Hx Reported Smoking Status: Current some day smoker Past Alcohol Use History: None Reported Past Drug Use History: None Reported - Past Family History Father Family Medical History: Congestive Heart Failure (CHF), COPD Additional Family Medical History / Comment(s): Father at age 61 yrs of CHF and COPD. Mother Family Medical History: Congestive Heart Failure (CHF), COPD Medications and Allergies Home Medications Medication Instructions Recorded Confirmed Type traZODone HCL 150 mg PO HS 03/15/17 06/06/17 History Midodrine [ProAmatine] 5 mg PO AC-BID #60 tab 03/18/17 06/06/17 Rx Gabapentin [Neurontin] 800 mg PO QID 05/08/17 06/06/17 History Fludrocortisone [Florinef] 0.1 mg PO BID #60 tab 05/16/17 06/06/17 Rx Ipratropium-Albuterol Nebulize 3 ml INHALATION RT-QID ampul.neb 05/16/17 Rx [Duoneb 0.5 mg-3 mg/3 ml Soln] Levothyroxine Sodium [Synthroid] 200 mcg PO DAILY@0630 #30 tab 05/16/17 Rx oxyCODONE-APAP 5-325MG [Percocet 1 tab PO TID PRN #20 tab 05/16/17 06/06/17 Rx 5-325 mg] Diazepam [Valium] 5 mg PO HS@199906/06/17 06/06/17 History Furosemide [Lasix] 20 mg PO BID 06/06/17 06/06/17 History Omeprazole 20 mg PO HS 06/06/17 06/06/17 History Potassium Chloride ER [K-Dur 20] 20 meq PO BID 06/06/17 06/06/17 History Warfarin Sodium [Coumadin] 5 mg PO HS@199906/06/17 06/06/17 History Allergies Allergy/AdvReac Type Severity Reaction Status Date / Time peaches AdvReac Nausea & Uncoded 06/06/17 18:45 Vomiting Physical Exam Vitals: Vital Signs Temp Pulse Resp BP Pulse Ox 06/06/17 23:21 60 16 176/79 99 06/06/17 20:10 66 17 179/84 92 L 06/06/17 18:45 98.2 F 61 17 121/69 95 Intake and Output 06/06/17 06/06/17 06/07/17 14:59 22:59 06:59 Other: Weight 83.007 kg Results CBC & Chem 7: 06/06/17 19:35 06/06/17 19:35 Labs: Abnormal Lab Results - Last 24 Hours (Table) 06/06/17 06/06/17 06/06/17 Range/Units 19:35 19:35 19:35 PT 33.8 H (9.0-12.0) sec INR 3.8 H (<1.2) APTT 33.4 H (22.0-30.0) sec Sodium 148 H (137-145) mmol/L Potassium 2.9 L* (3.5-5.1) mmol/L Carbon Dioxide 35 H (22-30) mmol/L Creatinine 0.50 L (0.52-1.04) mg/dL Glucose 172 H (74-99) mg/dL Total Creatine Kinase 21 L (30-135) U/L Total Protein 5.6 L (6.3-8.2) g/dL Albumin 3.4 L (3.5-5.0) g/dL
[2017-06-07] MEDS: NITROGLYCERIN OINT 1 INCH/GM PACKET TOPICAL SCH ×6 (01:01→21:06)
[2017-06-07] MEDS: FUROSEMIDE 10 MG/ML 4 ML VIAL IV SCH ×4 (01:01→23:43)
[2017-06-07] MEDS: oxyCODONE-APAP 5-325MG 1 EACH TAB PO PRN ×2 (01:02→08:31)
[2017-06-07] MEDS ORDERED: Potassium Replacement Protocol 1 EACH MISC MISCELLANE PRN (05:16)
[2017-06-07] MEDS: LEVOTHYROXINE 100 MCG TAB PO SCH (05:38)
[2017-06-07] MEDS: POTASSIUM CHLORIDE ER 20 MEQ TAB.ER PO SCH ×6 (05:39→22:10)
[2017-06-07] MEDS: SODIUM CHLORIDE 0.9% 1,000 ML IV SCH (05:48)
[2017-06-07] MEDS ORDERED: MIDODRINE 5 MG TAB PO SCH (07:30)
[2017-06-07 07:44] LABS: Glucose,Whole Blood 125 mg/dL (75-99)
[2017-06-07] MEDS: IPRATROPIUM-ALBUTEROL 3 ML NEB INHALATION SCH ×4 (07:48→19:38)
[2017-06-07] MEDS: GABAPENTIN 400 MG CAP PO SCH ×4 (08:31→22:10)
[2017-06-07] MEDS ORDERED: FUROSEMIDE 20 MG TAB PO SCH (09:00)
[2017-06-07] MEDS ORDERED: FLUDROCORTISONE 0.1 MG TAB PO SCH (09:00)
[2017-06-07 11:54] LABS: Glucose,Whole Blood 136 mg/dL (75-99)
[2017-06-07] MEDS ORDERED: BUTALB/APAP/CAFF 50-325-40MG TAB PO PRN (12:25)
[2017-06-07 17:50] LABS: Glucose,Whole Blood 109 mg/dL (75-99)
--- NOTE | 2017-06-07 18:40 | P.CNPUL ---
History of Present Illness Consult date: 06/07/17 Reason for consult: dyspnea, chest pain, hypoxemia, pleural effusion Chief complaint: Chest pain, increasing shortness of breath, hypoxemia, lethargy History of present illness: Olga Lidia a 72-year-old white female patient Dr. Bradley, who was brought to the emergency room per EMS on 06/06/2017 at 1837 complaints of increased lethargy for the past week, chest discomfort exacerbated by deep inspiration, a headache , hypoxemia, and increasing shortness of breath. She was recently hospitalized at the beginning of May for community acquired right lower lobe pneumonia, possible acute gastritis, symptomatic orthostatic hypotension, hypokalemia, atypical chest pain. Patient was treated with Levaquin, her hypokalemia was corrected, her hypotension improved with midodrine and Florinef, and patient was discharged to the subacute rehab on 05/19/2017. Chest x-ray ablated in the emergency room on 06/06/2017 showed increasing bilateral pleural effusions compared to the previous exam on 05/15/2017, cardiomegaly, no gross heart failure was seen. Bilateral lower lobe pneumonia could not be ruled out. Brain CT completed for the purpose of investigating patient's headache, showed mild atrophy, but no acute intracranial abnormality. EKG showed atrial paced rhythm with a rate of 60 BPM. Patient has been afebrile while inpatient, she has been on supplemental oxygen at 2 L per nasal cannula with O2 sat at 93-96%, he is hypertensive with SBP ranging from 140-170s, and DBP ranging from 70-90 mmHg. Patient's lab work was reviewed, WBC is 4.6, hemoglobin is 13.1, INR is 3.8, serum sodium is 148, potassium was 2.9, CO2 is 35, BUN was 15, creatinine was 0.50. Plasma lactic acid was 1.1, troponins were negative 3, proBNP was 1800, it is down from 2700 from 06/02/2017. Urinalysis was normal. Patient has a past medical history of chronic atrial fibrillation on Coumadin, coronary artery disease status post coronary artery bypass grafting, angina, heart failure, diabetes mellitus, GERD/reflux, hyperlipidemia, hypertension, myocardial infarction, pulmonary embolus, and hypothyroidism. Patient has a permanent pacemaker in place. Most recent echocardiogram from 01/05/2017 showed a normal left ventricular systolic function with an EF between 55-60%, there was mild aortic regurgitation, trace mitral and trace tricuspid regurgitation present. Patient had coronary artery bypass grafting and subsequent percutaneous revascularization of the LAD in 2008 and subsequently in 2011. She had a repeat cardiac catheterization in June 2014 and at that time GRANT to LAD was occluded, with patent napaimute LAD, the RCA was totally occluded, SVG to the PDA and diagonal branch of the LAD had mild disease. Medical therapy was recommended at that time. In addition patient had a history of pulmonary embolisms and 2014 following a bowel resection for diverticulitis. She had been on Coumadin therapy ever since. On today's evaluation patient is resting comfortably in bed, she denies any acute distress , she states her chest pain is in the localized spot at the right sternal border , it is very tender to palpation, appears to be a very prominent bony prominence. She denies any dyspnea at the moment, she denied any fever or chills, denied any chest congestion or sputum production. She states this right sternal border chest tenderness has been present for some time, but at times she has episodes of sharp chest pain in the same area at rest, and at times with exertion. As a matter fact she had an acute episode of the same mentioned Right sternal border sharp chest pain during the interview, the patient stopped talking, and was holding her chest for about 10 seconds. The pain then spontaneously resolved and the patient stated she was gallbladder, this was not associated with dyspnea, diaphoresis, nausea. This episode only lasted seconds. EKG in the ER showed atrial paced rhythm with a rate of [address] and T-wave abnormality in leads to 3 aVF V3 V4 V5 and V6. Patient has been initiated on IV Lasix at 40 mg every 8 hours, her potassium is being replaced per protocol, she has a half an inch of nitro glycerin ointment on. Patient is a current smoker, although she has not smoked since she left the hospital and has been staying at the [facility]. She carries a [id number] smoking history, 1-3 packs a day in her younger years, most recently she is down to 6 cigarettes a day. We were consulted in regards to the bilateral pleural effusions, most likely related to her acute diastolic heart failure. Review of Systems All systems: negative Constitutional: Denies chills, Denies fever Eyes: denies blurred vision, denies pain Ears, nose, mouth and throat: Denies headache, Denies sore throat Cardiovascular: Reports decreased exercise tolerance, Reports palpitations, Denies chest pain, Denies shortness of breath Respiratory: Reports dyspnea, Reports pain on inspiration, Denies cough Gastrointestinal: Denies abdominal pain, Denies diarrhea, Denies nausea, Denies vomiting Genitourinary: Denies dysuria, Denies hematuria Musculoskeletal: Denies myalgias Integumentary: Denies pruritus, Denies rash Neurological: Denies numbness, Denies weakness Psychiatric: Denies anxiety, Denies depression Endocrine: Denies fatigue, Denies weight change Past Medical History Past Medical History: Atrial Fibrillation, Asthma, Coronary Artery Disease (CAD) , Cancer, Chest Pain / Angina, Heart Failure, Diabetes Mellitus, GERD/Reflux, Hyperlipidemia, Hypertension, Myocardial Infarction (MS), Pulmonary Embolus (PE) , Thyroid Disorder Additional Past Medical History / Comment(s): gastroenteritis. Additional hx: incontinent urine and stool, IBS, hemmorhoids, colonic polyps, R femur acetabular impingement syndrome, UTI with sepsis, DDD, RLS, neuropathy bilateral hands and feet, thyroid cancer with thyroidectomy, diverticulitis, pt takes coumadin for PE's, arthiritis, chronic back pain, laryngeal cancer with surgical removal, syncope Last Myocardial Infarction Date:: 2011 or 2012 per pt History of Any Multi-Drug Resistant Organisms: None Reported Date of last positivie culture/infection: None MDRO Source:: None Past Surgical History: Adenoidectomy, Bladder Surgery, Bowel Resection, Cholecystectomy, Coronary Bypass/CABG, Heart Catheterization With Stent, Hysterectomy, Joint Replacement, Orthopedic Surgery, Pacemaker, Tonsillectomy, Tubal Ligation Additional Past Surgical History / Comment(s): CABG 3 vessel in 2006, cardiac cath with stents 2007 and 2011, pacer 2011, total thyroidectomy, lap maria [place] rosario, total left shoulder, R shoulder arthroscopy, partial colectomy due to diverticulitis, bladder suspension and bladder repair and mesh x 2, rectal wall repair, hysterectomy 1977, laryngeal surgery for cancer, colonoscopy, EGD with bx, nasal deviated septum surgical correction, L knee arthroscopy. Past Anesthesia/Blood Transfusion Reactions: No Reported Reaction Additional Past Anesthesia/Blood Transfusion Reaction / Comment(s): Pt has recieved blood without any reaction. Date of Last Stent Placement:: 2011 Type of Cardiac Device: Permanent Pacemaker Device Placement Date:: 2010 or 2011 in [place], [place] Smoking Status: Current some day smoker - Past Family History Father Family Medical History: Congestive Heart Failure (CHF), COPD Additional Family Medical History / Comment(s): Father at age 61 yrs of CHF and COPD. Mother Family Medical History: Congestive Heart Failure (CHF), COPD Medications and Allergies Home Medications Medication Instructions Recorded Confirmed Type traZODone HCL 150 mg PO HS 03/15/17 06/06/17 History Midodrine [ProAmatine] 5 mg PO AC-BID #60 tab 03/18/17 06/06/17 Rx Gabapentin [Neurontin] 800 mg PO QID 05/08/17 06/06/17 History Fludrocortisone [Florinef] 0.1 mg PO BID #60 tab 05/16/17 06/06/17 Rx Ipratropium-Albuterol Nebulize 3 ml INHALATION RT-QID ampul.neb 05/16/17 Rx [Duoneb 0.5 mg-3 mg/3 ml Soln] Levothyroxine Sodium [Synthroid] 200 mcg PO DAILY@0630 #30 tab 05/16/17 Rx oxyCODONE-APAP 5-325MG [Percocet 1 tab PO TID PRN #20 tab 05/16/17 06/06/17 Rx 5-325 mg] Diazepam [Valium] 5 mg PO HS@199906/06/17 06/06/17 History Furosemide [Lasix] 20 mg PO BID 06/06/17 06/06/17 History Omeprazole 20 mg PO HS 06/06/17 06/06/17 History Potassium Chloride ER [K-Dur 20] 20 meq PO BID 06/06/17 06/06/17 History Warfarin Sodium [Coumadin] 5 mg PO HS@199906/06/17 06/06/17 History Allergies Allergy/AdvReac Type Severity Reaction Status Date / Time peaches AdvReac Nausea & Uncoded 06/07/17 01:23 Vomiting Physical Exam Vitals: Vital Signs Temp Pulse Pulse Resp BP BP Pulse Ox 06/07/17 16:48 97.2 F L 66 20 167/96 93 L 06/07/17 15:00 97.7 F 67 20 162/71 96 06/07/17 06:32 98.2 F 61 16 175/73 93 L 06/07/17 03:30 141/72 06/07/17 00:25 97.7 F 63 16 176/79 97 06/06/17 23:21 60 16 176/79 99 06/06/17 20:10 66 17 179/84 92 L 06/06/17 18:45 98.2 F 61 17 121/69 95 Intake and Output 06/07/17 06/07/17 06/07/17 06:59 14:59 22:59 Other: Voiding Method Bedpan Diaper Diaper Incontinent # Voids 3 4 Weight 61.5 kg 61.5 kg - Constitutional General appearance: no acute distress, thin - EENT Eyes: edentulous, PERRLA, poor dentition ENT: NA/AT, normal oropharynx Ears: bilateral: normal - Neck Neck: no lymphadenopathy Carotids: bilateral: upstroke normal - Respiratory Respiratory: bilateral: diminished, rales ( bilateral bases) - Cardiovascular Rhythm: regular Heart sounds: normal: S1, S2 leg Peripheral Edema: bilateral: None foot Peripheral Edema: bilateral: None - Gastrointestinal General gastrointestinal: no organomegaly, soft, no tenderness - Integumentary Integumentary: normal, normal turgor - Neurologic Neurologic: CNII-XII intact - Musculoskeletal Musculoskeletal: generalized weakness, strength equal bilaterally - Psychiatric Psychiatric: A&O x's 3, appropriate affect, intact judgment & insight Results - Laboratory Findings CBC and BMP: 06/06/17 19:35 06/07/17 11:24 PT/INR, D-dimer PT 36.0 sec (9.0-12.0) H 06/07/17 08:42 INR 4.0 (<1.2) H 06/07/17 08:42 Abnormal lab findings: Abnormal Labs 06/06/17 06/06/17 06/06/17 19:35 19:35 19:35 PT 33.8 H INR 3.8 H APTT 33.4 H Sodium 148 H Potassium 2.9 L* Carbon Dioxide 35 H Creatinine 0.50 L Glucose 172 H POC Glucose (mg/dL) Total Creatine Kinase 21 L Total Protein 5.6 L Albumin 3.4 L 06/07/17 06/07/17 06/07/17 03:00 07:32 08:42 PT 36.0 H INR 4.0 H APTT Sodium Potassium 3.1 L Carbon Dioxide Creatinine Glucose POC Glucose (mg/dL) 125 H Total Creatine Kinase Total Protein Albumin 06/07/17 06/07/17 11:24 11:39 PT INR APTT Sodium Potassium 3.3 L Carbon Dioxide Creatinine Glucose POC Glucose (mg/dL) 136 H Total Creatine Kinase Total Protein Albumin - Diagnostic Findings Chest x-ray: report reviewed Additional studies: Twelve-lead EKG reviewed, brain CT reviewed Assessment and Plan Plan: Assessment: #1. Acute on chronic chest pain, patient has a localized right sternal border chest wall tenderness that is chronic in nature, tender to palpation. She reports intermittent episodes of sharp pain, at rest and sometimes with exertion , lasting a few seconds. Twelve-lead EKG completed in the emergency room showed atrial paced rhythm with a rate of 60 BPM, with nonspecific ST and T wave depression in the Inferior, anterior and lateral leads #2. Acute hypoxic respiratory failure secondary to bilateral pleural effusions , most likely related to acute congestive heart failure, diastolic based on the echo results from April 2017 #3. Chronic atrial fibrillation, patient has a permanent pacemaker in place, currently 100% atrial paced with a rate of 60 BPM. Patient is on chronic anticoagulation with Coumadin, with INR at 4.0 on admission #4. Coronary artery disease, status post coronary artery bypass grafting with subsequent percutaneous revascularization. Most recent cardiac catheterization was done in June 2014, which showed GRANT to LAD was occluded, with patent napaimute LAD, RCA was totally occluded, SVG to the PDA and diagonal branch of the LAD had mild disease. Most recently dobutamine echo on 01/10/2017 showed abnormal EKG in response to dobutamine, and severe underlying coronary artery disease with suspected #5. Recent hospitalization for community-acquired right lower lobe pneumonia, hypotension, gastroenteritis, and hypokalemia. Patient was treated with Levaquin, hypotension improved with midodrine and Florinef, hypokalemia was corrected, and patient was subsequently discharged to the [facility] on 05/19/2017 #6. Hypokalemia, serum potassium was 2.9, most likely related to Florinef #7. Mild hypernatremia, may possibly be related to Florinef. #8. Nicotine dependence, in remission since last hospitalization, carries 60- pack-year smoking history of up to 3 packs a day in her younger years. Most recently down to 6 cigarettes a day. #9. Diabetes mellitus type 2 #10. Hypertension, hyperlipidemia #11. History of myocardial infarction #12. Hypothyroidism #13. History of pulmonary embolisms and 2014 following colon resection for diverticulitis. Patient has been on Coumadin since Plan: Continue diuresis with Lasix at 40 mg every 8 hours, currently patient is not complaining of any acute dyspnea, she is wearing oxygen intermittently. Hold Florinef, replace serum potassium per protocol. We'll consult cardiology in regards to intermittent sharp chest pain, patient has an extensive history of coronary artery disease. Continue nebulized treatments, pain control, nitroglycerin, and morphine. We'll continue to follow, and reevaluate with a repeat chest x-ray in the next 24 hours. I performed a history & physical examination of the patient and discussed their management with my nurse practitioner, Lakeisha Fuentes. I reviewed the nurse practitioner's note and agree with the documented findings and plan of care. Lung sounds are positive for bibasilar rales. The findings and the impression was discussed with the patient. I attest to the documentation by the nurse practitioner. Time with Patient: Greater than 30
[2017-06-07] MEDS: DIAZEPAM 5 MG TAB PO SCH (21:09)
[2017-06-07] MEDS: traZODone HCL 50 MG TAB PO SCH (21:09)
[2017-06-07] MEDS: PANTOPRAZOLE 40 MG TABLET PO SCH (21:09)
[2017-06-08] MEDS: LEVOTHYROXINE 100 MCG TAB PO SCH (06:31)
[2017-06-08] MEDS: IPRATROPIUM-ALBUTEROL 3 ML NEB INHALATION SCH ×4 (07:25→21:02)
[2017-06-08] MEDS: NITROGLYCERIN OINT 1 INCH/GM PACKET TOPICAL SCH ×4 (08:00→22:18)
[2017-06-08] MEDS: GABAPENTIN 400 MG CAP PO SCH ×6 (08:05→21:08)
[2017-06-08] MEDS: POTASSIUM CHLORIDE ER 20 MEQ TAB.ER PO SCH ×2 (08:05→21:08)
[2017-06-08] MEDS: FUROSEMIDE 10 MG/ML 4 ML VIAL IV SCH (08:06)
--- NOTE | 2017-06-08 10:00 | P.HPIM ---
History of Present Illness H&P Date: 06/07/17 Chief Complaint: Shortness of breath, This patient is a 72-year-old female presented to the ER with chief complaint of increased lethargy for the past week, shortness of breath with chest discomfort with deep inspiration, hypoxemia, headache. Recently hospitalized with pneumonia, orthostatic hypotension and discharged to [facility] subacute rehab. Patient's past medical history includes CAD, CABG, history of atrial fibrillation, asthma, chest pain, CHF, GERD, hypertension, hyperlipidemia , history of AL, history of PE, [id number] smoking history -but has not smoked since her discharge to rehab, being followed by Dr. Lara in the outpatient setting. Brain CT reported mild atrophy, no acute intracranial abnormality, no change .Chest x-ray reporting increasing bilateral pleural effusions compared to prior exam, cardiomegaly, no gross heart failure with possible bilateral lower lobe pneumonia. EKG reported atrial paced rhythm, nonspecific ST, T-wave abnormality in leads 3, aVF V3, V4 V5 and 6.There is no history of fever, rigor, chills. No loss of consciousness, seizures at this time. Currently afebrile, WBC 4.6. Lactic acid 1.1. maintaining O2 sats of mid 90s on 2 L nasal cannula, hypertensive, systolic blood pressure ranging 140s to 170s. Patient is on Midrin and Florinef which will be discontinued. INR 3.8. Hemoglobin 13.1. Troponins negative 3. Recent echo of 01/05/2017 reported normal LV function, EF 55-60%. UA normal. Received Fioricet with headache subsided, currently denies chest pain. States breathing improved denies cough. Review of Systems Review of systems: CONSTITUTIONAL: No fever, complaints of fatigue. HEENT: No recent visual problems or hearing problems. Denied any sore throat. CARDIOVASCULAR: No chest pain , no palpitations , no syncope. PULMONARY: Improving shortness of breath, no cough, no hemoptysis. GASTROINTESTINAL: No diarrhea, no nausea, no vomiting, no abdominal pain. Normoactive bowel sounds. NEUROLOGICAL: Frontal headache, weakness, no numbness. HEMATOLOGICAL: Denies any bleeding or petechiae. GENITOURINARY: Denies any burning micturition, reports frequency, no urgency. MUSCULOSKELETAL/RHEUMATOLOGICAL: Denies any joint pain, swelling, or any muscle pain. ENDOCRINE: Denies any polyuria or polydipsia. PSYCHIATRIC: No anxiety, no depression The rest of the 14 point review of systems is negative Past Medical History Past Medical History: Atrial Fibrillation, Asthma, Coronary Artery Disease (CAD) , Cancer, Chest Pain / Angina, Heart Failure, Diabetes Mellitus, GERD/Reflux, Hyperlipidemia, Hypertension, Myocardial Infarction (AL), Pulmonary Embolus (PE) , Thyroid Disorder Additional Past Medical History / Comment(s): gastroenteritis. Additional hx: incontinent urine and stool, IBS, hemmorhoids, colonic polyps, R femur acetabular impingement syndrome, UTI with sepsis, DDD, RLS, neuropathy bilateral hands and feet, thyroid cancer with thyroidectomy, diverticulitis, pt takes coumadin for PE's, arthiritis, chronic back pain, laryngeal cancer with surgical removal, syncope Last Myocardial Infarction Date:: 2011 or 2012 per pt History of Any Multi-Drug Resistant Organisms: None Reported Date of last positivie culture/infection: None MDRO Source:: None Past Surgical History: Adenoidectomy, Bladder Surgery, Bowel Resection, Cholecystectomy, Coronary Bypass/CABG, Heart Catheterization With Stent, Hysterectomy, Joint Replacement, Orthopedic Surgery, Pacemaker, Tonsillectomy, Tubal Ligation Additional Past Surgical History / Comment(s): CABG 3 vessel in 2006, cardiac cath with stents 2007 and 2011, pacer 2011, total thyroidectomy, lap [place], total left shoulder, R shoulder arthroscopy, partial colectomy due to diverticulitis, bladder suspension and bladder repair and mesh x 2, rectal wall repair, hysterectomy 1977, laryngeal surgery for cancer, colonoscopy, EGD with bx, nasal deviated septum surgical correction, L knee arthroscopy. Past Anesthesia/Blood Transfusion Reactions: No Reported Reaction Additional Past Anesthesia/Blood Transfusion Reaction / Comment(s): Pt has recieved blood without any reaction. Date of Last Stent Placement:: 2011 Type of Cardiac Device: Permanent Pacemaker Device Placement Date:: 2010 or 2011 in [place], [place] Smoking Status: Current some day smoker - Past Family History Father Family Medical History: Congestive Heart Failure (CHF), COPD Additional Family Medical History / Comment(s): Father at age 61 yrs of CHF and COPD. Mother Family Medical History: Congestive Heart Failure (CHF), COPD Medications and Allergies Home Medications Medication Instructions Recorded Confirmed Type traZODone HCL 150 mg PO HS 03/15/17 06/06/17 History Midodrine [ProAmatine] 5 mg PO AC-BID #60 tab 03/18/17 06/06/17 Rx Gabapentin [Neurontin] 800 mg PO QID 05/08/17 06/06/17 History Fludrocortisone [Florinef] 0.1 mg PO BID #60 tab 05/16/17 06/06/17 Rx Ipratropium-Albuterol Nebulize 3 ml INHALATION RT-QID ampul.neb 05/16/17 Rx [Duoneb 0.5 mg-3 mg/3 ml Soln] Levothyroxine Sodium [Synthroid] 200 mcg PO DAILY@0630 #30 tab 05/16/17 Rx oxyCODONE-APAP 5-325MG [Percocet 1 tab PO TID PRN #20 tab 05/16/17 06/06/17 Rx 5-325 mg] Diazepam [Valium] 5 mg PO HS@199906/06/17 06/06/17 History Furosemide [Lasix] 20 mg PO BID 06/06/17 06/06/17 History Omeprazole 20 mg PO HS 06/06/17 06/06/17 History Potassium Chloride ER [K-Dur 20] 20 meq PO BID 06/06/17 06/06/17 History Warfarin Sodium [Coumadin] 5 mg PO HS@199906/06/17 06/06/17 History Allergies Allergy/AdvReac Type Severity Reaction Status Date / Time peaches AdvReac Nausea & Uncoded 06/07/17 01:23 Vomiting Physical Exam Vitals: Vital Signs Temp Pulse Pulse Resp BP BP Pulse Ox 06/07/17 17:24 66 06/07/17 16:48 97.2 F L 66 20 167/96 93 L 06/07/17 15:00 97.7 F 67 20 162/71 96 06/07/17 06:32 98.2 F 61 16 175/73 93 L 06/07/17 03:30 141/72 06/07/17 00:25 97.7 F 63 16 176/79 97 06/06/17 23:21 60 16 176/79 99 06/06/17 20:10 66 17 179/84 92 L 06/06/17 18:45 98.2 F 61 17 121/69 95 Intake and Output 06/07/17 06/07/17 06/07/17 06:59 14:59 22:59 Other: Voiding Method Bedpan Diaper Diaper Incontinent # Voids 3 4 Weight 61.5 kg 61.5 kg PHYSICAL EXAM: VITAL SIGNS: As above GENERAL: Sitting up in bed, resting comfortably HEENT: Conjunctivae normal. eyes normal. NECK: No JVD. No thyroid enlargement. No LNs CARDIOVASCULAR: S1, S2 muffled. No murmur RESPIRATION: Breath sounds diminished in the bases. No rhonchi, bibasilar crackles. No bronchial breathing. ABDOMEN: Soft, nontender . No guarding. no masses palpable. Bowel sounds heard. LEGS: No edema. no swelling PSYCHIATRY: Alert and oriented -3, mood and affect normal. NERVOUS SYSTEM: Cranial N 2-12 grossly normal. Moves all 4 limbs. Diffuse weakness No focal deficits. Skin: no ulcer no rash Joints: No active swelling. No inflammation. Lymphatic system. No LN neck axilla or groin. Results CBC & Chem 7: 06/06/17 19:35 06/07/17 21:31 Labs: Abnormal Lab Results - Last 24 Hours (Table) 06/06/17 06/06/17 06/06/17 Range/Units 19:35 19:35 19:35 PT 33.8 H (9.0-12.0) sec INR 3.8 H (<1.2) APTT 33.4 H (22.0-30.0) sec Sodium 148 H (137-145) mmol/L Potassium 2.9 L* (3.5-5.1) mmol/L Carbon Dioxide 35 H (22-30) mmol/L Creatinine 0.50 L (0.52-1.04) mg/dL Glucose 172 H (74-99) mg/dL POC Glucose (mg/dL) (75-99) mg/dL Total Creatine Kinase 21 L (30-135) U/L Total Protein 5.6 L (6.3-8.2) g/dL Albumin 3.4 L (3.5-5.0) g/dL 06/07/17 06/07/17 06/07/17 Range/Units 03:00 07:32 08:42 PT 36.0 H (9.0-12.0) sec INR 4.0 H (<1.2) APTT (22.0-30.0) sec Sodium (137-145) mmol/L Potassium 3.1 L (3.5-5.1) mmol/L Carbon Dioxide (22-30) mmol/L Creatinine (0.52-1.04) mg/dL Glucose (74-99) mg/dL POC Glucose (mg/dL) 125 H (75-99) mg/dL Total Creatine Kinase (30-135) U/L Total Protein (6.3-8.2) g/dL Albumin (3.5-5.0) g/dL 06/07/17 06/07/17 06/07/17 Range/Units 11:24 11:39 17:18 PT (9.0-12.0) sec INR (<1.2) APTT (22.0-30.0) sec Sodium (137-145) mmol/L Potassium 3.3 L (3.5-5.1) mmol/L Carbon Dioxide (22-30) mmol/L Creatinine (0.52-1.04) mg/dL Glucose (74-99) mg/dL POC Glucose (mg/dL) 136 H 109 H (75-99) mg/dL Total Creatine Kinase (30-135) U/L Total Protein (6.3-8.2) g/dL Albumin (3.5-5.0) g/dL Thrombosis Risk Factor Assmnt - Choose All That Apply Any of the Below Risk Factors Present?: Yes Each Factor Represents 1 point: Age 41-60 years, Medical pt on bed rest, Obesity (BMI >25) Other Risk Factors: Yes Each Risk Factor Represents 2 Points: Age 61-74 years, Patient confined to bed Each Risk Factor Represents 3 Points: History of DVT/PE Other congenital or acquired thrombophilia - If yes, enter type in comment: No Thrombosis Risk Factor Assessment Total Risk Factor Score: 10 Thrombosis Risk Factor Assessment Level: High Risk Assessment and Plan Assessment: 1. Chest pain, nonspecific ST, T-wave depression per EKG, for evaluation, in a patient with significant cardiac history 2. Acute hypoxic respiratory failure, secondary bilateral pleural effusions, possible acute CHF, diastolic dysfunction. Recently hospitalized for right lower lobe pneumonia. 3. CAD, history of AL, CABG, stent 4. Chronic atrial fibrillation, controlled ventricular rate with permanent pacemaker 5. Coumadin monitoring 6. Hypertension, Florinef and Midodrin will be discontinued 7. Hypokalemia 8. Diabetes mellitus type 2 9. Degenerative joint disease 10. Restless leg syndrome 11. Gastroesophageal reflux disease Plan: Continue on current medication regime ,monitoring and symptomatic treatment. Maintain nebulized bronchodilators, diuresing with Lasix IV push scheduled every 8 hours. Electrolyte supplementation ordered. Close monitoring of electrolytes with repeat labs ordered for a.m. Florinef and Midrin discontinued given hypertension. Fioricet ordered for headache, attributed to hypertension. Continue on morphine, nitroglycerin. Coumadin on hold tonight as INR elevated. Daily PT INR. Cardiology and pulmonary consult initiated with recommendations pending. Prognosis guarded given multiple complex medical issues. The impression and plan of care has been dictated as directed. : I performed a history and examination of this patient, discussed the same with the dictator. I agree with the dictator's note ,documented as a scribe. Any additional findings or plans will be noted.
[2017-06-08] MEDS: FUROSEMIDE 40 MG TAB PO SCH ×3 (10:56→21:09)
[2017-06-08] MEDS: oxyCODONE-APAP 5-325MG 1 EACH TAB PO PRN ×2 (12:29→18:01)
[2017-06-08 12:39] LABS: Glucose,Whole Blood 171 mg/dL (75-99)
--- NOTE | 2017-06-08 13:02 | P.PN ---
Subjective Progress Note Date: 06/08/17 Principal diagnosis: Bilateral pleural effusions, acute diastolic heart failure, chest pain, hypoxemia Olga Lidia a 72-year-old white female patient Dr. Bradley, who was brought to the emergency room per EMS on 06/06/2017 at 1837 complaints of increased lethargy for the past week, chest discomfort exacerbated by deep inspiration, a headache , hypoxemia, and increasing shortness of breath. She was recently hospitalized at the beginning of May for community acquired right lower lobe pneumonia, possible acute gastritis, symptomatic orthostatic hypotension, hypokalemia, atypical chest pain. Patient was treated with Levaquin, her hypokalemia was corrected, her hypotension improved with midodrine and Florinef, and patient was discharged to the subacute rehab on 05/19/2017. Chest x-ray ablated in the emergency room on 06/06/2017 showed increasing bilateral pleural effusions compared to the previous exam on 05/15/2017, cardiomegaly, no gross heart failure was seen. Bilateral lower lobe pneumonia could not be ruled out. Brain CT completed for the purpose of investigating patient's headache, showed mild atrophy, but no acute intracranial abnormality. EKG showed atrial paced rhythm with a rate of 60 BPM. Patient has been afebrile while inpatient, she has been on supplemental oxygen at 2 L per nasal cannula with O2 sat at 93-96%, he is hypertensive with SBP ranging from 140-170s, and DBP ranging from 70-90 mmHg. Patient's lab work was reviewed, WBC is 4.6, hemoglobin is 13.1, INR is 3.8, serum sodium is 148, potassium was 2.9, CO2 is 35, BUN was 15, creatinine was 0.50. Plasma lactic acid was 1.1, troponins were negative 3, proBNP was 1800, it is down from 2700 from 06/02/2017. Urinalysis was normal. Patient has a past medical history of chronic atrial fibrillation on Coumadin, coronary artery disease status post coronary artery bypass grafting, angina, heart failure, diabetes mellitus, GERD/reflux, hyperlipidemia, hypertension, myocardial infarction, pulmonary embolus, and hypothyroidism. Patient has a permanent pacemaker in place. Most recent echocardiogram from 01/05/2017 showed a normal left ventricular systolic function with an EF between 55-60%, there was mild aortic regurgitation, trace mitral and trace tricuspid regurgitation present. Patient had coronary artery bypass grafting and subsequent percutaneous revascularization of the LAD in 2008 and subsequently in 2011. She had a repeat cardiac catheterization in June 2014 and at that time GRANT to LAD was occluded, with patent [place] LAD, the RCA was totally occluded, SVG to the PDA and diagonal branch of the LAD had mild disease. Medical therapy was recommended at that time. In addition patient had a history of pulmonary embolisms and 2014 following a bowel resection for diverticulitis. She had been on Coumadin therapy ever since. On today's evaluation patient is resting comfortably in bed, she denies any acute distress , she states her chest pain is in the localized spot at the right sternal border , it is very tender to palpation, appears to be a very prominent bony prominence. She denies any dyspnea at the moment, she denied any fever or chills, denied any chest congestion or sputum production. She states this right sternal border chest tenderness has been present for some time, but at times she has episodes of sharp chest pain in the same area at rest, and at times with exertion. As a matter fact she had an acute episode of the same mentioned Right sternal border sharp chest pain during the interview, the patient stopped talking, and was holding her chest for about 10 seconds. The pain then spontaneously resolved and the patient stated she was gallbladder, this was not associated with dyspnea, diaphoresis, nausea. This episode only lasted seconds. EKG in the ER showed atrial paced rhythm with a rate of [address] and T-wave abnormality in leads to 3 aVF V3 V4 V5 and V6. Patient has been initiated on IV Lasix at 40 mg every 8 hours, her potassium is being replaced per protocol, she has a half an inch of nitro glycerin ointment on. Patient is a current smoker, although she has not smoked since she left the hospital and has been staying at the [facility]. She carries a [id number] smoking history, 1-3 packs a day in her younger years, most recently she is down to 6 cigarettes a day. We were consulted in regards to the bilateral pleural effusions, most likely related to her acute diastolic heart failure. On 06/08/2017 patient is seen in follow-up on medical surgical floor. She is resting in bed, appears very fatigued this morning. But denies acute distress. She states she had several more episodes of sternal chest pain since last night. She denies worsening dyspnea, she has been diuresing on oral Lasix 40 mg 3 times a day. He is currently on room air, with a pulse ox of 92%. Afebrile, hemodynamically stable. Lung sounds are positive for coarse bibasilar crackles. Patient is incontinent, so fluid balance is difficult to estimate. She is expected to be seen by cardiology today. From pulmonary standpoint patient appears to be comfortable, and in no respiratory distress, on room air, not requiring supplemental oxygen. We will continue with diuresis , patient's INR was supratherapeutic yesterday at 4.0. We will repeat INR today and on a daily basis. There is a possibility we may have to do a thoracentesis for patient's bilateral pleural effusions once the INR is in the acceptable range and if the patient's not responding to diuretics. Objective - Vital Signs Vital signs: Vital Signs Temp 99.1 F 06/08/17 07:00 Pulse 77 06/08/17 07:00 Resp 18 06/08/17 07:00 BP 131/66 06/08/17 07:00 Pulse Ox 92 L 06/08/17 07:00 Intake & Output 06/07/17 06/08/17 06/08/17 18:59 06:59 18:59 Weight 61.5 kg Other: Voiding Method Diaper Diaper Incontinent # Voids 4 2 - Exam Constitutional General appearance: no acute distress, thin - EENT Eyes: edentulous, PERRLA, poor dentition ENT: NA/AT, normal oropharynx Ears: bilateral: normal - Neck Neck: no lymphadenopathy Carotids: bilateral: upstroke normal - Respiratory Respiratory: bilateral: diminished, rales ( bilateral bases) - Cardiovascular Rhythm: regular Heart sounds: normal: S1, S2 leg Peripheral Edema: bilateral: None foot Peripheral Edema: bilateral: None - Gastrointestinal General gastrointestinal: no organomegaly, soft, no tenderness - Integumentary Integumentary: normal, normal turgor - Neurologic Neurologic: CNII-XII intact - Musculoskeletal Musculoskeletal: generalized weakness, strength equal bilaterally - Psychiatric Psychiatric: A&O x's 3, appropriate affect, intact judgment & insight - Labs CBC & Chem 7: 06/06/17 19:35 06/07/17 21:31 Labs: Abnormal Lab Results - Last 24 Hours (Table) 06/07/17 06/07/17 06/08/17 Range/Units 17:18 21:31 12:32 Potassium 3.4 L (3.5-5.1) mmol/L POC Glucose (mg/dL) 109 H 171 H (75-99) mg/dL Microbiology - Last 24 Hours (Table) 06/06/17 19:35 Blood Culture - Preliminary Blood No Growth after 24 hours Assessment and Plan Plan: Assessment: #1. Acute on chronic chest pain, patient has a localized right sternal border chest wall tenderness that is chronic in nature, tender to palpation. She reports intermittent episodes of sharp pain, at rest and sometimes with exertion , lasting a few seconds. Twelve-lead EKG completed in the emergency room showed atrial paced rhythm with a rate of 60 BPM, with nonspecific ST and T wave depression in the Inferior, anterior and lateral leads #2. Acute hypoxic respiratory failure secondary to bilateral pleural effusions , most likely related to acute congestive heart failure, diastolic based on the echo results from April 2017 #3. Chronic atrial fibrillation, patient has a permanent pacemaker in place, currently 100% atrial paced with a rate of 60 BPM. Patient is on chronic anticoagulation with Coumadin, with INR at 4.0 on admission #4. Coronary artery disease, status post coronary artery bypass grafting with subsequent percutaneous revascularization. Most recent cardiac catheterization was done in June 2014, which showed GRANT to LAD was occluded, with patent [place] LAD, RCA was totally occluded, SVG to the PDA and diagonal branch of the LAD had mild disease. Most recently dobutamine echo on 01/10/2017 showed abnormal EKG in response to dobutamine, and severe underlying coronary artery disease with suspected #5. Recent hospitalization for community-acquired right lower lobe pneumonia, hypotension, gastroenteritis, and hypokalemia. Patient was treated with Levaquin, hypotension improved with midodrine and Florinef, hypokalemia was corrected, and patient was subsequently discharged to the [facility] on 05/19/2017 #6. Hypokalemia, serum potassium was 2.9, likely related to Florinef #7. Mild hypernatremia, may possibly be related to Florinef. #8. Nicotine dependence, in remission since last hospitalization, carries 60- pack-year smoking history of up to 3 packs a day in her younger years. Most recently down to 6 cigarettes a day. #9. Diabetes mellitus type 2 #10. Hypertension, hyperlipidemia #11. History of myocardial infarction #12. Hypothyroidism #13. History of pulmonary embolisms and 2014 following colon resection for diverticulitis. Patient has been on Coumadin since Plan: We'll continue with oral diuretics, patient is currently not in any acute respiratory distress. She is on room air, not requiring supplemental oxygen. We will obtain a repeat chest x-ray today, recheck her INR. On yesterday's labs her INR was supratherapeutic at 4.0. If patient does not respond well to diuresis, will consider thoracentesis once the INR is within acceptable range. I performed a history & physical examination of the patient and discussed their management with my nurse practitioner, Lakeisha Fuentes. I reviewed the nurse practitioner's note and agree with the documented findings and plan of care. Lung sounds are positive for bibasilar rales. The findings and the impression was discussed with the patient. I attest to the documentation by the nurse practitioner. Time with Patient: Less than 30
--- NOTE | 2017-06-08 13:52 | XR ---
EXAMINATION TYPE: XR chest 2V DATE OF EXAM: 06/08/2017 COMPARISON: 06/06/2017 HISTORY: 72 year-old female shortness of breath TECHNIQUE: Frontal and lateral views FINDINGS: Heart upper limits of normal in size. Median sternotomy wires with postoperative clips in the mediast inum. Left anterior chest wall pacemaker generator with right atrial and right ventricular leads. Hyp erinflation suggests underlying emphysema. Small to moderate pleural effusion slightly decreased in t he interval. Adjacent bibasilar densities. The degree of cephalization of the pulmonary vasculature a ppears improved. IMPRESSION: Small to moderate pleural effusions with adjacent atelectasis and/or consolidation show some interval improvement. Correlate for possible improving CHF as an etiology.
[2017-06-08 15:20] LABS: INR 2.4 (<1.2); Prothrombin Time 21.7 sec (9.0-12.0)
--- NOTE | 2017-06-08 15:22 | P.CRDCN ---
History of Present Illness Consult date: 06/08/17 Consult reason: chest pain History of present illness: Mrs. Donahue is a pleasant 72-year-old female past medical history significant for coronary artery disease status post bypass grafting, paroxysmal atrial fibrillation on long-term anticoagulation, history of pulmonary embolism , sick sinus syndrome status post permanent pacemaker implantation, hypertension with episodes of hypotension, diabetes mellitus and chronic tobacco abuse. We have been asked to see her in consultation for complaints of chest pain. At the time of my exam she is sleeping in bed and refuses to answer questions or allow me to examine her. She is swearing at staff. She is currently refusing IV access or take any medications. Most information is obtained from the chart. Attempted to assess her later in the afternoon and she is slightly more agreeable. She presented to the hospital on Tuesday with complaints of increased lethargy, fatigue and weakness. She was recently diagnosed with pneumonia and finished her outpatient antibiotics approximately one week ago. She complains of discomfort in the chest in the left precordial region that is worse with movement and deep inspiration. She has suffered from this chest pain multiple times has had multiple hospitalizations for the same symptoms. She is very noncompliant with medications and has no follow up after hospital admissions. EKG on arrival reveals atrial paced rhythm with nonspecific T-wave abnormality in the inferior leads as well as nonspecific precordial ST changes. These EKG abnormalities have been evident on previous EKGs. There is no new changes. Chest x-ray on admission reveals new or increasing bilateral pleural effusions with cardiomegaly and no heart failure. Probable ability of bilateral lower lobe pneumonia is possible. Repeat this morning reveals similar findings. Laboratory data reviewed, hemoglobin 13.1, INR 4.0, sodium 148, potassium on admission 2. 9 repeat yesterday 3.4, cardiac enzymes negative 3, proBNP 1800. Current cardiac medications include Coumadin 5 mg daily, potassium 20 mg twice a day, Midrin 5 mg twice a day, Lasix 20 mg twice a day. Most recent echocardiogram performed November 2016 reveals preserved left ventricular function with ejection fraction 55-60% with mild AR and trace MR. Most recent catheterization done by Dr. Cobb in 2014 reveals 2 grafts: GRANT to LAD was occluded with a patent stent in the [place] LAD. Left main is widely patent, RCA totally occluded, SVG to PDA branch of RCA and diagonal branch of LAD with 30-40% narrowing. Most recent stress test is performed in December 2016 was inconclusive secondary to baseline EKG abnormalities. Although the echocardiogram images did not show any evidence of wall motion abnormalities consistent with ischemia. Review of Systems At the time my exam: CONSTITUTIONAL: Denies fever. Denies chills. EYES: Denies blurred vision. Denies vision changes. Denies eye pain. EARS, NOSE, MOUTH & THROAT: Denies headache. Denies sore throat. Denies ear pain. CARDIOVASCULAR: Complains of pleuritic chest pain with shortness of breath. Denies orthopnea. Denies PND. Denies palpitations. RESPIRATORY: Denies cough. GASTROINTESTINAL: Denies abdominal pain. Denies diarrhea. Denies constipation. Denies nausea. Denies vomiting. MUSCULOSKELETAL: Denies myalgias. INTEGUMENTARY: Denies pruitis. Denies rash. NEUROLOGIC: Denies numbness. Denies tingling. Denies weakness. PSYCHIATRIC: Denies anxiety. Denies depression. ENDOCRINE: Denies fatigue. Denies weight change. Denies polydipsia. Denies polyurina. GENITOURINARY: Denies burning, hematuria or urgency with micturation. HEMATOLOGIC: Denies history of anemia. Denies bleeding. Past Medical History Past Medical History: Atrial Fibrillation, Asthma, Coronary Artery Disease (CAD) , Cancer, Chest Pain / Angina, Heart Failure, Diabetes Mellitus, GERD/Reflux, Hyperlipidemia, Hypertension, Myocardial Infarction ([place]), Pulmonary Embolus ([place]) , Thyroid Disorder Additional Past Medical History / Comment(s): gastroenteritis. Additional hx: incontinent urine and stool, IBS, hemmorhoids, colonic polyps, R femur acetabular impingement syndrome, UTI with sepsis, DDD, RLS, neuropathy bilateral hands and feet, thyroid cancer with thyroidectomy, diverticulitis, pt takes coumadin for PE's, arthiritis, chronic back pain, laryngeal cancer with surgical removal, syncope Last Myocardial Infarction Date:: 2011 or 2012 per pt History of Any Multi-Drug Resistant Organisms: None Reported Date of last positivie culture/infection: None MDRO Source:: None Past Surgical History: Adenoidectomy, Bladder Surgery, Bowel Resection, Cholecystectomy, Coronary Bypass/CABG, Heart Catheterization With Stent, Hysterectomy, Joint Replacement, Orthopedic Surgery, Pacemaker, Tonsillectomy, Tubal Ligation Additional Past Surgical History / Comment(s): CABG 3 vessel in 2006, cardiac cath with stents 2007 and 2011, pacer 2011, total thyroidectomy, lap [place], total left shoulder, R shoulder arthroscopy, partial colectomy due to diverticulitis, bladder suspension and bladder repair and mesh x 2, rectal wall repair, hysterectomy 1977, laryngeal surgery for cancer, colonoscopy, EGD with bx, nasal deviated septum surgical correction, L knee arthroscopy. Past Anesthesia/Blood Transfusion Reactions: No Reported Reaction Additional Past Anesthesia/Blood Transfusion Reaction / Comment(s): Pt has recieved blood without any reaction. Date of Last Stent Placement:: 2011 Type of Cardiac Device: Permanent Pacemaker Device Placement Date:: 2010 or 2011 in [place], [place] Smoking Status: Current some day smoker - Past Family History Father Family Medical History: Congestive Heart Failure (CHF), COPD Additional Family Medical History / Comment(s): Father at age 61 yrs of CHF and COPD. Mother Family Medical History: Congestive Heart Failure (CHF), COPD Medications and Allergies Home Medications Medication Instructions Recorded Confirmed Type traZODone HCL 150 mg PO HS 03/15/17 06/06/17 History Midodrine [ProAmatine] 5 mg PO AC-BID #60 tab 03/18/17 06/06/17 Rx Gabapentin [Neurontin] 800 mg PO QID 05/08/17 06/06/17 History Fludrocortisone [Florinef] 0.1 mg PO BID #60 tab 05/16/17 06/06/17 Rx Ipratropium-Albuterol Nebulize 3 ml INHALATION RT-QID ampul.neb 05/16/17 Rx [Duoneb 0.5 mg-3 mg/3 ml Soln] Levothyroxine Sodium [Synthroid] 200 mcg PO DAILY@0630 #30 tab 05/16/17 Rx oxyCODONE-APAP 5-325MG [Percocet 1 tab PO TID PRN #20 tab 05/16/17 06/06/17 Rx 5-325 mg] Diazepam [Valium] 5 mg PO HS@199906/06/17 06/06/17 History Furosemide [Lasix] 20 mg PO BID 06/06/17 06/06/17 History Omeprazole 20 mg PO HS 06/06/17 06/06/17 History Potassium Chloride ER [K-Dur 20] 20 meq PO BID 06/06/17 06/06/17 History Warfarin Sodium [Coumadin] 5 mg PO HS@199906/06/17 06/06/17 History Allergies Allergy/AdvReac Type Severity Reaction Status Date / Time peaches AdvReac Nausea & Uncoded 06/07/17 01:23 Vomiting Physical Exam Vitals: Vital Signs Temp Pulse Resp BP Pulse Ox 06/08/17 13:43 98.1 F 76 18 128/62 92 L 06/08/17 08:00 18 06/08/17 07:00 99.1 F 77 18 131/66 92 L 06/07/17 23:00 98.5 F 65 16 133/80 92 L 06/07/17 21:31 98 F 70 20 126/61 91 L 06/07/17 17:24 66 06/07/17 16:48 97.2 F L 66 20 167/96 93 L 06/07/17 15:00 97.7 F 67 20 162/71 96 Intake and Output 06/07/17 06/08/17 06/08/17 22:59 06:59 14:59 Other: Voiding Method Diaper Diaper Incontinent Incontinent # Voids 2 2 1 Blood pressure 128/62 heart rate 76 afebrile maintaining oxygen saturation on room air GENERAL: This is a 72-year-old female in no apparent distress at the time of my examination. HEENT: Head is atraumatic, normocephalic. Pupils are equal, round. Sclerae anicteric. Conjunctivae are clear. Mucous membranes of the mouth are moist. Neck is supple. There is no jugular venous distention. No carotid bruit is heard. LUNGS: Clear to auscultation no wheezes, rales or rhonchi. No chest wall tenderness is noted on palpation or with deep breathing. HEART: Regular rate and rhythm without murmurs, rubs or gallops. S1 and S2 heard. ABDOMEN: Soft, nontender. Bowel sounds are heard. No organomegaly noted. EXTREMITIES: No evidence of peripheral edema and no calf tenderness noted. VASCULAR: Radial and dorsalis pedis pulses palpated, no evidence of clubbing. NEUROLOGIC: Patient is awake, alert and oriented x3. Results 06/06/17 19:35 06/07/17 21:31 Comprehensive Metabolic Panel 06/07/17 Range/Units 21:31 Potassium 3.4 L (3.5-5.1) mmol/L Current Medications Generic Name Dose Route Start Last Admin Trade Name Freq PRN Reason Stop Dose Admin Acetaminophen/Butalbital/Caffeine 2 each 06/07/17 12:25 06/07/17 12:56 Fioricet 50-325-40 PO 2 each Q4HR PRN Administration Headache Albuterol/Ipratropium 3 ml 06/07/17 08:00 06/08/17 11:03 Duoneb 0.5 Mg-3 Mg/3 Ml Soln INHALATION Not Given RT-QID HILARIA Diazepam 5 mg 06/07/17 20:00 06/07/17 21:09 Valium PO 5 mg HS@2000 [facility] Administration Furosemide 40 mg 06/08/17 09:00 06/08/17 12:30 Lasix PO 40 mg TID [facility] Administration Gabapentin 800 mg 06/07/17 09:00 06/08/17 12:30 Neurontin PO 800 mg QID [facility] Administration Levothyroxine Sodium 200 mcg 06/07/17 06:30 06/08/17 06:31 Synthroid PO 200 mcg DAILY@0630 [facility] Administration Miscellaneous Information 1 each 06/07/17 05:16 Potassium Per Protocol MISCELLANE DAILY PRN Per Protocol Protocol Nitroglycerin 0.5 inch 06/07/17 00:00 06/08/17 12:30 Nitro-Bid Oint TOPICAL Not Given QID [facility] Oxycodone/Acetaminophen 1 each 06/06/17 23:42 06/08/17 12:29 Percocet 5-325 PO 1 each TID PRN Administration Pain Pantoprazole Sodium 40 mg 06/07/17 21:00 06/07/17 21:09 Protonix PO 40 mg HS [facility] Administration Potassium Chloride 20 meq 06/07/17 09:00 06/08/17 08:05 K-Dur 20 PO 20 meq BID [facility] Administration Trazodone HCl 150 mg 06/07/17 21:00 06/07/17 21:09 Desyrel PO 150 mg HS [facility] Administration Intake and Output 06/07/17 06/08/17 06/08/17 22:59 06:59 14:59 Other: Voiding Method Diaper Diaper Incontinent Incontinent # Voids 2 2 1 06/06/17 19:35 06/07/17 21:31 Assessment and Plan Assessment: ASSESSMENT 1. Pleuritic chest pain, chronic. No EKG evidence of acute ischemia and negative cardiac enzymes. 2. Acute hypoxic respiratory failure secondary to b/l pleural effusions. Recently treated for pneumonia. 3. History of coronary artery disease with bypass grafting and subsequent revascularization of LAD 4. Sick sinus syndrome s/p permanent pacemaker implantation 5. Paroxysmal atrial fibrillation on long-term anticoagulation with Coumadin currently maintaining sinus mechanism. 6. Supratherapeutic INR 7. Hypokalemia 8. Diabetes mellitus 9. Chronic tobacco use 10. Non-compliance PLAN Cardiac enzymes and EKG are unremarkable, an acute coronary event has been ruled out. Replace potassium per protocol. Continue to hold coumadin and repeat INR. Add small dose lopressor 25 mg BID. No evidence of acute heart failure causing respiratory failure, most likely secondary to b/l pleural effusions and pneumonia. Medication compliance discussed and strongly recommended. Thank you kindly for this consultation. Nurse Practitioner note has been reviewed, I agree with a documented findings and plan of care. Patient was seen and examined.
[2017-06-08 15:32] LABS: Anion Gap 14 mmol/L; Blood Urea Nitrogen 23 mg/dL (7-17); Calcium 9.3 mg/dL (8.4-10.2); Carbon Dioxide 28 mmol/L (22-30); Chloride 103 mmol/L (98-107); Glucose 161 mg/dL (74-99); Potassium 3.6 mmol/L (3.5-5.1); Sodium 145 mmol/L (137-145)
--- NOTE | 2017-06-08 16:54 | P.PN ---
Subjective Progress Note Date: 06/08/17 Progress note being dictated for Dr. Orlando Interval history:This patient is a 72-year-old female presented to the ER with chief complaint of increased lethargy for the past week, shortness of breath with chest discomfort with deep inspiration, hypoxemia, headache. Recently hospitalized with pneumonia, orthostatic hypotension and discharged to [facility] subacute rehab. Patient's past medical history includes CAD, CABG, history of atrial fibrillation, asthma, chest pain, CHF, GERD, hypertension, hyperlipidemia, history of HI, history of PE, [id number] smoking history -but has not smoked since her discharge to rehab, being followed by Dr. Lara in the outpatient setting. Brain CT reported mild atrophy, no acute intracranial abnormality, no change .Chest x-ray reporting increasing bilateral pleural effusions compared to prior exam, cardiomegaly, no gross heart failure with possible bilateral lower lobe pneumonia. EKG reported atrial paced rhythm, nonspecific ST, T-wave abnormality in leads 3, aVF V3, V4 V5 and 6.There is no history of fever, rigor, chills. No loss of consciousness , seizures at this time. Currently afebrile, WBC 4.6. Lactic acid 1.1. maintaining O2 sats of mid 90s on 2 L nasal cannula, hypertensive, systolic blood pressure ranging 140s to 170s. Patient is on Midrin and Florinef which will be discontinued. INR 3.8. Hemoglobin 13.1. Troponins negative 3. Recent echo of 01/05/2017 reported normal LV function, EF 55-60%. UA normal. Received Fioricet with headache subsided, currently denies chest pain. States breathing improved denies cough. 06/08/17 diuresing well on IV push Lasix, breathing improving. Maintaining O2 sats in the low 90s on room air. Chest x-ray reporting small to moderate pleural effusions, adjacent atelectasis, interval improvement. Currently denies chest pain but states she did have chest pain during the night. Cardiology attempted to see patient earlier this morning, but patient declined. Patient also declined having IV restarted, morning meds. Coumadin held yesterday for INR of 4, current INR 2.4. Yesterday Florinef and Midodrin discontinued, blood pressure controlled in the 120s to 130s. Denies dizziness or lightheadedness or focal deficits. Headache resolved yesterday with no recurrence. Evaluated by pulmonary with recommendations noted. Objective - Vital Signs Vital signs: Vital Signs Temp 98.1 F 06/08/17 13:43 Pulse 76 06/08/17 13:43 Resp 18 06/08/17 15:05 BP 128/62 06/08/17 13:43 Pulse Ox 92 L 06/08/17 13:43 Intake & Output 06/07/17 06/08/17 06/08/17 18:59 06:59 18:59 Weight 61.5 kg Other: Voiding Method Diaper Diaper Diaper Incontinent Incontinent # Voids 4 2 1 - Exam VITAL SIGNS: As above GENERAL: Sitting up in bed, resting comfortably HEENT: Conjunctivae normal. eyes normal. NECK: No JVD. No thyroid enlargement. No LNs CARDIOVASCULAR: Regular S1, S2. No murmur RESPIRATION: Breath sounds diminished in the bases. No rhonchi, positive bibasilar crackles. ABDOMEN: Soft, nontender . No guarding. no masses palpable. Bowel sounds heard. LEGS: No edema. no swelling PSYCHIATRY: Alert and oriented -3, mood and affect normal. NERVOUS SYSTEM: Cranial N 2-12 grossly normal. Moves all 4 limbs. Diffuse weakness No focal deficits. Skin: no ulcer no rash Joints: No active swelling. No inflammation. Lymphatic system. No LN neck axilla or groin - Labs CBC & Chem 7: 06/06/17 19:35 06/08/17 14:20 Labs: Abnormal Lab Results - Last 24 Hours (Table) 06/07/17 06/07/17 06/08/17 Range/Units 17:18 21:31 12:32 PT (9.0-12.0) sec INR (<1.2) Potassium 3.4 L (3.5-5.1) mmol/L BUN (7-17) mg/dL Glucose (74-99) mg/dL POC Glucose (mg/dL) 109 H 171 H (75-99) mg/dL 06/08/17 06/08/17 Range/Units 14:20 14:20 PT 21.7 H (9.0-12.0) sec INR 2.4 H (<1.2) Potassium (3.5-5.1) mmol/L BUN 23 H (7-17) mg/dL Glucose 161 H (74-99) mg/dL POC Glucose (mg/dL) (75-99) mg/dL Microbiology - Last 24 Hours (Table) 06/06/17 19:35 Blood Culture - Preliminary Blood No Growth after 24 hours Assessment and Plan Assessment: 1. Chest pain, nonspecific ST, T-wave depression per EKG, for evaluation, in a patient with significant cardiac history 2. Acute hypoxic respiratory failure, secondary bilateral pleural effusions, possible component of acute CHF, diastolic dysfunction. Recently hospitalized for right lower lobe pneumonia. 3. CAD, history of HI, CABG, stent 4. Chronic atrial fibrillation, controlled ventricular rate with permanent pacemaker 5. Coumadin monitoring 6. Hypertension, controlled 7. Hypokalemia, improved 8. Diabetes mellitus type 2 9. Degenerative joint disease 10. Restless leg syndrome 11. Gastroesophageal reflux disease Plan: Continue on current medication regime ,monitoring and symptomatic treatment. Maintain nebulized bronchodilators, diuresing with Lasix. Close monitoring of electrolytes with repeat labs ordered for a.m. Continue on morphine, nitroglycerin. Coumadin on hold tonight as INR elevated. Daily PT INR. Patient now agreeable to cardiology visit; cardiology re-attempting evaluation. Prognosis guarded given multiple complex medical issues. The impression and plan of care has been dictated as directed. : I performed a history and examination of this patient, discussed the same with the dictator. I agree with the dictator's note ,documented as a scribe. Any additional findings or plans will be noted.
[2017-06-08 17:34] LABS: Glucose,Whole Blood 133 mg/dL (75-99)
[2017-06-08] MEDS ORDERED: ONDANSETRON 4 MG/2 ML VIAL IVP PRN (18:08)
[2017-06-08] MEDS ORDERED: ONDANSETRON 4 MG TAB PO PRN (19:30)
[2017-06-08] MEDS: DIAZEPAM 5 MG TAB PO SCH (21:06)
[2017-06-08] MEDS: METOPROLOL TARTRATE 25 MG TAB PO SCH (21:07)
[2017-06-08] MEDS: PANTOPRAZOLE 40 MG TABLET PO SCH (21:07)
[2017-06-08] MEDS: traZODone HCL 50 MG TAB PO SCH (21:08)
[2017-06-08 21:37] LABS: Glucose,Whole Blood 140 mg/dL (75-99)
[2017-06-09 02:23] VITALS: RESP 20
[2017-06-09] MEDS: LEVOTHYROXINE 100 MCG TAB PO SCH (07:00)
[2017-06-09] MEDS: IPRATROPIUM-ALBUTEROL 3 ML NEB INHALATION SCH ×4 (07:43→21:12)
[2017-06-09 07:44] LABS: Glucose,Whole Blood 149 mg/dL (75-99)
[2017-06-09] MEDS: FUROSEMIDE 40 MG TAB PO SCH ×3 (09:02→21:28)
[2017-06-09] MEDS: GABAPENTIN 400 MG CAP PO SCH ×4 (09:02→21:28)
[2017-06-09] MEDS: METOPROLOL TARTRATE 25 MG TAB PO SCH ×2 (09:02→21:31)
[2017-06-09] MEDS: POTASSIUM CHLORIDE ER 20 MEQ TAB.ER PO SCH ×2 (09:02→21:31)
[2017-06-09] MEDS: NITROGLYCERIN OINT 1 INCH/GM PACKET TOPICAL SCH ×2 (09:03→09:07)
[2017-06-09 09:28] LABS: Basophils % (A) 1 %; Eosinophils # (A) 0.3 k/uL (0-0.7); Eosinophils % (A) 4 %; HCT 38.7 % (34.0-46.0); Lymphocytes # (A) 1.5 k/uL (1.0-4.8); Lymphocytes % (A) 21 %; MCH 30.7 pg (25.0-35.0); MCHC 33.5 g/dL (31.0-37.0); MCV 91.6 fL (80.0-100.0); Mean Platelet Volume 6.9; Monocytes # (A) 0.4 k/uL (0-1.0); Monocytes % (A) 6 %; Neutrophils # (A) 4.9 k/uL (1.3-7.7); Neutrophils % (A) 67 %; Platelet Count 198 k/uL (150-450); RBC 4.23 m/uL (3.80-5.40); RDW 13.1 % (11.5-15.5); WBC 7.3 k/uL (3.8-10.6)
[2017-06-09 09:32] LABS: Prothrombin Time 17.8 sec (9.0-12.0)
[2017-06-09 10:25] LABS: Potassium 4.1 mmol/L (3.5-5.1)
[2017-06-09 12:27] LABS: Glucose,Whole Blood 131 mg/dL (75-99)
--- NOTE | 2017-06-09 14:07 | P.PN ---
Subjective Progress Note Date: 06/09/17 Mrs. Donahue is a pleasant 72-year-old female past medical history significant for coronary artery disease status post bypass grafting, paroxysmal atrial fibrillation on long-term anticoagulation, history of pulmonary embolism , sick sinus syndrome status post permanent pacemaker implantation, hypertension with episodes of hypotension, diabetes mellitus and chronic tobacco abuse. We have been asked to see her in consultation for complaints of chest pain. At the time of my exam she is sleeping in bed and refuses to answer questions or allow me to examine her. She is swearing at staff. She is currently refusing IV access or take any medications. Most information is obtained from the chart. Attempted to assess her later in the afternoon and she is slightly more agreeable. She presented to the hospital on Tuesday with complaints of increased lethargy, fatigue and weakness. She was recently diagnosed with pneumonia and finished her outpatient antibiotics approximately one week ago. She complains of discomfort in the chest in the left precordial region that is worse with movement and deep inspiration. She has suffered from this chest pain multiple times has had multiple hospitalizations for the same symptoms. She is very noncompliant with medications and has no follow up after hospital admissions. EKG on arrival reveals atrial paced rhythm with nonspecific T-wave abnormality in the inferior leads as well as nonspecific precordial ST changes. These EKG abnormalities have been evident on previous EKGs. There is no new changes. Chest x-ray on admission reveals new or increasing bilateral pleural effusions with cardiomegaly and no heart failure. Probable ability of bilateral lower lobe pneumonia is possible. Repeat this morning reveals similar findings. Laboratory data reviewed, hemoglobin 13.1, INR 4.0, sodium 148, potassium on admission 2. 9 repeat yesterday 3.4, cardiac enzymes negative 3, proBNP 1800. Current cardiac medications include Coumadin 5 mg daily, potassium 20 mg twice a day, Midrin 5 mg twice a day, Lasix 20 mg twice a day. Most recent echocardiogram performed November 2016 reveals preserved left ventricular function with ejection fraction 55-60% with mild AR and trace MR. Most recent catheterization done by Dr. Cobb in 2014 reveals 2 grafts: GRANT to LAD was occluded with a patent stent in the [place] LAD. Left main is widely patent, RCA totally occluded, SVG to PDA branch of RCA and diagonal branch of LAD with 30-40% narrowing. Most recent stress test is performed in December 2016 was inconclusive secondary to baseline EKG abnormalities. Although the echocardiogram images did not show any evidence of wall motion abnormalities consistent with ischemia. 06/09/2017 Pt is seen and examined this morning, although she will not answer any questions appropriately and won't open her eyes. She did take her morning medications from her nurse today. INR today is 2, potassium 4.1, creatinine 0.95 , sodium 144. Blood pressure was 106/54 heart rate 69. Objective - Vital Signs Vital signs: Vital Signs Temp 98.4 F 06/09/17 06:32 Pulse 69 06/09/17 08:00 Resp 20 06/09/17 08:00 BP 106/54 06/09/17 06:32 Pulse Ox 95 06/09/17 06:32 Intake & Output 06/08/17 06/09/17 06/09/17 18:59 06:59 18:59 Intake Total 550 Balance 550 Intake: Oral 550 Other: Voiding Method Diaper Diaper Diaper Incontinent Incontinent Incontinent # Voids 2 2 # Bowel Movements 0 - Exam GENERAL: Well-appearing, well-nourished and in no acute distress. NECK: Supple without JVD or thyromegaly. LUNGS: Breath sounds clear to auscultation bilaterally. Respiration equal and unlabored. No wheezes, rales or rhonchi. HEART: Regular rate and rhythm without murmurs, rubs or gallops. S1 and S2 heard. EXTREMITIES: Normal range of motion, no edema. No clubbing or cyanosis. Peripheral pulses intact and strong. - Labs CBC & Chem 7: 06/09/17 08:55 06/09/17 08:55 Labs: Abnormal Lab Results - Last 24 Hours (Table) 06/08/17 06/08/17 06/08/17 Range/Units 14:20 14:20 17:27 PT 21.7 H (9.0-12.0) sec INR 2.4 H (<1.2) BUN 23 H (7-17) mg/dL Glucose 161 H (74-99) mg/dL POC Glucose (mg/dL) 133 H (75-99) mg/dL 06/08/17 06/09/17 06/09/17 Range/Units 21:24 06:58 08:55 PT (9.0-12.0) sec INR (<1.2) BUN 36 H (7-17) mg/dL Glucose 149 H (74-99) mg/dL POC Glucose (mg/dL) 140 H 149 H (75-99) mg/dL 06/09/17 06/09/17 Range/Units 08:55 12:25 PT 17.8 H (9.0-12.0) sec INR 2.0 H (<1.2) BUN (7-17) mg/dL Glucose (74-99) mg/dL POC Glucose (mg/dL) 131 H (75-99) mg/dL Microbiology - Last 24 Hours (Table) 06/06/17 19:35 Blood Culture - Preliminary Blood No Growth after 48 hours Assessment and Plan Assessment: ASSESSMENT 1. Pleuritic chest pain, chronic. No EKG evidence of acute ischemia and negative cardiac enzymes. 2. Acute hypoxic respiratory failure secondary to b/l pleural effusions. Recently treated for pneumonia. 3. History of coronary artery disease with bypass grafting and subsequent revascularization of LAD 4. Sick sinus syndrome s/p permanent pacemaker implantation 5. Paroxysmal atrial fibrillation on long-term anticoagulation with Coumadin currently maintaining sinus mechanism. 6. Supratherapeutic INR 7. Hypokalemia 8. Diabetes mellitus 9. Chronic tobacco use 10. Non-compliance PLAN Coumadin can be resumed at 2.5 mg daily to start tonight. Target INR 2-3. Stable from a cardiac perspective. Follow up with Dr. Cobb in 2-3 weeks. Nurse Practitioner note has been reviewed, I agree with a documented findings and plan of care. Patient was seen and examined.
--- NOTE | 2017-06-09 15:24 | P.PN ---
Subjective Progress Note Date: 06/09/17 Principal diagnosis: Bilateral pleural effusions, acute diastolic heart failure, chest pain, hypoxemia Olga Lidia a 72-year-old white female patient Dr. Bradley, who was brought to the emergency room per EMS on 06/06/2017 at 1837 complaints of increased lethargy for the past week, chest discomfort exacerbated by deep inspiration, a headache , hypoxemia, and increasing shortness of breath. She was recently hospitalized at the beginning of May for community acquired right lower lobe pneumonia, possible acute gastritis, symptomatic orthostatic hypotension, hypokalemia, atypical chest pain. Patient was treated with Levaquin, her hypokalemia was corrected, her hypotension improved with midodrine and Florinef, and patient was discharged to the subacute rehab on 05/19/2017. Chest x-ray ablated in the emergency room on 06/06/2017 showed increasing bilateral pleural effusions compared to the previous exam on 05/15/2017, cardiomegaly, no gross heart failure was seen. Bilateral lower lobe pneumonia could not be ruled out. Brain CT completed for the purpose of investigating patient's headache, showed mild atrophy, but no acute intracranial abnormality. EKG showed atrial paced rhythm with a rate of 60 BPM. Patient has been afebrile while inpatient, she has been on supplemental oxygen at 2 L per nasal cannula with O2 sat at 93-96%, he is hypertensive with SBP ranging from 140-170s, and DBP ranging from 70-90 mmHg. Patient's lab work was reviewed, WBC is 4.6, hemoglobin is 13.1, INR is 3.8, serum sodium is 148, potassium was 2.9, CO2 is 35, BUN was 15, creatinine was 0.50. Plasma lactic acid was 1.1, troponins were negative 3, proBNP was 1800, it is down from 2700 from 06/02/2017. Urinalysis was normal. Patient has a past medical history of chronic atrial fibrillation on Coumadin, coronary artery disease status post coronary artery bypass grafting, angina, heart failure, diabetes mellitus, GERD/reflux, hyperlipidemia, hypertension, myocardial infarction, pulmonary embolus, and hypothyroidism. Patient has a permanent pacemaker in place. Most recent echocardiogram from 01/05/2017 showed a normal left ventricular systolic function with an EF between 55-60%, there was mild aortic regurgitation, trace mitral and trace tricuspid regurgitation present. Patient had coronary artery bypass grafting and subsequent percutaneous revascularization of the LAD in 2008 and subsequently in 2011. She had a repeat cardiac catheterization in June 2014 and at that time GRANT to LAD was occluded, with patent [place] LAD, the RCA was totally occluded, SVG to the PDA and diagonal branch of the LAD had mild disease. Medical therapy was recommended at that time. In addition patient had a history of pulmonary embolisms and 2014 following a bowel resection for diverticulitis. She had been on Coumadin therapy ever since. On today's evaluation patient is resting comfortably in bed, she denies any acute distress , she states her chest pain is in the localized spot at the right sternal border , it is very tender to palpation, appears to be a very prominent bony prominence. She denies any dyspnea at the moment, she denied any fever or chills, denied any chest congestion or sputum production. She states this right sternal border chest tenderness has been present for some time, but at times she has episodes of sharp chest pain in the same area at rest, and at times with exertion. As a matter fact she had an acute episode of the same mentioned Right sternal border sharp chest pain during the interview, the patient stopped talking, and was holding her chest for about 10 seconds. The pain then spontaneously resolved and the patient stated she was gallbladder, this was not associated with dyspnea, diaphoresis, nausea. This episode only lasted seconds. EKG in the ER showed atrial paced rhythm with a rate of [address] and T-wave abnormality in leads to 3 aVF V3 V4 V5 and V6. Patient has been initiated on IV Lasix at 40 mg every 8 hours, her potassium is being replaced per protocol, she has a half an inch of nitro glycerin ointment on. Patient is a current smoker, although she has not smoked since she left the hospital and has been staying at the [facility]. She carries a [id number] smoking history, 1-3 packs a day in her younger years, most recently she is down to 6 cigarettes a day. We were consulted in regards to the bilateral pleural effusions, most likely related to her acute diastolic heart failure. On 06/08/2017 patient is seen in follow-up on medical surgical floor. She is resting in bed, appears very fatigued this morning. But denies acute distress. She states she had several more episodes of sternal chest pain since last night. She denies worsening dyspnea, she has been diuresing on oral Lasix 40 mg 3 times a day. He is currently on room air, with a pulse ox of 92%. Afebrile, hemodynamically stable. Lung sounds are positive for coarse bibasilar crackles. Patient is incontinent, so fluid balance is difficult to estimate. She is expected to be seen by cardiology today. From pulmonary standpoint patient appears to be comfortable, and in no respiratory distress, on room air, not requiring supplemental oxygen. We will continue with diuresis , patient's INR was supratherapeutic yesterday at 4.0. We will repeat INR today and on a daily basis. There is a possibility we may have to do a thoracentesis for patient's bilateral pleural effusions once the INR is in the acceptable range and if the patient's not responding to diuretics. On 06/09/2017 patient was seen and examined. She denies any acute distress, denies any dyspnea, currently on 2 L per nasal cannula with O2 sat at 97%. Room air pulse ox is 88%. She may need home oxygen after discharge. Afebrile, lung sounds are positive for bibasilar crackles, yesterday's chest x-ray was reviewed, and there was improvement noted in the aeration in the volume. INR today is 2.0. Patient has been receiving oral Lasix. Cardiology saw the patient in consultation, and her chest pain was felt to be noncardiac in nature. Objective - Vital Signs Vital signs: Vital Signs Temp 96.7 F L 06/09/17 13:55 Pulse 62 06/09/17 13:55 Resp 20 06/09/17 13:55 BP 104/51 06/09/17 13:55 Pulse Ox 97 06/09/17 14:00 Intake & Output 06/08/17 06/09/17 06/09/17 18:59 06:59 18:59 Intake Total 550 1080 Balance 550 1080 Intake: Oral 550 1080 Other: Voiding Method Diaper Diaper Diaper Incontinent Incontinent Incontinent # Voids 2 2 0 # Bowel Movements 0 0 - Exam Constitutional General appearance: no acute distress, thin - EENT Eyes: edentulous, PERRLA, poor dentition ENT: NA/AT, normal oropharynx Ears: bilateral: normal - Neck Neck: no lymphadenopathy Carotids: bilateral: upstroke normal - Respiratory Respiratory: bilateral: diminished, rales ( bilateral bases) - Cardiovascular Rhythm: regular Heart sounds: normal: S1, S2 leg Peripheral Edema: bilateral: None foot Peripheral Edema: bilateral: None - Gastrointestinal General gastrointestinal: no organomegaly, soft, no tenderness - Integumentary Integumentary: normal, normal turgor - Neurologic Neurologic: CNII-XII intact - Musculoskeletal Musculoskeletal: generalized weakness, strength equal bilaterally - Psychiatric Psychiatric: A&O x's 3, appropriate affect, intact judgment & insight - Labs CBC & Chem 7: 06/09/17 08:55 06/09/17 08:55 Labs: Abnormal Lab Results - Last 24 Hours (Table) 06/08/17 06/08/17 06/08/17 Range/Units 14:20 14:20 17:27 PT 21.7 H (9.0-12.0) sec INR 2.4 H (<1.2) BUN 23 H (7-17) mg/dL Glucose 161 H (74-99) mg/dL POC Glucose (mg/dL) 133 H (75-99) mg/dL 06/08/17 06/09/17 06/09/17 Range/Units 21:24 06:58 08:55 PT (9.0-12.0) sec INR (<1.2) BUN 36 H (7-17) mg/dL Glucose 149 H (74-99) mg/dL POC Glucose (mg/dL) 140 H 149 H (75-99) mg/dL 06/09/17 06/09/17 Range/Units 08:55 12:25 PT 17.8 H (9.0-12.0) sec INR 2.0 H (<1.2) BUN (7-17) mg/dL Glucose (74-99) mg/dL POC Glucose (mg/dL) 131 H (75-99) mg/dL Microbiology - Last 24 Hours (Table) 06/06/17 19:35 Blood Culture - Preliminary Blood No Growth after 48 hours Assessment and Plan Plan: Assessment: #1. Acute on chronic chest pain, patient has a localized right sternal border chest wall tenderness that is chronic in nature, tender to palpation. She reports intermittent episodes of sharp pain, at rest and sometimes with exertion , lasting a few seconds. Twelve-lead EKG completed in the emergency room showed atrial paced rhythm with a rate of 60 BPM, with nonspecific ST and T wave depression in the Inferior, anterior and lateral leads. Patient was seen in consultation by cardiology who felt that the chest pain is noncardiac in nature. #2. Acute hypoxic respiratory failure secondary to bilateral pleural effusions , most likely related to acute congestive heart failure, diastolic based on the echo results from April 2017 #3. Chronic atrial fibrillation, patient has a permanent pacemaker in place, currently 100% atrial paced with a rate of 60 BPM. Patient is on chronic anticoagulation with Coumadin, with INR at 4.0 on admission #4. Coronary artery disease, status post coronary artery bypass grafting with subsequent percutaneous revascularization. Most recent cardiac catheterization was done in June 2014, which showed GRANT to LAD was occluded, with patent [place] LAD, RCA was totally occluded, SVG to the PDA and diagonal branch of the LAD had mild disease. Most recently dobutamine echo on 01/10/2017 showed abnormal EKG in response to dobutamine, and severe underlying coronary artery disease with suspected #5. Recent hospitalization for community-acquired right lower lobe pneumonia, hypotension, gastroenteritis, and hypokalemia. Patient was treated with Levaquin, hypotension improved with midodrine and Florinef, hypokalemia was corrected, and patient was subsequently discharged to the [facility] on 05/19/2017 #6. Hypokalemia, serum potassium was 2.9, likely related to Florinef #7. Mild hypernatremia, may possibly be related to Florinef. #8. Nicotine dependence, in remission since last hospitalization, carries 60- pack-year smoking history of up to 3 packs a day in her younger years. Most recently down to 6 cigarettes a day. #9. Diabetes mellitus type 2 #10. Hypertension, hyperlipidemia #11. History of myocardial infarction #12. Hypothyroidism #13. History of pulmonary embolisms and 2014 following colon resection for diverticulitis. Patient has been on Coumadin since Plan: Patient denies any dyspnea, yesterday's chest x-ray showed improvement in aeration of volume with oral diuretics. Patient continues to have chest pain episodes, was seen by cardiology who felt that the pain is noncardiac in nature and has cleared the patient for discharge. Vital signs are stable, patient may need home oxygen. From pulmonary standpoint patient is stable for discharge back to the rehab center today on oral diuretics. I performed a history & physical examination of the patient and discussed their management with my nurse practitioner, Lakeisha Fuentes. I reviewed the nurse practitioner's note and agree with the documented findings and plan of care. Lung sounds are positive for bibasilar rales. The findings and the impression was discussed with the patient. I attest to the documentation by the nurse practitioner. Time with Patient: Less than 30
--- NOTE | 2017-06-09 15:55 | P.DS ---
Providers Date of admission: 06/06/17 23:36 Expected date of discharge: 06/09/17 Attending physician: Darlene Sosa Consults: 06/07/17 12:27 Consult Physician Routine Consulting Provider: Niesha Luciano Consult Reason/Comments: pleural effusion Do you want consulting provider notified?: Yes 06/07/17 18:14 Consult Physician Routine Consulting Provider: [facility] Consult Reason/Comments: chf Do you want consulting provider notified?: Yes Primary care physician: Simba Bradley [facility] Course: Final Diagnoses: 1. Chest pain, nonspecific ST, T-wave depression per EKG, for evaluation, in a patient with significant cardiac history;noncardiac nature as per cardiology 2. Acute hypoxic respiratory failure, secondary bilateral pleural effusions, possible component of acute CHF, diastolic dysfunction. Recently hospitalized for right lower lobe pneumonia. 3. CAD, history of DE, CABG, stent 4. Chronic atrial fibrillation, controlled ventricular rate with permanent pacemaker 5. Coumadin monitoring 6. Hypertension, controlled 7. Hypokalemia, improved 8. Diabetes mellitus type 2 9. Degenerative joint disease 10. Restless leg syndrome 11. Gastroesophageal reflux disease Hospital course:This patient is a 72-year-old female presented to the ER with chief complaint of increased lethargy for the past week, shortness of breath with chest discomfort with deep inspiration, hypoxemia, headache. Recently hospitalized with pneumonia, orthostatic hypotension and discharged to [facility] subacute rehab. Patient's past medical history includes CAD, CABG, history of atrial fibrillation, asthma, chest pain, CHF, GERD, hypertension, hyperlipidemia, history of DE, history of PE, [id number] smoking history -but has not smoked since her discharge to rehab, being followed by Dr. Lara in the outpatient setting. Brain CT reported mild atrophy, no acute intracranial abnormality, no change .Chest x-ray reporting increasing bilateral pleural effusions compared to prior exam, cardiomegaly, no gross heart failure with possible bilateral lower lobe pneumonia. EKG reported atrial paced rhythm, nonspecific ST, T-wave abnormality in leads 3, aVF V3, V4 V5 and 6.There is no history of fever, rigor, chills. No loss of consciousness , seizures at this time. Currently afebrile, WBC 4.6. Lactic acid 1.1. maintaining O2 sats of mid 90s on 2 L nasal cannula, hypertensive, systolic blood pressure ranging 140s to 170s. Patient is on Midrin and Florinef which will be discontinued. INR 3.8. Hemoglobin 13.1. Troponins negative 3. Recent echo of 01/05/2017 reported normal LV function, EF 55-60%. UA normal. Received Fioricet with headache subsided, currently denies chest pain. States breathing improved denies cough. 06/08/17 diuresing well on IV push Lasix, breathing improving. Maintaining O2 sats in the low 90s on room air. Chest x-ray reporting small to moderate pleural effusions, adjacent atelectasis, interval improvement. Currently denies chest pain but states she did have chest pain during the night. Cardiology attempted to see patient earlier this morning, but patient declined. Patient also declined having IV restarted, morning meds. Coumadin held yesterday for INR of 4, current INR 2.4. Yesterday Florinef and Midodrin discontinued, blood pressure controlled in the 120s to 130s. Denies dizziness or lightheadedness or focal deficits. Headache resolved yesterday with no recurrence. Evaluated by pulmonary with recommendations noted. evaluated by cardiology, no further intervention recommended, chest pain- noncardiac. Evaluated by pulmonary. Maintained on nebulized bronchodilators, Lasix. Significant clinical improvement. Patient has been cleared by both pulmonary and cardiology for discharge. Patient is being discharged to [facility] rehab in a stable condition with guarded prognosis. physical exam: GENERAL: VSS,alert and oriented 3, no acute distress.CARDIOVASCULAR: Regular S1, S2. No murmur RESPIRATION: Breath sounds diminished in the bases. No rhonchi, positive bibasilar crackles. ABDOMEN: Soft, nontender . No guarding. no masses palpable. Bowel sounds heard. NERVOUS SYSTEM: No focal deficits. The impression and plan of care has been dictated as directed. : I performed a history and examination of this patient, discussed the same with the dictator. I agree with the dictator's note ,documented as a scribe. Any additional findings or plans will be noted. Time taken: 35 minutes Patient Condition at Discharge: Stable Plan - Discharge Summary New Discharge Prescriptions: New Metoprolol Tartrate [Lopressor] 25 mg PO BID tab Warfarin [Coumadin] 2.5 mg PO DAILY@1800 tab Continue traZODone HCL 150 mg PO HS Gabapentin [Neurontin] 800 mg PO QID Levothyroxine Sodium [Synthroid] 200 mcg PO DAILY@0630 #30 tab Ipratropium-Albuterol Nebulize [Duoneb 0.5 mg-3 mg/3 ml Soln] 3 ml INHALATION RT-QID ampul.neb Omeprazole 20 mg PO HS Potassium Chloride ER [K-Dur 20] 20 meq PO BID Diazepam [Valium] 5 mg PO HS@1999 #5 tab oxyCODONE-APAP 5-325MG [Percocet 5-325 mg] 1 tab PO TID PRN #20 tab PRN Reason: Pain Changed Furosemide [Lasix] 40 mg PO DAILY #0 Discontinued Midodrine [ProAmatine] 5 mg PO AC-BID #60 tab Fludrocortisone [Florinef] 0.1 mg PO BID #60 tab Warfarin Sodium [Coumadin] 5 mg PO HS@1999 Discharge Medication List traZODone HCL 150 mg PO HS 03/15/17 [History] Gabapentin [Neurontin] 800 mg PO QID 05/08/17 [History] Ipratropium-Albuterol Nebulize [Duoneb 0.5 mg-3 mg/3 ml Soln] 3 ml INHALATION RT -QID ampul.neb 05/16/17 [Rx] Levothyroxine Sodium [Synthroid] 200 mcg PO DAILY@0630 #30 tab 05/16/17 [Rx] Omeprazole 20 mg PO HS 06/06/17 [History] Potassium Chloride ER [K-Dur 20] 20 meq PO BID 06/06/17 [History] Diazepam [Valium] 5 mg PO HS@1999 #5 tab 06/09/17 [Rx] Furosemide [Lasix] 40 mg PO DAILY #0 06/09/17 [Rx] Metoprolol Tartrate [Lopressor] 25 mg PO BID tab 06/09/17 [Rx] Warfarin [Coumadin] 2.5 mg PO DAILY@1800 tab 06/09/17 [Rx] oxyCODONE-APAP 5-325MG [Percocet 5-325 mg] 1 tab PO TID PRN #20 tab 06/09/17 [Rx ] Follow up Appointment(s)/Referral(s): Herb Cobb MD [STAFF PHYSICIAN] - 3 Weeks Phil Capellan DO [STAFF PHYSICIAN] - 3 Days [facility], [NON-STAFF] - (Once discharged from [facility]. ) [facility], [NON-STAFF] - 1 Week Simba Bradley MD [Primary Care Provider] - 3 Days (after dc from [facility] ) Niesha Luciano MD [STAFF PHYSICIAN] - 2 Weeks Patient Instructions/Handouts: Heart Failure (DC), Type 2 Diabetes in Adults ( DC) Activity/Diet/Wound Care/Special Instructions: Diet: Cardiac, CHF DIET, ANN MARIE Activity: Up with assist, fall precautions. Daily weight and record. Accu-checks before meals and record and cover as needed. CBC<BMP in 3 days Discharge Disposition: TRANSFER TO SNF/ECF
[2017-06-09 16:54] LABS: Glucose,Whole Blood 260 mg/dL (75-99)
--- NOTE | 2017-06-09 17:11 | P.PN ---
Subjective Progress Note Date: 06/09/17 Progress note being dictated for Dr. Sosa Interval history:This patient is a 72-year-old female presented to the ER with chief complaint of increased lethargy for the past week, shortness of breath with chest discomfort with deep inspiration, hypoxemia, headache. Recently hospitalized with pneumonia, orthostatic hypotension and discharged to [facility] subacute rehab. Patient's past medical history includes CAD, CABG, history of atrial fibrillation, asthma, chest pain, CHF, GERD, hypertension, hyperlipidemia, history of ME, history of PE, [id number] smoking history -but has not smoked since her discharge to rehab, being followed by Dr. Lara in the outpatient setting. Brain CT reported mild atrophy, no acute intracranial abnormality, no change .Chest x-ray reporting increasing bilateral pleural effusions compared to prior exam, cardiomegaly, no gross heart failure with possible bilateral lower lobe pneumonia. EKG reported atrial paced rhythm, nonspecific ST, T-wave abnormality in leads 3, aVF V3, V4 V5 and 6.There is no history of fever, rigor, chills. No loss of consciousness , seizures at this time. Currently afebrile, WBC 4.6. Lactic acid 1.1. maintaining O2 sats of mid 90s on 2 L nasal cannula, hypertensive, systolic blood pressure ranging 140s to 170s. Patient is on Midrin and Florinef which will be discontinued. INR 3.8. Hemoglobin 13.1. Troponins negative 3. Recent echo of 01/05/2017 reported normal LV function, EF 55-60%. UA normal. Received Fioricet with headache subsided, currently denies chest pain. States breathing improved denies cough. 06/08/17 diuresing well on IV push Lasix, breathing improving. Maintaining O2 sats in the low 90s on room air. Chest x-ray reporting small to moderate pleural effusions, adjacent atelectasis, interval improvement. Currently denies chest pain but states she did have chest pain during the night. Cardiology attempted to see patient earlier this morning, but patient declined. Patient also declined having IV restarted, morning meds. Coumadin held yesterday for INR of 4, current INR 2.4. Yesterday Florinef and Midodrin discontinued, blood pressure controlled in the 120s to 130s. Denies dizziness or lightheadedness or focal deficits. Headache resolved yesterday with no recurrence. Evaluated by pulmonary with recommendations noted. 06/09/17no overnight events.currently cooperative, fluctuates; earlier declining meds. Evaluated by cardiology with recommendations noted.INR 2,Coumadin resumed. Objective - Vital Signs Vital signs: Vital Signs Temp 96.7 F L 06/09/17 13:55 Pulse 62 06/09/17 13:55 Resp 20 06/09/17 13:55 BP 104/51 06/09/17 13:55 Pulse Ox 97 06/09/17 14:00 Intake & Output 06/08/17 06/09/17 06/09/17 18:59 06:59 18:59 Intake Total 550 1080 Balance 550 1080 Weight 54.5 kg Intake: Oral 550 1080 Other: Voiding Method Diaper Diaper Diaper Incontinent Incontinent Incontinent # Voids 2 2 1 # Bowel Movements 0 0 - Exam VITAL SIGNS: As above GENERAL: Sitting up in bed, resting comfortably HEENT: Conjunctivae normal. eyes normal. oral mucosa is moist NECK: No JVD. No thyroid enlargement. No LNs CARDIOVASCULAR: Regular S1, S2. No murmur RESPIRATION: Breath sounds diminished in the bases, bibasilar crackles. ABDOMEN: Soft, nontender . No guarding. no masses palpable. Bowel sounds heard. LEGS: No edema. no swelling PSYCHIATRY: Alert and oriented -3, mood and affect normal. NERVOUS SYSTEM: Cranial N 2-12 grossly normal. Moves all 4 limbs. Diffuse weakness No focal deficits. Skin: no ulcer no rash Joints: No active swelling. No inflammation. Lymphatic system. No LN neck axilla or groin - Labs CBC & Chem 7: 06/09/17 08:55 06/09/17 08:55 Labs: Abnormal Lab Results - Last 24 Hours (Table) 06/08/17 06/08/17 06/09/17 Range/Units 17:27 21:24 06:58 PT (9.0-12.0) sec INR (<1.2) BUN (7-17) mg/dL Glucose (74-99) mg/dL POC Glucose (mg/dL) 133 H 140 H 149 H (75-99) mg/dL 06/09/17 06/09/17 06/09/17 Range/Units 08:55 08:55 12:25 PT 17.8 H (9.0-12.0) sec INR 2.0 H (<1.2) BUN 36 H (7-17) mg/dL Glucose 149 H (74-99) mg/dL POC Glucose (mg/dL) 131 H (75-99) mg/dL 06/09/17 Range/Units 16:51 PT (9.0-12.0) sec INR (<1.2) BUN (7-17) mg/dL Glucose (74-99) mg/dL POC Glucose (mg/dL) 260 H (75-99) mg/dL Microbiology - Last 24 Hours (Table) 06/06/17 19:35 Blood Culture - Preliminary Blood No Growth after 48 hours Assessment and Plan Assessment: 1. Chest pain, nonspecific ST, T-wave depression per EKG, for evaluation, in a patient with significant cardiac history;noncardiac per cardiology 2. Acute hypoxic respiratory failure, secondary bilateral pleural effusions, possible component of acute CHF, diastolic dysfunction. Recently hospitalized for right lower lobe pneumonia. 3. CAD, history of ME, CABG, stent 4. Chronic atrial fibrillation, controlled ventricular rate with permanent pacemaker 5. Coumadin monitoring 6. Hypertension, controlled 7. Hypokalemia, improved 8. Diabetes mellitus type 2 9. Degenerative joint disease 10. Restless leg syndrome 11. Gastroesophageal reflux disease Plan: Continue on current medication regime ,monitoring and symptomatic treatment. Maintain nebulized bronchodilators, diuresing with Lasix. Close monitoring of electrolytes with repeat labs ordered for a.m. Coumadin resumed. discharge planning in progress for return to subacute rehab, preauthorization pending. The impression and plan of care has been dictated as directed. : I performed a history and examination of this patient, discussed the same with the dictator. I agree with the dictator's note ,documented as a scribe. Any additional findings or plans will be noted.
[2017-06-09] MEDS ORDERED: WARFARIN 2.5 MG TAB PO SCH (18:00)
[2017-06-09] MEDS: oxyCODONE-APAP 5-325MG 1 EACH TAB PO PRN (19:09)
[2017-06-09 21:08] LABS: Glucose,Whole Blood 293 mg/dL (75-99)
[2017-06-09] MEDS: DIAZEPAM 5 MG TAB PO SCH (21:28)
[2017-06-09] MEDS: traZODone HCL 50 MG TAB PO SCH (21:31)
[2017-06-09] MEDS: PANTOPRAZOLE 40 MG TABLET PO SCH (21:31)
[2017-06-10] MEDS: LEVOTHYROXINE 100 MCG TAB PO SCH (06:46)
[2017-06-10 07:30] VITALS: BP 110/58; PULSE 60; TEMP 97
[2017-06-10] MEDS: IPRATROPIUM-ALBUTEROL 3 ML NEB INHALATION SCH ×2 (07:35→11:15)
[2017-06-10 08:00] LABS: Glucose,Whole Blood 167 mg/dL (75-99)
[2017-06-10] MEDS: GABAPENTIN 400 MG CAP PO SCH ×2 (08:26→13:28)
[2017-06-10] MEDS: FUROSEMIDE 40 MG TAB PO SCH (08:27)
[2017-06-10] MEDS: METOPROLOL TARTRATE 25 MG TAB PO SCH (08:27)
[2017-06-10] MEDS: POTASSIUM CHLORIDE ER 20 MEQ TAB.ER PO SCH (08:27)
[2017-06-10 09:22] LABS: Basophils % (A) 1 %; Eosinophils # (A) 0.3 k/uL (0-0.7); Eosinophils % (A) 5 %; HCT 39.8 % (34.0-46.0); HGB 12.8 gm/dL (11.4-16.0); Lymphocytes # (A) 1.4 k/uL (1.0-4.8); Lymphocytes % (A) 19 %; MCH 29.8 pg (25.0-35.0); MCHC 32.2 g/dL (31.0-37.0); MCV 92.5 fL (80.0-100.0); Mean Platelet Volume 7.2; Monocytes # (A) 0.6 k/uL (0-1.0); Monocytes % (A) 8 %; Neutrophils # (A) 4.9 k/uL (1.3-7.7); Neutrophils % (A) 67 %; Platelet Count 172 k/uL (150-450); RDW 13.2 % (11.5-15.5); WBC 7.4 k/uL (3.8-10.6)
[2017-06-10 09:25] LABS: INR 1.7 (<1.2); Prothrombin Time 15.5 sec (9.0-12.0)
[2017-06-10 09:47] LABS: Anion Gap 12 mmol/L; Blood Urea Nitrogen 38 mg/dL (7-17); Calcium 9.4 mg/dL (8.4-10.2); Carbon Dioxide 29 mmol/L (22-30); Chloride 102 mmol/L (98-107); Glucose 195 mg/dL (74-99); Potassium 4.2 mmol/L (3.5-5.1); Sodium 143 mmol/L (137-145)
[2017-06-10 12:01] LABS: Glucose,Whole Blood 212 mg/dL (75-99)
--- NOTE | 2017-06-10 13:18 | XR ---
EXAMINATION TYPE: XR chest 2V DATE OF EXAM: 06/10/2017 COMPARISON: 05/31/2017 HISTORY: Shortness of breath TECHNIQUE: Frontal and lateral views of the chest are obtained. FINDINGS: Scattered senescent parenchymal changes noted. Hyperinflation compatible with COPD. Small effusions persist although appear to be improving. Pulmonary venous engorgement without overt f ailure. Heart size is stable. Mediastinal structures are stable and grossly unremarkable. No evidence for hilar prominence. Degenerative changes dorsal spine. IMPRESSION: 1. Small effusions persist although appear to be improving. Pulmonary venous engorgement without over t failure.
[2017-06-10 14:19] VITALS: BMI 16.5
--- NOTE | 2017-06-10 14:49 | P.PN ---
Subjective Progress Note Date: 06/10/17 Principal diagnosis: Bilateral pleural effusions, acute diastolic heart failure, chest pain, hypoxemia Olga Lidia a 72-year-old white female patient Dr. Bradley, who was brought to the emergency room per EMS on 06/06/2017 at 1837 complaints of increased lethargy for the past week, chest discomfort exacerbated by deep inspiration, a headache , hypoxemia, and increasing shortness of breath. She was recently hospitalized at the beginning of May for community acquired right lower lobe pneumonia, possible acute gastritis, symptomatic orthostatic hypotension, hypokalemia, atypical chest pain. Patient was treated with Levaquin, her hypokalemia was corrected, her hypotension improved with midodrine and Florinef, and patient was discharged to the subacute rehab on 05/19/2017. Chest x-ray ablated in the emergency room on 06/06/2017 showed increasing bilateral pleural effusions compared to the previous exam on 05/15/2017, cardiomegaly, no gross heart failure was seen. Bilateral lower lobe pneumonia could not be ruled out. Brain CT completed for the purpose of investigating patient's headache, showed mild atrophy, but no acute intracranial abnormality. EKG showed atrial paced rhythm with a rate of 60 BPM. Patient has been afebrile while inpatient, she has been on supplemental oxygen at 2 L per nasal cannula with O2 sat at 93-96%, he is hypertensive with SBP ranging from 140-170s, and DBP ranging from 70-90 mmHg. Patient's lab work was reviewed, WBC is 4.6, hemoglobin is 13.1, INR is 3.8, serum sodium is 148, potassium was 2.9, CO2 is 35, BUN was 15, creatinine was 0.50. Plasma lactic acid was 1.1, troponins were negative 3, proBNP was 1800, it is down from 2700 from 06/02/2017. Urinalysis was normal. Patient has a past medical history of chronic atrial fibrillation on Coumadin, coronary artery disease status post coronary artery bypass grafting, angina, heart failure, diabetes mellitus, GERD/reflux, hyperlipidemia, hypertension, myocardial infarction, pulmonary embolus, and hypothyroidism. Patient has a permanent pacemaker in place. Most recent echocardiogram from 01/05/2017 showed a normal left ventricular systolic function with an EF between 55-60%, there was mild aortic regurgitation, trace mitral and trace tricuspid regurgitation present. Patient had coronary artery bypass grafting and subsequent percutaneous revascularization of the LAD in 2008 and subsequently in 2011. She had a repeat cardiac catheterization in June 2014 and at that time GRANT to LAD was occluded, with patent [place] LAD, the RCA was totally occluded, SVG to the PDA and diagonal branch of the LAD had mild disease. Medical therapy was recommended at that time. In addition patient had a history of pulmonary embolisms and 2014 following a bowel resection for diverticulitis. She had been on Coumadin therapy ever since. On today's evaluation patient is resting comfortably in bed, she denies any acute distress , she states her chest pain is in the localized spot at the right sternal border , it is very tender to palpation, appears to be a very prominent bony prominence. She denies any dyspnea at the moment, she denied any fever or chills, denied any chest congestion or sputum production. She states this right sternal border chest tenderness has been present for some time, but at times she has episodes of sharp chest pain in the same area at rest, and at times with exertion. As a matter fact she had an acute episode of the same mentioned Right sternal border sharp chest pain during the interview, the patient stopped talking, and was holding her chest for about 10 seconds. The pain then spontaneously resolved and the patient stated she was gallbladder, this was not associated with dyspnea, diaphoresis, nausea. This episode only lasted seconds. EKG in the ER showed atrial paced rhythm with a rate of [address] and T-wave abnormality in leads to 3 aVF V3 V4 V5 and V6. Patient has been initiated on IV Lasix at 40 mg every 8 hours, her potassium is being replaced per protocol, she has a half an inch of nitro glycerin ointment on. Patient is a current smoker, although she has not smoked since she left the hospital and has been staying at the [facility]. She carries a [id number] smoking history, 1-3 packs a day in her younger years, most recently she is down to 6 cigarettes a day. We were consulted in regards to the bilateral pleural effusions, most likely related to her acute diastolic heart failure. On 06/08/2017 patient is seen in follow-up on medical surgical floor. She is resting in bed, appears very fatigued this morning. But denies acute distress. She states she had several more episodes of sternal chest pain since last night. She denies worsening dyspnea, she has been diuresing on oral Lasix 40 mg 3 times a day. He is currently on room air, with a pulse ox of 92%. Afebrile, hemodynamically stable. Lung sounds are positive for coarse bibasilar crackles. Patient is incontinent, so fluid balance is difficult to estimate. She is expected to be seen by cardiology today. From pulmonary standpoint patient appears to be comfortable, and in no respiratory distress, on room air, not requiring supplemental oxygen. We will continue with diuresis , patient's INR was supratherapeutic yesterday at 4.0. We will repeat INR today and on a daily basis. There is a possibility we may have to do a thoracentesis for patient's bilateral pleural effusions once the INR is in the acceptable range and if the patient's not responding to diuretics. On 06/09/2017 patient was seen and examined. She denies any acute distress, denies any dyspnea, currently on 2 L per nasal cannula with O2 sat at 97%. Room air pulse ox is 88%. She may need home oxygen after discharge. Afebrile, lung sounds are positive for bibasilar crackles, yesterday's chest x-ray was reviewed, and there was improvement noted in the aeration in the volume. INR today is 2.0. Patient has been receiving oral Lasix. Cardiology saw the patient in consultation, and her chest pain was felt to be noncardiac in nature. On 06/10/2017 patient seen in follow-up. Denies any dyspnea, patient's lung sounds are clear to auscultation on today's exam. Patient's volume status is improving, she has been diuresing diuretics, her weight is down kilos since admission. Oxygenation has also improved, she is currently 91% on room air, respirations are even and nonlabored, denies any acute distress. She is anticipated to be discharged back to the [facility] today. Objective - Vital Signs Vital signs: Vital Signs Temp 97 F L 06/10/17 07:00 Pulse 60 06/10/17 07:00 Resp 20 06/10/17 07:00 BP 110/58 06/10/17 07:00 Pulse Ox 91 L 06/10/17 11:04 Intake & Output 06/09/17 06/10/17 06/10/17 18:59 06:59 18:59 Intake Total 1080 300 Balance 1080 300 Weight 54.5 kg 46.5 kg 46.5 kg Intake: Oral 1080 300 Other: Voiding Method Diaper Diaper Incontinent Incontinent # Voids 1 2 1 # Bowel Movements 0 0 - Exam Constitutional General appearance: no acute distress, thin - EENT Eyes: edentulous, PERRLA, poor dentition ENT: NA/AT, normal oropharynx Ears: bilateral: normal - Neck Neck: no lymphadenopathy Carotids: bilateral: upstroke normal - Respiratory Respiratory: bilateral: clear - Cardiovascular Rhythm: regular Heart sounds: normal: S1, S2 leg Peripheral Edema: bilateral: None foot Peripheral Edema: bilateral: None - Gastrointestinal General gastrointestinal: no organomegaly, soft, no tenderness - Integumentary Integumentary: normal, normal turgor - Neurologic Neurologic: CNII-XII intact - Musculoskeletal Musculoskeletal: generalized weakness, strength equal bilaterally - Psychiatric Psychiatric: A&O x's 3, appropriate affect, intact judgment & insight - Labs CBC & Chem 7: 06/10/17 08:58 06/10/17 08:58 Labs: Abnormal Lab Results - Last 24 Hours (Table) 06/09/17 06/09/17 06/10/17 Range/Units 16:51 20:41 07:38 PT (9.0-12.0) sec INR (<1.2) BUN (7-17) mg/dL Glucose (74-99) mg/dL POC Glucose (mg/dL) 260 H 293 H 167 H (75-99) mg/dL 06/10/17 06/10/17 06/10/17 Range/Units 08:58 08:58 11:41 PT 15.5 H (9.0-12.0) sec INR 1.7 H (<1.2) BUN 38 H (7-17) mg/dL Glucose 195 H (74-99) mg/dL POC Glucose (mg/dL) 212 H (75-99) mg/dL Microbiology - Last 24 Hours (Table) 06/06/17 19:35 Blood Culture - Preliminary Blood No Growth after 72 hours Assessment and Plan Plan: Assessment: #1. Acute on chronic chest pain, patient has a localized right sternal border chest wall tenderness that is chronic in nature, tender to palpation. She reports intermittent episodes of sharp pain, at rest and sometimes with exertion , lasting a few seconds. Twelve-lead EKG completed in the emergency room showed atrial paced rhythm with a rate of 60 BPM, with nonspecific ST and T wave depression in the Inferior, anterior and lateral leads. Patient was seen in consultation by cardiology who felt that the chest pain is noncardiac in nature. #2. Acute hypoxic respiratory failure secondary to bilateral pleural effusions , most likely related to acute congestive heart failure, diastolic based on the echo results from April 2017 #3. Chronic atrial fibrillation, patient has a permanent pacemaker in place, currently 100% atrial paced with a rate of 60 BPM. Patient is on chronic anticoagulation with Coumadin, with INR at 4.0 on admission #4. Coronary artery disease, status post coronary artery bypass grafting with subsequent percutaneous revascularization. Most recent cardiac catheterization was done in June 2014, which showed GRANT to LAD was occluded, with patent [place] LAD, RCA was totally occluded, SVG to the PDA and diagonal branch of the LAD had mild disease. Most recently dobutamine echo on 01/10/2017 showed abnormal EKG in response to dobutamine, and severe underlying coronary artery disease with suspected #5. Recent hospitalization for community-acquired right lower lobe pneumonia, hypotension, gastroenteritis, and hypokalemia. Patient was treated with Levaquin, hypotension improved with midodrine and Florinef, hypokalemia was corrected, and patient was subsequently discharged to the [facility] on 05/19/2017 #6. Hypokalemia, serum potassium was 2.9, likely related to Florinef #7. Mild hypernatremia, may possibly be related to Florinef. #8. Nicotine dependence, in remission since last hospitalization, carries 60- pack-year smoking history of up to 3 packs a day in her younger years. Most recently down to 6 cigarettes a day. #9. Diabetes mellitus type 2 #10. Hypertension, hyperlipidemia #11. History of myocardial infarction #12. Hypothyroidism #13. History of pulmonary embolisms and 2014 following colon resection for diverticulitis. Patient has been on Coumadin since Plan: Patient responded well to diuretics, patient's weight is down 8 kg since admission. Denies any dyspnea, lung sounds are clear, oxygenation has improved , patient is on room air. She remains stable, her Coumadin can be resumed, her INR today is 1.7. Her BUN is up to 38, creatinine is 0.68, we will decrease the oral Lasix down to 40 mg once daily. From pulmonary standpoint patient is stable for discharge back to [facility] today, she did not require thoracentesis as she responded well to diuretic therapy. I performed a history & physical examination of the patient and discussed their management with my nurse practitioner, Lakeisha Fuentes. I reviewed the nurse practitioner's note and agree with the documented findings and plan of care. Lung sounds are clear. The findings and the impression was discussed with the patient. I attest to the documentation by the nurse practitioner. Time with Patient: Less than 30
[2017-06-11] MEDS ORDERED: FUROSEMIDE 40 MG TAB PO SCH (09:00)
--- NOTE | 2017-06-23 17:14 | CDI ---
Documentation Clarification Form Date: 06/23/2017 12:00:00 AM From: GILBERTO Evangelista; Angela Barone Senior Benefits Analyst Phone: If you have a question about this query, please contact Angela Barone Senior Benefits Analyst at [phone] between 8am and 5pm. Admit Date: 06/06/2017 11:36:00 PM Patient Name: Olga Lidia Donahue Visit Number: [id number] Discharge Date: 06/10/2017 ATTENTION: The Clinical Documentation Specialists (CDI) and [facility] Coding Staff appreciate your assistance in clarifying documentation. Please respond to the clarification below the line at the bottom and electronically sign. The CDI & [facility] Coding staff will review the response and follow-up if needed. Please note: Queries are made part of the Legal Health Record. If you have any questions, please contact the author of this message via ITS. Dr. Darlene Sosa Patient presented in CHF exacerbation. At admission, her BMI was 20. After diuresis, BMI was 16. General appearnce is frail and thin. Dietary Consult: Documented as underweight. Recommend 1500 calorie diet. Total protein; 5.6, albumin 3.4 In your professional opinion, can you please clarify if these findings signify one of the following conditions? Mild Protein Malnutrition Mild Protein-Calorie Malnutrition Moderate Protein Malnutrition Moderate Protein-Calorie Malnutrition Severe Protein Malnutrition Severe Protein-Calorie Malnutrition Malnutrition Underweight Other condition, please specify Unable to determine Mild Protein-Calorie Malnutrition MTDD
== END 2017-06-10 15:45 | DRG 291 ==
LOC: EC 18:37 → 4MS4W 23:36
PROVIDERS: ADMIT Hospitalist; ATTEND Hospitalist
DX: I11.0 Hypertensive heart disease with heart failure (principal); J96.01 Acute respiratory failure with hypoxia; E87.0 Hyperosmolality and hypernatremia; E11.40 Type 2 diabetes mellitus with diabetic neuropathy, unspecified; I08.3 Combined rheumatic disorders of mitral, aortic and tricuspid valves; E44.1 Mild protein-calorie malnutrition; I48.2 Chronic atrial fibrillation; G25.81 Restless legs syndrome; J98.11 Atelectasis; I25.810 Atherosclerosis of coronary artery bypass graft(s) without angina pectoris; Z68.1 Body mass index [BMI] 19.9 or less, adult; I25.82 Chronic total occlusion of coronary artery; M54.9 Dorsalgia, unspecified; E78.5 Hyperlipidemia, unspecified; E87.6 Hypokalemia; E89.0 Postprocedural hypothyroidism; F17.211 Nicotine dependence, cigarettes, in remission; G89.29 Other chronic pain; I25.2 Old myocardial infarction; I50.33 Acute on chronic diastolic (congestive) heart failure; J45.909 Unspecified asthma, uncomplicated; T38.0X5A Adverse effect of glucocorticoids and synthetic analogues, initial encounter; K21.9 Gastro-esophageal reflux disease without esophagitis; R07.89 Other chest pain; R51 Headache; M19.90 Unspecified osteoarthritis, unspecified site; K58.9 Irritable bowel syndrome, unspecified; R32 Unspecified urinary incontinence; R79.1 Abnormal coagulation profile; Z79.01 Long term (current) use of anticoagulants; Z79.899 Other long term (current) drug therapy; Z82.49 Family history of ischemic heart disease and other diseases of the circulatory system; Z82.5 Family history of asthma and other chronic lower respiratory diseases; Z85.21 Personal history of malignant neoplasm of larynx; Z85.850 Personal history of malignant neoplasm of thyroid; Z86.010 Personal history of colon polyps; Z86.711 Personal history of pulmonary embolism; Z87.01 Personal history of pneumonia (recurrent); Z90.49 Acquired absence of other specified parts of digestive tract; Z90.710 Acquired absence of both cervix and uterus; Z91.14 Patient's other noncompliance with medication regimen; Z91.19 Patient's noncompliance with other medical treatment and regimen; Z95.0 Presence of cardiac pacemaker; Z95.1 Presence of aortocoronary bypass graft; Z79.890 Hormone replacement therapy; Z79.891 Long term (current) use of opiate analgesic; Z91.018 Allergy to other foods; Z79.52 Long term (current) use of systemic steroids; Z74.01 Bed confinement status
CPT/HCPCS: 36415; 70450; 71046; 80048; 80053; 81003; 82550; 82553; 83605; 83735; 83880; 84132; 84484; 85025; 85610; 85730; 87040; 93005; 96365; 96366; 96375; 99285

== ENCOUNTER 2017-06-27 16:36 | Inpatient (IN) | payer MEDICARE ==
[2017-06-27] MEDS ORDERED: SODIUM CHLORIDE 0.9% 1,000 ML IV STA (16:44)
--- NOTE | 2017-06-27 16:47 | ED ---
General Adult HPI - General Chief complaint: Weakness Stated complaint: weakness Time Seen by Provider: 06/27/17 16:44 Source: patient, EMS, RN notes reviewed, old records reviewed Mode of arrival: EMS Limitations: no limitations - History of Present Illness Initial comments: This is a 72-year-old female to the ER. Patient was essay for evaluation regards to not feeling well weakness. Patient's poor strain significant clinical condition. Patient denies recent change in medications or new medications. No nausea vomiting, no diarrhea. No fevers. No chest pain shortness of breath headache. Patient states she is so fatigued and weak she was unable to get bed today. No recent travel history no known sick contacts - Related Data Home Medications Medication Instructions Recorded Confirmed traZODone HCL 150 mg PO HS 03/15/17 06/27/17 Gabapentin [Neurontin] 800 mg PO QID 05/08/17 06/27/17 Omeprazole 20 mg PO HS 06/06/17 06/27/17 Potassium Chloride ER [K-Dur 20] 20 meq PO BID 06/06/17 06/27/17 Previous Rx's Medication Instructions Recorded Ipratropium-Albuterol Nebulize 3 ml INHALATION RT-QID ampul.neb 05/16/17 [Duoneb 0.5 mg-3 mg/3 ml Soln] Levothyroxine Sodium [Synthroid] 200 mcg PO DAILY@0630 #30 tab 05/16/17 Diazepam [Valium] 5 mg PO HS@2000 #5 tab 06/09/17 Furosemide [Lasix] 40 mg PO DAILY #0 06/09/17 Metoprolol Tartrate [Lopressor] 25 mg PO BID tab 06/09/17 Warfarin [Coumadin] 2.5 mg PO DAILY@1800 tab 06/09/17 oxyCODONE-APAP 5-325MG [Percocet 1 tab PO TID PRN #20 tab 06/09/17 5-325 mg] Allergies Allergy/AdvReac Type Severity Reaction Status Date / Time peaches AdvReac Nausea & Uncoded 06/27/17 16:46 Vomiting Review of Systems ROS Statement: Those systems with pertinent positive or pertinent negative responses have been documented in the HPI. ROS Other: All systems not noted in ROS Statement are negative. Past Medical History Past Medical History: Atrial Fibrillation, Asthma, Coronary Artery Disease (CAD) , Cancer, Chest Pain / Angina, Heart Failure, Diabetes Mellitus, GERD/Reflux, Hyperlipidemia, Hypertension, Myocardial Infarction (IA), Pulmonary Embolus (PE) , Thyroid Disorder Additional Past Medical History / Comment(s): gastroenteritis. Additional hx: incontinent urine and stool, IBS, hemmorhoids, colonic polyps, R femur acetabular impingement syndrome, UTI with sepsis, DDD, RLS, neuropathy bilateral hands and feet, thyroid cancer with thyroidectomy, diverticulitis, pt takes coumadin for PE's, arthiritis, chronic back pain, laryngeal cancer with surgical removal, syncope Last Myocardial Infarction Date:: 2011 or 2012 per pt History of Any Multi-Drug Resistant Organisms: None Reported Date of last positivie culture/infection: None MDRO Source:: None Past Surgical History: Adenoidectomy, Bladder Surgery, Bowel Resection, Cholecystectomy, Coronary Bypass/CABG, Heart Catheterization With Stent, Hysterectomy, Joint Replacement, Orthopedic Surgery, Pacemaker, Tonsillectomy, Tubal Ligation Additional Past Surgical History / Comment(s): CABG 3 vessel in 2006, cardiac cath with stents 2007 and 2011, pacer 2011, total thyroidectomy, lap [place], total left shoulder, R shoulder arthroscopy, partial colectomy due to diverticulitis, bladder suspension and bladder repair and mesh x 2, rectal wall repair, hysterectomy 1977, laryngeal surgery for cancer, colonoscopy, EGD with bx, nasal deviated septum surgical correction, L knee arthroscopy. Past Anesthesia/Blood Transfusion Reactions: No Reported Reaction Additional Past Anesthesia/Blood Transfusion Reaction / Comment(s): Pt has recieved blood without any reaction. Date of Last Stent Placement:: 2011 Type of Cardiac Device: Permanent Pacemaker Device Placement Date:: 2010 or 2011 in [place], [place] Past Psychological History: No Psychological Hx Reported Smoking Status: Current some day smoker - Past Family History Father Family Medical History: Congestive Heart Failure (CHF), COPD Additional Family Medical History / Comment(s): Father at age 61 yrs of CHF and COPD. Mother Family Medical History: Congestive Heart Failure (CHF), COPD General Exam Limitations: no limitations General appearance: alert, in no apparent distress Head exam: Present: atraumatic, normocephalic, normal inspection Eye exam: Present: normal appearance, PERRL, EOMI. Absent: scleral icterus, conjunctival injection, periorbital swelling ENT exam: Present: normal exam, mucous membranes moist Neck exam: Present: normal inspection. Absent: tenderness, meningismus, lymphadenopathy Respiratory exam: Present: normal lung sounds bilaterally. Absent: respiratory distress, wheezes, rales, rhonchi, stridor Cardiovascular Exam: Present: regular rate, normal rhythm, normal heart sounds. Absent: systolic murmur, diastolic murmur, rubs, gallop, clicks GI/Abdominal exam: Present: soft, normal bowel sounds. Absent: distended, tenderness, guarding, rebound, rigid Extremities exam: Present: normal inspection, full ROM, normal capillary refill. Absent: tenderness, pedal edema, joint swelling, calf tenderness Back exam: Present: normal inspection Neurological exam: Present: alert, oriented X3, CN II-XII intact Psychiatric exam: Present: normal affect, normal mood Skin exam: Present: warm, dry, intact, normal color. Absent: rash Course Vital Signs 06/27/17 06/27/17 16:45 19:19 Temperature 97 F L Pulse Rate 76 85 Respiratory 18 18 Rate Blood Pressure 146/66 122/60 O2 Sat by Pulse 100 100 Oximetry - Reevaluation(s) Reevaluation #1: 06/27/17 19:53 Patient showing no improvement with hydration here in the ER EKG Findings - EKG Comments: EKG Findings:: EKG shows normal sinus rhythm rate of 72, TX 170, QRS 80, QTC 466 Medical Decision Making - Medical Decision Making 72 female the ER for evaluation regarding weakness and inability to ambulate, positive urinary tract infection, severe, will admit for IV antibiotics, resuscitation - Lab Data Result diagrams: 06/27/17 17:28 06/27/17 17:28 Lab Results 06/27/17 06/27/17 06/27/17 Range/Units 17:28 17:28 17:28 WBC 7.0 (3.8-10.6) k/uL RBC 5.07 (3.80-5.40) m/uL Hgb 15.2 (11.4-16.0) gm/dL Hct 43.8 (34.0-46.0) % MCV 86.3 D (80.0-100.0) fL MCH 29.9 (25.0-35.0) pg MCHC 34.7 (31.0-37.0) g/dL RDW 11.8 (11.5-15.5) % Plt Count 238 (150-450) k/uL Neutrophils % 70 % Lymphocytes % 20 % Monocytes % 4 % Eosinophils % 3 % Basophils % 0 % Neutrophils # 4.9 (1.3-7.7) k/uL Lymphocytes # 1.4 (1.0-4.8) k/uL Monocytes # 0.3 (0-1.0) k/uL Eosinophils # 0.2 (0-0.7) k/uL Basophils # 0.0 (0-0.2) k/uL PT (9.0-12.0) sec INR (<1.2) APTT (22.0-30.0) sec Sodium 140 (137-145) mmol/L Potassium 4.3 (3.5-5.1) mmol/L Chloride 100 (98-107) mmol/L Carbon Dioxide 25 (22-30) mmol/L Anion Gap 15 mmol/L BUN 23 H (7-17) mg/dL Creatinine 0.69 (0.52-1.04) mg/dL Est GFR (CKD-EPI)AfAm >90 (>60 ml/min/1.73 sqM) Est GFR (CKD-EPI)NonAf 87 (>60 ml/min/1.73 sqM) Glucose 147 H (74-99) mg/dL Calcium 10.4 H (8.4-10.2) mg/dL Phosphorus 3.7 (2.5-4.5) mg/dL Magnesium 2.0 (1.6-2.3) mg/dL Total Bilirubin 0.9 (0.2-1.3) mg/dL AST 41 H (14-36) U/L ALT 54 H (9-52) U/L Alkaline Phosphatase 149 H (38-126) U/L Total Creatine Kinase 20 L (30-135) U/L CK-MB (CK-2) 0.5 (0.0-2.4) ng/mL CK-MB (CK-2) Rel Index 2.5 Troponin I <0.012 (0.000-0.034) ng/mL Total Protein 6.9 (6.3-8.2) g/dL Albumin 4.1 (3.5-5.0) g/dL Urine Color Urine Appearance (Clear) Urine pH (5.0-8.0) Ur Specific [place] (1.001-1.035) Urine Protein (Negative) Urine Glucose (UA) (Negative) Urine Ketones (Negative) Urine Blood (Negative) Urine Nitrite (Negative) Urine Bilirubin (Negative) Urine Urobilinogen (<2.0) mg/dL Ur Leukocyte Esterase (Negative) Urine RBC (0-5) /hpf Urine WBC (0-5) /hpf Ur Squamous Epith Cells (0-4) /hpf Amorphous Sediment (None) /hpf 06/27/17 06/27/17 Range/Units 17:28 19:10 WBC (3.8-10.6) k/uL RBC (3.80-5.40) m/uL Hgb (11.4-16.0) gm/dL Hct (34.0-46.0) % MCV (80.0-100.0) fL MCH (25.0-35.0) pg MCHC (31.0-37.0) g/dL RDW (11.5-15.5) % Plt Count (150-450) k/uL Neutrophils % % Lymphocytes % % Monocytes % % Eosinophils % % Basophils % % Neutrophils # (1.3-7.7) k/uL Lymphocytes # (1.0-4.8) k/uL Monocytes # (0-1.0) k/uL Eosinophils # (0-0.7) k/uL Basophils # (0-0.2) k/uL PT 17.5 H (9.0-12.0) sec INR 1.9 H (<1.2) APTT 25.8 (22.0-30.0) sec Sodium (137-145) mmol/L Potassium (3.5-5.1) mmol/L Chloride (98-107) mmol/L Carbon Dioxide (22-30) mmol/L Anion Gap mmol/L BUN (7-17) mg/dL Creatinine (0.52-1.04) mg/dL Est GFR (CKD-EPI)AfAm (>60 ml/min/1.73 sqM) Est GFR (CKD-EPI)NonAf (>60 ml/min/1.73 sqM) Glucose (74-99) mg/dL Calcium (8.4-10.2) mg/dL Phosphorus (2.5-4.5) mg/dL Magnesium (1.6-2.3) mg/dL Total Bilirubin (0.2-1.3) mg/dL AST (14-36) U/L ALT (9-52) U/L Alkaline Phosphatase (38-126) U/L Total Creatine Kinase (30-135) U/L CK-MB (CK-2) (0.0-2.4) ng/mL CK-MB (CK-2) Rel Index Troponin I (0.000-0.034) ng/mL Total Protein (6.3-8.2) g/dL Albumin (3.5-5.0) g/dL Urine Color Yellow Urine Appearance Cloudy H (Clear) Urine pH 6.5 (5.0-8.0) Ur Specific [place] 1.019 (1.001-1.035) Urine Protein 1+ H (Negative) Urine Glucose (UA) Negative (Negative) Urine Ketones 1+ H (Negative) Urine Blood Small H (Negative) Urine Nitrite Positive H (Negative) Urine Bilirubin Negative (Negative) Urine Urobilinogen <2.0 (<2.0) mg/dL Ur Leukocyte Esterase Large H (Negative) Urine RBC 6 H (0-5) /hpf Urine WBC 84 H (0-5) /hpf Ur Squamous Epith Cells 3 (0-4) /hpf Amorphous Sediment Occasional H (None) /hpf - Radiology Data Radiology results: report reviewed (Chest x-rays negative for acute disease), image reviewed Disposition Clinical Impression: Acute UTI (urinary tract infection), Dehydration, Weakness Disposition: ADMITTED IP TO THIS [facility] Condition: Fair Is patient prescribed a controlled substance at discharge?: No If prescribed controlled substance>3 days was MAPS reviewed?: No When asked, does pt state using other controlled substances?: No Referrals: Raven Lara MD [Primary Care Provider] - 1-2 days
--- NOTE | 2017-06-27 17:08 | XR ---
EXAMINATION: XR chest 2V DATE AND TIME: 06/27/2017 4:58 PM ORDERING PROVIDER: Fabiano Vasquez DO CLINICAL INDICATION: Weakness TECHNIQUE: PA and lateral COMPARISON: 06/10/2017 DESCRIPTION: Sternal sutures, cardiac pacemaker, and left THR and demonstrate. The lungs are clear. The pleural spaces are negative. The cardiac silhouette is not enlarged. The mediastinal and pleural silhouettes are unremarkable. The skeletal structures are intact without focal findings. The soft tissues are unremarkable. IMPRESSION: NO ACUTE PROCESS.
[2017-06-27 17:38] LABS: Basophils % (A) 0 %; Eosinophils # (A) 0.2 k/uL (0-0.7); Eosinophils % (A) 3 %; HCT 43.8 % (34.0-46.0); HGB 15.2 gm/dL (11.4-16.0); Lymphocytes # (A) 1.4 k/uL (1.0-4.8); Lymphocytes % (A) 20 %; MCH 29.9 pg (25.0-35.0); MCHC 34.7 g/dL (31.0-37.0); Mean Platelet Volume 6.6; Monocytes # (A) 0.3 k/uL (0-1.0); Monocytes % (A) 4 %; Neutrophils # (A) 4.9 k/uL (1.3-7.7); Neutrophils % (A) 70 %; Platelet Count 238 k/uL (150-450); RBC 5.07 m/uL (3.80-5.40); RDW 11.8 % (11.5-15.5)
[2017-06-27 17:44] LABS: MCV 86.3 fL (80.0-100.0)
[2017-06-27 17:46] LABS: INR 1.9 (<1.2); Partial Thromboplastin Time 25.8 sec (22.0-30.0); Prothrombin Time 17.5 sec (9.0-12.0)
[2017-06-27 17:59] LABS: Creatine Kinase 20 U/L (30-135)
[2017-06-27 18:12] LABS: Creatine Kinase MB 0.5 ng/mL (0.0-2.4); Troponin I <0.012 ng/mL (0.000-0.034)
[2017-06-27 18:14] LABS: ALT 54 U/L (9-52); AST 41 U/L (14-36); Albumin 4.1 g/dL (3.5-5.0); Alkaline Phosphatase 149 U/L (38-126); Anion Gap 15 mmol/L; Blood Urea Nitrogen 23 mg/dL (7-17); Calcium 10.4 mg/dL (8.4-10.2); Carbon Dioxide 25 mmol/L (22-30); Chloride 100 mmol/L (98-107); Glucose 147 mg/dL (74-99); Phosphorus 3.7 mg/dL (2.5-4.5); Potassium 4.3 mmol/L (3.5-5.1); Sodium 140 mmol/L (137-145); Total Bilirubin 0.9 mg/dL (0.2-1.3); Total Protein 6.9 g/dL (6.3-8.2)
[2017-06-27 19:34] LABS: Amorphous Sediment,Urine Occasional /hpf; Appearance,Urine Cloudy (Clear); Bilirubin,Urine Negative (Negative); Blood,Urine Small (Negative); Color,Urine Yellow; Glucose,Urine (UA) Negative (Negative); Ketones,Urine 1+ (Negative); Leukocyte Esterase,Urine Large (Negative); Nitrite,Urine Positive (Negative); PH, Urine 6.5 (5.0-8.0); Protein,Urine 1+ (Negative); RBC,Urine 6 /hpf (0-5); Specific Gravity,Urine 1.019 (1.001-1.035); Squamous Epithelial Cell,Urine 3 /hpf (0-4); Urobilinogen,Urine <2.0 mg/dL (<2.0); WBC,Urine 84 /hpf (0-5)
[2017-06-27] MEDS ORDERED: cefTRIAXone 2,000 MG in SODIUM CHLORIDE 0.9% 100 ML IVPB STA (19:52)
[2017-06-27] MEDS ORDERED: cefTRIAXone IN SWFI 2,000 MG/20 ML SYRINGE IVP STA (19:55)
[2017-06-27] MEDS ORDERED: SODIUM CHLORIDE 0.9% 1,000 ML IV ONE (22:09)
[2017-06-27] MEDS ORDERED: DIAZEPAM 5 MG TAB PO PRN (23:56)
[2017-06-28] MEDS: traZODone HCL 50 MG TAB PO SCH ×2 (02:28→21:11)
[2017-06-28] MEDS: oxyCODONE-APAP 5-325MG 1 EACH TAB PO PRN (05:52)
[2017-06-28 07:30] LABS: Glucose,Whole Blood 121 mg/dL (75-99)
[2017-06-28] MEDS ORDERED: ENOXAPARIN 40 MG/0.4 ML SYRINGE SQ SCH (09:00)
[2017-06-28 12:04] LABS: Glucose,Whole Blood 191 mg/dL (75-99)
[2017-06-28] MEDS: GABAPENTIN 400 MG CAP PO SCH ×3 (13:12→21:11)
[2017-06-28 13:55] LABS: Hemoglobin A1C 7.8 % (4.0-6.0)
[2017-06-28] MEDS: FUROSEMIDE 40 MG TAB PO SCH (14:27)
[2017-06-28] MEDS: IPRATROPIUM-ALBUTEROL 3 ML NEB INHALATION SCH ×2 (16:23→19:45)
[2017-06-28 17:26] LABS: Glucose,Whole Blood 183 mg/dL (75-99)
[2017-06-28 17:36] LABS: INR 1.4 (<1.2); Prothrombin Time 13.4 sec (9.0-12.0)
[2017-06-28] MEDS: WARFARIN 2.5 MG TAB PO SCH (17:51)
[2017-06-28 20:29] LABS: Glucose,Whole Blood 181 mg/dL (75-99)
[2017-06-28] MEDS: POTASSIUM CHLORIDE ER 20 MEQ TAB.ER PO SCH (21:11)
[2017-06-28] MEDS: PANTOPRAZOLE 40 MG TABLET PO SCH (21:11)
[2017-06-28] MEDS: METOPROLOL TARTRATE 12.5 MG TAB PO SCH (21:11)
[2017-06-28] MEDS: cefTRIAXone IN SWFI 1,000 MG/10 ML SYRINGE IVP SCH (21:13)
--- NOTE | 2017-06-28 22:23 | HP ---
HISTORY AND PHYSICAL DATE OF SERVICE: 06/28/2017 CHIEF COMPLAINT: Weakness. HISTORY OF PRESENT ILLNESS: This 72-year-old woman with a past medical history of multiple medical problems including diabetes type 2, history of DJD, history of GERD, history of CHF, history of hypoxic respiratory failure being followed by Dr. Lara in the outpatient setting was recently admitted to [facility]. Subsequently patient was sent to [facility] and from [facility] the patient was discharged and the patient home apparently. The patient complaining of severe weakness. The patient came to [facility] and admitted for further evaluation and treatment. The patient has shortness of breath as well. Otherwise there is no evidence of any orthostatic changes. There is no history of fever, rigors or chills. No history of headache, loss of consciousness, seizures. The patient had features of UTI. PAST MEDICAL HISTORY: History of atrial fibrillation, history of CAD, history of CHF, diabetes type 2, GERD, hypertension, hyperlipidemia, history of myocardial infarction and restless legs syndrome. MEDICATIONS: 1. Trazodone 150 mg q.h.s. 2. Percocet 1 tablet p.o. t.i.d. p.r.n. 3. Coumadin 2.5 mg daily. 4. K-Dur 10 mg p.o. b.i.d. 5. Omeprazole 20 mg p.o. q.h.s. 6. Lopressor 25 mg p.o. b.i.d. 7. Synthroid 200 mcg p.o. daily. 8. DuoNeb q.i.d. and p.r.n. 9. Neurontin 800 mg p.o. q.i.d. 10.Lasix 40 mg p.o. daily. 11.Valium 5 mg q.h.s. ALLERGIES: PEACHES. FAMILY HISTORY: History of COPD and CHF. SOCIAL HISTORY: History of smoking on a regular basis. No history of alcohol intake. REVIEW OF SYSTEMS: ENT: Diminished hearing and diminished vision. CARDIOVASCULAR: As mentioned earlier. Respiratory: As mentioned earlier. Respiration as mentioned earlier. GI no nausea or vomiting. no dysuria or hematuria. Nervous system: As mentioned earlier. Allergy/Immunology: No asthma or hay fever. MUSCULOSKELETAL: As mentioned earlier. HEMATOLOGY/ONCOLOGY: No history of anemia. Endocrine: Hypothyroidism. Constitutional: As mentioned earlier. Dermatology: Negative. RHEUMATOLOGY: Negative. PSYCHIATRY: As mentioned earlier. PHYSICAL EXAMINATION: Alert and oriented x3. Pulse 73. Blood pressure 123/76, respiration 18, temperature 99 degrees. Pulse ox 100% on 2 L. HEENT is conjunctivae normal. Oral mucosa moist. Neck is no jugular venous distention. No carotid bruit. No lymph node enlargement. Cardiovascular system: S1, S2 muffled. Respiratory: Breath sounds diminished in the bases. Bilateral scattered rhonchi and crackles. Expiratory wheezing also present. ABDOMEN: Soft, nontender. No mass palpable. Legs no edema. No swelling. Nervous system: Higher functions as mentioned earlier. Moves all 4 limbs. No focal motor or sensory deficits. Lymphatics: No lymph nodes palpable in the neck, axilla or groin. Skin: No ulcer, rash or bleeding. LABS: At this time Accu-Cheks 121, 191, 183, and AST 41, ALT is 54. UA noted. ASSESSMENT: 1. Acute urinary tract infection. 2. Dehydration. 3. Weakness present on admission. 4. History of recent chest pains possibly noncardiac. 5. History of congestive heart failure with chronic diastolic dysfunction. 6. History of recent pneumonia. 7. History of coronary artery disease, coronary artery bypass grafting, stent. 8. History of chronic atrial fibrillation with permanent pacemaker. 9. Coumadin monitoring. 10.Hypertension. 11.Hypokalemia. 12.Diabetes type 2. 13.History of degenerative joint disease. 14.History restless legs syndrome. 15.History of gastroesophageal reflux disease. 16.Gait dysfunction. RECOMMENDATIONS AND DISCUSSION: In this 72-year-old woman who presented with multiple complex medical issues, we will monitor the patient closely, continue the current medications, continue symptomatic treatment. We will will initiate broad-spectrum IV antibiotics. I would also recommend orthostatic vitals and I would also recommend DVT prophylaxis to be continued and monitor PT/INR. Urine culture, PT/OT evaluation. home health care worker to evaluate the home situation. The overall prognosis guarded because of multiple complex medical issues. Further recommendations to follow. A copy of dictation being forwarded to Dr. Lara who is the primary physician. MMODL / IJN: [id number] /
[2017-06-29] MEDS: LEVOTHYROXINE 100 MCG TAB PO SCH (06:43)
[2017-06-29] MEDS: IPRATROPIUM-ALBUTEROL 3 ML NEB INHALATION SCH ×4 (07:19→19:16)
[2017-06-29 07:22] LABS: Glucose,Whole Blood 134 mg/dL (75-99)
[2017-06-29] MEDS: GABAPENTIN 400 MG CAP PO SCH ×4 (08:38→21:58)
[2017-06-29] MEDS: FUROSEMIDE 40 MG TAB PO SCH (08:38)
[2017-06-29] MEDS: POTASSIUM CHLORIDE ER 20 MEQ TAB.ER PO SCH ×2 (08:39→21:58)
[2017-06-29] MEDS: oxyCODONE-APAP 5-325MG 1 EACH TAB PO PRN (08:39)
[2017-06-29] MEDS: METOPROLOL TARTRATE 12.5 MG TAB PO SCH ×2 (08:39→21:58)
[2017-06-29 09:06] LABS: Basophils % (A) 0 %; Eosinophils # (A) 0.2 k/uL (0-0.7); Eosinophils % (A) 5 %; HGB 13.1 gm/dL (11.4-16.0); Lymphocytes # (A) 1.6 k/uL (1.0-4.8); Lymphocytes % (A) 32 %; MCH 29.7 pg (25.0-35.0); MCHC 34.4 g/dL (31.0-37.0); MCV 86.2 fL (80.0-100.0); Mean Platelet Volume 6.9; Monocytes # (A) 0.3 k/uL (0-1.0); Monocytes % (A) 6 %; Neutrophils # (A) 2.6 k/uL (1.3-7.7); Neutrophils % (A) 54 %; Platelet Count 213 k/uL (150-450); RBC 4.41 m/uL (3.80-5.40); RDW 11.9 % (11.5-15.5); WBC 4.9 k/uL (3.8-10.6)
[2017-06-29 09:12] LABS: INR 1.2 (<1.2); Prothrombin Time 11.7 sec (9.0-12.0)
[2017-06-29 09:38] LABS: Anion Gap 13 mmol/L; Blood Urea Nitrogen 17 mg/dL (7-17); Calcium 9.6 mg/dL (8.4-10.2); Carbon Dioxide 25 mmol/L (22-30); Chloride 104 mmol/L (98-107); Glucose 135 mg/dL (74-99); Sodium 142 mmol/L (137-145)
[2017-06-29 11:51] LABS: Glucose,Whole Blood 155 mg/dL (75-99)
[2017-06-29 16:58] LABS: Glucose,Whole Blood 126 mg/dL (75-99)
[2017-06-29] MEDS: WARFARIN 2.5 MG TAB PO SCH (17:46)
[2017-06-29 20:05] LABS: Glucose,Whole Blood 144 mg/dL (75-99)
[2017-06-29] MEDS: traZODone HCL 50 MG TAB PO SCH (21:58)
[2017-06-29] MEDS: PANTOPRAZOLE 40 MG TABLET PO SCH (21:58)
[2017-06-29] MEDS: cefTRIAXone IN SWFI 1,000 MG/10 ML SYRINGE IVP SCH (22:04)
[2017-06-30] MEDS: LEVOTHYROXINE 100 MCG TAB PO SCH (06:51)
[2017-06-30 07:25] LABS: Glucose,Whole Blood 134 mg/dL (75-99)
[2017-06-30] MEDS: POTASSIUM CHLORIDE ER 20 MEQ TAB.ER PO SCH ×2 (08:46→20:12)
[2017-06-30] MEDS: METOPROLOL TARTRATE 12.5 MG TAB PO SCH ×2 (08:46→20:12)
[2017-06-30] MEDS: GABAPENTIN 400 MG CAP PO SCH ×5 (08:46→23:38)
[2017-06-30] MEDS: FUROSEMIDE 40 MG TAB PO SCH (08:46)
[2017-06-30] MEDS: IPRATROPIUM-ALBUTEROL 3 ML NEB INHALATION SCH ×4 (08:58→20:33)
[2017-06-30 09:26] LABS: Basophils % (A) 0 %; Eosinophils # (A) 0.3 k/uL (0-0.7); Eosinophils % (A) 6 %; HCT 38.3 % (34.0-46.0); HGB 12.8 gm/dL (11.4-16.0); Lymphocytes # (A) 1.7 k/uL (1.0-4.8); Lymphocytes % (A) 38 %; MCH 29.2 pg (25.0-35.0); MCHC 33.4 g/dL (31.0-37.0); MCV 87.5 fL (80.0-100.0); Mean Platelet Volume 7.2; Monocytes # (A) 0.3 k/uL (0-1.0); Monocytes % (A) 7 %; Neutrophils % (A) 47 %; Platelet Count 203 k/uL (150-450); RBC 4.38 m/uL (3.80-5.40); RDW 12.2 % (11.5-15.5); WBC 4.3 k/uL (3.8-10.6)
[2017-06-30 09:29] LABS: INR 1.4 (<1.2); Prothrombin Time 12.8 sec (9.0-12.0)
[2017-06-30 09:58] LABS: Anion Gap 11 mmol/L; Blood Urea Nitrogen 17 mg/dL (7-17); Calcium 9.6 mg/dL (8.4-10.2); Carbon Dioxide 28 mmol/L (22-30); Chloride 103 mmol/L (98-107); Glucose 144 mg/dL (74-99); Potassium 4.4 mmol/L (3.5-5.1); Sodium 142 mmol/L (137-145)
--- NOTE | 2017-06-30 09:58 | P.PN ---
Subjective Progress Note Date: 06/30/17 Progress note being dictated for Dr. Sosa. Interval history: This is a 72-year-old female admitted with acute UTI, dehydration, generalized weakness and multiple medical issues. Retained on IV antibiotics. Urine culture pending. 2 person assist ,Evaluated by PT/OT and subacute rehab recommended at discharge. T-max 99, normal WBC. INR 1.2 blood sugars controlled.. Objective - Vital Signs Vital signs: Vital Signs Temp 97.4 F L 06/29/17 06:03 Pulse 60 06/29/17 06:03 Resp 16 06/29/17 06:03 BP 110/61 06/29/17 06:03 Pulse Ox 93 L 06/29/17 06:03 Intake & Output 06/28/17 06/29/17 06/29/17 18:59 06:59 18:59 Weight 57 kg Other: # Voids 3 2 # Bowel Movements 1 0 - Exam PHYSICAL EXAM: VITAL SIGNS: As above GENERAL: Sitting up in bed, no acute distress HEENT: Conjunctivae normal. eyes normal. Oral mucosa normal NECK: No JVD. No thyroid enlargement. No LNs CARDIOVASCULAR: S1, S2 muffled. No murmur RESPIRATION: Breath sounds diminished in the bases. Scattered rhonchi and crackles. Expiratory wheezing ABDOMEN: Soft, nontender . No guarding. no masses palpable. No ascites,Bowel sounds heard. LEGS: No edema. no swelling PSYCHIATRY: Alert and oriented -3, mood and affect normal. Cooperative NERVOUS SYSTEM: Cranial N 2-12 grossly normal. Moves all 4 limbs. Diffuse weakness No focal deficits. Lymphatic system. No LN neck axilla or groin. - Labs CBC & Chem 7: 06/30/17 08:56 06/29/17 08:24 Labs: Abnormal Lab Results - Last 24 Hours (Table) 06/27/17 06/28/17 06/28/17 Range/Units 17:28 12:01 17:20 PT 13.4 H (9.0-12.0) sec INR 1.4 H (<1.2) POC Glucose (mg/dL) 191 H (75-99) mg/dL Hemoglobin A1c 7.8 H (4.0-6.0) % 06/28/17 06/28/17 06/29/17 Range/Units 17:23 20:28 07:17 PT (9.0-12.0) sec INR (<1.2) POC Glucose (mg/dL) 183 H 181 H 134 H (75-99) mg/dL Hemoglobin A1c (4.0-6.0) % 06/29/17 Range/Units 08:24 PT (9.0-12.0) sec INR 1.2 H (<1.2) POC Glucose (mg/dL) (75-99) mg/dL Hemoglobin A1c (4.0-6.0) % Microbiology - Last 24 Hours (Table) 06/27/17 19:10 Urine Culture - Preliminary Urine,Catheterized Presumptive Staph aureus Assessment and Plan Assessment: 1 acute UTI, culture pending 2. Dehydration 3. Weakness, present on admission, in a patient with gait dysfunction, degenerative joint disease 4. Recent chest pain, possibly noncardiac 5 chronic congestive heart failure with diastolic dysfunction 6. Recent pneumonia 7. CAD, history of CABG, stent 8. Chronic atrial fibrillation with permanent pacemaker 9. Coumadin monitoring 10. Diabetes mellitus type 2 11. Restless leg syndrome 12. Hypertension Plan: Continue current medication regime ,monitoring and symptomatic treatment. Maintain IV antibiotics, await urine culture results. PT/OT. Discharge planning in progress for tomorrow to subacute rehab. Further recommendations to follow. The impression and plan of care has been dictated as directed. : I performed a history and examination of this patient, discussed the same with the dictator. I agree with the dictator's note ,documented as a scribe. Any additional findings or plans will be noted.
[2017-06-30] MEDS ORDERED: VANCOMYCIN 1,250 MG in SODIUM CHLORIDE 0.9% 250 ML IVPB ONE (10:45)
[2017-06-30] MEDS ORDERED: VANCOMYCIN IV PER PHARMACY 1 EACH MISC MISCELLANE ONE (11:00)
[2017-06-30 11:25] VITALS: BMI 20.5
[2017-06-30 12:39] LABS: Glucose,Whole Blood 185 mg/dL (75-99)
--- NOTE | 2017-06-30 16:16 | CONS ---
CONSULTATION DATE OF SERVICE: 06/30/2017 REASON FOR CONSULTATION: MRSA urinary tract infection. HISTORY OF PRESENT ILLNESS: The patient is a 72-year-old female who was brought into the ER at [facility] on 06/27/2017 for evaluation of not feeling well and weakness, overall poor condition, low appetite. No clear history of any nausea or vomiting. Remains to be very fatigued and weak and unable to get out of the bed. The patient subsequently has been evaluated by the ER physician. Workup in the ER, including a UA that was positive with cloudy urine, large leukocyte esterase with 84 WBC. White count was normal though and electrolytes and kidney function were normal. She got the diagnosis of urinary tract infection, admitted to the hospital, started on the Rocephin. With the urine cultures coming back positive with MRSA this morning, requested an infectious disease consultation. The patient at the time of my evaluation this morning remains to be a very poor historian. When asked specifically, she complained of feeling weak and tired. When asked about any urinary symptoms, she says I have UTI, but would not elaborate any specific urinary symptom of any burning or frequency. When asked specifically, she denies having any nausea, no vomiting. Did mention no appetite and no diarrhea. REVIEW OF SYSTEMS: Could not be reliably obtained because underlying medical conditions, but the positive points mentioned in HPI. PAST MEDICAL HISTORY: Significant for atrial fibrillation, asthma, coronary artery disease, diabetes mellitus, gastroesophageal reflux disease, hypertension, hyperlipidemia, pulmonary embolism, hypothyroidism, gastritis. PAST SURGICAL HISTORY: Adenoidectomy, bladder surgery, bowel resection, cholecystectomy, coronary artery bypass grafting, PTCA with stent, hysterectomy, tubal ligation, coronary artery bypass grafting. SOCIAL HISTORY: Positive for smoking. No drinking or drug use. FAMILY HISTORY: Father has congestive heart failure. Mother history of COPD. ALLERGIES: No known drug allergies. MEDICATIONS: The patient is currently on DuoNeb, Valium, Lasix, Neurontin, Synthroid, Lopressor, Percocet, Protonix, K-Dur, Desyrel, Rocephin 1 mg daily and Coumadin. EXAMINATION: Blood pressure 128/60 with a pulse of 81, temperature 98. She is 98% on room air. General description is an elderly female, lying in bed in no distress. No tachypnea or muscles of respiration use. HEENT: Shows no pallor or scleral icterus. Oral mucosa is dry. NECK: Trachea central. No thyromegaly. LUNGS: Unlabored breathing. Clear to auscultation anteriorly. No wheeze or crackle. HEART: S1, S2. Regular rate and rhythm. ABDOMEN: Soft, no tenderness. No guarding, no rigidity. EXTREMITIES: No edema of the feet. SKIN EXAMINATION: No rash or mass palpable. NEUROLOGICAL: Patient is awake, alert, oriented x3. Mood and affect normal. LABS: Hemoglobin is 12.8, white count 4.3, BUN of 17, creatinine 0.76. Electrolytes has been normal. Urine is positive with large leukocyte esterases. Culture with MRSA, grew 100,000 colonies. Repeat blood culture to be done on this admission. DIAGNOSTIC IMPRESSION AND PLAN: Patient presented to the hospital with generalized weakness, no energy and the patient does have significant positive urinalysis. It is very hard to get any significant symptomatology from this patient. Presenting with a mild cystitis versus a maria l colonization not entirely excluded. PLAN: 1. Discontinue the Rocephin. 2. We will get a straight cath UA and cultures as the patient has incontinence of urine and it is very hard to get a clean-catch sample on her per the RN. 3. If the clean-catch sample is negative, we may consider discontinuation of antibiotic. However, if positive, may consider short course of oral Bactrim DS 1 b.i.d. for about 3-5 days with monitoring of her creatinine. In the meantime she will be started on vancomycin with the blood culture being before given the 1st dose of vancomycin. Case discussed in detail with nurse practitioner of admitting team as well as the RN. SARMAD / MARYN: [id number] /
[2017-06-30 17:25] LABS: Appearance,Urine Cloudy (Clear); Bilirubin,Urine Negative (Negative); Blood,Urine Small (Negative); Color,Urine Light Yellow; Glucose,Urine (UA) Negative (Negative); Hyaline Casts,Urine 3 /lpf (0-2); Ketones,Urine Negative (Negative); Leukocyte Esterase,Urine Large (Negative); Mucus,Urine Rare /hpf; Nitrite,Urine Negative (Negative); Protein,Urine Negative (Negative); RBC,Urine 7 /hpf (0-5); Specific Gravity,Urine 1.007 (1.001-1.035); Squamous Epithelial Cell,Urine 1 /hpf (0-4); Urobilinogen,Urine <2.0 mg/dL (<2.0); WBC,Urine 125 /hpf (0-5)
[2017-06-30 17:36] LABS: Glucose,Whole Blood 200 mg/dL (75-99)
[2017-06-30] MEDS: WARFARIN 2.5 MG TAB PO SCH (18:00)
--- NOTE | 2017-06-30 18:16 | P.PN ---
Subjective Progress Note Date: 06/30/17 Progress note being dictated for Dr. Sosa. Interval history: This is a 72-year-old female admitted with acute UTI, dehydration, generalized weakness and multiple medical issues. Retained on IV antibiotics. Urine culture pending. 2 person assist ,Evaluated by PT/OT and subacute rehab recommended at discharge. T-max 99, normal WBC. INR 1.2 blood sugars controlled.. 06/30/17 urine culture now reporting MRSA, infectious disease consulted. Clean catch UA reporting large leukocytes and elevated WBCs. Vancomycin initiated. INR 1.4. Mumbles, confused at times. Objective - Vital Signs Vital signs: Vital Signs Temp 98.3 F 06/30/17 16:24 Pulse 71 06/30/17 16:24 Resp 20 06/30/17 16:24 BP 139/66 06/30/17 16:24 Pulse Ox 96 06/30/17 16:24 Intake & Output 06/29/17 06/30/17 06/30/17 18:59 06:59 18:59 Intake Total 240 200 450 Balance 240 200 450 Weight 57.5 kg 57.5 kg Intake: IV 250 Vancomycin 1,000 mg In 250 Sodium Chloride 0.9% 250 ml @ 125 mls/hr IVPB Q12H [facility] Rx#:[id number] Oral 240 200 200 Other: # Voids 4 1 # Bowel Movements 0 0 - Exam PHYSICAL EXAM: VITAL SIGNS: As above GENERAL: Sitting up in bed, no acute distress, mumbling HEENT: Conjunctivae normal. eyes normal. Oral mucosa normal NECK: No JVD. No thyroid enlargement. No LNs CARDIOVASCULAR: S1, S2 muffled. No murmur RESPIRATION: Breath sounds diminished in the bases. Scattered rhonchi and crackles. Expiratory wheezing ABDOMEN: Soft, nontender . No guarding. no masses palpable. No ascites,Bowel sounds heard. LEGS: No edema. no swelling PSYCHIATRY: Alert and oriented -3, mood and affect normal. Cooperative, bouts of confusion at times NERVOUS SYSTEM: Cranial N 2-12 grossly normal. Moves all 4 limbs. Diffuse weakness No focal deficits. Lymphatic system. No LN neck axilla or groin. - Labs CBC & Chem 7: 06/30/17 08:56 06/30/17 08:56 Labs: Abnormal Lab Results - Last 24 Hours (Table) 06/29/17 06/30/17 06/30/17 Range/Units 20:03 07:20 08:56 PT 12.8 H (9.0-12.0) sec INR 1.4 H (<1.2) Glucose (74-99) mg/dL POC Glucose (mg/dL) 144 H 134 H (75-99) mg/dL Urine Appearance (Clear) Urine Blood (Negative) Ur Leukocyte Esterase (Negative) Urine RBC (0-5) /hpf Urine WBC (0-5) /hpf Hyaline Casts (0-2) /lpf Urine Mucus (None) /hpf 06/30/17 06/30/17 06/30/17 Range/Units 08:56 12:35 16:58 PT (9.0-12.0) sec INR (<1.2) Glucose 144 H (74-99) mg/dL POC Glucose (mg/dL) 185 H 200 H (75-99) mg/dL Urine Appearance (Clear) Urine Blood (Negative) Ur Leukocyte Esterase (Negative) Urine RBC (0-5) /hpf Urine WBC (0-5) /hpf Hyaline Casts (0-2) /lpf Urine Mucus (None) /hpf 06/30/17 Range/Units 17:07 PT (9.0-12.0) sec INR (<1.2) Glucose (74-99) mg/dL POC Glucose (mg/dL) (75-99) mg/dL Urine Appearance Cloudy H (Clear) Urine Blood Small H (Negative) Ur Leukocyte Esterase Large H (Negative) Urine RBC 7 H (0-5) /hpf Urine WBC 125 H (0-5) /hpf Hyaline Casts 3 H (0-2) /lpf Urine Mucus Rare H (None) /hpf Microbiology - Last 24 Hours (Table) 06/27/17 19:10 Urine Culture - Final Urine,Catheterized Methicillin resist S. aureus Assessment and Plan Assessment: 1 acute UTI, MRSA 2. Dehydration 3. Weakness, present on admission, in a patient with gait dysfunction, degenerative joint disease 4. Recent chest pain, possibly noncardiac 5 chronic congestive heart failure with diastolic dysfunction 6. Recent pneumonia 7. CAD, history of CABG, stent 8. Chronic atrial fibrillation with permanent pacemaker 9. Coumadin monitoring 10. Diabetes mellitus type 2 11. Restless leg syndrome 12. Hypertension Plan: Continue current medication regime ,monitoring and symptomatic treatment. Maintain IV antibiotics. Infectious disease consulted. PT/OT. Discharge planning in progress for subacute rehab, pending precert. Further recommendations to follow. The impression and plan of care has been dictated as directed. : I performed a history and examination of this patient, discussed the same with the dictator. I agree with the dictator's note ,documented as a scribe. Any additional findings or plans will be noted.
[2017-06-30] MEDS: traZODone HCL 50 MG TAB PO SCH (20:12)
[2017-06-30] MEDS: PANTOPRAZOLE 40 MG TABLET PO SCH (20:12)
[2017-06-30 21:13] LABS: Glucose,Whole Blood 204 mg/dL (75-99)
[2017-07-01] MEDS: VANCOMYCIN 1,000 MG in SODIUM CHLORIDE 0.9% 250 ML IVPB SCH ×2 (00:31→11:18)
[2017-07-01 06:11] VITALS: PULSE 61
[2017-07-01] MEDS: LEVOTHYROXINE 100 MCG TAB PO SCH (06:33)
[2017-07-01] MEDS: IPRATROPIUM-ALBUTEROL 3 ML NEB INHALATION SCH ×3 (09:03→16:22)
[2017-07-01] MEDS: POTASSIUM CHLORIDE ER 20 MEQ TAB.ER PO SCH (09:09)
[2017-07-01] MEDS: FUROSEMIDE 40 MG TAB PO SCH (09:09)
[2017-07-01] MEDS: METOPROLOL TARTRATE 12.5 MG TAB PO SCH (09:09)
[2017-07-01] MEDS: GABAPENTIN 400 MG CAP PO SCH ×3 (09:09→17:27)
[2017-07-01 12:06] LABS: Glucose,Whole Blood 163 mg/dL (75-99)
--- NOTE | 2017-07-01 12:39 | P.DS ---
Providers Date of admission: 06/27/17 19:53 Expected date of discharge: 07/01/17 Attending physician: Darlene Sosa Consults: 06/30/17 09:40 Consult Physician Routine Consulting Provider: Jhony Lee Consult Reason/Comments: MRSA UTI Do you want consulting provider notified?: Yes Primary care physician: Jane Carbajal [facility] Course: Final Diagnoses: 1 acute UTI, MRSA 2. Dehydration 3. Weakness, present on admission, in a patient with gait dysfunction, degenerative joint disease 4. Recent chest pain, possibly noncardiac 5 chronic congestive heart failure with diastolic dysfunction 6. Recent pneumonia 7. CAD, history of CABG, stent 8. Chronic atrial fibrillation with permanent pacemaker 9. Coumadin monitoring 10. Diabetes mellitus type 2 11. Restless leg syndrome 12. Hypertension Hospital course: This is a 72-year-old female admitted with acute UTI, dehydration, generalized weakness and multiple medical issues. Maintained on IV antibiotics. Urine culture reporting MRSA. Evaluated by infectious disease , follow-up urine culture pending. Significant clinical improvement. Patient has been cleared for discharge by infectious disease. Patient is being discharged to [facility] subacute rehab in a stable condition with guarded prognosis. Physical Exam:VSS, alert and oriented 3, no acute distress.CV: Regular S1 and S2.LUNGS: Bilateral bases diminished, scattered rhonchi and crackles, occasional expiratory wheeze. ABD: Soft, nontender, positive bowel sounds.Nervous SYS: No focal deficits The impression and plan of care has been dictated as directed. : I performed a history and examination of this patient, discussed the same with the dictator. I agree with the dictator's note ,documented as a scribe. Any additional findings or plans will be noted. Time taken: 35 minutes Patient Condition at Discharge: Stable Plan - Discharge Summary Discharge Rx Participant: No New Discharge Prescriptions: New Sulfamethox-Tmp 800-160Mg [Bactrim DS 800-160 mg] 1 tab PO Q12HR #10 tab Gabapentin [Neurontin] 400 mg PO QID cap Metoprolol Tartrate [Lopressor] 12.5 mg PO BID tab Continue traZODone HCL 150 mg PO HS Levothyroxine Sodium [Synthroid] 200 mcg PO DAILY@0630 #30 tab Ipratropium-Albuterol Nebulize [Duoneb 0.5 mg-3 mg/3 ml Soln] 3 ml INHALATION RT-QID ampul.neb Omeprazole 20 mg PO HS Potassium Chloride ER [K-Dur 20] 20 meq PO BID Warfarin [Coumadin] 2.5 mg PO DAILY@1800 tab Furosemide [Lasix] 40 mg PO DAILY #0 Diazepam [Valium] 5 mg PO HS@2000 #5 tab oxyCODONE-APAP 5-325MG [Percocet 5-325 mg] 1 tab PO TID PRN #9 tab PRN Reason: Pain Discontinued Gabapentin [Neurontin] 800 mg PO QID Metoprolol Tartrate [Lopressor] 25 mg PO BID tab Discharge Medication List traZODone HCL 150 mg PO HS 03/15/17 [History] Ipratropium-Albuterol Nebulize [Duoneb 0.5 mg-3 mg/3 ml Soln] 3 ml INHALATION RT -QID ampul.neb 05/16/17 [Rx] Levothyroxine Sodium [Synthroid] 200 mcg PO DAILY@0630 #30 tab 05/16/17 [Rx] Omeprazole 20 mg PO HS 06/06/17 [History] Potassium Chloride ER [K-Dur 20] 20 meq PO BID 06/06/17 [History] Furosemide [Lasix] 40 mg PO DAILY #0 06/09/17 [Rx] Warfarin [Coumadin] 2.5 mg PO DAILY@1800 tab 06/09/17 [Rx] Diazepam [Valium] 5 mg PO HS@2000 #5 tab 07/01/17 [Rx] Gabapentin [Neurontin] 400 mg PO QID cap 07/01/17 [Rx] Metoprolol Tartrate [Lopressor] 12.5 mg PO BID tab 07/01/17 [Rx] Sulfamethox-Tmp 800-160Mg [Bactrim DS 800-160 mg] 1 tab PO Q12HR #10 tab [Rx] oxyCODONE-APAP 5-325MG [Percocet 5-325 mg] 1 tab PO TID PRN #9 tab 07/01/17 [Rx] Follow up Appointment(s)/Referral(s): Raven Lara MD [Primary Care Provider] - 1 Week (After being discharged from subacute rehab) Sandro Maciel MD [STAFF PHYSICIAN] - 3 Days (While at [facility]) [facility], [NON-STAFF] - Patient Instructions/Handouts: Urinary Tract Infection in Women (DC) Activity/Diet/Wound Care/Special Instructions: INR pending NO smoking, cessation information provided. Cardiac diet. Heart failure folder given to patient. Fall precautions. Activity as tolerated. Follow-up urine culture pending cbc,bmp in 3 days Daily Pt, INR
[2017-07-01] MEDS: oxyCODONE-APAP 5-325MG 1 EACH TAB PO PRN (13:48)
[2017-07-01 15:06] VITALS: BP 112/63; RESP 16; TEMP 97.8
--- NOTE | 2017-07-01 15:14 | PN ---
PROGRESS NOTE DATE OF SERVICE: 07/01/2017. REASON FOR FOLLOWUP: MRSA urinary tract infection. INTERVAL HISTORY: The patient is afebrile. He is breathing comfortably. Denies having any chest pain, shortness of breath, cough. No abdominal pain. Urinary symptoms have improved. EXAMINATION: Blood pressure 114/61 with a pulse of 51, temperature 97. She is 95% on room air. General description is an elderly female lying in bed in no distress. RESPIRATORY SYSTEM: Unlabored breathing. Clear to auscultation anteriorly. HEART: S1, S2. Regular rate and rhythm. ABDOMEN: Soft, no tenderness. LABS: Repeat urine is still positive with straight catheterization with large ascites with 195 WBCs. DIAGNOSTIC IMPRESSION AND PLAN: Patient with symptomatic urinary tract infection, urine positive for MRSA. She will be given a 5 day course of oral Bactrim DS with close evaluation of her kidney function. Continue supportive care. MMODL / IJN: [id number] /
[2017-07-01] MEDS: WARFARIN 2.5 MG TAB PO SCH (17:27)
== END 2017-07-01 18:40 | DRG 690 ==
LOC: EC 16:36 → 4MS4W 19:53
PROVIDERS: ADMIT Hospitalist; ATTEND Hospitalist
DX: N39.0 Urinary tract infection, site not specified (principal); I48.2 Chronic atrial fibrillation; B95.62 Methicillin resistant Staphylococcus aureus infection as the cause of diseases classified elsewhere; E11.9 Type 2 diabetes mellitus without complications; I11.0 Hypertensive heart disease with heart failure; E78.5 Hyperlipidemia, unspecified; I50.32 Chronic diastolic (congestive) heart failure; E86.0 Dehydration; E87.6 Hypokalemia; E89.0 Postprocedural hypothyroidism; F17.200 Nicotine dependence, unspecified, uncomplicated; G25.81 Restless legs syndrome; I25.10 Atherosclerotic heart disease of native coronary artery without angina pectoris; I25.2 Old myocardial infarction; Z95.0 Presence of cardiac pacemaker; J45.909 Unspecified asthma, uncomplicated; K21.9 Gastro-esophageal reflux disease without esophagitis; K58.9 Irritable bowel syndrome, unspecified; M19.90 Unspecified osteoarthritis, unspecified site; Z79.01 Long term (current) use of anticoagulants; Z82.49 Family history of ischemic heart disease and other diseases of the circulatory system; Z82.5 Family history of asthma and other chronic lower respiratory diseases; Z85.21 Personal history of malignant neoplasm of larynx; Z85.850 Personal history of malignant neoplasm of thyroid; Z86.010 Personal history of colon polyps; Z86.711 Personal history of pulmonary embolism; Z87.01 Personal history of pneumonia (recurrent); Z90.710 Acquired absence of both cervix and uterus; Z95.1 Presence of aortocoronary bypass graft; Z95.5 Presence of coronary angioplasty implant and graft; Z79.890 Hormone replacement therapy; Z79.899 Other long term (current) drug therapy; Z91.018 Allergy to other foods
CPT/HCPCS: 36415; 71046; 80048; 80053; 81001; 82550; 82553; 83036; 83735; 84100; 84484; 85025; 85610; 85730; 87040; 87077; 87086; 87186; 93005; 94760; 96361; 96374; 99285

== ENCOUNTER 2017-07-20 18:31 | Inpatient (IN) | payer MEDICARE ==
[2017-07-20] MEDS ORDERED: ONDANSETRON 4 MG/2 ML VIAL IVP STA (18:54)
[2017-07-20] MEDS ORDERED: SODIUM CHLORIDE 0.9% 1,000 ML IV ONE (18:54)
[2017-07-20] MEDS ORDERED: SODIUM CHLORIDE 0.9% 1,000 ML IV STA ×2 (18:54)
[2017-07-20] MEDS ORDERED: PANTOPRAZOLE 40 MG/10 ML VIAL IVP STA (18:54)
[2017-07-20] MEDS ORDERED: ONDANSETRON 4 MG/2 ML VIAL IVP PRN (18:56)
[2017-07-20 19:14] LABS: Basophils % (A) 0 %; Eosinophils # (A) 0.2 k/uL (0-0.7); Eosinophils % (A) 3 %; HCT 35.1 % (34.0-46.0); HGB 11.9 gm/dL (11.4-16.0); Lymphocytes # (A) 1.6 k/uL (1.0-4.8); Lymphocytes % (A) 26 %; MCH 29.1 pg (25.0-35.0); MCV 85.5 fL (80.0-100.0); Monocytes # (A) 0.5 k/uL (0-1.0); Monocytes % (A) 8 %; Neutrophils # (A) 3.9 k/uL (1.3-7.7); Neutrophils % (A) 62 %; Platelet Count 209 k/uL (150-450); RBC 4.11 m/uL (3.80-5.40); RDW 12.8 % (11.5-15.5); WBC 6.3 k/uL (3.8-10.6)
[2017-07-20 19:22] LABS: INR 3.3 (<1.2); Partial Thromboplastin Time 31.9 sec (22.0-30.0); Prothrombin Time 29.8 sec (9.0-12.0)
[2017-07-20 19:30] LABS: ALT 31 U/L (9-52); AST 21 U/L (14-36); Albumin 3.3 g/dL (3.5-5.0); Alkaline Phosphatase 125 U/L (38-126); Anion Gap 15 mmol/L; Blood Urea Nitrogen 18 mg/dL (7-17); Calcium 9.3 mg/dL (8.4-10.2); Carbon Dioxide 25 mmol/L (22-30); Chloride 103 mmol/L (98-107); Glucose 216 mg/dL (74-99); Lipase 86 U/L (23-300); Magnesium 1.6 mg/dL (1.6-2.3); Potassium 3.9 mmol/L (3.5-5.1); Sodium 143 mmol/L (137-145); Total Bilirubin 0.3 mg/dL (0.2-1.3); Total Protein 5.5 g/dL (6.3-8.2)
[2017-07-20 19:38] LABS: Creatine Kinase <20 U/L (30-135)
--- NOTE | 2017-07-20 19:40 | ED ---
General Adult HPI - General Chief complaint: GI Bleed Stated complaint: GI Bleed Time Seen by Provider: 07/20/17 18:37 Source: EMS, RN notes reviewed, old records reviewed Mode of arrival: EMS Limitations: no limitations - History of Present Illness Initial comments: This is a 69-year-old female the ER for evaluation, positive blood in stool positive GI bleed, patient had red blood in stool and getting unchanging earlier today. There is tender for evaluation. Patient states she has history of A. fib and is on Coumadin history of DVT and is on Coumadin. She does admit to feeling weak mildly dehydrated but denies any pain. No abdominal pain. No feelings of near syncope and weakness lightheadedness or dizziness - Related Data Home Medications Medication Instructions Recorded Confirmed traZODone HCL 150 mg PO HS 03/15/17 06/27/17 Omeprazole 20 mg PO HS 06/06/17 06/27/17 Potassium Chloride ER [K-Dur 20] 20 meq PO BID 06/06/17 06/27/17 Previous Rx's Medication Instructions Recorded Ipratropium-Albuterol Nebulize 3 ml INHALATION RT-QID ampul.neb 05/16/17 [Duoneb 0.5 mg-3 mg/3 ml Soln] Levothyroxine Sodium [Synthroid] 200 mcg PO DAILY@0630 #30 tab 05/16/17 Furosemide [Lasix] 40 mg PO DAILY #0 06/09/17 Warfarin [Coumadin] 2.5 mg PO DAILY@1800 tab 06/09/17 Diazepam [Valium] 5 mg PO HS@2000 #5 tab 07/01/17 Gabapentin [Neurontin] 400 mg PO QID cap 07/01/17 Metoprolol Tartrate [Lopressor] 12.5 mg PO BID tab 07/01/17 Sulfamethox-Tmp 800-160Mg [Bactrim 1 tab PO Q12HR #10 tab 07/01/17 DS 800-160 mg] oxyCODONE-APAP 5-325MG [Percocet 1 tab PO TID PRN #9 tab 07/01/17 5-325 mg] Allergies Allergy/AdvReac Type Severity Reaction Status Date / Time peaches AdvReac Nausea & Uncoded 06/27/17 16:46 Vomiting Review of Systems ROS Statement: Those systems with pertinent positive or pertinent negative responses have been documented in the HPI. ROS Other: All systems not noted in ROS Statement are negative. Past Medical History Past Medical History: Atrial Fibrillation, Asthma, Coronary Artery Disease (CAD) , Cancer, Chest Pain / Angina, Heart Failure, Diabetes Mellitus, GERD/Reflux, Hyperlipidemia, Hypertension, Myocardial Infarction ([place]), Pulmonary Embolus (PE) , Thyroid Disorder Additional Past Medical History / Comment(s): gastroenteritis. Additional hx: incontinent urine and stool, IBS, hemmorhoids, colonic polyps, R femur acetabular impingement syndrome, UTI with sepsis, DDD, RLS, neuropathy bilateral hands and feet, thyroid cancer with thyroidectomy, diverticulitis, pt takes coumadin for PE's, arthiritis, chronic back pain, laryngeal cancer with surgical removal, syncope Last Myocardial Infarction Date:: 2011 or 2012 per pt History of Any Multi-Drug Resistant Organisms: MRSA Date of last positivie culture/infection: 06/30/17 MDRO Source:: urine Past Surgical History: Adenoidectomy, Bladder Surgery, Bowel Resection, Cholecystectomy, Coronary Bypass/CABG, Heart Catheterization With Stent, Hysterectomy, Joint Replacement, Orthopedic Surgery, Pacemaker, Tonsillectomy, Tubal Ligation Additional Past Surgical History / Comment(s): CABG 3 vessel in 2006, cardiac cath with stents 2007 and 2011, pacer 2011, total thyroidectomy, lap maria del rosario, total left shoulder, R shoulder arthroscopy, partial colectomy due to diverticulitis, bladder suspension and bladder repair and mesh x 2, rectal wall repair, hysterectomy 1977, laryngeal surgery for cancer, colonoscopy, EGD with bx, nasal deviated septum surgical correction, L knee arthroscopy. Past Anesthesia/Blood Transfusion Reactions: No Reported Reaction Additional Past Anesthesia/Blood Transfusion Reaction / Comment(s): Pt has recieved blood without any reaction. Date of Last Stent Placement:: 2011 Type of Cardiac Device: Permanent Pacemaker Device Placement Date:: 2010 or 2011 in [place], [place] Past Psychological History: No Psychological Hx Reported Smoking Status: Current every day smoker Past Alcohol Use History: None Reported Past Drug Use History: None Reported - Past Family History Father Family Medical History: Congestive Heart Failure (CHF), COPD Additional Family Medical History / Comment(s): Father at age 61 yrs of CHF and COPD. Mother Family Medical History: Congestive Heart Failure (CHF), COPD General Exam Limitations: no limitations General appearance: alert, in no apparent distress, cachectic Head exam: Present: atraumatic, normocephalic, normal inspection Eye exam: Present: normal appearance, PERRL, EOMI. Absent: scleral icterus, conjunctival injection, periorbital swelling ENT exam: Present: normal exam, mucous membranes moist Neck exam: Present: normal inspection. Absent: tenderness, meningismus, lymphadenopathy Respiratory exam: Present: normal lung sounds bilaterally. Absent: respiratory distress, wheezes, rales, rhonchi, stridor Cardiovascular Exam: Present: regular rate, normal rhythm, normal heart sounds. Absent: systolic murmur, diastolic murmur, rubs, gallop, clicks GI/Abdominal exam: Present: soft, normal bowel sounds. Absent: distended, tenderness, guarding, rebound, rigid Extremities exam: Present: normal inspection, full ROM, normal capillary refill. Absent: tenderness, pedal edema, joint swelling, calf tenderness Back exam: Present: normal inspection Neurological exam: Present: alert, oriented X3, CN II-XII intact Psychiatric exam: Present: normal affect, normal mood Skin exam: Present: warm, dry, intact, normal color. Absent: rash Course Vital Signs 07/20/17 18:33 Temperature 97.6 F Pulse Rate 75 Respiratory 18 Rate Blood Pressure 134/61 O2 Sat by Pulse 99 Oximetry - Reevaluation(s) Reevaluation #1: 07/20/17 19:39 No significant active GI bleed here in the ER Medical Decision Making - Medical Decision Making 72 female the ER for evaluation. Positive GI bleed, positive anticoagulation, patient be admitted for monitoring of hemoglobin, cardiopulmonary monitoring - Lab Data Result diagrams: 07/20/17 18:46 07/20/17 18:46 Lab Results 07/20/17 07/20/17 07/20/17 Range/Units 18:46 18:46 18:46 WBC 6.3 (3.8-10.6) k/uL RBC 4.11 (3.80-5.40) m/uL Hgb 11.9 (11.4-16.0) gm/dL Hct 35.1 (34.0-46.0) % MCV 85.5 (80.0-100.0) fL MCH 29.1 (25.0-35.0) pg MCHC 34.0 (31.0-37.0) g/dL RDW 12.8 (11.5-15.5) % Plt Count 209 (150-450) k/uL Neutrophils % 62 % Lymphocytes % 26 % Monocytes % 8 % Eosinophils % 3 % Basophils % 0 % Neutrophils # 3.9 (1.3-7.7) k/uL Lymphocytes # 1.6 (1.0-4.8) k/uL Monocytes # 0.5 (0-1.0) k/uL Eosinophils # 0.2 (0-0.7) k/uL Basophils # 0.0 (0-0.2) k/uL PT 29.8 H (9.0-12.0) sec INR 3.3 H (<1.2) APTT 31.9 H (22.0-30.0) sec Sodium 143 (137-145) mmol/L Potassium 3.9 (3.5-5.1) mmol/L Chloride 103 (98-107) mmol/L Carbon Dioxide 25 (22-30) mmol/L Anion Gap 15 mmol/L BUN 18 H (7-17) mg/dL Creatinine 0.60 (0.52-1.04) mg/dL Est GFR (CKD-EPI)AfAm >90 (>60 ml/min/1.73 sqM) Est GFR (CKD-EPI)NonAf >90 (>60 ml/min/1.73 sqM) Glucose 216 H (74-99) mg/dL Calcium 9.3 (8.4-10.2) mg/dL Magnesium 1.6 (1.6-2.3) mg/dL Total Bilirubin 0.3 (0.2-1.3) mg/dL AST 21 (14-36) U/L ALT 31 (9-52) U/L Alkaline Phosphatase 125 (38-126) U/L Total Protein 5.5 L (6.3-8.2) g/dL Albumin 3.3 L (3.5-5.0) g/dL Lipase 86 (23-300) U/L Disposition Clinical Impression: Gastrointestinal hemorrhage, Atrial fibrillation Disposition: ADMITTED IP TO THIS HOSP Condition: Fair Referrals: Raven Lara MD [Primary Care Provider] - 1-2 days
[2017-07-20 19:51] LABS: Creatine Kinase MB 0.2 ng/mL (0.0-2.4); Troponin I <0.012 ng/mL (0.000-0.034)
[2017-07-20] MEDS ORDERED: INSULIN DETEMIR 100 UNIT/ML 10 ML VIAL SQ SCH (22:15)
[2017-07-20] MEDS: oxyCODONE-APAP 5-325MG 1 EACH TAB PO PRN (22:55)
[2017-07-20] MEDS: DIAZEPAM 5 MG TAB PO SCH (22:55)
[2017-07-20] MEDS: METOPROLOL TARTRATE 12.5 MG TAB PO SCH (23:04)
[2017-07-20] MEDS: GABAPENTIN 400 MG CAP PO SCH (23:04)
[2017-07-20] MEDS: traZODone HCL 50 MG TAB PO SCH (23:42)
[2017-07-20] MEDS: INSULIN ASPART 100 UNIT/ML 1 ML 10 ML VIAL SQ SCH (23:44)
[2017-07-21] MEDS ORDERED: GABAPENTIN 400 MG CAP PO STA (00:10)
--- NOTE | 2017-07-21 00:25 | HP ---
HISTORY AND PHYSICAL DATE OF SERVICE: 07/20/2017 CHIEF COMPLAINT: GI bleed. HISTORY OF PRESENT ILLNESS: This 72-year-old woman with a past medical history of asthma, atrial fibrillation, history of CAD, CHF, diabetes, GERD, hypertension, hyperlipidemia, history of pulmonary embolism, hypothyroidism being followed by Dr. Lara in the outpatient treatment was admitted with MRSA UTI. Patient was in rehab. Patient had difficulty in walking also. Currently when the patient was going to the bathroom the patient had episode of GI bleed and the patient came to [facility] and was admitted for further evaluation and treatment. There is no history of fever, rigors. No headache, loss of consciousness. The hemoglobin was found to be 11.9. INR is 3.3. Gastroenterology evaluation has been sought. PAST MEDICAL HISTORY: History of atrial fibrillation, asthma, MRSA UTI, CHF, GERD, hypertension, hyperlipidemia. MEDICATIONS: Prior to admission include: 1. Lispro t.i.d. 2. Lantus 25 daily. 3. Cipro 250 mg p.o. b.i.d. 4. Trazodone 150 mg q.h.s. 5. Percocet 5 mg t.i.d. p.r.n. 6. Coumadin 2.5 mg daily. 7. K-Dur 20 mEq p.o. b.i.d. 8. Omeprazole 20 mg q.h.s. 9. 10.5 mg p.o. b.i.d. 10.Synthroid 200 mcg p.o. daily. 11.DuoNeb q.i.d. p.r.n. 12.Neurontin 400 mg p.o. q.i.d. 13.Lasix 40 mg. 14.Valium 5 mg q.h.s. ALLERGIES: PEACHES. FAMILY HISTORY: History of CHF and COPD. SOCIAL HISTORY: History of smoking. No history of alcohol intake. REVIEW OF SYSTEMS: ENT: No diminished hearing or vision. CARDIOVASCULAR: No angina or palpitations. RESPIRATORY: As mentioned earlier. GI: As mentioned. : No dysuria. NERVOUS SYSTEM: As mentioned. ALLERGY/IMMUNOLOGY: No asthma. MUSCULOSKELETAL: As mentioned earlier. HEMATOLOGY/ONCOLOGY: No history of anemia. ENDOCRINE: As mentioned earlier. CONSTITUTIONAL: As mentioned earlier. DERMATOLOGY: Negative. PSYCHIATRY: As mentioned earlier. PHYSICAL EXAMINATION: Alert and oriented x3. Pulse 72, blood pressure 181/84, respiration 18, temperature 97.4, pulse ox 99% on 2 L. HEENT: Conjunctivae normal. Oral mucosa moist. Neck is no jugular venous distention. No lymph node enlargement. CARDIOVASCULAR SYSTEM: S1, S2. No S3 or S4. RESPIRATORY SYSTEM: Breath sounds diminished at the bases. A few scattered rhonchi. No crackles. ABDOMEN: Soft, nontender. No mass palpable. LEGS: No edema, no swelling. NERVOUS SYSTEM: Higher functions as mentioned earlier. Moves all 4 limbs. Mild diffuse weakness. LYMPHATICS: No lymph node palpable in neck, axillae or groin. SKIN: No ulcer, rash, bleeding. LAB STUDIES: CBC within normal limits. INR 3.3. Albumin is 3.3. ASSESSMENT: 1. Lower gastrointestinal bleeding for evaluation. 2. Mild Coumadin coagulopathy. 3. Asthma. 4. Atrial fibrillation. 5. History of recent MRSA UTI. 6. History of coronary artery disease. 7. History of chest pain and angina. 8. Congestive heart failure. 9. History of diabetes type 2. 10.Gastroesophageal reflux disease. 11.Hypertension. 12.Hyperlipidemia. 13.History of pulmonary embolism. 14.History of coronary artery disease, CABG, stent. RECOMMENDATIONS AND DISCUSSION: Recommend to continue current management and continue symptomatic treatment. Repeat hemoglobin. Repeat labs and I would also recommend resume the home medications. Otherwise, we will also hold the Coumadin for now. The patient also has significant weakness. The patient is not willing to go to a rehab facility at this time. I would recommend a social work consult and PT/OT evaluation for evaluation of the home situation as well. As mentioned earlier the prognosis is guarded because of multiple complex medical issues. Further recommendations to follow. MMODL / IJN: [id number] /
[2017-07-21] MEDS: LEVOTHYROXINE 100 MCG TAB PO SCH (06:29)
[2017-07-21 06:52] LABS: Glucose,Whole Blood 120 mg/dL (75-99)
[2017-07-21] MEDS: INSULIN ASPART 100 UNIT/ML 1 ML 10 ML VIAL SQ SCH ×6 (07:48→21:56)
[2017-07-21] MEDS: GABAPENTIN 400 MG CAP PO SCH ×4 (08:31→21:52)
[2017-07-21] MEDS: CIPROFLOXACIN HCL 250 MG TAB PO SCH ×2 (08:31→21:53)
[2017-07-21] MEDS: FUROSEMIDE 20 MG TAB PO SCH (08:31)
[2017-07-21] MEDS: PANTOPRAZOLE 40 MG/10 ML VIAL IVP SCH ×2 (08:32→21:53)
[2017-07-21] MEDS: METOPROLOL TARTRATE 12.5 MG TAB PO SCH ×2 (08:32→21:53)
[2017-07-21] MEDS: POTASSIUM CHLORIDE ER 20 MEQ TAB.ER PO SCH ×2 (08:32→21:54)
[2017-07-21 09:53] LABS: Basophils % (A) 0 %; Eosinophils # (A) 0.2 k/uL (0-0.7); Eosinophils % (A) 2 %; HCT 35.8 % (34.0-46.0); HGB 11.7 gm/dL (11.4-16.0); Lymphocytes # (A) 1.8 k/uL (1.0-4.8); Lymphocytes % (A) 26 %; MCH 28.5 pg (25.0-35.0); MCHC 32.6 g/dL (31.0-37.0); MCV 87.5 fL (80.0-100.0); Mean Platelet Volume 6.5; Monocytes # (A) 0.3 k/uL (0-1.0); Monocytes % (A) 5 %; Neutrophils # (A) 4.5 k/uL (1.3-7.7); Neutrophils % (A) 65 %; Platelet Count 242 k/uL (150-450); RBC 4.09 m/uL (3.80-5.40); RDW 12.4 % (11.5-15.5); WBC 6.9 k/uL (3.8-10.6)
[2017-07-21 10:10] LABS: INR 2.9 (<1.2); Prothrombin Time 26.3 sec (9.0-12.0)
[2017-07-21 10:19] LABS: Anion Gap 13 mmol/L; Blood Urea Nitrogen 11 mg/dL (7-17); Calcium 8.9 mg/dL (8.4-10.2); Carbon Dioxide 23 mmol/L (22-30); Chloride 110 mmol/L (98-107); Glucose 131 mg/dL (74-99); Magnesium 1.6 mg/dL (1.6-2.3); Potassium 4.1 mmol/L (3.5-5.1); Sodium 146 mmol/L (137-145)
[2017-07-21 10:39] LABS: Glucose,Whole Blood 173 mg/dL (75-99)
[2017-07-21] MEDS: INSULIN DETEMIR 100 UNIT/ML 10 ML VIAL SQ SCH (10:45)
[2017-07-21 11:12] VITALS: BMI 20.3
[2017-07-21] MEDS ORDERED: RX INFO: IV CONTRAST WAS GIVEN 1 EACH MISC MISCELLANE PRN (12:19)
[2017-07-21] MEDS ORDERED: PHYTONADIONE ORAL 5 MG/5 ML ORAL.SYRG PO STA (12:20)
--- NOTE | 2017-07-21 12:25 | P.CONS ---
History of Present Illness - Reason for Consult Consult date: 07/21/17 Rectal bleeding Requesting physician: Darlene Sosa - History of Present Illness 72-year-old female with a history of laryngeal cancer, diverticulitis with resection many years ago in the state of [place] presents with acute rectal bleeding 2 with abdominal cramping that started yesterday. Denies fever or chills. She has additional past medical history of MRSA UTI maintained on Cipro , atrial fibrillation and PE/DVT maintained on warfarin. Last colonoscopy more than 7 years ago. No EGD. Last bloody bowel movement was yesterday. Still reports mild lower abdominal pain. Admission hemoglobin 11.9 presently 11.7. INR 3.3 presently 2.9. BUN 18. Creatinine 0.6. LFTs unremarkable. Lipase 86. Hungry requesting diet. Review of Systems Constitutional: Denies fever, chills, sweats, weight gain, or loss. HEENT: Negative for migraines, blurred vision or loss, earaches, drainage, tinnitus, oral mucosal lesions, dysphagia, or odynophagia. CARDIAC: Negative for chest pain, arrhythmias, or palpitation. RESPIRATORY: Negative for shortness of breath, hemoptysis, cough, or sputum production. GI: See HPI for pertinent findings. : Negative for hematuria, urgency, frequency, polyuria, or dysuria. GYNc: Denies possibility of . Negative vaginal discharge. MUSCULOSKELETAL: Negative for muscle aches, swelling, arthritis, and arthralgias. NEUROLOGIC: Negative for stroke or TIA. ENDOCRINE: Negative for thyroid problems. SKIN: Negative for rash or itching. PSYCHIATRIC: Negative history for depression and anxietymale Past Medical History Past Medical History: Atrial Fibrillation, Asthma, Coronary Artery Disease (CAD) , Cancer, Chest Pain / Angina, Heart Failure, Diabetes Mellitus, GERD/Reflux, Hyperlipidemia, Hypertension, Myocardial Infarction ([place]), Pulmonary Embolus (PE) , Thyroid Disorder Additional Past Medical History / Comment(s): gastroenteritis. Additional hx: incontinent urine and stool, IBS, hemmorhoids, colonic polyps, R femur acetabular impingement syndrome, UTI with sepsis, DDD, RLS, neuropathy bilateral hands and feet, thyroid cancer with thyroidectomy, diverticulitis, pt takes coumadin for PE's, arthiritis, chronic back pain, laryngeal cancer with surgical removal, syncope Last Myocardial Infarction Date:: 2011 or 2013 per pt History of Any Multi-Drug Resistant Organisms: MRSA Year Discovered:: 06/30/17 MDRO Source:: urine Past Surgical History: Adenoidectomy, Bladder Surgery, Bowel Resection, Cholecystectomy, Coronary Bypass/CABG, Heart Catheterization With Stent, Hysterectomy, Joint Replacement, Orthopedic Surgery, Pacemaker, Tonsillectomy, Tubal Ligation Additional Past Surgical History / Comment(s): CABG 3 vessel in 2006, cardiac cath with stents 2007 and 2011, pacer 2011, total thyroidectomy, lap maria del rosario, total left shoulder, R shoulder arthroscopy, partial colectomy due to diverticulitis, bladder suspension and bladder repair and mesh x 2, rectal wall repair, hysterectomy 1977, laryngeal surgery for cancer, colonoscopy, EGD with bx, nasal deviated septum surgical correction, L knee arthroscopy. Past Anesthesia/Blood Transfusion Reactions: No Reported Reaction Additional Past Anesthesia/Blood Transfusion Reaction / Comm: Pt has recieved blood without any reaction. Date of Last Stent Placement:: 2011 Type of Cardiac Device: Permanent Pacemaker Device Placement Date:: 2010 or 2011 in [place], [place] Smoking Status: Current every day smoker - Past Family History Father Family Medical History: Congestive Heart Failure (CHF), COPD Additional Family Medical History / Comment(s): Father at age 61 yrs of CHF and COPD. Mother Family Medical History: Congestive Heart Failure (CHF), COPD Medications and Allergies Home Medications Medication Instructions Recorded Confirmed Type traZODone HCL 150 mg PO HS 03/15/17 07/20/17 History Levothyroxine Sodium [Synthroid] 200 mcg PO DAILY@0630 #30 tab 05/16/17 Rx Omeprazole 20 mg PO HS 06/06/17 07/20/17 History Potassium Chloride ER [K-Dur 20] 20 meq PO BID 06/06/17 07/20/17 History Furosemide [Lasix] 40 mg PO DAILY #0 06/09/17 07/20/17 Rx Warfarin [Coumadin] 2.5 mg PO DAILY@1800 tab 06/09/17 07/20/17 Rx Diazepam [Valium] 5 mg PO HS@2000 #5 tab 07/01/17 07/20/17 Rx Gabapentin [Neurontin] 400 mg PO QID cap 07/01/17 07/20/17 Rx Metoprolol Tartrate [Lopressor] 12.5 mg PO BID tab 07/01/17 07/20/17 Rx oxyCODONE-APAP 5-325MG [Percocet 1 tab PO TID PRN #9 tab 07/01/17 07/20/17 Rx 5-325 mg] Ciprofloxacin HCl [Cipro] 250 mg PO BID 07/20/17 07/20/17 History Insulin Glargine,Hum.rec.anlog 25 unit SQ DAILY 07/20/17 07/20/17 History [Lantus Solostar] Insulin Lispro [humaLOG Kwikpen] 10 unit SQ TID 07/20/17 07/20/17 History Insulin Lispro [humaLOG Kwikpen] See Protocol SQ TID 07/20/17 07/20/17 History Ipratropium-Albuterol Nebulize 3 ml INHALATION RT-QID PRN 07/20/17 07/20/17 History [Duoneb 0.5 mg-3 mg/3 ml Soln] Allergies Allergy/AdvReac Type Severity Reaction Status Date / Time peaches AdvReac Nausea & Uncoded 06/27/17 16:46 Vomiting Physical Exam Vitals: Vital Signs Temp Pulse Pulse Resp BP BP Pulse Ox 07/21/17 07:00 96.9 F L 64 18 125/70 97 07/20/17 23:00 97.5 F L 75 18 159/75 98 07/20/17 20:55 77 20 179/81 98 07/20/17 19:45 97.5 F L 72 18 181/84 99 07/20/17 18:33 97.6 F 75 18 134/61 99 Intake and Output 07/20/17 07/21/17 07/21/17 22:59 06:59 14:59 Intake Total 1100 0 Balance 1100 0 Intake: Amount of Fluid Infused ( 1100 ml) Oral 0 0 Other: Voiding Method Incontinent # Voids 2 3 Weight 38.102 kg 57.2 kg 57.2 kg General appearance: The patient is alert, oriented, in no acute distress. HET: Head is normocephalic and atraumatic. Pupils are equal and reactive. Oropharynx is clear without lesions. Neck: Supple without lymphadenopathy. Trachea midline. Heart: S1 S2. Regular rate and rhythm. Lungs: No crackles or wheezes are heard. Abdomen: Soft, mild tenderness bilateral lower abdomen, nondistended with bowel sounds. No peritoneal signs. No palpable organomegaly or masses. Extremities: Normal skin color and turgor. No cyanosis, rash, ulceration, clubbing, or edema. Radial and pedal pulses are 2/4 bilaterally. Neurological: No focal deficits. Strength and sensation are grossly intact. Results CBC & Chem 7: 07/22/17 08:31 07/22/17 08:31 Labs: Abnormal Lab Results - Last 24 Hours (Table) 07/20/17 07/20/17 07/20/17 Range/Units 18:46 18:46 18:46 PT 29.8 H (9.0-12.0) sec INR 3.3 H (<1.2) APTT 31.9 H (22.0-30.0) sec Sodium (137-145) mmol/L Chloride (98-107) mmol/L BUN 18 H (7-17) mg/dL Glucose 216 H (74-99) mg/dL POC Glucose (mg/dL) (75-99) mg/dL Total Creatine Kinase <20 L (30-135) U/L Total Protein 5.5 L (6.3-8.2) g/dL Albumin 3.3 L (3.5-5.0) g/dL 07/21/17 07/21/17 07/21/17 Range/Units 06:34 08:47 08:47 PT 26.3 H (9.0-12.0) sec INR 2.9 H (<1.2) APTT (22.0-30.0) sec Sodium 146 H (137-145) mmol/L Chloride 110 H (98-107) mmol/L BUN (7-17) mg/dL Glucose 131 H (74-99) mg/dL POC Glucose (mg/dL) 120 H (75-99) mg/dL Total Creatine Kinase (30-135) U/L Total Protein (6.3-8.2) g/dL Albumin (3.5-5.0) g/dL 07/21/17 Range/Units 10:35 PT (9.0-12.0) sec INR (<1.2) APTT (22.0-30.0) sec Sodium (137-145) mmol/L Chloride (98-107) mmol/L BUN (7-17) mg/dL Glucose (74-99) mg/dL POC Glucose (mg/dL) 173 H (75-99) mg/dL Total Creatine Kinase (30-135) U/L Total Protein (6.3-8.2) g/dL Albumin (3.5-5.0) g/dL Assessment and Plan (1) Rectal bleeding Narrative/Plan: 72-year-old female with a history of laryngeal carcinoma, colonic diverticulosis with resection presents with lower abdominal pain with rectal bleeding 1 day with warfarin-induced coagulopathy. Possible colonic diverticular bleed possible ischemic possible inflammatory colitis possible combination of both. Current Visit: Yes Status: Acute Code(s): K62.5 - HEMORRHAGE OF ANUS AND RECTUM SNOMED Code(s): 66468277 (2) Warfarin-induced coagulopathy Current Visit: Yes Status: Acute Code(s): D68.32 - HEMORRHAGIC DISORD D/T EXTRINSIC CIRCULATING ANTICOAGULANTS; T45.515A - ADVERSE EFFECT OF ANTICOAGULANTS, INITIAL ENCOUNTER SNOMED Code(s): 15171455 (3) History of atrial fibrillation Current Visit: Yes Status: Acute Code(s): Z86.79 - PERSONAL HISTORY OF OTHER DISEASES OF THE CIRCULATORY SYSTEM SNOMED Code(s): 397532046 (4) History of DVT (deep vein thrombosis) Current Visit: Yes Status: Acute Code(s): Z86.718 - PERSONAL HISTORY OF OTHER VENOUS THROMBOSIS AND EMBOLISM SNOMED Code(s): 763816355 Plan: 1. Vitamin K 2.5 mg oral 1. 2. Will allow liquid diet patient is hungry requesting advancement last bloody bowel movement yesterday. 3. Inpatient colonoscopy advised will schedule once INR close to 1.5 or less. 4. We'll proceed with CT abdomen and pelvis for further evaluation of pain and bleeding. 5. Will follow closely with you. CBC monitoring. Daily PT/INR. The rheologist has discussed the risks, benefits and alternative therapies for the above-mentioned procedure and for both sedation/analgesia as well as necessary blood product administration, if indicated, as they pertain to this patient. The patient has indicated understanding and acceptance of the risks and procedures discussed. Thank you for this kind referral and the opportunity to participate in the care of your patient. This consultation was discussed with Dr. Escalera. The impression and plan of care have been directed as dictated.
[2017-07-21] MEDS: IOPAMIDOL-300 CONTRAST 30 ML VIAL (ORAL USE) PO PRN ×2 (12:42→14:11)
[2017-07-21 12:48] LABS: Glucose,Whole Blood 162 mg/dL (75-99)
[2017-07-21 14:21] LABS: Hemoglobin A1C 7.7 % (4.0-6.0)
--- NOTE | 2017-07-21 15:48 | CT ---
EXAMINATION TYPE: CT abdomen pelvis w con DATE OF EXAM: 07/21/2017 HISTORY: Abd pain and rectal bleeding CT DLP: 515.7mGycm Automated Exposure Control for Dose Reduction was Utilized. CONTRAST: CT scan of the abdomen and pelvis is performed with oral and with IV Contrast, patient injected with 100ml mL of Isovue M300. COMPARISON: CT abdomen and pelvis May 09, 2017.. FINDINGS: LUNG BASES: Dependent atelectasis is present in both bases. Some coronary artery calcification is ellen ntified. LIVER/GB: Cholecystectomy clips are redemonstrated. PANCREAS: No significant abnormality is seen. SPLEEN: Subcentimeter low dense lesion in spleen on axial image 16 is too small to further characteri ze but presumed benign. ADRENALS: No significant abnormality is seen. KIDNEYS: There is symmetric cortical medullary uptake and excretion from both kidneys without evidenc e of hydronephrosis bilaterally. There is heterogeneous hypodense tissue at base of bladder uncertain etiology axial image 82, this appears external to bladder. BOWEL: Small hiatal hernia is seen. Oral contrast reaches level of distal sigmoid colon at site of hughes tures axial image 64. There is no suspicious small or large bowel dilatation. Mild fecal prominence o f rectum is present. UTERUS/ADNEXA: Uterus is surgically absent or markedly atrophic in appearance. Occasional pelvic phle bolith is seen.. LYMPH NODES: No greater than 1cm abdominal or pelvic lymph nodes are appreciated. OSSEOUS STRUCTURES: Osseous structures are demineralized. There is moderate disc space narrowing lumb osacral junction. There is facet arthropathy lower lumbar levels. There is moderate joint space loss in both hips. OTHER: There is moderate mixed plaque in the aorta extending into pelvic branch vessels. IMPRESSION: No significant finding is seen to account for patient's clinical symptoms of pain and rec mercedes bleeding. Postsurgical change distal sigmoid colon. No bowel obstruction is present. No suspiciou s focal wall thickening or colitis is definitively identified.
[2017-07-21 17:06] LABS: Glucose,Whole Blood 82 mg/dL (75-99)
[2017-07-21 20:41] LABS: Glucose,Whole Blood 177 mg/dL (75-99)
--- NOTE | 2017-07-21 20:46 | PN ---
PROGRESS NOTE DATE OF SERVICE: 07/21/2017. INTERVAL HISTORY: This 72-year-old woman who was admitted with lower gastrointestinal bleeding is being closely monitored at this time. The patient is also seen by the gastroenterology team and is recommended vitamin K and as well as colonoscopy. CT scan of the abdomen and pelvis was also recommended, which showed no significant abnormalities are noted. No chest pain. No palpitations. No fever. EXAM: Alert and oriented x2. Pulse 61, blood pressure 120/60. Respiration 18, temperature 98.8, pulse ox 100% on 16 L. HEENT Conjunctivae normal. Neck: No jugular venous distention. Cardiovascular: S1, S2 muffled. Respiratory: Breath sounds diminished in the bases. A few scattered rhonchi. No crackles. Abdomen is soft, nontender. No mass palpable. Legs are no edema. No swelling. Central nervous system: No focal deficits. LABS: CBC within normal limits. Hemoglobin 11.7. ASSESSMENT: 1. Lower gastrointestinal bleeding for evaluation. 2. Mild Coumadin coagulopathy. 3. Asthma. 4. Atrial fibrillation. 5. History of recent Methicillin-resistant Staphylococcus aureus urinary tract infection. 6. History of coronary artery disease. 7. History of chest pain angina. 8. Congestive heart failure history. 9. History of diabetes type 2. 10.Gastroesophageal reflux disease. 11.Hypertension. 12.Hyperlipidemia. 13.History of pulmonary embolus. 14.History of coronary artery disease, coronary artery bypass grafting, stent. RECOMMENDATIONS AND DISCUSSION: This 72-year-old woman who presented with multiple complex medical issues, we will monitor the patient closely. Continue the current management and symptomatic treatment. We will monitor PT/INR closely. Otherwise, hold Coumadin. Vitamin K. Continue to monitor. Guarded prognosis because of multiple complex medical issues. Further recommendations to follow. Possible colonoscopy tomorrow as per Gastroenterology. Further recommendations to follow. MMODL / IJN: [id number] /
[2017-07-21] MEDS ORDERED: PANTOPRAZOLE 40 MG TABLET PO SCH (21:00)
[2017-07-21] MEDS: oxyCODONE-APAP 5-325MG 1 EACH TAB PO PRN (21:40)
[2017-07-21] MEDS: DIAZEPAM 5 MG TAB PO SCH (21:40)
[2017-07-21] MEDS: traZODone HCL 50 MG TAB PO SCH (21:53)
[2017-07-22] MEDS: INSULIN ASPART 100 UNIT/ML 1 ML 10 ML VIAL SQ SCH ×8 (00:28→21:28)
[2017-07-22] MEDS: LEVOTHYROXINE 100 MCG TAB PO SCH (06:47)
[2017-07-22 07:08] LABS: Glucose,Whole Blood 95 mg/dL (75-99)
[2017-07-22] MEDS ORDERED: BENZOCAINE SPRAY 1 CAN MUCOUS MEM PRN (07:34)
[2017-07-22 08:46] LABS: Basophils % (A) 0 %; Eosinophils # (A) 0.3 k/uL (0-0.7); Eosinophils % (A) 5 %; HCT 33.5 % (34.0-46.0); Lymphocytes # (A) 1.2 k/uL (1.0-4.8); Lymphocytes % (A) 24 %; MCH 28.9 pg (25.0-35.0); MCHC 32.8 g/dL (31.0-37.0); MCV 88.2 fL (80.0-100.0); Mean Platelet Volume 6.6; Monocytes # (A) 0.3 k/uL (0-1.0); Monocytes % (A) 6 %; Neutrophils # (A) 2.9 k/uL (1.3-7.7); Neutrophils % (A) 61 %; Platelet Count 176 k/uL (150-450); RBC 3.79 m/uL (3.80-5.40); RDW 12.5 % (11.5-15.5); WBC 4.7 k/uL (3.8-10.6)
[2017-07-22 08:54] LABS: INR 1.4 (<1.2); Prothrombin Time 12.7 sec (9.0-12.0)
[2017-07-22 08:59] LABS: Anion Gap 10 mmol/L; Blood Urea Nitrogen 8 mg/dL (7-17); Calcium 8.8 mg/dL (8.4-10.2); Carbon Dioxide 24 mmol/L (22-30); Chloride 108 mmol/L (98-107); Glucose 104 mg/dL (74-99); Potassium 3.9 mmol/L (3.5-5.1); Sodium 142 mmol/L (137-145)
[2017-07-22] MEDS: FUROSEMIDE 20 MG TAB PO SCH (09:11)
[2017-07-22] MEDS: GABAPENTIN 400 MG CAP PO SCH ×4 (09:11→21:28)
[2017-07-22] MEDS: PANTOPRAZOLE 40 MG/10 ML VIAL IVP SCH ×2 (09:11→21:53)
[2017-07-22] MEDS: CIPROFLOXACIN HCL 250 MG TAB PO SCH ×2 (09:12→21:52)
[2017-07-22] MEDS: POTASSIUM CHLORIDE ER 20 MEQ TAB.ER PO SCH ×2 (09:12→21:53)
[2017-07-22] MEDS: BENZOCAINE/MENTHOL LOZENG 1 EACH LOZENGE MUCOUS MEM PRN (09:14)
[2017-07-22] MEDS: METOPROLOL TARTRATE 12.5 MG TAB PO SCH ×2 (09:16→21:53)
--- NOTE | 2017-07-22 10:09 | P.PN ---
Subjective Progress Note Date: 07/22/17 Principal diagnosis: Rectal bleeding Passing brown colored bowel movements that now expressing dysphagia with pills and food. Patient is concerned she may have cancer with her history of laryngeal cancer. Denies abdominal pain. CT abdomen and pelvis reviewed yesterday no evidence of bowel obstruction or colitis. Objective - Vital Signs Vital signs: Vital Signs Temp 97.6 F 07/22/17 05:50 Pulse 64 07/22/17 05:50 Resp 17 07/22/17 05:50 BP 102/52 07/22/17 05:50 Pulse Ox 96 07/22/17 05:50 Intake & Output 07/21/17 07/22/17 07/22/17 18:59 06:59 18:59 Intake Total 1225 Balance 1225 Weight 57.2 kg 57.5 kg Intake: Oral 1225 Other: Voiding Method Diaper Diaper Incontinent Incontinent # Voids 3 3 1 # Bowel Movements 0 1 - Exam General appearance: The patient is alert, oriented, in no acute distress. HET: Head is normocephalic and atraumatic. Pupils are equal and reactive. Oropharynx is clear without lesions. Neck: Supple without lymphadenopathy. Trachea midline. Heart: S1 S2. Regular rate and rhythm. Lungs: No crackles or wheezes are heard. Abdomen: Soft, nontender, nondistended with bowel sounds. No peritoneal signs. No palpable organomegaly or masses. Extremities: Normal skin color and turgor. No cyanosis, rash, ulceration, clubbing, or edema. Radial and pedal pulses are 2/4 bilaterally. Neurological: No focal deficits. Strength and sensation are grossly intact. - Labs CBC & Chem 7: 07/22/17 08:31 07/22/17 08:31 Labs: Abnormal Lab Results - Last 24 Hours (Table) 07/20/17 07/21/17 07/21/17 Range/Units 18:46 08:47 08:47 RBC (3.80-5.40) m/uL Hgb (11.4-16.0) gm/dL Hct (34.0-46.0) % PT 26.3 H (9.0-12.0) sec INR 2.9 H (<1.2) Sodium 146 H (137-145) mmol/L Chloride 110 H (98-107) mmol/L Glucose 131 H (74-99) mg/dL POC Glucose (mg/dL) (75-99) mg/dL Hemoglobin A1c 7.7 H (4.0-6.0) % 07/21/17 07/21/17 07/21/17 Range/Units 10:35 12:46 20:40 RBC (3.80-5.40) m/uL Hgb (11.4-16.0) gm/dL Hct (34.0-46.0) % PT (9.0-12.0) sec INR (<1.2) Sodium (137-145) mmol/L Chloride (98-107) mmol/L Glucose (74-99) mg/dL POC Glucose (mg/dL) 173 H 162 H 177 H (75-99) mg/dL Hemoglobin A1c (4.0-6.0) % 07/22/17 07/22/17 07/22/17 Range/Units 08:31 08:31 08:31 RBC 3.79 L (3.80-5.40) m/uL Hgb 11.0 L (11.4-16.0) gm/dL Hct 33.5 L (34.0-46.0) % PT 12.7 H (9.0-12.0) sec INR 1.4 H (<1.2) Sodium (137-145) mmol/L Chloride 108 H (98-107) mmol/L Glucose 104 H (74-99) mg/dL POC Glucose (mg/dL) (75-99) mg/dL Hemoglobin A1c (4.0-6.0) % Assessment and Plan (1) Rectal bleeding Narrative/Plan: 72-year-old female with a history of laryngeal carcinoma, colonic diverticulosis with resection presents with lower abdominal pain with rectal bleeding 1 day with warfarin-induced coagulopathy. Possible colonic diverticular bleed possible ischemic possible inflammatory colitis possible combination of both. Current Visit: Yes Status: Acute Code(s): K62.5 - HEMORRHAGE OF ANUS AND RECTUM SNOMED Code(s): 91792787 (2) Warfarin-induced coagulopathy Current Visit: Yes Status: Acute Code(s): D68.32 - HEMORRHAGIC DISORD D/T EXTRINSIC CIRCULATING ANTICOAGULANTS; T45.515A - ADVERSE EFFECT OF ANTICOAGULANTS, INITIAL ENCOUNTER SNOMED Code(s): 56154025 (3) History of atrial fibrillation Current Visit: Yes Status: Acute Code(s): Z86.79 - PERSONAL HISTORY OF OTHER DISEASES OF THE CIRCULATORY SYSTEM SNOMED Code(s): 951988677 (4) History of DVT (deep vein thrombosis) Current Visit: Yes Status: Acute Code(s): Z86.718 - PERSONAL HISTORY OF OTHER VENOUS THROMBOSIS AND EMBOLISM SNOMED Code(s): 670410119 Plan: 1. Rectal bleeding seems to have resolved. Etiology of new onset of dysphagia is unclear patient is anxious her laryngeal cancer has returned. Having mild difficulty with swallowing certain medications this morning but is tolerating a liquid diet. 2. Will proceed with EGD colonoscopy evaluation tomorrow morning; INR improved 1.4. Hemoglobin stable at 11. 3. Consideration for ENT evaluation if upper endoscopy is unremarkable. We'll continue to follow with you. Assessment and plan a care discussed with Dr. Garcia
[2017-07-22 12:23] LABS: Glucose,Whole Blood 142 mg/dL (75-99)
[2017-07-22] MEDS: INSULIN DETEMIR 100 UNIT/ML 10 ML VIAL SQ SCH (13:07)
[2017-07-22] MEDS ORDERED: PEG 3350-NA SULF,BICARB,CL/KCL 4,000 ML BOTTLE PO ONE (15:00)
[2017-07-22 17:26] LABS: Glucose,Whole Blood 152 mg/dL (75-99)
[2017-07-22 20:41] LABS: Glucose,Whole Blood 116 mg/dL (75-99)
[2017-07-22] MEDS: DIAZEPAM 5 MG TAB PO SCH (21:25)
[2017-07-22] MEDS: traZODone HCL 50 MG TAB PO SCH (21:27)
--- NOTE | 2017-07-22 23:57 | PN ---
PROGRESS NOTE DATE OF SERVICE: 07/22/2017. INTERVAL HISTORY: This 72-year-old woman is admitted with GI bleed, is scheduled for colonoscopy tomorrow. No chest pain. No palpitations. No fever. The patient has significant gait dysfunction. Apparently the patient refused to walk and has also refused rehabilitation on multiple occasions. The patient is practically bedridden at this time. PHYSICAL EXAM: Patient is alert, oriented x3. Pulse 65, blood pressure 130/64, respirations 17, temperature 98.4, pulse ox 97% on room air. HEENT: Conjunctivae normal. NECK: No jugular venous distention. CARDIOVASCULAR: S1, S2 muffled. RESPIRATORY: Breath sounds diminished in the bases. A few scattered rhonchi. NERVOUS SYSTEM: No focal deficits. LABS: Accu-Cheks 142. WBC 4.7, hemoglobin is 11. ASSESSMENT: 1. Lower gastrointestinal bleeding, acute for evaluation. 2. Mild Coumadin coagulopathy. 3. Asthma. 4. Atrial fibrillation. 5. History of recent methicillin-resistant Staphylococcus aureus urinary tract infection. 6. History of coronary artery disease. 7. History of chest pain, angina. 8. Congestive heart failure history. 9. History of diabetes mellitus type 2. 10.Gastroesophageal reflux disease. 11.Hypertension. 12.Hyperlipidemia. 13.History of pulmonary embolus. 14.History of coronary artery disease, coronary artery bypass graft, stent. RECOMMENDATIONS AND DISCUSSION: Continue the current medical management. Continue with monitoring and symptomatic treatment. Otherwise at this time, colonoscopy tomorrow. Monitor labs. Guarded prognosis because of multiple complex medical issues. Further recommendations to follow. MMODL / IJN: [id number] /
[2017-07-23] MEDS: LEVOTHYROXINE 100 MCG TAB PO SCH (06:34)
[2017-07-23 07:02] LABS: Glucose,Whole Blood 125 mg/dL (75-99)
[2017-07-23] MEDS: INSULIN ASPART 100 UNIT/ML 1 ML 10 ML VIAL SQ SCH ×7 (08:01→23:09)
[2017-07-23] MEDS: CIPROFLOXACIN HCL 250 MG TAB PO SCH ×2 (10:01→21:35)
[2017-07-23] MEDS: GABAPENTIN 400 MG CAP PO SCH ×4 (10:02→21:35)
[2017-07-23] MEDS: FUROSEMIDE 20 MG TAB PO SCH (10:02)
[2017-07-23] MEDS: METOPROLOL TARTRATE 12.5 MG TAB PO SCH ×2 (10:03→21:35)
[2017-07-23] MEDS: INSULIN DETEMIR 100 UNIT/ML 10 ML VIAL SQ SCH (10:03)
[2017-07-23] MEDS: PANTOPRAZOLE 40 MG/10 ML VIAL IVP SCH ×2 (10:04→21:35)
[2017-07-23] MEDS: POTASSIUM CHLORIDE ER 20 MEQ TAB.ER PO SCH ×2 (10:04→21:35)
[2017-07-23 12:28] LABS: Glucose,Whole Blood 131 mg/dL (75-99)
--- NOTE | 2017-07-23 16:55 | PN ---
PROGRESS NOTE DATE OF SERVICE: 07/23/2017 This 72-year-old woman who was admitted with anemia and multiple other medical problems is scheduled for colonoscopy tomorrow. No chest pain. No palpitations. No fever. On exam, alert and oriented x3. Pulse 64, blood pressure 149/75, respiratory rate 16, temperature 97.3, pulse ox 97% on room air. HEENT: Conjunctivae normal. NECK: No jugular venous distention. CARDIOVASCULAR SYSTEM: S1, S2 muffled. RESPIRATORY SYSTEM: Breath sounds diminished at the bases. A few rhonchi. No crackles. ABDOMEN: Soft, non-tender. LEGS: No edema. No swelling. NERVOUS SYSTEM: No focal deficit. Labs are noted. ASSESSMENT: 1. Lower gastrointestinal bleeding, acute, for evaluation. 2. Mild Coumadin coagulopathy. 3. Asthma. 4. Atrial fibrillation. 5. History of recent methicillin-resistant Staphylococcus aeruginosa urinary tract infection. 6. History of coronary artery disease. 7. History of chest pain, angina. 8. Congestive heart failure history. 9. History of diabetes mellitus, type 2. 10.Gastroesophageal reflux disease. 11.Hypertension. 12.Hyperlipidemia. 13.History of pulmonary embolism. 14.History of coronary artery disease, coronary artery bypass grafting, stent. RECOMMENDATIONS AND DISCUSSION: I recommend to continue current medication, continue symptomatic treatment. Colonoscopy. Preparation with GoLYTELY. Guarded prognosis because of multiple complex medical issues. Closely follow with Gastroenterology. Further recommendations to follow. MMODL / IJN: [id number] /
[2017-07-23 17:44] LABS: Glucose,Whole Blood 144 mg/dL (75-99)
[2017-07-23] MEDS: oxyCODONE-APAP 5-325MG 1 EACH TAB PO PRN (20:13)
[2017-07-23] MEDS: IPRATROPIUM-ALBUTEROL 3 ML NEB INHALATION PRN (20:23)
[2017-07-23 20:39] LABS: Glucose,Whole Blood 146 mg/dL (75-99)
[2017-07-23] MEDS: traZODone HCL 50 MG TAB PO SCH (21:35)
[2017-07-23] MEDS: DIAZEPAM 5 MG TAB PO SCH (21:39)
[2017-07-24 07:21] LABS: Glucose,Whole Blood 135 mg/dL (75-99)
[2017-07-24] MEDS: INSULIN ASPART 100 UNIT/ML 1 ML 10 ML VIAL SQ SCH ×7 (07:26→21:34)
[2017-07-24] MEDS ORDERED: PROPOFOL 10 MG/ML 20 ML VIAL IV ONE (08:11)
[2017-07-24] MEDS ORDERED: LIDOCAINE 1% INJ 10MG/ML (20 ML MDV) ONE (08:11)
[2017-07-24] MEDS ORDERED: IV FLUID CONTINUATION 700 ML IV ONE (08:15)
--- NOTE | 2017-07-24 08:56 | P.PCN ---
Date of Procedure: 07/24/17 Procedure(s) Performed: Procedure: Esophagogastroduodenoscopy. Total colonoscopy. Preoperative diagnosis: GI bleeding and anemia. Postoperative diagnosis: 1. Upper endoscopy within normal limits. 2. Diverticulosis of the colon with no evidence of acute diverticulitis, strictures , polyps, cancer or angiodysplasia or other potential sources of bleeding. 3. No other sources of bleeding noted on this evaluation. Preparation: GoLYTELY prep. Sedation: Was provided by anesthesia. Brief clinical history: The patient is a 72-old female with a history of laryngeal cancer, diverticulitis with resection many years ago presented with acute rectal bleeding 2 episodes with abdominal cramping that started the day before admission. Denied fever or chills. She has additional past medical history of MRSA UTI maintained on Cipro, atrial fibrillation and PE/DVT maintained on warfarin. Last colonoscopy more than 7 years ago. No EGD. Patient continued to have lower abdominal cramps after admission but no further bleeding. Admission hemoglobin 11.9 presently 11.0. INR was 3.3 is normal today. BUN 18. Creatinine 0.6. LFTs unremarkable. Lipase 86. CT of the abdomen did not show any evidence of colitis or obstruction. Other details are summarized in the history and physical and dictated consultations and progress notes. Procedure: With the patient on her left lateral decubitus position and after informed consent and adequate sedation, I passed the Olympus-GIF 160 video upper endoscope through the cricopharyngeus down the esophagus. The esophagus appeared healthy with no obvious erosions, ulcers, strictures or Garcia's esophagus. No mucosal tears or varices or any definite hiatal hernia or bleeding. The endoscope was then passed into the stomach which was insufflated with air and inspected in detail including the retroflex view in the cardia. No obvious abnormalities or bleeding was noted. Pyloric channel, duodenal bulb , post bulbar area and descending duodenum appeared within normal limits. No biopsies were indicated and the endoscope was withdrawn then I proceeded with the colonoscopy. Perianal area did not show any fissures or fistulas. There were no masses felt on digital rectal examination. The Olympus CFH 190L video colonoscope was then inserted in the rectum in the usual fashion and advanced to the cecum. Prior resection and anastomosis in the distal sigmoid was noted and there was no stricture or other abnormalities noted. Multiple diverticular orifices were seen in the remaining sigmoid and left colon with no evidence of acute diverticulitis, strictures or bleeding. No polyps or tumors were seen. The mucosa appeared healthy. No angiodysplasia or other potential sources of bleeding. The patient tolerated the procedure well. Plan: The patient was reassured. Will allow regular diet. It is likely that this was a diverticular bleed that subsided spontaneously. Further plans can be made based on her course and blood counts. I see no contraindication at this time to resuming her anticoagulation as clinically indicated. We will be happy to see in the future if needed.
[2017-07-24] MEDS: LEVOTHYROXINE 100 MCG TAB PO SCH (09:02)
[2017-07-24] MEDS: POTASSIUM CHLORIDE ER 20 MEQ TAB.ER PO SCH ×2 (09:02→20:35)
[2017-07-24] MEDS: METOPROLOL TARTRATE 12.5 MG TAB PO SCH ×2 (09:02→20:35)
[2017-07-24] MEDS: CIPROFLOXACIN HCL 250 MG TAB PO SCH ×2 (09:02→20:35)
[2017-07-24] MEDS: GABAPENTIN 400 MG CAP PO SCH ×4 (09:02→20:36)
[2017-07-24] MEDS: INSULIN DETEMIR 100 UNIT/ML 10 ML VIAL SQ SCH ×2 (09:03→09:04)
[2017-07-24] MEDS: FUROSEMIDE 20 MG TAB PO SCH (09:03)
[2017-07-24] MEDS: PANTOPRAZOLE 40 MG/10 ML VIAL IVP SCH ×2 (09:05→20:36)
[2017-07-24 12:24] LABS: Glucose,Whole Blood 119 mg/dL (75-99)
[2017-07-24] MEDS: IPRATROPIUM-ALBUTEROL 3 ML NEB INHALATION PRN (13:20)
[2017-07-24 17:19] LABS: Glucose,Whole Blood 200 mg/dL (75-99)
--- NOTE | 2017-07-24 19:14 | PN ---
PROGRESS NOTE DATE OF SERVICE: 07/24/2017 INTERVAL HISTORY: This 72-year-old woman with lower gastrointestinal bleeding, abdominal pain, had colonoscopy today with Dr. Garcia. Colonoscopy showed diverticulosis. No active bleeding is noted. No chest pain. No palpitations. No fever. EXAM: Alert and oriented x3. Pulse 63, blood pressure 140/54, respiration 18, temperature 97.7, pulse ox 97% on room air. HEENT: Conjunctivae normal. NECK: No jugular venous distention. CARDIOVASCULAR: S1, S2. RESPIRATORY: Breath sounds diminished in the bases. No rhonchi, no crackles. ABDOMEN: Soft, nontender. No mass palpable. LABS: Hemoglobin 11, Accu-Cheks noted. ASSESSMENT: 1. Lower gastrointestinal bleeding, acute for evaluation. 2. Mild Coumadin coagulopathy. 3. Status post colonoscopy showing diverticulosis only. 4. Asthma history. 5. Atrial fibrillation. 6. History of recent MRSA and urinary tract infection. 7. History of coronary artery disease. 8. History of chest pain, angina. 9. History of congestive heart failure history. 10.History of diabetes mellitus type 2. 11.Gastroesophageal reflux disease. 12.Hypertension. 13.Hyperlipidemia. 14.History of pulmonary embolism. 15.History of coronary artery disease, CABG, stent. RECOMMENDATIONS AND DISCUSSION: I recommend to continue current medications, monitoring and symptomatic treatment. Closely follow with Gastroenterology. Guarded prognosis because of multiple complex medical issues. Further recommendations to follow. MMODL / IJN: [id number] / MTDD
[2017-07-24] MEDS: oxyCODONE-APAP 5-325MG 1 EACH TAB PO PRN (20:34)
[2017-07-24] MEDS: DIAZEPAM 5 MG TAB PO SCH (20:34)
[2017-07-24 20:42] LABS: Glucose,Whole Blood 93 mg/dL (75-99)
[2017-07-24 22:59] VITALS: RESP 16
[2017-07-25] MEDS: traZODone HCL 50 MG TAB PO SCH (00:18)
[2017-07-25] MEDS: LEVOTHYROXINE 100 MCG TAB PO SCH (06:43)
[2017-07-25 06:44] VITALS: BP 120/55; PULSE 61; TEMP 97.4
[2017-07-25 07:04] LABS: Glucose,Whole Blood 191 mg/dL (75-99)
[2017-07-25 07:34] LABS: Basophils % (A) 0 %; Eosinophils # (A) 0.2 k/uL (0-0.7); Eosinophils % (A) 7 %; HCT 33.1 % (34.0-46.0); HGB 11.2 gm/dL (11.4-16.0); Lymphocytes # (A) 1.5 k/uL (1.0-4.8); Lymphocytes % (A) 44 %; MCH 28.7 pg (25.0-35.0); MCHC 33.8 g/dL (31.0-37.0); MCV 85.1 fL (80.0-100.0); Mean Platelet Volume 6.7; Monocytes # (A) 0.2 k/uL (0-1.0); Monocytes % (A) 6 %; Neutrophils # (A) 1.4 k/uL (1.3-7.7); Neutrophils % (A) 40 %; Platelet Count 206 k/uL (150-450); RBC 3.89 m/uL (3.80-5.40); RDW 12.4 % (11.5-15.5); WBC 3.5 k/uL (3.8-10.6)
[2017-07-25 08:07] LABS: Anion Gap 10 mmol/L; Blood Urea Nitrogen 12 mg/dL (7-17); Calcium 8.9 mg/dL (8.4-10.2); Carbon Dioxide 29 mmol/L (22-30); Chloride 105 mmol/L (98-107); Glucose 182 mg/dL (74-99); Potassium 3.9 mmol/L (3.5-5.1); Sodium 144 mmol/L (137-145)
[2017-07-25] MEDS: INSULIN ASPART 100 UNIT/ML 1 ML 10 ML VIAL SQ SCH ×3 (08:41→13:14)
[2017-07-25] MEDS: BENZOCAINE/MENTHOL LOZENG 1 EACH LOZENGE MUCOUS MEM PRN (08:41)
[2017-07-25] MEDS: POTASSIUM CHLORIDE ER 20 MEQ TAB.ER PO SCH (08:42)
[2017-07-25] MEDS: GABAPENTIN 400 MG CAP PO SCH ×2 (08:42→13:14)
[2017-07-25] MEDS: METOPROLOL TARTRATE 12.5 MG TAB PO SCH (08:42)
[2017-07-25] MEDS: FUROSEMIDE 20 MG TAB PO SCH (08:42)
[2017-07-25] MEDS: CIPROFLOXACIN HCL 250 MG TAB PO SCH (08:42)
[2017-07-25] MEDS: PANTOPRAZOLE 40 MG/10 ML VIAL IVP SCH (08:43)
[2017-07-25 11:36] LABS: Glucose,Whole Blood 187 mg/dL (75-99)
--- NOTE | 2017-07-25 12:12 | DS ---
DISCHARGE SUMMARY DATE OF SERVICE: 07/25/2017. FINAL DIAGNOSES: 1. Lower gastrointestinal bleeding, possibly from diverticular bleed. 2. Mild Coumadin coagulopathy, improved. 3. Status post colonoscopy showing diverticulosis only. 4. Asthma history. 5. Atrial fibrillation. 6. History of recent methicillin-resistant Staphylococcus aureus urinary tract infection. 7. History of coronary artery disease. 8. History of chest pain, angina. 9. Gait dysfunction. 10.History of congestive heart failure. 11.History of diabetes mellitus type 2. 12.History of gastroesophageal reflux disease. 13.Hypertension. 14.Hyperlipidemia. 15.History of pulmonary embolism. 16.History of coronary artery disease, coronary artery bypass grafting with stent. DISCHARGE DISPOSITION: This patient will be discharged in stable condition with guarded prognosis. HISTORY OF PRESENT ILLNESS: This is a 72-year-old woman with a past medical history of multiple medical problems, admitted with lower GI bleeding. The patient had a colonoscopy which showed diverticulosis. The patient also had some abdominal pain. Patient improved significantly and Coumadin was held at this time. The patient was recommended PT, OT and rehab also. Patient refused. On exam, vitals are stable. CARDIOVASCULAR SYSTEM: S1, S2. ABDOMEN: Soft. NERVOUS SYSTEM: No focal deficits. Mild diffuse weakness. Discharged diet is cardiac diet. Activity limited until followup. Follow up with Dr. Lara in 1 to 2 days. CBC, BMP and continued monitor and restart Coumadin in the outpatient, low-dose at later when the patient is stable in 1-2 weeks. Follow up with Dr. Escalera and Dr. Garcia as advised. MEDICATIONS: 1. Cipro 250 mg p.o. b.i.d. finished the home dose. 2. Valium 5 mg q.h.s. 3. Lasix 40 mg p.o. daily. 4. Neurontin 400 mg q.i.d. 5. Insulin Lantus 25 units subcu daily. 6. Lispro 10 units subcu t.i.d. 7. Scale. 8. Albuterol and Atrovent q.i.d. and p.r.n. 9. Synthroid 200 mcg p.o. daily. 10.Lopressor 12.5 mg p.o. b.i.d. 11.Omeprazole 20 mg q.h.s. 12.Oxycodone 1 tablet t.i.d. p.r.n. 13.K-Dur 10 mEq p.o. b.i.d. 14.Trazodone 150 mg p.o. q.h.s. Followup labs with Dr. Lara. Total time taken is 35 minutes. MMLOPEZL / IJN: [id number] /
--- NOTE | 2017-07-26 13:47 | CDI ---
Last Revision, February 2017 Documentation Clarification Form Date: 07/26/17 From: Nila Alvarado Phone: If you have a question regarding this query, please contact Angela Barone at [phone] between 8am and 5pm. Admit Date: 07/23/2017 11:53:00 AM Patient Name: OlgaL idia Donahue Visit Number: [id number] Discharge Date: 07/25/17 ATTENTION: The Clinical Documentation Specialists (CDI) and [facility] Coding Staff appreciate your assistance in clarifying documentation. Please respond to the clarification below the line at the bottom and electronically sign. The CDI & [facility] Coding staff will review the response and follow-up if needed. Please note: Queries are made part of the Legal Health Record. If you have any questions, please contact the author of this message via ITS. Dr. Darlene Sosa Atrial fibrillation is documented in the past medical history in the H&P, in the discharge summary and in the progress notes. History/Risk Factors: Patient has a history of [place], CAD, hypertension, CHF and had a CABG and stent placement. Treatment: Patient is on coumadin. In your professional opinion, can you please clarify the type of atrial fibrillation, if known? Chronic/Permanent Paroxysmal Persistent Other, please specify Unable to determine Chronic/Permanent MTDD
--- NOTE | 2017-07-26 13:51 | CDI ---
Last Revision, February 2017 Documentation Clarification Form Date: 07/26/17 From: Nila Alvarado Phone: If you have a question regarding this query, please contact Angela Barone at [phone] between 8am and 5pm. Admit Date: 07/23/2017 11:53:00 AM Patient Name: Olga Lidia Donahue Visit Number: [id number] Discharge Date: 07/25/17 ATTENTION: The Clinical Documentation Specialists (CDI) and [facility] Coding Staff appreciate your assistance in clarifying documentation. Please respond to the clarification below the line at the bottom and electronically sign. The CDI & [facility] Coding staff will review the response and follow-up if needed. Please note: Queries are made part of the Legal Health Record. If you have any questions, please contact the author of this message via ITS. Dr. Darlene Sosa CHF history is documented in the H&P, discharge summary, consult note and progress notes. History/Risk Factors: Patient has a history of [place], CAD, hypertension, A.fib and has had a CABG and stent placed. Treatment: Patient is on PO Lasix at home. In your professional opinion, can you please clarify the type of CHF if known? Systolic Heart Failure: Diastolic Heart Failure: Systolic & Diastolic Heart Failure: Unable to Determine Other, please specify Unable to Determine MTDD
== END 2017-07-25 14:40 | disposition home health service (06) | DRG 378 ==
LOC: EC 18:31 → 4MS4W 18:54 → OBSVTOIN 07-23 11:53
PROVIDERS: ADMIT Hospitalist; ATTEND Hospitalist
PROC: 0DJ08ZZ Inspection of Upper Intestinal Tract, Via Natural or Artificial Opening Endoscopic (ICD-10-PCS; principal; 2017-07-24 08:00)
PROC: 0DJD8ZZ Inspection of Lower Intestinal Tract, Via Natural or Artificial Opening Endoscopic (ICD-10-PCS; 2017-07-24 08:00)
DX: K57.31 Diverticulosis of large intestine without perforation or abscess with bleeding (principal); R64 Cachexia; D50.0 Iron deficiency anemia secondary to blood loss (chronic); I48.2 Chronic atrial fibrillation; I50.9 Heart failure, unspecified; E11.42 Type 2 diabetes mellitus with diabetic polyneuropathy; I11.0 Hypertensive heart disease with heart failure; E78.5 Hyperlipidemia, unspecified; R13.10 Dysphagia, unspecified; E89.0 Postprocedural hypothyroidism; F17.200 Nicotine dependence, unspecified, uncomplicated; G25.81 Restless legs syndrome; I25.10 Atherosclerotic heart disease of native coronary artery without angina pectoris; I25.2 Old myocardial infarction; K21.9 Gastro-esophageal reflux disease without esophagitis; K58.9 Irritable bowel syndrome, unspecified; R79.1 Abnormal coagulation profile; G89.29 Other chronic pain; R32 Unspecified urinary incontinence; M54.9 Dorsalgia, unspecified; R26.2 Difficulty in walking, not elsewhere classified; K64.9 Unspecified hemorrhoids; Z74.01 Bed confinement status; Z79.01 Long term (current) use of anticoagulants; Z79.899 Other long term (current) drug therapy; Z79.4 Long term (current) use of insulin; Z95.5 Presence of coronary angioplasty implant and graft; Z95.1 Presence of aortocoronary bypass graft; Z90.710 Acquired absence of both cervix and uterus; Z86.718 Personal history of other venous thrombosis and embolism; Z86.711 Personal history of pulmonary embolism; Z86.14 Personal history of Methicillin resistant Staphylococcus aureus infection; Z86.010 Personal history of colon polyps; Z85.850 Personal history of malignant neoplasm of thyroid; Z85.21 Personal history of malignant neoplasm of larynx; Z91.018 Allergy to other foods; Z98.51 Tubal ligation status; Z96.612 Presence of left artificial shoulder joint; Z87.440 Personal history of urinary (tract) infections; Z90.49 Acquired absence of other specified parts of digestive tract; Z95.810 Presence of automatic (implantable) cardiac defibrillator; Z82.49 Family history of ischemic heart disease and other diseases of the circulatory system; Z82.5 Family history of asthma and other chronic lower respiratory diseases
CPT/HCPCS: 36415; 43235; 74177; 80048; 80053; 82550; 82553; 83036; 83690; 83735; 84484; 85025; 85610; 85730; 86850; 86900; 86901; 94640; 96361; 96374; 96375; 99285

== ENCOUNTER 2017-07-28 04:06 | Observation (INO) | payer MEDICARE ==
[2017-07-28 04:27] LABS: Basophils % (A) 0 %; Eosinophils # (A) 0.2 k/uL (0-0.7); Eosinophils % (A) 5 %; HCT 35.4 % (34.0-46.0); HGB 11.8 gm/dL (11.4-16.0); Lymphocytes # (A) 1.7 k/uL (1.0-4.8); Lymphocytes % (A) 38 %; MCHC 33.3 g/dL (31.0-37.0); MCV 87.1 fL (80.0-100.0); Mean Platelet Volume 6.2; Monocytes # (A) 0.3 k/uL (0-1.0); Monocytes % (A) 7 %; Neutrophils # (A) 2.1 k/uL (1.3-7.7); Neutrophils % (A) 48 %; Platelet Count 261 k/uL (150-450); RBC 4.06 m/uL (3.80-5.40); RDW 12.9 % (11.5-15.5); WBC 4.3 k/uL (3.8-10.6)
[2017-07-28] MEDS ORDERED: ONDANSETRON 4 MG/2 ML VIAL IVP STA (04:30)
[2017-07-28] MEDS ORDERED: MORPHINE SULFATE 4 MG/ML SYRINGE IV STA (04:31)
[2017-07-28 04:45] LABS: ALT 42 U/L (9-52); AST 33 U/L (14-36); Albumin 3.3 g/dL (3.5-5.0); Alkaline Phosphatase 104 U/L (38-126); Amylase <30 U/L (30-110); Anion Gap 12 mmol/L; Blood Urea Nitrogen 10 mg/dL (7-17); Calcium 9.9 mg/dL (8.4-10.2); Carbon Dioxide 23 mmol/L (22-30); Chloride 109 mmol/L (98-107); Glucose 139 mg/dL (74-99); Lipase 102 U/L (23-300); Magnesium 1.7 mg/dL (1.6-2.3); Potassium 3.8 mmol/L (3.5-5.1); Sodium 144 mmol/L (137-145); Total Bilirubin 0.6 mg/dL (0.2-1.3); Total Protein 5.6 g/dL (6.3-8.2)
[2017-07-28 04:46] LABS: INR 1.1 (<1.2); Prothrombin Time 10.4 sec (9.0-12.0)
--- NOTE | 2017-07-28 04:51 | XR ---
EXAMINATION TYPE: XR chest 1V portable DATE OF EXAM: 07/28/2017 COMPARISON: 06/27/2017 HISTORY: Chest pain TECHNIQUE: Single frontal view of the chest is obtained. FINDINGS: Heart and mediastinum are normal. Lungs are clear. Diaphragm is normal. There are chest le ads. There is left shoulder prosthesis. IMPRESSION: No active cardiopulmonary disease. No change.
--- NOTE | 2017-07-28 05:51 | ED ---
Chest Pain HPI - General Chief Complaint: Chest Pain Stated Complaint: Chest Pain Time Seen by Provider: 07/28/17 04:12 Source: patient Mode of arrival: EMS - History of Present Illness MD Complaint: chest pain, other (Abdominal pain) -: hour(s) Onset: during rest Pain Location: substernal, other (Periumbilical) Pain Radiation: none Severity: moderate Quality: dull Consistency: constant Improves With: nothing Worsens With: nothing Anginal Symptoms: nausea, vomiting Treatments Prior to Arrival: none - Related Data Home Medications Medication Instructions Recorded Confirmed traZODone HCL 150 mg PO HS 03/15/17 07/28/17 Omeprazole 20 mg PO HS 06/06/17 07/28/17 Insulin Glargine,Hum.rec.anlog 25 unit SQ DAILY 07/20/17 07/28/17 [Lantus Solostar] Insulin Lispro [humaLOG Kwikpen] 10 unit SQ TID 07/20/17 07/28/17 Insulin Lispro [humaLOG Kwikpen] See Protocol SQ TID 07/20/17 07/28/17 Ipratropium-Albuterol Nebulize 3 ml INHALATION RT-QID PRN 07/20/17 07/28/17 [Duoneb 0.5 mg-3 mg/3 ml Soln] Aspirin EC [Ecotrin] 325 mg PO DAILY 07/28/17 07/28/17 Atorvastatin [Lipitor] 40 mg PO DAILY 07/28/17 07/28/17 Furosemide [Lasix] 40 mg PO DAILY 07/28/17 07/28/17 Levothyroxine Sodium [Synthroid] 200 mcg PO DAILY 07/28/17 07/28/17 Naproxen Sodium [Aleve] 220 mg PO BID PRN 07/28/17 07/28/17 Nitroglycerin Sl Tabs [Nitrostat] 0.4 mg SUBLINGUAL Q5M PRN 07/28/17 07/28/17 Potassium Chloride ER [K-Dur 10] 10 meq PO BID 07/28/17 07/28/17 Warfarin [Coumadin] 2.5 mg PO DAILY 07/28/17 07/28/17 Previous Rx's Medication Instructions Recorded Diazepam [Valium] 5 mg PO HS@2000 #5 tab 07/01/17 Gabapentin [Neurontin] 400 mg PO QID cap 07/01/17 Metoprolol Tartrate [Lopressor] 12.5 mg PO BID tab 07/01/17 oxyCODONE-APAP 5-325MG [Percocet 1 tab PO TID PRN #9 tab 07/01/17 5-325 mg] Allergies Allergy/AdvReac Type Severity Reaction Status Date / Time peaches AdvReac Nausea & Uncoded 06/27/17 16:46 Vomiting Review of Systems ROS Statement: Those systems with pertinent positive or pertinent negative responses have been documented in the HPI. ROS Other: All systems not noted in ROS Statement are negative. Constitutional: Denies: fever, chills Respiratory: Denies: cough, dyspnea Cardiovascular: Denies: chest pain, palpitations, edema, syncope Gastrointestinal: Reports: abdominal pain, nausea, vomiting, diarrhea. Denies: constipation, melena Genitourinary: Denies: dysuria, hematuria Musculoskeletal: Denies: back pain Skin: Denies: rash Neurological: Denies: headache, weakness, numbness Psychiatric: Reports: anxiety EKG Findings - EKG Results: EKG: interpreted by [facility], sinus rhythm (Rate 66 bpm), normal axis, normal QRS - Blocks, [place], Hypertrophy, ST Abn: Repolarization changes or abnormalities: ST or T wave suggestive of ischemia ( Anterolateral T inversions) Past Medical History Past Medical History: Atrial Fibrillation, Asthma, Coronary Artery Disease (CAD) , Cancer, Chest Pain / Angina, Heart Failure, Diabetes Mellitus, GERD/Reflux, Hyperlipidemia, Hypertension, Myocardial Infarction ([place]), Pulmonary Embolus (PE) , Thyroid Disorder Additional Past Medical History / Comment(s): gastroenteritis. Additional hx: incontinent urine and stool, IBS, hemmorhoids, colonic polyps, R femur acetabular impingement syndrome, UTI with sepsis, DDD, RLS, neuropathy bilateral hands and feet, thyroid cancer with thyroidectomy, diverticulitis, pt takes coumadin for PE's, arthiritis, chronic back pain, laryngeal cancer with surgical removal, syncope Last Myocardial Infarction Date:: 2011 or 2012 per pt History of Any Multi-Drug Resistant Organisms: MRSA Date of last positivie culture/infection: 06/30/17 MDRO Source:: urine Past Surgical History: Adenoidectomy, Bladder Surgery, Bowel Resection, Cholecystectomy, Coronary Bypass/CABG, Heart Catheterization With Stent, Hysterectomy, Joint Replacement, Orthopedic Surgery, Pacemaker, Tonsillectomy, Tubal Ligation Additional Past Surgical History / Comment(s): CABG 3 vessel in 2006, cardiac cath with stents 2007 and 2011, pacer 2011, total thyroidectomy, lap maria del rosario, total left shoulder, R shoulder arthroscopy, partial colectomy due to diverticulitis, bladder suspension and bladder repair and mesh x 2, rectal wall repair, hysterectomy 1977, laryngeal surgery for cancer, colonoscopy, EGD with bx, nasal deviated septum surgical correction, L knee arthroscopy. Past Anesthesia/Blood Transfusion Reactions: No Reported Reaction Additional Past Anesthesia/Blood Transfusion Reaction / Comment(s): Pt has recieved blood without any reaction. Date of Last Stent Placement:: 2011 Type of Cardiac Device: Permanent Pacemaker Device Placement Date:: 2010 or 2011 in [place], [place] Past Psychological History: No Psychological Hx Reported Smoking Status: Current every day smoker - Past Family History Father Family Medical History: Congestive Heart Failure (CHF), COPD Additional Family Medical History / Comment(s): Father at age 61 yrs of CHF and COPD. Mother Family Medical History: Congestive Heart Failure (CHF), COPD General Exam General appearance: alert, in no apparent distress Head exam: Present: atraumatic, normocephalic Eye exam: Present: normal appearance. Absent: scleral icterus, conjunctival injection ENT exam: Present: normal oropharynx Respiratory exam: Present: normal lung sounds bilaterally. Absent: respiratory distress, wheezes, rales Cardiovascular Exam: Present: regular rate, normal rhythm, normal heart sounds. Absent: systolic murmur, diastolic murmur, rubs, gallop GI/Abdominal exam: Present: soft. Absent: distended, tenderness, guarding, rebound, mass Extremities exam: Present: normal inspection, normal capillary refill. Absent: pedal edema, calf tenderness Back exam: Present: normal inspection. Absent: CVA tenderness (R), CVA tenderness (L) Neurological exam: Present: alert Skin exam: Present: warm, dry, intact, normal color, rash Course Vital Signs 07/28/17 07/28/17 07/28/17 04:09 04:20 06:03 Temperature 98.2 F Pulse Rate 66 67 Respiratory 18 18 Rate Blood Pressure 162/74 177/80 O2 Sat by Pulse 99 98 Oximetry 07/28/17 07/28/17 07/28/17 09:38 15:01 15:15 Temperature Pulse Rate 65 60 Respiratory 16 16 Rate Blood Pressure 158/71 154/62 O2 Sat by Pulse 98 98 98 Oximetry 07/28/17 15:33 Temperature Pulse Rate 60 Respiratory 16 Rate Blood Pressure 105/54 O2 Sat by Pulse 98 Oximetry Disposition Clinical Impression: Chest pain Disposition: ADMITTED IP TO THIS HOSP Is patient prescribed a controlled substance at d/c from ED?: No
[2017-07-28] MEDS ORDERED: ACETAMINOPHEN TAB 500 MG TAB PO STA (07:01)
[2017-07-28 07:04] LABS: Partial Thromboplastin Time 21.7 sec (22.0-30.0)
[2017-07-28] MEDS ORDERED: NITROGLYCERIN SL TABS 0.4 MG TAB SUBLINGUAL PRN ×2 (07:15→12:35)
[2017-07-28] MEDS ORDERED: oxyCODONE-APAP 5-325MG 1 EACH TAB PO PRN (07:18)
[2017-07-28] MEDS ORDERED: POTASSIUM CHLORIDE ER 20 MEQ TAB.ER PO SCH (09:00)
[2017-07-28] MEDS ORDERED: FUROSEMIDE 40 MG TAB PO SCH (09:00)
[2017-07-28] MEDS: GABAPENTIN 400 MG CAP PO SCH ×4 (09:33→20:48)
[2017-07-28 09:34] LABS: Glucose,Whole Blood 124 mg/dL (75-99)
[2017-07-28] MEDS: METOPROLOL TARTRATE 12.5 MG TAB PO SCH ×2 (09:34→20:47)
[2017-07-28] MEDS: INSULIN DETEMIR 100 UNIT/ML 10 ML VIAL SQ SCH (09:36)
[2017-07-28] MEDS: INSULIN ASPART 100 UNIT/ML 1 ML 10 ML VIAL SQ SCH ×3 (09:36→20:48)
[2017-07-28 10:48] LABS: Creatine Kinase <20 U/L (30-135)
[2017-07-28 11:02] LABS: Creatine Kinase MB 0.2 ng/mL (0.0-2.4); Troponin I <0.012 ng/mL (0.000-0.034)
--- NOTE | 2017-07-28 12:56 | P.HPIM ---
History of Present Illness Patient [id number] female had multiple hospitalizations in the past came in with epigastric abdominal pain and retrosternal chest pain has been going on for 2 days patient is unable to clearly tell me the severity of nature of pain denied any radiation. Patient was dry heaving, patient was unable to clearly associate her symptoms with food denied any diaphoresis denied any vomiting but nauseous and dry heaving denied any lightheadedness nonpruritic in nature. Patient has multiple medical problems including chronic diastolic dysfunction on Lasix patient is a limited this time patient has a history of atrial fibrillation on Coumadin patient had a diverticular bleed during her last hospitalization because of which the her Coumadin were had was held with the recommendation to restart back as an outpatient patient stays patient was started back on Coumadin and has been taking Coumadin as an outpatient but her INR is only 1.1. Patient had couple falls patient feels quite weak, patient [place] does not appear like able to take care of herself or her . Patient although declining to go to rehab and after counseling her to go to rehab patient says that she'll think about it. Review of Systems REVIEW OF SYSTEMS: CONSTITUTIONAL: No fever, no malaise, no fatigue. HEENT: No recent visual problems or hearing problems. Denied any sore throat. CARDIOVASCULAR: No orthopnea, PND, no palpitations, no syncope. PULMONARY: No shortness of breath, no cough, no hemoptysis. GASTROINTESTINAL: No diarrhea, NEUROLOGICAL: No headaches, no weakness, no numbness. HEMATOLOGICAL: Denies any bleeding or petechiae. GENITOURINARY: Denies any burning micturition, frequency, or urgency. MUSCULOSKELETAL/RHEUMATOLOGICAL: Denies any joint pain, swelling, or any muscle pain. ENDOCRINE: Denies any polyuria or polydipsia. The rest of the 14-point review of systems is negative. Past Medical History Past Medical History: Atrial Fibrillation, Asthma, Coronary Artery Disease (CAD) , Cancer, Chest Pain / Angina, Heart Failure, Diabetes Mellitus, GERD/Reflux, Hyperlipidemia, Hypertension, Myocardial Infarction ([place]), Osteoarthritis ([place]), Pulmonary Embolus (PE), Thyroid Disorder Additional Past Medical History / Comment(s): Pt recently admitted to [facility] on 02/28 with lower GI blee possibly d/t diverticular bleed. Other hx: Incontinent urine and stool, IBS, diverticulitis, hemmorhoids, colonic polyps, R femur acetabular impingement syndrome, UTI with sepsis, DDD, RLS, IDDM type II , neuropathy bilateral hands and feet, thyroid cancer with thyroidectomy- hypothyroid, bilateral PE's, chronic back pain, laryngeal cancer with surgical removal, syncope, gait dysfunction. Last Myocardial Infarction Date:: 2011 or 2012 per pt History of Any Multi-Drug Resistant Organisms: MRSA Date of last positivie culture/infection: 06/30/17 MDRO Source:: urine Past Surgical History: Adenoidectomy, Bladder Surgery, Bowel Resection, Cholecystectomy, Coronary Bypass/CABG, Heart Catheterization With Stent, Hysterectomy, Joint Replacement, Orthopedic Surgery, Pacemaker, Tonsillectomy, Tubal Ligation Additional Past Surgical History / Comment(s): CABG 3 vessel in 2006, cardiac cath with stents 2007 and 2011, pacer 2011, total thyroidectomy, lap maria del rosario, total left shoulder, R shoulder arthroscopy, partial colectomy due to diverticulitis, bladder suspension and bladder repair and mesh x 2, rectal wall repair, hysterectomy 1977, laryngeal surgery for cancer, recent colonoscopy , EGD with bx, nasal deviated septum surgical correction, L knee arthroscopy. Past Anesthesia/Blood Transfusion Reactions: No Reported Reaction Additional Past Anesthesia/Blood Transfusion Reaction / Comment(s): Pt has recieved blood without any reaction. Date of Last Stent Placement:: 2011 Type of Cardiac Device: Permanent Pacemaker Device Placement Date:: 2010 or 2011 in [place], [place] Smoking Status: Current every day smoker - Past Family History Father Family Medical History: Congestive Heart Failure (CHF), COPD Additional Family Medical History / Comment(s): Father at age 61 yrs of CHF and COPD. Mother Family Medical History: Congestive Heart Failure (CHF), COPD Medications and Allergies Home Medications Medication Instructions Recorded Confirmed Type traZODone HCL 150 mg PO HS 03/15/17 07/28/17 History Omeprazole 20 mg PO HS 06/06/17 07/28/17 History Diazepam [Valium] 5 mg PO HS@1999 #5 tab 07/01/17 07/28/17 Rx Gabapentin [Neurontin] 400 mg PO QID cap 07/01/17 07/28/17 Rx Metoprolol Tartrate [Lopressor] 12.5 mg PO BID tab 07/01/17 07/28/17 Rx oxyCODONE-APAP 5-325MG [Percocet 1 tab PO TID PRN #9 tab 07/01/17 07/28/17 Rx 5-325 mg] Insulin Glargine,Hum.rec.anlog 25 unit SQ DAILY 07/20/17 07/28/17 History [Lantus Solostar] Insulin Lispro [humaLOG Kwikpen] 10 unit SQ TID 07/20/17 07/28/17 History Insulin Lispro [humaLOG Kwikpen] See Protocol SQ TID 07/20/17 07/28/17 History Ipratropium-Albuterol Nebulize 3 ml INHALATION RT-QID PRN 07/20/17 07/28/17 History [Duoneb 0.5 mg-3 mg/3 ml Soln] Aspirin EC [Ecotrin] 325 mg PO DAILY 07/28/17 07/28/17 History Atorvastatin [Lipitor] 40 mg PO DAILY 07/28/17 07/28/17 History Furosemide [Lasix] 40 mg PO DAILY 07/28/17 07/28/17 History Levothyroxine Sodium [Synthroid] 200 mcg PO DAILY 07/28/17 07/28/17 History Naproxen Sodium [Aleve] 220 mg PO BID PRN 07/28/17 07/28/17 History Nitroglycerin Sl Tabs [Nitrostat] 0.4 mg SUBLINGUAL Q5M PRN 07/28/17 07/28/17 History Potassium Chloride ER [K-Dur 10] 10 meq PO BID 07/28/17 07/28/17 History Warfarin [Coumadin] 2.5 mg PO DAILY 07/28/17 07/28/17 History Allergies Allergy/AdvReac Type Severity Reaction Status Date / Time peaches AdvReac Nausea & Uncoded 06/27/17 16:46 Vomiting Physical Exam Vitals: Vital Signs Temp Pulse Resp BP Pulse Ox 07/28/17 09:38 65 16 158/71 98 07/28/17 06:03 67 18 177/80 98 07/28/17 04:20 98.2 F 07/28/17 04:09 66 18 162/74 99 Intake and Output 07/27/17 07/28/17 07/28/17 22:59 06:59 14:59 Other: Voiding Method Diaper Weight 39.916 kg PHYSICAL EXAMINATION: GENERAL: The patient is alert and oriented x3, not in any acute distress. Thin built HEENT: Pupils are round and equally reacting to light. EOMI. No scleral icterus. No conjunctival pallor. Normocephalic, atraumatic. No pharyngeal erythema. No thyromegaly. CARDIOVASCULAR: S1 and S2 present. No murmurs, rubs, or gallops. PULMONARY: Chest is clear to auscultation, no wheezing or crackles. ABDOMEN: Soft, minimal epigastric abdominal tenderness nondistended, normoactive bowel sounds. No palpable organomegaly. MUSCULOSKELETAL: No joint swelling or deformity. EXTREMITIES: No cyanosis, clubbing, or pedal edema. NEUROLOGICAL: Gross neurological examination did not reveal any focal deficits. Does have generalized weakness SKIN: No rashes. Results CBC & Chem 7: 07/28/17 04:15 07/28/17 04:15 Labs: Abnormal Lab Results - Last 24 Hours (Table) 07/28/17 07/28/17 07/28/17 Range/Units 04:15 04:15 09:33 APTT 21.7 L (22.0-30.0) sec Chloride 109 H (98-107) mmol/L Glucose 139 H (74-99) mg/dL POC Glucose (mg/dL) 124 H (75-99) mg/dL Total Creatine Kinase (30-135) U/L Total Protein 5.6 L (6.3-8.2) g/dL Albumin 3.3 L (3.5-5.0) g/dL Amylase <30 L (30-110) U/L 07/28/17 Range/Units 10:04 APTT (22.0-30.0) sec Chloride (98-107) mmol/L Glucose (74-99) mg/dL POC Glucose (mg/dL) (75-99) mg/dL Total Creatine Kinase <20 L (30-135) U/L Total Protein (6.3-8.2) g/dL Albumin (3.5-5.0) g/dL Amylase (30-110) U/L Thrombosis Risk Factor Assmnt - Choose All That Apply Any of the Below Risk Factors Present?: Yes Other Risk Factors: Yes Each Risk Factor Represents 2 Points: Age 61-74 years, Malignancy Other congenital or acquired thrombophilia - If yes, enter type in comment: No Thrombosis Risk Factor Assessment Total Risk Factor Score: 4 Thrombosis Risk Factor Assessment Level: Moderate Risk Assessment and Plan Plan: -Abdominal pain, chest pain: Probably peptic ulcer disease or gastritis patient is on nonsteroidal anti-intermittent medication these will be discontinued will rule out a concurrent stenosis with troponins and EKG cardiology was consulted from ER. Patient had atrially paced rhythm on the EKG. patient was started on proton pulmonary millimeter nonsteroidal Antivert medications will be discontinued -Chronic atrial fibrillation with a permanent pacemaker on Coumadin subacute or chronic on Coumadin. Patient will be resumed on Coumadin and repeat INR tomorrow -Generalized deconditioning and falls will need placement into rehabilitation PT and OT and case management will be consulted -Coronary artery disease with status post bypass grafting in the past and patient will not need 325mg of aspirin patient will be started on 81 mg. -Can start failure chronic diastolic dysfunction patient is presently not in acute exacerbation patient is euvolemic at this time -Hypothyroidism. Patient is on very high-dose of levothyroxine and TSH will be obtained continue with levothyroxine. History of COPD without any acute exacerbation -Type 2 diabetes mellitus -Hypertension -History of pulmonary embolism in 2013.
[2017-07-28 14:37] LABS: T4, Free (Free Thyroxine) 2.65 ng/dL (0.78-2.19)
[2017-07-28] MEDS: PANTOPRAZOLE 40 MG/10 ML VIAL IVP SCH ×2 (15:31→20:46)
[2017-07-28 15:38] VITALS: BMI 14.2
[2017-07-28 17:05] LABS: Creatine Kinase <20 U/L (30-135)
[2017-07-28 17:18] LABS: Creatine Kinase MB 0.3 ng/mL (0.0-2.4); Troponin I <0.012 ng/mL (0.000-0.034)
[2017-07-28 17:22] LABS: Glucose,Whole Blood 64 mg/dL (75-99)
[2017-07-28] MEDS ORDERED: WARFARIN 3 MG TAB PO SCH (18:00)
[2017-07-28] MEDS: DIAZEPAM 5 MG TAB PO SCH (19:07)
[2017-07-28 20:47] LABS: Glucose,Whole Blood 155 mg/dL (75-99)
[2017-07-28] MEDS: POTASSIUM CHLORIDE ER 10 MEQ TAB.ER.PRT PO SCH (20:47)
[2017-07-28] MEDS: traZODone HCL 100 MG TAB PO SCH (20:47)
[2017-07-28] MEDS ORDERED: PANTOPRAZOLE 40 MG TABLET PO SCH (21:00)
[2017-07-29] MEDS ORDERED: SODIUM CHLORIDE 0.9% 1,000 ML IV SCH (01:00)
[2017-07-29 01:44] LABS: Cholesterol 156 mg/dL (<200); HDL Cholesterol 36 mg/dL (40-60); LDL Cholesterol,Calculated 83 mg/dL (0-99); Triglycerides 185 mg/dL (<150)
[2017-07-29] MEDS ORDERED: LEVOTHYROXINE 100 MCG TAB PO SCH (06:30)
[2017-07-29] MEDS ORDERED: FUROSEMIDE 40 MG TAB PO SCH (09:00)
[2017-07-29] MEDS ORDERED: ASPIRIN 325 MG TAB PO SCH (09:00)
[2017-07-29] MEDS ORDERED: NON-FORMULARY DRUG (Levothyroxine Sodium [Synthroid] 200 MCG) PO SCH (09:00)
--- NOTE | 2017-07-29 09:15 | P.CRDCN ---
History of Present Illness History of present illness: Mrs. Donahue is a pleasant 72-year-old female past medical history significant for coronary artery disease status post bypass grafting, paroxysmal atrial fibrillation on long-term anticoagulation, history of pulmonary embolism , sick sinus syndrome status post permanent pacemaker implantation, hypertension with episodes of hypotension, diabetes mellitus and chronic tobacco abuse. We have been asked to see her in consultation for complaints of chest pain. She complains of very non-specific type pains in her chest and epigastric region. At the base of her sternotomy incision she c/o feeling a lump that is causing her discomfort. She states the pain she is experiencing are all over her body including her neck, b/l arms, legs, back and chest. She c/ o intermittent shortness of breath, dizziness, nausea with no vomiting and palpitations. At the time of my exam she is resting comfortably in bed in the ED with no complaints. She states her chest pain has subsided. She has had multiple admissions for similar complaints and has a history of non-compliance. EKG on arrival reveals sinus rhythem rhythm with nonspecific T-wave abnormality in the inferior leads as well as nonspecific precordial ST changes. These EKG abnormalities have been evident on previous EKGs. There is no new changes. Chest xray negative for an acute cardio pulmonary process. Laboratory data reviewed, hemoglobin 11.8, platelets 261, sodium 144, potassium 3.8, creatinine 0.60, cardiac enzymes negative 2. TSH less than 0.015 with a free T4 of 2.65. Current cardiac medications include Coumadin 2.5 mg daily, potassium 10 mg twice a day, Lasix 20 mg twice a day, aspirin 325 mg daily, Lopressor 12.5 mg twice a day and atorvastatin 40 mg daily. Most recent echocardiogram performed November 2016 reveals preserved left ventricular function with ejection fraction 55-60% with mild AR and trace MR. Most recent catheterization done by Dr. Cobb in 2014 reveals 2 grafts: GRANT to LAD was occluded with a patent stent in the craig LAD. Left main is widely patent, RCA totally occluded, SVG to PDA branch of RCA and diagonal branch of LAD with 30-40% narrowing. Most recent stress test is performed in December 2016 was inconclusive secondary to baseline EKG abnormalities. Although the echocardiogram images did not show any evidence of wall motion abnormalities consistent with ischemia. Review of Systems At the time of my exam: CONSTITUTIONAL: Denies fever. Denies chills. EYES: Denies blurred vision. Denies vision changes. Denies eye pain. EARS, NOSE, MOUTH & THROAT: Denies headache. Denies sore throat. Denies ear pain. CARDIOVASCULAR: Denies chest pain. Denies shortness of breath. Denies orthopnea. Denies PND. Denies palpitations. RESPIRATORY: Denies cough. GASTROINTESTINAL: Denies abdominal pain. Denies diarrhea. Denies constipation. Denies nausea. Denies vomiting. MUSCULOSKELETAL: Denies myalgias. INTEGUMENTARY: Denies pruitis. Denies rash. NEUROLOGIC: Denies numbness. Denies tingling. Denies weakness. PSYCHIATRIC: Denies anxiety. Denies depression. ENDOCRINE: Denies fatigue. Denies weight change. Denies polydipsia. Denies polyurina. GENITOURINARY: Denies burning, hematuria or urgency with micturation. HEMATOLOGIC: Denies history of anemia. Denies bleeding. Past Medical History Past Medical History: Atrial Fibrillation, Asthma, Coronary Artery Disease (CAD) , Cancer, Chest Pain / Angina, Heart Failure, Diabetes Mellitus, GERD/Reflux, Hyperlipidemia, Hypertension, Myocardial Infarction ([place]), Osteoarthritis (OA), Pulmonary Embolus (PE), Thyroid Disorder Additional Past Medical History / Comment(s): Pt recently admitted to [facility] on 02/28 with lower GI blee possibly d/t diverticular bleed. Other hx: Incontinent urine and stool, IBS, diverticulitis, hemmorhoids, colonic polyps, R femur acetabular impingement syndrome, UTI with sepsis, DDD, RLS, IDDM type II , neuropathy bilateral hands and feet, thyroid cancer with thyroidectomy- hypothyroid, bilateral PE's, chronic back pain, laryngeal cancer with surgical removal, syncope, gait dysfunction. Last Myocardial Infarction Date:: 2011 or 2012 per pt History of Any Multi-Drug Resistant Organisms: MRSA Date of last positivie culture/infection: 06/30/17 MDRO Source:: urine Past Surgical History: Adenoidectomy, Bladder Surgery, Bowel Resection, Cholecystectomy, Coronary Bypass/CABG, Heart Catheterization With Stent, Hysterectomy, Joint Replacement, Orthopedic Surgery, Pacemaker, Tonsillectomy, Tubal Ligation Additional Past Surgical History / Comment(s): CABG 3 vessel in 2006, cardiac cath with stents 2007 and 2011, pacer 2011, total thyroidectomy, lap [place], total left shoulder, R shoulder arthroscopy, partial colectomy due to diverticulitis, bladder suspension and bladder repair and mesh x 2, rectal wall repair, hysterectomy 1977, laryngeal surgery for cancer, recent colonoscopy , EGD with bx, nasal deviated septum surgical correction, L knee arthroscopy. Past Anesthesia/Blood Transfusion Reactions: No Reported Reaction Additional Past Anesthesia/Blood Transfusion Reaction / Comment(s): Pt has recieved blood without any reaction. Date of Last Stent Placement:: 2011 Type of Cardiac Device: Permanent Pacemaker Device Placement Date:: 2010 or 2011 in [place], [place] Smoking Status: Current every day smoker - Past Family History Father Family Medical History: Congestive Heart Failure (CHF), COPD Additional Family Medical History / Comment(s): Father at age 61 yrs of CHF and COPD. Mother Family Medical History: Congestive Heart Failure (CHF), COPD Medications and Allergies Home Medications Medication Instructions Recorded Confirmed Type traZODone HCL 150 mg PO HS 03/15/17 07/28/17 History Omeprazole 20 mg PO HS 06/06/17 07/28/17 History Diazepam [Valium] 5 mg PO HS@1999 #5 tab 07/01/17 07/28/17 Rx Gabapentin [Neurontin] 400 mg PO QID cap 07/01/17 07/28/17 Rx Metoprolol Tartrate [Lopressor] 12.5 mg PO BID tab 07/01/17 07/28/17 Rx oxyCODONE-APAP 5-325MG [Percocet 1 tab PO TID PRN #9 tab 07/01/17 07/28/17 Rx 5-325 mg] Insulin Glargine,Hum.rec.anlog 25 unit SQ DAILY 07/20/17 07/28/17 History [Lantus Solostar] Insulin Lispro [humaLOG Kwikpen] 10 unit SQ TID 07/20/17 07/28/17 History Insulin Lispro [humaLOG Kwikpen] See Protocol SQ TID 07/20/17 07/28/17 History Ipratropium-Albuterol Nebulize 3 ml INHALATION RT-QID PRN 07/20/17 07/28/17 History [Duoneb 0.5 mg-3 mg/3 ml Soln] Aspirin EC [Ecotrin] 325 mg PO DAILY 07/28/17 07/28/17 History Atorvastatin [Lipitor] 40 mg PO DAILY 07/28/17 07/28/17 History Furosemide [Lasix] 40 mg PO DAILY 07/28/17 07/28/17 History Levothyroxine Sodium [Synthroid] 200 mcg PO DAILY 07/28/17 07/28/17 History Naproxen Sodium [Aleve] 220 mg PO BID PRN 07/28/17 07/28/17 History Nitroglycerin Sl Tabs [Nitrostat] 0.4 mg SUBLINGUAL Q5M PRN 07/28/17 07/28/17 History Potassium Chloride ER [K-Dur 10] 10 meq PO BID 07/28/17 07/28/17 History Warfarin [Coumadin] 2.5 mg PO DAILY 07/28/17 07/28/17 History Allergies Allergy/AdvReac Type Severity Reaction Status Date / Time peaches AdvReac Nausea & Uncoded 06/27/17 16:46 Vomiting Physical Exam Vitals: Vital Signs Temp Pulse Resp BP Pulse Ox 07/28/17 15:33 60 16 105/54 98 07/28/17 15:15 98 07/28/17 15:01 60 16 154/62 98 07/28/17 09:38 65 16 158/71 98 07/28/17 06:03 67 18 177/80 98 07/28/17 04:20 98.2 F 07/28/17 04:09 66 18 162/74 99 Intake and Output 07/28/17 07/28/17 07/28/17 06:59 14:59 22:59 Other: Voiding Method Diaper Weight 39.916 kg 39.916 kg Blood pressure 105/50 for heart rate 60 afebrile maintaining oxygen saturation on room air GENERAL: This is a 72-year-old occasion female in no apparent distress at the time of my examination. HEENT: Head is atraumatic, normocephalic. Pupils are equal, round. Sclerae anicteric. Conjunctivae are clear. Mucous membranes of the mouth are moist. Neck is supple. There is no jugular venous distention. No carotid bruit is heard. LUNGS: Clear to auscultation no wheezes, rales or rhonchi. No chest wall tenderness is noted on palpation or with deep breathing. HEART: Regular rate and rhythm without murmurs, rubs or gallops. S1 and S2 heard. ABDOMEN: Soft, nontender. Bowel sounds are heard. No organomegaly noted. EXTREMITIES: No evidence of peripheral edema and no calf tenderness noted. VASCULAR: Radial and dorsalis pedis pulses palpated, no evidence of clubbing. NEUROLOGIC: Patient is awake, alert and oriented x3. Results 07/28/17 04:15 07/28/17 04:15 Cardiac Enzymes 07/28/17 07/28/17 07/28/17 Range/Units 04:15 04:15 10:04 AST 33 (14-36) U/L CK-MB (CK-2) 0.2 (0.0-2.4) ng/mL Troponin I <0.012 <0.012 (0.000-0.034) ng/mL Coagulation 07/28/17 Range/Units 04:15 PT 10.4 (9.0-12.0) sec APTT 21.7 L (22.0-30.0) sec CBC 07/28/17 Range/Units 04:15 WBC 4.3 (3.8-10.6) k/uL RBC 4.06 (3.80-5.40) m/uL Hgb 11.8 (11.4-16.0) gm/dL Hct 35.4 (34.0-46.0) % Plt Count 261 (150-450) k/uL Comprehensive Metabolic Panel 07/28/17 Range/Units 04:15 Sodium 144 (137-145) mmol/L Potassium 3.8 (3.5-5.1) mmol/L Chloride 109 H (98-107) mmol/L Carbon Dioxide 23 (22-30) mmol/L BUN 10 (7-17) mg/dL Creatinine 0.60 (0.52-1.04) mg/dL Glucose 139 H (74-99) mg/dL Calcium 9.9 (8.4-10.2) mg/dL AST 33 (14-36) U/L ALT 42 (9-52) U/L Alkaline Phosphatase 104 (38-126) U/L Total Protein 5.6 L (6.3-8.2) g/dL Albumin 3.3 L (3.5-5.0) g/dL Current Medications Generic Name Dose Route Start Last Admin Trade Name Freq PRN Reason Stop Dose Admin Acetaminophen 1,000 mg 07/28/17 12:40 Tylenol Tab PO Q6HR PRN Fever and/ or Pain Albuterol/Ipratropium 3 ml 07/28/17 07:18 Duoneb 0.5 Mg-3 Mg/3 Ml Soln INHALATION RT-QID PRN Shortness Of Breath Atorvastatin Calcium 40 mg 07/29/17 09:00 Lipitor PO DAILY [facility] Diazepam 5 mg 07/28/17 20:00 Valium PO HS@2000 [facility] Furosemide 40 mg 07/29/17 09:00 Lasix PO DAILY [facility] Gabapentin 400 mg 07/28/17 09:00 07/28/17 15:32 Neurontin PO 400 mg QID [facility] Administration Insulin Aspart 10 unit 07/28/17 09:00 07/28/17 09:36 Novolog SQ Not Given TID [facility] Insulin Detemir 26 unit 07/28/17 09:00 07/28/17 09:36 Levemir SQ 26 unit DAILY [facility] Administration Levothyroxine Sodium 200 mcg 07/29/17 06:30 Synthroid PO DAILY@0630 [facility] Metoprolol Tartrate 12.5 mg 07/28/17 09:00 07/28/17 09:34 Lopressor PO 12.5 mg BID [facility] Administration Nitroglycerin 0.4 mg 07/28/17 12:35 Nitrostat SUBLINGUAL Q5M PRN Chest Pain Pantoprazole Sodium 40 mg 07/28/17 12:45 07/28/17 15:31 Protonix IVP 40 mg BID [facility] Administration Potassium Chloride 10 meq 07/28/17 21:00 K-Dur 10 PO BID [facility] Trazodone HCl 150 mg 07/28/17 21:00 Desyrel PO HS [facility] Warfarin Sodium 3 mg 07/28/17 18:00 Coumadin PO DAILY@1800 [facility] Intake and Output 07/28/17 07/28/17 07/28/17 06:59 14:59 22:59 Other: Voiding Method Diaper Weight 39.916 kg 39.916 kg Patient Weight 07/29/17 06:59 Weight 39.916 kg 07/28/17 04:15 07/28/17 04:15 Assessment and Plan Assessment: ASSESSMENT 1. Epigastric pain 2. History of coronary artery disease status post bypass grafting and subsequent stenting 3. Dyslipidemia 4. Hypertension 5. Diabetes mellitus 6. Chronic diastolic dysfunction, currently euvolemic 7. Paroxysmal atrial fibrillation on long-term anticoagulation with Coumadin currently maintaining sinus mechanism 8. Subtherapeutic INR 9. Hypothyroidism, currently on level thyroxine 200 mg daily with suppressed TSH. 10. Chronic nicotine dependence 11. Noncompliance PLAN Symptoms are very non-specific. An acute coronary event has been ruled out. No further cardiac work-up required. Follow up with Dr. Cobb upon discharge. Thank you kindly for this discharge. Nurse Practitioner note has been reviewed, I agree with a documented findings and plan of care. Patient was seen and examined.
[2017-07-29 09:48] LABS: Glucose,Whole Blood 102 mg/dL (75-99)
[2017-07-29] MEDS: PANTOPRAZOLE 40 MG/10 ML VIAL IVP SCH (10:37)
[2017-07-29] MEDS: ATORVASTATIN 40 MG TAB PO SCH (10:37)
[2017-07-29] MEDS: GABAPENTIN 400 MG CAP PO SCH ×4 (10:37→20:14)
[2017-07-29] MEDS: POTASSIUM CHLORIDE ER 10 MEQ TAB.ER.PRT PO SCH (10:37)
[2017-07-29] MEDS: METOPROLOL TARTRATE 12.5 MG TAB PO SCH ×3 (10:38→20:14)
[2017-07-29] MEDS: INSULIN DETEMIR 100 UNIT/ML 10 ML VIAL SQ SCH (10:49)
[2017-07-29] MEDS: INSULIN ASPART 100 UNIT/ML 1 ML 10 ML VIAL SQ SCH ×3 (10:54→17:59)
[2017-07-29 11:49] LABS: Glucose,Whole Blood 166 mg/dL (75-99)
--- NOTE | 2017-07-29 14:50 | P.PN ---
Subjective 72-year-old female admitted for chest pain which is probably due to gastroesophageal reflux disease cardiology evaluated the patient no further recommendations her chest pain is better now. Patient will need placement into subacute rehabilitation had falls and multiple hospitalizations quite weak. Patient's TSH is quite low and T4 is minimally elevated, continued on levothyroxine from 200-150 g. Patient was hypotensive because of which patient is receiving IV fluids. Patient had history of chronic diastolic dysfunction the past. On disc any IV fluids will also do screening of Lasix repeat chest x-ray tomorrow. Patient may need to go to rehab on Tuesday as she needs approval from the insurance company. Constitutional: Denied any fatigue denied any fever. Cardio vascular: denied any chest pain, palpitations Gastrointestinal denied any nausea vomiting Pulmonary: Denied any shortness of breath cough Neurologic denied any new focal deficits Objective - Vital Signs Vital signs: Vital Signs Temp 97.7 F 07/29/17 07:40 Pulse 63 07/29/17 12:15 Resp 16 07/29/17 12:15 BP 113/59 07/29/17 12:15 Pulse Ox 99 07/29/17 12:15 Intake & Output 07/28/17 07/29/17 07/29/17 18:59 06:59 18:59 Intake Total 3600 300 Balance 3600 300 Weight 54.5 kg 54.5 kg Intake: IV 3600 300 Sodium Chloride 0.9% 1, 3600 300 000 ml @ 75 mls/hr IV . [id number] [facility] Rx#:[id number] Other: Voiding Method Diaper Diaper Diaper # Voids 2 - Exam PHYSICAL EXAMINATION: GENERAL: The patient is alert and oriented x3, not in any acute distress. Thin built HEENT: Pupils are round and equally reacting to light. EOMI. No scleral icterus. No conjunctival pallor. Normocephalic, atraumatic. No pharyngeal erythema. No thyromegaly. CARDIOVASCULAR: S1 and S2 present. No murmurs, rubs, or gallops. PULMONARY: Chest is clear to auscultation, no wheezing or crackles. ABDOMEN: Soft, minimal epigastric abdominal tenderness nondistended, normoactive bowel sounds. No palpable organomegaly. MUSCULOSKELETAL: No joint swelling or deformity. EXTREMITIES: No cyanosis, clubbing, or pedal edema. NEUROLOGICAL: Gross neurological examination did not reveal any focal deficits. Does have generalized weakness SKIN: No rashes. - Labs CBC & Chem 7: 07/28/17 04:15 07/28/17 04:15 Labs: Abnormal Lab Results - Last 24 Hours (Table) 07/28/17 07/28/17 07/28/17 Range/Units 04:15 16:14 17:15 POC Glucose (mg/dL) 64 L (75-99) mg/dL Total Creatine Kinase <20 L (30-135) U/L Triglycerides 185 H (<150) mg/dL HDL Cholesterol 36 L (40-60) mg/dL 07/28/17 07/29/17 07/29/17 Range/Units 20:45 09:45 11:23 POC Glucose (mg/dL) 155 H 102 H 166 H (75-99) mg/dL Total Creatine Kinase (30-135) U/L Triglycerides (<150) mg/dL HDL Cholesterol (40-60) mg/dL Assessment and Plan Plan: -Abdominal pain, chest pain: Probably peptic ulcer disease or gastritis patient is on nonsteroidal anti-intermittent medication these will be discontinued ruled out acute coronary syndromes. -Chronic atrial fibrillation with a permanent pacemaker on Coumadin subacute or chronic on Coumadin. Patient was resumed on Coumadin and repeat INR tomorrow -Generalized deconditioning and falls will need placement into rehabilitation PT and OT and case management were consulted -Coronary artery disease with status post bypass grafting in the past and patient will not need 325mg of aspirin patient will be started on 81 mg. -Can start failure chronic diastolic dysfunction patient is presently not in acute exacerbation patient is euvolemic at this time -Hypothyroidism. Patient is on very high-dose of levothyroxine, decreasing the dose of levothyroxine as TSH is significantly low and T4 is elevated History of COPD without any acute exacerbation -Type 2 diabetes mellitus -Hypertension -History of pulmonary embolism in 2013.
[2017-07-29 16:54] LABS: Glucose,Whole Blood 125 mg/dL (75-99)
[2017-07-29] MEDS: PANTOPRAZOLE 40 MG TABLET PO SCH (17:59)
[2017-07-29] MEDS: WARFARIN 2.5 MG TAB PO SCH (18:25)
[2017-07-29 20:03] LABS: INR 1.1 (<1.2)
[2017-07-29] MEDS: DIAZEPAM 5 MG TAB PO SCH (20:14)
[2017-07-29] MEDS: traZODone HCL 100 MG TAB PO SCH (20:14)
[2017-07-29 21:04] LABS: Glucose,Whole Blood 118 mg/dL (75-99)
[2017-07-30] MEDS: LEVOTHYROXINE 75 MCG TAB PO SCH (05:58)
[2017-07-30 07:28] LABS: Glucose,Whole Blood 145 mg/dL (75-99)
[2017-07-30] MEDS: INSULIN ASPART 100 UNIT/ML 1 ML 10 ML VIAL SQ SCH ×3 (08:15→17:34)
[2017-07-30] MEDS: ATORVASTATIN 40 MG TAB PO SCH (08:15)
[2017-07-30] MEDS: METOPROLOL TARTRATE 12.5 MG TAB PO SCH ×2 (08:15→21:19)
[2017-07-30] MEDS: INSULIN DETEMIR 100 UNIT/ML 10 ML VIAL SQ SCH (08:15)
[2017-07-30] MEDS: GABAPENTIN 400 MG CAP PO SCH ×4 (08:15→21:20)
[2017-07-30] MEDS: PANTOPRAZOLE 40 MG TABLET PO SCH ×2 (08:15→17:08)
[2017-07-30 08:22] LABS: INR 1.2 (<1.2); Prothrombin Time 11.3 sec (9.0-12.0)
[2017-07-30 08:57] LABS: Anion Gap 10 mmol/L; Blood Urea Nitrogen 15 mg/dL (7-17); Calcium 8.5 mg/dL (8.4-10.2); Carbon Dioxide 26 mmol/L (22-30); Chloride 109 mmol/L (98-107); Glucose 124 mg/dL (74-99); Potassium 4.1 mmol/L (3.5-5.1); Sodium 145 mmol/L (137-145)
[2017-07-30] MEDS: oxyCODONE-APAP 5-325MG 1 EACH TAB PO PRN ×2 (09:06→17:08)
[2017-07-30] MEDS: IPRATROPIUM-ALBUTEROL 3 ML NEB INHALATION PRN ×2 (11:58→20:50)
[2017-07-30 12:14] LABS: Glucose,Whole Blood 59 mg/dL (75-99)
[2017-07-30 12:14] LABS: Glucose,Whole Blood 61 mg/dL (75-99)
[2017-07-30] MEDS ORDERED: DEXTROSE 50%-WATER 50 ML SYRINGE IVP ONE (12:17)
[2017-07-30 12:43] LABS: Glucose,Whole Blood 69 mg/dL (75-99)
[2017-07-30 12:43] LABS: Glucose,Whole Blood 101 mg/dL (75-99)
[2017-07-30] MEDS: ACETAMINOPHEN TAB 500 MG TAB PO PRN (13:17)
--- NOTE | 2017-07-30 14:14 | XR ---
EXAMINATION TYPE: XR chest 2V DATE OF EXAM: 07/30/2017 COMPARISON: Prior chest 07/28/2017 HISTORY: Congestive heart failure TECHNIQUE: Frontal and lateral views of the chest are obtained. FINDINGS: Findings are stable compared to prior exam. IMPRESSION: No acute cardiopulmonary process.
[2017-07-30] MEDS: WARFARIN 2.5 MG TAB PO SCH (17:08)
[2017-07-30 17:19] LABS: Glucose,Whole Blood 162 mg/dL (75-99)
[2017-07-30] MEDS ORDERED: ZINC OXIDE 20% OINT 28.4 GM TUBE TOPICAL PRN (17:44)
[2017-07-30] MEDS ORDERED: POLYETHYLENE GLYCOL 3350 17 GM POWD.PACK PO PRN (20:30)
[2017-07-30 20:55] LABS: Glucose,Whole Blood 155 mg/dL (75-99)
[2017-07-30] MEDS: traZODone HCL 100 MG TAB PO SCH (21:20)
[2017-07-30] MEDS: DIAZEPAM 5 MG TAB PO SCH (21:20)
[2017-07-30] MEDS: DOCUSATE 100 MG CAP PO SCH (21:20)
[2017-07-31] MEDS: LEVOTHYROXINE 75 MCG TAB PO SCH (05:39)
[2017-07-31 07:39] LABS: Glucose,Whole Blood 179 mg/dL (75-99)
[2017-07-31] MEDS: DOCUSATE 100 MG CAP PO SCH ×2 (08:41→20:58)
[2017-07-31] MEDS: ATORVASTATIN 40 MG TAB PO SCH (08:41)
[2017-07-31] MEDS: GABAPENTIN 400 MG CAP PO SCH ×4 (08:41→20:58)
[2017-07-31] MEDS: PANTOPRAZOLE 40 MG TABLET PO SCH ×2 (08:42→17:14)
[2017-07-31] MEDS: INSULIN DETEMIR 100 UNIT/ML 10 ML VIAL SQ SCH (08:42)
[2017-07-31] MEDS: METOPROLOL TARTRATE 12.5 MG TAB PO SCH ×2 (08:42→20:58)
[2017-07-31] MEDS: INSULIN ASPART 100 UNIT/ML 1 ML 10 ML VIAL SQ SCH ×3 (08:42→17:41)
[2017-07-31] MEDS: ACETAMINOPHEN TAB 500 MG TAB PO PRN (09:12)
[2017-07-31 12:09] LABS: Glucose,Whole Blood 67 mg/dL (75-99)
[2017-07-31 12:09] LABS: Glucose,Whole Blood 54 mg/dL (75-99)
[2017-07-31 12:41] LABS: Glucose,Whole Blood 63 mg/dL (75-99)
[2017-07-31 12:41] LABS: Glucose,Whole Blood 78 mg/dL (75-99)
[2017-07-31 15:19] LABS: INR 1.2 (<1.2); Prothrombin Time 11.6 sec (9.0-12.0)
[2017-07-31] MEDS ORDERED: ENOXAPARIN 60 MG/0.6 ML SYRINGE SQ STA (15:58)
[2017-07-31] MEDS: oxyCODONE-APAP 5-325MG 1 EACH TAB PO PRN (17:16)
[2017-07-31 17:32] LABS: Glucose,Whole Blood 144 mg/dL (75-99)
[2017-07-31] MEDS ORDERED: WARFARIN 5 MG TAB PO SCH (18:00)
[2017-07-31 20:42] LABS: Glucose,Whole Blood 214 mg/dL (75-99)
[2017-07-31] MEDS: traZODone HCL 100 MG TAB PO SCH (20:57)
[2017-07-31] MEDS: DIAZEPAM 5 MG TAB PO SCH (20:57)
--- NOTE | 2017-07-31 22:17 | P.PN ---
Subjective Progress Note Date: 07/30/17 Ms. Joseph is a 72-year-old female admitted for chest pain which is probably due to gastroesophageal reflux disease. Cardiology evaluated the patient no further recommendations her chest pain is better now. Patient will need placement into subacute rehabilitation had falls and multiple hospitalizations quite weak. Patient's TSH is quite low and T4 is minimally elevated, continued on levothyroxine from 200-150 g. Patient was hypotensive because of which patient is receiving IV fluids. Patient had history of chronic diastolic dysfunction the past. Patient may need to go to rehab on Tuesday as she needs approval from the insurance company. 0n 07/30/17 - Pt is lying in her bed comfortably and talking over the phone with her family. ROS - Constitutional: Denied any fatigue denied any fever. Cardio vascular: denied any chest pain, palpitations Gastrointestinal denied any nausea vomiting Pulmonary: Denied any shortness of breath cough Neurologic denied any new focal deficits Objective - Vital Signs Vital signs: Vital Signs Temp 97.9 F 07/30/17 15:00 Pulse 60 07/30/17 15:00 Resp 20 07/30/17 15:00 BP 81/40 07/30/17 15:00 Pulse Ox 100 07/30/17 15:00 Intake & Output 07/29/17 07/30/17 07/30/17 18:59 06:59 18:59 Intake Total 1150 500 Balance 1150 500 Weight 60.5 kg Intake: IV 300 Sodium Chloride 0.9% 1, 300 000 ml @ 75 mls/hr IV . [id number] [facility] Rx#:[id number] Oral 850 500 Other: Voiding Method Diaper Diaper Diaper Incontinent # Voids 2 4 1 - Exam GENERAL EXAM GEN. APPEARANCE: alert, in no apparent distress HEAD EXAM: atraumatic, normocephalic, normal inspection EYE EXAM: normal appearance, PERRL, EOMI. Absent: scleral icterus, conjunctival injection, periorbital swelling ENT EXAM: normal exam, mucous membranes moist NECK EXAM: normal inspection. Absent: tenderness, meningismus, full ROM, lymphadenopathy RESPIRATORY EXAM: normal lung sounds bilaterally. Absent: respiratory distress , wheezes, rales, rhonchi, stridor CARDIOVASCULAR EXAM: regular rate, normal rhythm, normal heart sounds. Absent : systolic murmur, diastolic murmur, rubs, gallop, clicks GI/ABDOMINAL EXAM: soft, normal bowel sounds. Absent: distended, tenderness, guarding, rebound, rigid EXTREMITIES EXAM: normal inspection, full ROM, normal capillary refill. Absent : tenderness, pedal edema, joint swelling, calf tenderness BACK EXAM: normal inspection NEUROLOGICAL EXAM: alert, oriented X3, CN II-XII intact, motor sensory deficit PSYCHIATRIC EXAM: normal affect, normal mood SKIN EXAM: warm, dry, intact, normal color. Absent: rash - Labs CBC & Chem 7: 07/28/17 04:15 07/30/17 07:29 Labs: Abnormal Lab Results - Last 24 Hours (Table) 07/29/17 07/30/17 07/30/17 Range/Units 21:00 07:22 07:29 INR (<1.2) Chloride 109 H (98-107) mmol/L Glucose 124 H (74-99) mg/dL POC Glucose (mg/dL) 118 H 145 H (75-99) mg/dL 07/30/17 07/30/17 07/30/17 Range/Units 07:30 11:45 12:01 INR 1.2 H (<1.2) Chloride (98-107) mmol/L Glucose (74-99) mg/dL POC Glucose (mg/dL) 61 L 59 L (75-99) mg/dL 07/30/17 07/30/17 07/30/17 Range/Units 12:16 12:31 17:11 INR (<1.2) Chloride (98-107) mmol/L Glucose (74-99) mg/dL POC Glucose (mg/dL) 69 L 101 H 162 H (75-99) mg/dL Assessment and Plan Assessment: -Abdominal pain - Probably peptic ulcer disease or gastritis patient - nonsteroidal medication these have been discontinued ruled out acute coronary syndromes. -Chronic atrial fibrillation with a permanent pacemaker on Coumadin -History of pulmonary embolism in 2013 -Sub [place]ur[place] INR - Coumadin and repeat INR tomorrow -Generalized deconditioning and falls - will need placement into rehabilitation PT and OT and case management were consulted -Coronary artery disease with status post bypass grafting in the past . -CHF - chronic diastolic dysfunction patient is presently not in acute exacerbation patient is euvolemic at this time -Hypothyroidism. Patient is on very high-dose of levothyroxine, decreasing the dose of levothyroxine as TSH is significantly low and T4 is elevated - History of COPD without any acute exacerbation -Type 2 diabetes mellitus -Hypertension -Hypoglycemic episode - requiring Dextrose today - H/o MRSA in the past Plan - Adjusting Coumadin and Insulin doses. Awaiting placement in a [facility] - for insurance approval - most likely tomorrow. .
--- NOTE | 2017-07-31 22:23 | P.PN ---
Subjective Progress Note Date: 07/31/17 Principal diagnosis: Abdominal pain Ms. Joseph is a 72-year-old female admitted for chest pain which is probably due to gastroesophageal reflux disease. Cardiology evaluated the patient no further recommendations her chest pain is better now. Patient will need placement into subacute rehabilitation had falls and multiple hospitalizations quite weak. Patient's TSH is quite low and T4 is minimally elevated, continued on levothyroxine from 200-150 g. Patient was hypotensive because of which patient is receiving IV fluids. Patient had history of chronic diastolic dysfunction the past. Patient may need to go to rehab on Tuesday as she needs approval from the insurance company. 0n 07/31/17 - Pt is lying in her bed comfortably . No active complains. Pt had a hypoglycemic episode this morning again. She was given orange juice after which her symptoms improved. ROS - Constitutional: Denied any fatigue denied any fever. Cardio vascular: denied any chest pain, palpitations Gastrointestinal denied any nausea vomiting Pulmonary: Denied any shortness of breath cough Neurologic denied any new focal deficits Objective - Vital Signs Vital signs: Vital Signs Temp 97.8 F 07/31/17 15:00 Pulse 61 07/31/17 15:00 Resp 20 07/31/17 15:00 BP 129/72 07/31/17 15:00 Pulse Ox 98 07/31/17 15:00 Intake & Output 07/30/17 07/31/17 07/31/17 18:59 06:59 18:59 Intake Total 540 Balance 540 Weight 60 kg Intake: Oral 540 Other: Voiding Method Diaper Diaper Bedpan Incontinent Incontinent Diaper Incontinent # Voids 1 2 1 # Bowel Movements 1 # Emeses 1 - Exam GENERAL EXAM GEN. APPEARANCE: alert, in no apparent distress HEAD EXAM: atraumatic, normocephalic, normal inspection EYE EXAM: normal appearance, PERRL, EOMI. Absent: scleral icterus, conjunctival injection, periorbital swelling ENT EXAM: normal exam, mucous membranes moist NECK EXAM: normal inspection. Absent: tenderness, meningismus, full ROM, lymphadenopathy RESPIRATORY EXAM: normal lung sounds bilaterally. Absent: respiratory distress , wheezes, rales, rhonchi, stridor CARDIOVASCULAR EXAM: regular rate, normal rhythm, normal heart sounds. Absent : systolic murmur, diastolic murmur, rubs, gallop, clicks GI/ABDOMINAL EXAM: soft, normal bowel sounds. Absent: distended, tenderness, guarding, rebound, rigid EXTREMITIES EXAM: normal inspection, full ROM, normal capillary refill. Absent : tenderness, pedal edema, joint swelling, calf tenderness NEUROLOGICAL EXAM: alert, oriented X3, CN II-XII intact, motor sensory deficit PSYCHIATRIC EXAM: normal affect, normal mood SKIN EXAM: warm, dry, intact, normal color. Absent: rash - Labs CBC & Chem 7: 07/28/17 04:15 07/30/17 07:29 Labs: Abnormal Lab Results - Last 24 Hours (Table) 07/30/17 07/30/17 07/31/17 Range/Units 17:11 20:52 07:05 INR (<1.2) POC Glucose (mg/dL) 162 H 155 H 179 H (75-99) mg/dL 07/31/17 07/31/17 07/31/17 Range/Units 11:43 12:02 12:10 INR (<1.2) POC Glucose (mg/dL) 67 L 54 L 63 L (75-99) mg/dL 07/31/17 Range/Units 14:23 INR 1.2 H (<1.2) POC Glucose (mg/dL) (75-99) mg/dL Assessment and Plan Assessment: Abdominal pain - Probably peptic ulcer disease or gastritis patient - nonsteroidal medication these have been discontinued ruled out acute coronary syndromes. -Chronic atrial fibrillation with a permanent pacemaker on Coumadin -History of pulmonary embolism in 2013 -Sub theurapeutic INR - Coumadin and repeat INR tomorrow -Generalized deconditioning and falls - will need placement into rehabilitation PT and OT and case management were consulted -Coronary artery disease with status post bypass grafting in the past . -CHF - chronic diastolic dysfunction patient is presently not in acute exacerbation patient is euvolemic at this time -Hypothyroidism. Patient is on very high-dose of levothyroxine, decreasing the dose of levothyroxine as TSH is significantly low and T4 is elevated - History of COPD without any acute exacerbation -Type 2 diabetes mellitus -Hypertension -Hypoglycemic episode - requiring Dextrose today - H/o MRSA in the past Plan - Adjusting Coumadin - increased to 5 mg and birdging with Lovenox. Lantus dose has been changed form 26 to 16 U as she is having hypoglycemic episodes. . Awaiting placement in a [facility] - for insurance approval - most likely tomorrow.
[2017-08-01] MEDS: LEVOTHYROXINE 75 MCG TAB PO SCH (06:17)
[2017-08-01 07:15] LABS: Glucose,Whole Blood 149 mg/dL (75-99)
[2017-08-01] MEDS ORDERED: INSULIN DETEMIR 100 UNIT/ML 10 ML VIAL SQ SCH (09:00)
[2017-08-01] MEDS: INSULIN ASPART 100 UNIT/ML 1 ML 10 ML VIAL SQ SCH ×2 (09:18→12:32)
[2017-08-01] MEDS: GABAPENTIN 400 MG CAP PO SCH ×2 (09:19→11:34)
[2017-08-01] MEDS: DOCUSATE 100 MG CAP PO SCH (09:19)
[2017-08-01] MEDS: METOPROLOL TARTRATE 12.5 MG TAB PO SCH (09:19)
[2017-08-01] MEDS: ATORVASTATIN 40 MG TAB PO SCH (09:19)
[2017-08-01] MEDS: PANTOPRAZOLE 40 MG TABLET PO SCH (09:19)
[2017-08-01 11:08] LABS: Basophils % (A) 1 %; Eosinophils # (A) 0.3 k/uL (0-0.7); Eosinophils % (A) 5 %; HCT 34.2 % (34.0-46.0); HGB 11.1 gm/dL (11.4-16.0); Lymphocytes # (A) 1.7 k/uL (1.0-4.8); Lymphocytes % (A) 30 %; MCH 28.4 pg (25.0-35.0); MCHC 32.4 g/dL (31.0-37.0); MCV 87.7 fL (80.0-100.0); Mean Platelet Volume 6.3; Monocytes # (A) 0.3 k/uL (0-1.0); Monocytes % (A) 5 %; Neutrophils # (A) 3.2 k/uL (1.3-7.7); Neutrophils % (A) 59 %; Platelet Count 266 k/uL (150-450); RDW 13.3 % (11.5-15.5); WBC 5.5 k/uL (3.8-10.6)
[2017-08-01 11:12] LABS: INR 1.3 (<1.2); Prothrombin Time 12.2 sec (9.0-12.0)
[2017-08-01 11:28] LABS: Anion Gap 9 mmol/L; Blood Urea Nitrogen 19 mg/dL (7-17); Calcium 9.2 mg/dL (8.4-10.2); Carbon Dioxide 28 mmol/L (22-30); Chloride 109 mmol/L (98-107); Glucose 89 mg/dL (74-99); Potassium 3.9 mmol/L (3.5-5.1); Sodium 146 mmol/L (137-145)
[2017-08-01] MEDS ORDERED: DEXTROSE 50%-WATER 50 ML SYRINGE IVP ONE (12:21)
[2017-08-01 12:22] LABS: Glucose,Whole Blood 46 mg/dL (75-99)
[2017-08-01 12:33] LABS: Glucose,Whole Blood 197 mg/dL (75-99)
[2017-08-01] MEDS ORDERED: ENOXAPARIN 60 MG/0.6 ML SYRINGE SQ STA (12:49)
[2017-08-01 15:01] VITALS: BP 116/69; PULSE 60; RESP 17; TEMP 97.7
--- NOTE | 2017-08-01 15:06 | P.DS ---
Providers Date of admission: 07/28/17 07:18 Expected date of discharge: 08/01/17 Attending physician: Darlene Ssoa Consults: 07/28/17 07:16 Consult Physician Routine Consulting Provider: Riley Erickson Consult Reason/Comments: chest pain Do you want consulting provider notified?: Yes Primary care physician: Jane Urban [facility] Course: Ms. Joseph [id number] female had multiple hospitalizations in the past came in with epigastric abdominal pain and retrosternal chest pain has been going on for 2 days patient is unable to clearly tell me the severity of nature of pain denied any radiation. Patient was dry heaving, patient was unable to clearly associate her symptoms with food denied any diaphoresis denied any vomiting but nauseous and dry heaving denied any lightheadedness nonpruritic in nature. Patient has multiple medical problems including chronic diastolic dysfunction on Lasix patient is a limited this time patient has a history of atrial fibrillation on Coumadin patient had a diverticular bleed during her last hospitalization because of which the her Coumadin were had was held with the recommendation to restart back as an outpatient patient stays patient was started back on Coumadin and has been taking Coumadin as an outpatient but her INR is only 1.1. Patient had couple falls patient feels quite weak, patient [place] does not appear like able to take care of herself or her . During the hospital stay patient had couple of hypoglycemic episodes for which the dose of insulin has been decreased to 16 units of Lantus. Due to subtherapeutic levels of INR the patient was also bridged with Lovenox. As her T4 was high and TSH was low dose of levothyroxine has been adjusted. Patient's blood pressure was within normal limits so her blood pressure medications have been held. manufacturing project manager was involved and the patient declined to go to subacute rehab or alf as her co-pay was very high. So eventually the patient is being discharged home with home healthcare services. Patient's symptoms of abdominal pain with which she was admitted have been completely resolved. DISCHARGE DIAGNOSIS Abdominal pain - resolved -Chronic atrial fibrillation with a permanent pacemaker on Coumadin -History of pulmonary embolism in 2013 -Sub theurapeutic INR -Generalized deconditioning and falls -Coronary artery disease with status post bypass grafting in the past . -CHF - chronic diastolic dysfunction patient is presently not in acute exacerbation patient is euvolemic at this time -Hypothyroidism. Patient is on very high-dose of levothyroxine, decreasing the dose of levothyroxine as TSH is significantly low and T4 is elevated - History of COPD without any acute exacerbation -Type 2 diabetes mellitus -Hypertension -Hypoglycemic episode -resolved - H/o MRSA in the past Follow-up: As the patient's INR is subtherapeutic she will be reached with Lovenox, that will be for 5 days. To continue with 5 mg of Coumadin. Advised to check PT/INR in 2 days. The patient's insulin Lantus has been decreased to 16 units and aspart to 5 units 3 times a day and to hold aspart if blood sugars are less than 120. Overall prognosis is guarded. More than 35 minutes spent towards the discharge of the patient. Patient Condition at Discharge: Stable Plan - Discharge Summary Discharge Rx Participant: Yes New Discharge Prescriptions: New Docusate [Colace] 100 mg PO BID cap Insulin Detemir [Levemir] 16 unit SQ DAILY syr oxyCODONE-APAP 5-325MG [Percocet 5-325 mg] 1 each PO TID PRN #9 tab PRN Reason: Moderate Pain Pantoprazole [Protonix] 40 mg PO AC-BID tablet. Polyethylene Glycol 3350 [Miralax] 17 gm PO DAILY PRN powd.pack PRN Reason: Constipation Zinc Oxide 20% Oint 1 applic TOPICAL QID PRN applic PRN Reason: Skin Irritation Insulin Aspart [NovoLOG (formulary)] 5 unit SQ AC-TID vial Enoxaparin [Lovenox] 60 mg SQ DAILY #5 syringe Warfarin Sodium [Coumadin] 5 mg PO DAILY #5 tablet Levothyroxine Sodium [Levo-T] 150 mcg PO QAM #30 tablet Acetaminophen Tab [Tylenol Tab] 650 mg PO Q6H PRN #1 tablet PRN Reason: Pain Continue traZODone HCL 150 mg PO HS Gabapentin [Neurontin] 400 mg PO QID cap Metoprolol Tartrate [Lopressor] 12.5 mg PO BID tab oxyCODONE-APAP 5-325MG [Percocet 5-325 mg] 1 tab PO TID PRN #9 tab PRN Reason: Pain Nitroglycerin Sl Tabs [Nitrostat] 0.4 mg SUBLINGUAL Q5M PRN PRN Reason: Chest Pain Atorvastatin [Lipitor] 40 mg PO DAILY Diazepam [Valium] 5 mg PO HS@1999 #3 tab Changed Ipratropium-Albuterol Nebulize [Duoneb 0.5 mg-3 mg/3 ml Soln] 3 ml INHALATION RT-QID #1 ampul.neb Furosemide [Lasix] 20 mg PO DAILY #0 Potassium Chloride ER [K-Dur 10] 10 meq PO DAILY #0 Discontinued Omeprazole 20 mg PO HS Insulin Lispro [humaLOG Kwikpen] 10 unit SQ TID Insulin Glargine,Hum.rec.anlog [Lantus Solostar] 25 unit SQ DAILY Insulin Lispro [humaLOG Kwikpen] See Protocol SQ TID Warfarin [Coumadin] 2.5 mg PO DAILY Naproxen Sodium [Aleve] 220 mg PO BID PRN PRN Reason: Pain Aspirin EC [Ecotrin] 325 mg PO DAILY Levothyroxine Sodium [Synthroid] 200 mcg PO DAILY Discharge Medication List traZODone HCL 150 mg PO HS 03/15/17 [History] Gabapentin [Neurontin] 400 mg PO QID cap 07/01/17 [Rx] Metoprolol Tartrate [Lopressor] 12.5 mg PO BID tab 07/01/17 [Rx] oxyCODONE-APAP 5-325MG [Percocet 5-325 mg] 1 tab PO TID PRN #9 tab 07/01/17 [Rx] Atorvastatin [Lipitor] 40 mg PO DAILY 07/28/17 [History] Nitroglycerin Sl Tabs [Nitrostat] 0.4 mg SUBLINGUAL Q5M PRN 07/28/17 [History] Acetaminophen Tab [Tylenol Tab] 650 mg PO Q6H PRN #1 tablet 08/01/17 [Rx] Diazepam [Valium] 5 mg PO HS@1999 #3 tab 08/01/17 [Rx] Docusate [Colace] 100 mg PO BID cap 08/01/17 [Rx] Enoxaparin [Lovenox] 60 mg SQ DAILY #5 syringe 08/01/17 [Rx] Furosemide [Lasix] 20 mg PO DAILY #0 08/01/17 [Rx] Insulin Aspart [NovoLOG (formulary)] 5 unit SQ AC-TID vial 08/01/17 [Rx] Insulin Detemir [Levemir] 16 unit SQ DAILY syr 08/01/17 [Rx] Ipratropium-Albuterol Nebulize [Duoneb 0.5 mg-3 mg/3 ml Soln] 3 ml INHALATION RT -QID #1 ampul.neb 08/01/17 [Rx] Levothyroxine Sodium [Levo-T] 150 mcg PO QAM #30 tablet 08/01/17 [Rx] Pantoprazole [Protonix] 40 mg PO AC-BID tablet.dr 08/01/17 [Rx] Polyethylene Glycol 3350 [Miralax] 17 gm PO DAILY PRN powd.pack 08/01/17 [Rx] Potassium Chloride ER [K-Dur 10] 10 meq PO DAILY #0 08/01/17 [Rx] Warfarin Sodium [Coumadin] 5 mg PO DAILY #5 tablet 08/01/17 [Rx] Zinc Oxide 20% Oint 1 applic TOPICAL QID PRN applic 08/01/17 [Rx] oxyCODONE-APAP 5-325MG [Percocet 5-325 mg] 1 each PO TID PRN #9 tab 08/01/17 [Rx ] Follow up Appointment(s)/Referral(s): Raven Lara MD [Primary Care Provider] - 3 Days () [facility], [NON-STAFF] - As Needed Ambulatory/Diagnostic Orders: Prothrombin Time INR [LAB.AMB] Time Frame: 2 Days, Location: Determined By Patient Patient Instructions/Handouts: Chest Pain (ED) Activity/Diet/Wound Care/Special Instructions: PT, INR in 2 days with further coumadin dosing as per PCP CBC, BMP in 3 days Diet: Consistent carb, Coumadin diet Activity: As tolerated Glucerna betweem meals and hs
[2017-08-01] MEDS: oxyCODONE-APAP 5-325MG 1 EACH TAB PO PRN (15:12)
[2017-08-01] MEDS ORDERED: INSULIN ASPART 100 UNIT/ML 1 ML 10 ML VIAL SQ SCH (17:30)
== END 2017-08-01 16:39 | disposition home health service (06) ==
LOC: EC 04:06 → 3OBS 07:18 → 6SEL 23:35 → 4MS4W 07-29 13:59
PROVIDERS: ADMIT Hospitalist; ATTEND Hospitalist
DX: R10.13 Epigastric pain (principal); R07.2 Precordial pain; I48.2 Chronic atrial fibrillation; R06.02 Shortness of breath; R42 Dizziness and giddiness; R11.0 Nausea; R53.1 Weakness; R11.2 Nausea with vomiting, unspecified; K21.9 Gastro-esophageal reflux disease without esophagitis; K27.9 Peptic ulcer, site unspecified, unspecified as acute or chronic, without hemorrhage or perforation; K29.70 Gastritis, unspecified, without bleeding; E78.5 Hyperlipidemia, unspecified; I25.10 Atherosclerotic heart disease of native coronary artery without angina pectoris; I25.2 Old myocardial infarction; E89.0 Postprocedural hypothyroidism; G25.81 Restless legs syndrome; R15.9 Full incontinence of feces; R32 Unspecified urinary incontinence; K58.9 Irritable bowel syndrome, unspecified; M19.90 Unspecified osteoarthritis, unspecified site; G89.29 Other chronic pain; M54.9 Dorsalgia, unspecified; I11.0 Hypertensive heart disease with heart failure; I50.32 Chronic diastolic (congestive) heart failure; I95.9 Hypotension, unspecified; J44.9 Chronic obstructive pulmonary disease, unspecified; E11.649 Type 2 diabetes mellitus with hypoglycemia without coma; E11.42 Type 2 diabetes mellitus with diabetic polyneuropathy; G62.9 Polyneuropathy, unspecified; I25.810 Atherosclerosis of coronary artery bypass graft(s) without angina pectoris; R79.1 Abnormal coagulation profile; I25.82 Chronic total occlusion of coronary artery; I49.5 Sick sinus syndrome; Z79.899 Other long term (current) drug therapy; Z79.4 Long term (current) use of insulin; M25.80 Other specified joint disorders, unspecified joint; Z79.82 Long term (current) use of aspirin; Z79.890 Hormone replacement therapy; Z79.01 Long term (current) use of anticoagulants; Z91.018 Allergy to other foods; Z86.711 Personal history of pulmonary embolism; Z86.010 Personal history of colon polyps; Z87.440 Personal history of urinary (tract) infections; Z85.850 Personal history of malignant neoplasm of thyroid; Z85.21 Personal history of malignant neoplasm of larynx; Z86.14 Personal history of Methicillin resistant Staphylococcus aureus infection; Z95.1 Presence of aortocoronary bypass graft; Z95.5 Presence of coronary angioplasty implant and graft; Z90.49 Acquired absence of other specified parts of digestive tract; F17.200 Nicotine dependence, unspecified, uncomplicated; Z95.0 Presence of cardiac pacemaker; R29.6 Repeated falls; Z91.19 Patient's noncompliance with other medical treatment and regimen
CPT/HCPCS: 99285 ×2; 96374 ×2; 96375 ×3; 96376 ×2; 96361; 96372 ×2; 36415; 94640 ×3; 94760; 93005; 97110; 97163; 97166; 84439; 80061; 80053; 80048 ×2; 84443; 82150; 82550; 82553; 83690; 83735; 84484; 85025 ×2; 85610 ×5; 85730; 71045; 71046; G0378 ×5; J2270; J2405; J1650 ×2; C9113 ×2

== ENCOUNTER 2017-08-02 23:17 | Emergency (ER) | payer MEDICARE ==
[2017-08-02] MEDS ORDERED: SODIUM CHLORIDE 0.9% 1,000 ML IV STA (23:40)
[2017-08-02] MEDS ORDERED: ONDANSETRON 4 MG/2 ML VIAL IVP STA (23:40)
[2017-08-02] MEDS ORDERED: MORPHINE SULFATE 4 MG/ML SYRINGE IV STA (23:40)
[2017-08-02] MEDS ORDERED: SODIUM CHLORIDE 0.9% 500 ML IV STA (23:40)
[2017-08-03 00:06] LABS: Basophils % (A) 0 %; Eosinophils # (A) 0.2 k/uL (0-0.7); Eosinophils % (A) 4 %; HCT 33.3 % (34.0-46.0); Lymphocytes # (A) 1.9 k/uL (1.0-4.8); Lymphocytes % (A) 34 %; MCH 28.3 pg (25.0-35.0); MCV 85.8 fL (80.0-100.0); Mean Platelet Volume 6.4; Monocytes # (A) 0.4 k/uL (0-1.0); Monocytes % (A) 7 %; Neutrophils # (A) 3.1 k/uL (1.3-7.7); Neutrophils % (A) 55 %; Platelet Count 268 k/uL (150-450); RBC 3.88 m/uL (3.80-5.40); RDW 13.6 % (11.5-15.5); WBC 5.7 k/uL (3.8-10.6)
[2017-08-03 00:16] LABS: ALT 46 U/L (9-52); AST 39 U/L (14-36); Albumin 3.1 g/dL (3.5-5.0); Alkaline Phosphatase 105 U/L (38-126); Anion Gap 9 mmol/L; Blood Urea Nitrogen 14 mg/dL (7-17); Calcium 9.6 mg/dL (8.4-10.2); Carbon Dioxide 24 mmol/L (22-30); Chloride 109 mmol/L (98-107); Glucose 142 mg/dL (74-99); Phosphorus 3.6 mg/dL (2.5-4.5); Potassium 3.9 mmol/L (3.5-5.1); Sodium 142 mmol/L (137-145); Total Bilirubin 0.3 mg/dL (0.2-1.3); Total Protein 5.3 g/dL (6.3-8.2)
--- NOTE | 2017-08-03 00:16 | ED ---
General Adult HPI - General Chief complaint: Nausea/Vomiting/Diarrhea Stated complaint: Chest Pain Time Seen by Provider: 08/02/17 23:31 Source: patient, EMS, RN notes reviewed, old records reviewed Mode of arrival: EMS Limitations: physical limitation - History of Present Illness Initial comments: This is a 72-year-old female the ER for evaluation. Patient has a for evaluation regarding chest pain. Chest pain nausea vomiting. Patient will is ER for multiple recent ER visits. Patient states her chest pain is came back she feels worse. No fevers no cough or congestion or recent travel history no sick contacts. Patient states that she feels fine when she went home yesterday , but symptoms returned when she went and got home. - Related Data Home Medications Medication Instructions Recorded Confirmed traZODone HCL 150 mg PO HS 03/15/17 08/02/17 Atorvastatin [Lipitor] 40 mg PO DAILY 07/28/17 08/02/17 Nitroglycerin Sl Tabs [Nitrostat] 0.4 mg SUBLINGUAL Q5M PRN 07/28/17 08/02/17 Previous Rx's Medication Instructions Recorded Gabapentin [Neurontin] 400 mg PO QID cap 07/01/17 Metoprolol Tartrate [Lopressor] 12.5 mg PO BID tab 07/01/17 oxyCODONE-APAP 5-325MG [Percocet 1 tab PO TID PRN #9 tab 07/01/17 5-325 mg] Acetaminophen Tab [Tylenol Tab] 650 mg PO Q6H PRN #1 tablet 08/01/17 Diazepam [Valium] 5 mg PO HS@2000 #3 tab 08/01/17 Docusate [Colace] 100 mg PO BID cap 08/01/17 Enoxaparin [Lovenox] 60 mg SQ DAILY #5 syringe 08/01/17 Furosemide [Lasix] 20 mg PO DAILY #0 08/01/17 Insulin Aspart [NovoLOG 5 unit SQ AC-TID vial 08/01/17 (formulary)] Insulin Detemir [Levemir] 16 unit SQ DAILY syr 08/01/17 Ipratropium-Albuterol Nebulize 3 ml INHALATION RT-QID #1 ampul.neb 08/01/17 [Duoneb 0.5 mg-3 mg/3 ml Soln] Levothyroxine Sodium [Levo-T] 150 mcg PO QAM #30 tablet 08/01/17 Pantoprazole [Protonix] 40 mg PO AC-BID tablet. 08/01/17 Polyethylene Glycol 3350 [Miralax] 17 gm PO DAILY PRN powd.pack 08/01/17 Potassium Chloride ER [K-Dur 10] 10 meq PO DAILY #0 08/01/17 Warfarin Sodium [Coumadin] 5 mg PO DAILY #5 tablet 08/01/17 Zinc Oxide 20% Oint 1 applic TOPICAL QID PRN applic 08/01/17 Allergies Allergy/AdvReac Type Severity Reaction Status Date / Time peach AdvReac Nausea & Verified 08/02/17 23:23 Vomiting Review of Systems ROS Statement: Those systems with pertinent positive or pertinent negative responses have been documented in the HPI. ROS Other: All systems not noted in ROS Statement are negative. Past Medical History Past Medical History: Atrial Fibrillation, Asthma, Coronary Artery Disease (CAD) , Cancer, Chest Pain / Angina, Heart Failure, Diabetes Mellitus, GERD/Reflux, Hyperlipidemia, Hypertension, Myocardial Infarction (CA), Osteoarthritis (OA), Pulmonary Embolus (PE), Thyroid Disorder Additional Past Medical History / Comment(s): Pt recently admitted to [facility] on 02/28 with lower GI blee possibly d/t diverticular bleed. Other hx: Incontinent urine and stool, IBS, diverticulitis, hemmorhoids, colonic polyps, R femur acetabular impingement syndrome, UTI with sepsis, DDD, RLS, IDDM type II , neuropathy bilateral hands and feet, thyroid cancer with thyroidectomy- hypothyroid, bilateral PE's, chronic back pain, laryngeal cancer with surgical removal, syncope, gait dysfunction. Last Myocardial Infarction Date:: 2011 or 2012 per pt History of Any Multi-Drug Resistant Organisms: MRSA Date of last positivie culture/infection: 06/30/17 MDRO Source:: urine Past Surgical History: Adenoidectomy, Bladder Surgery, Bowel Resection, Cholecystectomy, Coronary Bypass/CABG, Heart Catheterization With Stent, Hysterectomy, Joint Replacement, Orthopedic Surgery, Pacemaker, Tonsillectomy, Tubal Ligation Additional Past Surgical History / Comment(s): CABG 3 vessel in 2006, cardiac cath with stents 2007 and 2011, pacer 2011, total thyroidectomy, lap maria [place] rosario, total left shoulder, R shoulder arthroscopy, partial colectomy due to diverticulitis, bladder suspension and bladder repair and mesh x 2, rectal wall repair, hysterectomy 1977, laryngeal surgery for cancer, recent colonoscopy , EGD with bx, nasal deviated septum surgical correction, L knee arthroscopy. Past Anesthesia/Blood Transfusion Reactions: No Reported Reaction Additional Past Anesthesia/Blood Transfusion Reaction / Comment(s): Pt has recieved blood without any reaction. Date of Last Stent Placement:: 2011 Type of Cardiac Device: Permanent Pacemaker Device Placement Date:: 2010 or 2011 in [place], [place] Past Psychological History: No Psychological Hx Reported Smoking Status: Current every day smoker Past Alcohol Use History: None Reported Past Drug Use History: None Reported - Past Family History Father Family Medical History: Congestive Heart Failure (CHF), COPD Additional Family Medical History / Comment(s): Father at age 61 yrs of CHF and COPD. Mother Family Medical History: Congestive Heart Failure (CHF), COPD General Exam Limitations: physical limitation General appearance: alert, in no apparent distress Head exam: Present: atraumatic, normocephalic, normal inspection Eye exam: Present: normal appearance, PERRL, EOMI. Absent: scleral icterus, conjunctival injection, periorbital swelling ENT exam: Present: normal exam, mucous membranes moist Neck exam: Present: normal inspection. Absent: tenderness, meningismus, lymphadenopathy Respiratory exam: Present: normal lung sounds bilaterally. Absent: respiratory distress, wheezes, rales, rhonchi, stridor Cardiovascular Exam: Present: regular rate, normal rhythm, normal heart sounds. Absent: systolic murmur, diastolic murmur, rubs, gallop, clicks GI/Abdominal exam: Present: soft, normal bowel sounds. Absent: distended, tenderness, guarding, rebound, rigid Extremities exam: Present: normal inspection, full ROM, normal capillary refill. Absent: tenderness, pedal edema, joint swelling, calf tenderness Back exam: Present: normal inspection Neurological exam: Present: alert, oriented X3, CN II-XII intact Psychiatric exam: Present: normal affect, normal mood Skin exam: Present: warm, dry, intact, normal color. Absent: rash Course Vital Signs 08/02/17 08/03/17 23:49 00:16 Temperature 98.5 F Pulse Rate 65 Respiratory 16 Rate Blood Pressure 171/102 167/74 O2 Sat by Pulse 100 Oximetry - Reevaluation(s) Reevaluation #1: 08/03/17 01:14 Medical records thoroughly reviewed EKG Findings - EKG Comments: EKG Findings:: EKG shows normal sinus rhythm rate of 67, MD 162, QRS 80, QTC 454 Medical Decision Making - Medical Decision Making 72 female the ER chest pain nausea vomiting, a Schatzki for recurrent pain meds here in the ER, no cause found. Patient can be discharged home, patient does have multiple recent hospital admissions for similar complaint - Lab Data Result diagrams: 08/02/17 23:47 08/02/17 23:47 Lab Results 08/02/17 08/02/17 08/02/17 Range/Units 23:47 23:47 23:47 WBC 5.7 (3.8-10.6) k/uL RBC 3.88 (3.80-5.40) m/uL Hgb 11.0 L (11.4-16.0) gm/dL Hct 33.3 L (34.0-46.0) % MCV 85.8 (80.0-100.0) fL MCH 28.3 (25.0-35.0) pg MCHC 33.0 (31.0-37.0) g/dL RDW 13.6 (11.5-15.5) % Plt Count 268 (150-450) k/uL Neutrophils % 55 % Lymphocytes % 34 % Monocytes % 7 % Eosinophils % 4 % Basophils % 0 % Neutrophils # 3.1 (1.3-7.7) k/uL Lymphocytes # 1.9 (1.0-4.8) k/uL Monocytes # 0.4 (0-1.0) k/uL Eosinophils # 0.2 (0-0.7) k/uL Basophils # 0.0 (0-0.2) k/uL PT (9.0-12.0) sec INR (<1.2) APTT (22.0-30.0) sec Sodium 142 (137-145) mmol/L Potassium 3.9 (3.5-5.1) mmol/L Chloride 109 H (98-107) mmol/L Carbon Dioxide 24 (22-30) mmol/L Anion Gap 9 mmol/L BUN 14 (7-17) mg/dL Creatinine 0.50 L (0.52-1.04) mg/dL Est GFR (CKD-EPI)AfAm >90 (>60 ml/min/1.73 sqM) Est GFR (CKD-EPI)NonAf >90 (>60 ml/min/1.73 sqM) Glucose 142 H (74-99) mg/dL Calcium 9.6 (8.4-10.2) mg/dL Phosphorus 3.6 (2.5-4.5) mg/dL Magnesium 2.0 (1.6-2.3) mg/dL Total Bilirubin 0.3 (0.2-1.3) mg/dL AST 39 H (14-36) U/L ALT 46 (9-52) U/L Alkaline Phosphatase 105 (38-126) U/L Total Creatine Kinase <20 L (30-135) U/L CK-MB (CK-2) 0.2 (0.0-2.4) ng/mL CK-MB (CK-2) Rel Index Troponin I <0.012 (0.000-0.034) ng/mL Total Protein 5.3 L (6.3-8.2) g/dL Albumin 3.1 L (3.5-5.0) g/dL 08/02/17 Range/Units 23:47 WBC (3.8-10.6) k/uL RBC (3.80-5.40) m/uL Hgb (11.4-16.0) gm/dL Hct (34.0-46.0) % MCV (80.0-100.0) fL MCH (25.0-35.0) pg MCHC (31.0-37.0) g/dL RDW (11.5-15.5) % Plt Count (150-450) k/uL Neutrophils % % Lymphocytes % % Monocytes % % Eosinophils % % Basophils % % Neutrophils # (1.3-7.7) k/uL Lymphocytes # (1.0-4.8) k/uL Monocytes # (0-1.0) k/uL Eosinophils # (0-0.7) k/uL Basophils # (0-0.2) k/uL PT 11.5 (9.0-12.0) sec INR 1.2 H (<1.2) APTT 22.8 (22.0-30.0) sec Sodium (137-145) mmol/L Potassium (3.5-5.1) mmol/L Chloride (98-107) mmol/L Carbon Dioxide (22-30) mmol/L Anion Gap mmol/L BUN (7-17) mg/dL Creatinine (0.52-1.04) mg/dL Est GFR (CKD-EPI)AfAm (>60 ml/min/1.73 sqM) Est GFR (CKD-EPI)NonAf (>60 ml/min/1.73 sqM) Glucose (74-99) mg/dL Calcium (8.4-10.2) mg/dL Phosphorus (2.5-4.5) mg/dL Magnesium (1.6-2.3) mg/dL Total Bilirubin (0.2-1.3) mg/dL AST (14-36) U/L ALT (9-52) U/L Alkaline Phosphatase (38-126) U/L Total Creatine Kinase (30-135) U/L CK-MB (CK-2) (0.0-2.4) ng/mL CK-MB (CK-2) Rel Index Troponin I (0.000-0.034) ng/mL Total Protein (6.3-8.2) g/dL Albumin (3.5-5.0) g/dL - Radiology Data Radiology results: report reviewed (Chest x-rays negative for acute disease), image reviewed Disposition Clinical Impression: Chest pain, Atypical chest pain Disposition: HOME SELF-CARE Condition: Good Instructions: Acute Nausea and Vomiting (ED) Is patient prescribed a controlled substance at d/c from ED?: No Referrals: Raven Lara MD [Primary Care Provider] - 1-2 days
[2017-08-03 00:20] LABS: INR 1.2 (<1.2); Partial Thromboplastin Time 22.8 sec (22.0-30.0); Prothrombin Time 11.5 sec (9.0-12.0)
[2017-08-03 00:28] LABS: Creatine Kinase <20 U/L (30-135)
[2017-08-03 00:40] LABS: Creatine Kinase MB 0.2 ng/mL (0.0-2.4); Troponin I <0.012 ng/mL (0.000-0.034)
--- NOTE | 2017-08-03 00:42 | XR ---
EXAMINATION TYPE: XR chest 2V DATE OF EXAM: 08/03/2017 COMPARISON: 07/30/2017 HISTORY: Chest pain TECHNIQUE: Frontal and lateral views of the chest are obtained. FINDINGS: There is no heart failure nor confluent pneumonic infiltrate. There is left axillary pacem rolanda with the lead tips over the right ventricle. There are sternal wires. There is left shoulder pro sthesis. Bony thorax is intact. IMPRESSION: No active cardiopulmonary disease. No change.
[2017-08-03 01:30] VITALS: BP 170/79; PULSE 66; RESP 17; TEMP 97.6
== END 2017-08-03 02:03 | disposition home or self-care (01) ==
LOC: EC 23:17
DX: R07.89 Other chest pain (principal); R11.2 Nausea with vomiting, unspecified; E78.5 Hyperlipidemia, unspecified; I48.91 Unspecified atrial fibrillation; I25.119 Atherosclerotic heart disease of native coronary artery with unspecified angina pectoris; I11.0 Hypertensive heart disease with heart failure; I50.9 Heart failure, unspecified; I25.2 Old myocardial infarction; Z79.899 Other long term (current) drug therapy; Z91.018 Allergy to other foods; E03.9 Hypothyroidism, unspecified; Z85.850 Personal history of malignant neoplasm of thyroid; Z85.21 Personal history of malignant neoplasm of larynx; Z86.14 Personal history of Methicillin resistant Staphylococcus aureus infection; Z95.5 Presence of coronary angioplasty implant and graft; Z95.1 Presence of aortocoronary bypass graft
CPT/HCPCS: 36415; 93005; 80053; 82550; 82553; 83735; 84100; 84484; 85025; 85610; 85730; 71046; 99285; 96374; 96375; 96361; J2270; J2405

== ENCOUNTER 2017-09-27 14:36 | Emergency (ER) | payer MEDICARE ==
[2017-09-27 14:43] VITALS: TEMP 98.2
--- NOTE | 2017-09-27 15:29 | ED ---
General Adult HPI - General Chief complaint: Chest Pain Stated complaint: Chest Pain Time Seen by Provider: 09/27/17 15:13 Source: patient, RN notes reviewed, old records reviewed Mode of arrival: EMS Limitations: no limitations - History of Present Illness Initial comments: This is a 72-year-old female the ER today for chest pain. Patient is having persistent chest pain currently. Has prolonged medical history history of heart disease. Lower chest pain patient is having nausea and vomiting not feeling well - Related Data Home Medications Medication Instructions Recorded Confirmed traZODone HCL 150 mg PO HS 03/15/17 09/27/17 Baclofen [Lioresal] 20 - 60 mg PO DAILY 09/27/17 09/27/17 Diphenoxylate HCl/Atropine 1 tab PO BID PRN 09/27/17 09/27/17 [Lomotil 2.5-0.025 mg Tablet] Midodrine [ProAmatine] 5 mg PO BID 09/27/17 09/27/17 Warfarin Sodium 6 mg PO DAILY 09/27/17 09/27/17 Previous Rx's Medication Instructions Recorded Diazepam [Valium] 5 mg PO HS@2000 #3 tab 08/01/17 Levothyroxine Sodium [Levo-T] 150 mcg PO QAM #30 tablet 08/01/17 Allergies Allergy/AdvReac Type Severity Reaction Status Date / Time peach AdvReac Nausea & Verified 09/27/17 14:59 Vomiting Review of Systems ROS Statement: Those systems with pertinent positive or pertinent negative responses have been documented in the HPI. ROS Other: All systems not noted in ROS Statement are negative. Past Medical History Past Medical History: Atrial Fibrillation, Asthma, Coronary Artery Disease (CAD) , Cancer, Chest Pain / Angina, Heart Failure, Diabetes Mellitus, GERD/Reflux, Hyperlipidemia, Hypertension, Myocardial Infarction ([place]), Osteoarthritis (OA), Pulmonary Embolus (PE), Thyroid Disorder Additional Past Medical History / Comment(s): Pt recently admitted to [facility] on 02/28 with lower GI blee possibly d/t diverticular bleed. Other hx: Incontinent urine and stool, IBS, diverticulitis, hemmorhoids, colonic polyps, R femur acetabular impingement syndrome, UTI with sepsis, DDD, RLS, IDDM type II , neuropathy bilateral hands and feet, thyroid cancer with thyroidectomy- hypothyroid, bilateral PE's, chronic back pain, laryngeal cancer with surgical removal, syncope, gait dysfunction. Last Myocardial Infarction Date:: 2011 or 2012 per pt History of Any Multi-Drug Resistant Organisms: MRSA Date of last positivie culture/infection: 06/30/17 MDRO Source:: urine Past Surgical History: Adenoidectomy, Bladder Surgery, Bowel Resection, Cholecystectomy, Coronary Bypass/CABG, Heart Catheterization With Stent, Hysterectomy, Joint Replacement, Orthopedic Surgery, Pacemaker, Tonsillectomy, Tubal Ligation Additional Past Surgical History / Comment(s): CABG 3 vessel in 2006, cardiac cath with stents 2007 and 2011, pacer 2011, total thyroidectomy, lap maria del rosario, total left shoulder, R shoulder arthroscopy, partial colectomy due to diverticulitis, bladder suspension and bladder repair and mesh x 2, rectal wall repair, hysterectomy 1977, laryngeal surgery for cancer, recent colonoscopy , EGD with bx, nasal deviated septum surgical correction, L knee arthroscopy. Past Anesthesia/Blood Transfusion Reactions: No Reported Reaction Additional Past Anesthesia/Blood Transfusion Reaction / Comment(s): Pt has recieved blood without any reaction. Date of Last Stent Placement:: 2011 Type of Cardiac Device: Permanent Pacemaker Device Placement Date:: 2010 or 2011 in [place], [place] Past Psychological History: No Psychological Hx Reported Smoking Status: Current every day smoker Past Alcohol Use History: None Reported Past Drug Use History: None Reported - Past Family History Father Family Medical History: Congestive Heart Failure (CHF), COPD Additional Family Medical History / Comment(s): Father at age 61 yrs of CHF and COPD. Mother Family Medical History: Congestive Heart Failure (CHF), COPD General Exam Limitations: no limitations General appearance: alert, in no apparent distress Head exam: Present: atraumatic, normocephalic, normal inspection Eye exam: Present: normal appearance, PERRL, EOMI. Absent: scleral icterus, conjunctival injection, periorbital swelling ENT exam: Present: normal exam, mucous membranes moist Neck exam: Present: normal inspection. Absent: tenderness, meningismus, lymphadenopathy Respiratory exam: Present: normal lung sounds bilaterally. Absent: respiratory distress, wheezes, rales, rhonchi, stridor Cardiovascular Exam: Present: regular rate, normal rhythm, normal heart sounds. Absent: systolic murmur, diastolic murmur, rubs, gallop, clicks GI/Abdominal exam: Present: soft, normal bowel sounds. Absent: distended, tenderness, guarding, rebound, rigid Extremities exam: Present: normal inspection, full ROM, normal capillary refill. Absent: tenderness, pedal edema, joint swelling, calf tenderness Back exam: Present: normal inspection Neurological exam: Present: alert, oriented X3, CN II-XII intact Psychiatric exam: Present: normal affect, normal mood Skin exam: Present: warm, dry, intact, normal color. Absent: rash Course Vital Signs 09/27/17 09/27/17 09/27/17 14:39 16:20 17:10 Temperature 98.2 F Pulse Rate 63 60 Pulse Rate [ 63 Mental Health Program Manager ] Respiratory 16 22 18 Rate Blood Pressure 138/63 164/75 O2 Sat by Pulse 100 99 Oximetry 09/27/17 17:43 Temperature Pulse Rate 66 Pulse Rate [ Mental Health Program Manager ] Respiratory 18 Rate Blood Pressure 165/85 O2 Sat by Pulse 95 Oximetry - Reevaluation(s) Reevaluation #1: 09/27/17 15:57 Medical record is reviewed Reevaluation #2: 09/27/17 15:57 Patient states she has no chest pain, does admit to mild anxiety EKG Findings - EKG Comments: EKG Findings:: EKG shows paced rhythm rate of 62, ND 136, QRS 80, QTC 412 Medical Decision Making - Medical Decision Making 72 female the ER for nonspecific chest pain, no chest pain here in ER, patient would like to be discharged home - Lab Data Result diagrams: 09/27/17 15:10 09/27/17 15:10 Lab Results 09/27/17 09/27/17 09/27/17 Range/Units 15:10 15:10 15:10 WBC 5.6 (3.8-10.6) k/uL RBC 3.89 (3.80-5.40) m/uL Hgb 11.9 (11.4-16.0) gm/dL Hct 35.7 (34.0-46.0) % MCV 91.8 D (80.0-100.0) fL MCH 30.6 (25.0-35.0) pg MCHC 33.4 (31.0-37.0) g/dL RDW 15.1 (11.5-15.5) % Plt Count 216 (150-450) k/uL Neutrophils % 61 % Lymphocytes % 29 % Monocytes % 6 % Eosinophils % 2 % Basophils % 1 % Neutrophils # 3.4 (1.3-7.7) k/uL Lymphocytes # 1.6 (1.0-4.8) k/uL Monocytes # 0.3 (0-1.0) k/uL Eosinophils # 0.1 (0-0.7) k/uL Basophils # 0.1 (0-0.2) k/uL PT (9.0-12.0) sec INR (<1.2) APTT (22.0-30.0) sec Sodium 138 (137-145) mmol/L Potassium 4.3 (3.5-5.1) mmol/L Chloride 107 (98-107) mmol/L Carbon Dioxide 23 (22-30) mmol/L Anion Gap 8 mmol/L BUN 19 H (7-17) mg/dL Creatinine 0.80 (0.52-1.04) mg/dL Est GFR (CKD-EPI)AfAm 85 (>60 ml/min/1.73 sqM) Est GFR (CKD-EPI)NonAf 74 (>60 ml/min/1.73 sqM) Glucose 304 H (74-99) mg/dL Calcium 9.0 (8.4-10.2) mg/dL Magnesium 2.1 (1.6-2.3) mg/dL Total Bilirubin 0.4 (0.2-1.3) mg/dL AST 15 (14-36) U/L ALT 23 (9-52) U/L Alkaline Phosphatase 74 (38-126) U/L Total Creatine Kinase <20 L (30-135) U/L CK-MB (CK-2) 0.3 (0.0-2.4) ng/mL CK-MB (CK-2) Rel Index Troponin I <0.012 (0.000-0.034) ng/mL Total Protein 5.6 L (6.3-8.2) g/dL Albumin 3.5 (3.5-5.0) g/dL Lipase 85 (23-300) U/L 09/27/17 Range/Units 15:10 WBC (3.8-10.6) k/uL RBC (3.80-5.40) m/uL Hgb (11.4-16.0) gm/dL Hct (34.0-46.0) % MCV (80.0-100.0) fL MCH (25.0-35.0) pg MCHC (31.0-37.0) g/dL RDW (11.5-15.5) % Plt Count (150-450) k/uL Neutrophils % % Lymphocytes % % Monocytes % % Eosinophils % % Basophils % % Neutrophils # (1.3-7.7) k/uL Lymphocytes # (1.0-4.8) k/uL Monocytes # (0-1.0) k/uL Eosinophils # (0-0.7) k/uL Basophils # (0-0.2) k/uL PT 10.0 (9.0-12.0) sec INR 1.0 (<1.2) APTT 22.1 (22.0-30.0) sec Sodium (137-145) mmol/L Potassium (3.5-5.1) mmol/L Chloride (98-107) mmol/L Carbon Dioxide (22-30) mmol/L Anion Gap mmol/L BUN (7-17) mg/dL Creatinine (0.52-1.04) mg/dL Est GFR (CKD-EPI)AfAm (>60 ml/min/1.73 sqM) Est GFR (CKD-EPI)NonAf (>60 ml/min/1.73 sqM) Glucose (74-99) mg/dL Calcium (8.4-10.2) mg/dL Magnesium (1.6-2.3) mg/dL Total Bilirubin (0.2-1.3) mg/dL AST (14-36) U/L ALT (9-52) U/L Alkaline Phosphatase (38-126) U/L Total Creatine Kinase (30-135) U/L CK-MB (CK-2) (0.0-2.4) ng/mL CK-MB (CK-2) Rel Index Troponin I (0.000-0.034) ng/mL Total Protein (6.3-8.2) g/dL Albumin (3.5-5.0) g/dL Lipase (23-300) U/L - Radiology Data Radiology results: report reviewed (Chest x-rays negative for acute disease), image reviewed Critical Care Time Critical Care Time: Yes Total Critical Care Time: 31 Disposition Clinical Impression: Chest pain Disposition: HOME SELF-CARE Condition: Good Instructions: Chest Pain (ED) Is patient prescribed a controlled substance at d/c from ED?: No Referrals: Raven Lara MD [Primary Care Provider] - 1-2 days
[2017-09-27] MEDS ORDERED: NITROGLYCERIN SL TABS 0.4 MG TAB SUBLINGUAL PRN (15:55)
[2017-09-27 16:13] LABS: Basophils # (A) 0.1 k/uL (0-0.2); Basophils % (A) 1 %; Eosinophils # (A) 0.1 k/uL (0-0.7); Eosinophils % (A) 2 %; HCT 35.7 % (34.0-46.0); HGB 11.9 gm/dL (11.4-16.0); Lymphocytes # (A) 1.6 k/uL (1.0-4.8); Lymphocytes % (A) 29 %; MCH 30.6 pg (25.0-35.0); MCHC 33.4 g/dL (31.0-37.0); Mean Platelet Volume 6.7; Monocytes # (A) 0.3 k/uL (0-1.0); Monocytes % (A) 6 %; Neutrophils # (A) 3.4 k/uL (1.3-7.7); Neutrophils % (A) 61 %; Platelet Count 216 k/uL (150-450); RBC 3.89 m/uL (3.80-5.40); RDW 15.1 % (11.5-15.5); WBC 5.6 k/uL (3.8-10.6)
[2017-09-27 16:21] LABS: Partial Thromboplastin Time 22.1 sec (22.0-30.0)
[2017-09-27 16:26] LABS: MCV 91.8 fL (80.0-100.0)
[2017-09-27 16:29] LABS: Albumin 3.5 g/dL (3.5-5.0); Magnesium 2.1 mg/dL (1.6-2.3); Potassium 4.3 mmol/L (3.5-5.1); Total Bilirubin 0.4 mg/dL (0.2-1.3); Total Protein 5.6 g/dL (6.3-8.2)
--- NOTE | 2017-09-27 16:33 | XR ---
EXAMINATION TYPE: XR chest 2V DATE OF EXAM: 09/27/2017 COMPARISON: 08/02/2017 HISTORY: 72-year-old female with chest pain TECHNIQUE: AP and lateral views FINDINGS: Heart normal size. Median sternotomy wires are present with post-CABG clips in the mediastinum. Left anterior chest wall pacemaker generator with 2 right ventricular leads. There is no consolidation or pleural effusion. Partially visualized left shoulder arthroplasty. IMPRESSION: Stable exam without acute cardiopulmonary process.
[2017-09-27 16:43] LABS: Creatine Kinase <20 U/L (30-135)
[2017-09-27 16:56] LABS: Creatine Kinase MB 0.3 ng/mL (0.0-2.4); Troponin I <0.012 ng/mL (0.000-0.034)
[2017-09-27 17:12] VITALS: RESP 18
[2017-09-27] MEDS ORDERED: INSULIN ASPART 100 UNIT/ML 1 ML 10 ML VIAL SQ SCH (17:30)
[2017-09-27 17:45] VITALS: BP 165/85; PULSE 66
[2017-09-27] MEDS ORDERED: METOPROLOL TARTRATE 25 MG TAB PO SCH (21:00)
[2017-09-28] MEDS ORDERED: ASPIRIN 325 MG TAB PO SCH (09:00)
[2017-09-28] MEDS ORDERED: ATORVASTATIN 80 MG TAB PO SCH (09:00)
== END 2017-09-27 17:43 | disposition home or self-care (01) ==
LOC: EC 14:36
DX: R07.9 Chest pain, unspecified (principal); R11.2 Nausea with vomiting, unspecified; F41.9 Anxiety disorder, unspecified; I48.91 Unspecified atrial fibrillation; I25.119 Atherosclerotic heart disease of native coronary artery with unspecified angina pectoris; I11.0 Hypertensive heart disease with heart failure; I50.9 Heart failure, unspecified; I25.2 Old myocardial infarction; F17.200 Nicotine dependence, unspecified, uncomplicated; Z86.14 Personal history of Methicillin resistant Staphylococcus aureus infection; Z85.850 Personal history of malignant neoplasm of thyroid; Z85.21 Personal history of malignant neoplasm of larynx; Z86.711 Personal history of pulmonary embolism; Z79.01 Long term (current) use of anticoagulants; Z79.899 Other long term (current) drug therapy; Z91.018 Allergy to other foods; Z95.5 Presence of coronary angioplasty implant and graft; Z95.0 Presence of cardiac pacemaker; Z53.29 Procedure and treatment not carried out because of patient's decision for other reasons
CPT/HCPCS: 36415; 71046; 80053; 82550; 82553; 83690; 83735; 84484; 85025; 85610; 85730; 93005; 99291

== ENCOUNTER 2017-10-07 14:50 | Emergency (ER) | payer MEDICARE ==
--- NOTE | 2017-10-07 15:14 | ED ---
General Adult HPI - General Chief complaint: Recheck/Abnormal Lab/Rx Stated complaint: Diabetic Issues Time Seen by Provider: 10/07/17 15:06 Source: patient, EMS, RN notes reviewed, old records reviewed Mode of arrival: EMS Limitations: physical limitation - History of Present Illness Initial comments: 32-year-old female. This patient presents today for evaluation of abnormal blood sugar. Does admit to mild anxiety. Patient states she ate lunch and then noted she did not feel things adequately well. She took her blood pressure blood sugar, which was of over 300 and insulin. Patient having again concerned that her blood pressure was blood sugar was still high and decided to come to the ER for evaluation. Patient denies any other significant complaint currently no headache chest pain shortness breath or abdominal pain. No recent medical illness no fevers no nausea no vomiting or diarrhea. Patient states she raises concern about blood sugar. - Related Data Home Medications Medication Instructions Recorded Confirmed traZODone HCL 150 mg PO HS 03/15/17 09/27/17 Baclofen [Lioresal] 20 - 60 mg PO DAILY 09/27/17 09/27/17 Diphenoxylate HCl/Atropine 1 tab PO BID PRN 09/27/17 09/27/17 [Lomotil 2.5-0.025 mg Tablet] Midodrine [ProAmatine] 5 mg PO BID 09/27/17 09/27/17 Warfarin Sodium 6 mg PO DAILY 09/27/17 09/27/17 Previous Rx's Medication Instructions Recorded Diazepam [Valium] 5 mg PO HS@2000 #3 tab 08/01/17 Levothyroxine Sodium [Levo-T] 150 mcg PO QAM #30 tablet 08/01/17 Allergies Allergy/AdvReac Type Severity Reaction Status Date / Time peach AdvReac Nausea & Verified 10/07/17 15:05 Vomiting Review of Systems ROS Statement: Those systems with pertinent positive or pertinent negative responses have been documented in the HPI. ROS Other: All systems not noted in ROS Statement are negative. Past Medical History Past Medical History: Atrial Fibrillation, Asthma, Coronary Artery Disease (CAD) , Cancer, Chest Pain / Angina, Heart Failure, Diabetes Mellitus, GERD/Reflux, Hyperlipidemia, Hypertension, Myocardial Infarction ([place]), Osteoarthritis (OA), Pulmonary Embolus (PE), Thyroid Disorder Additional Past Medical History / Comment(s): Pt recently admitted to [facility] on 02/28 with lower GI blee possibly d/t diverticular bleed. Other hx: Incontinent urine and stool, IBS, diverticulitis, hemmorhoids, colonic polyps, R femur acetabular impingement syndrome, UTI with sepsis, DDD, RLS, IDDM type II , neuropathy bilateral hands and feet, thyroid cancer with thyroidectomy- hypothyroid, bilateral PE's, chronic back pain, laryngeal cancer with surgical removal, syncope, gait dysfunction. Last Myocardial Infarction Date:: 2011 or 2012 per pt History of Any Multi-Drug Resistant Organisms: MRSA Date of last positivie culture/infection: 06/30/17 MDRO Source:: urine Past Surgical History: Adenoidectomy, Bladder Surgery, Bowel Resection, Cholecystectomy, Coronary Bypass/CABG, Heart Catheterization With Stent, Hysterectomy, Joint Replacement, Orthopedic Surgery, Pacemaker, Tonsillectomy, Tubal Ligation Additional Past Surgical History / Comment(s): CABG 3 vessel in 2006, cardiac cath with stents 2007 and 2011, pacer 2011, total thyroidectomy, lap maria del rosario, total left shoulder, R shoulder arthroscopy, partial colectomy due to diverticulitis, bladder suspension and bladder repair and mesh x 2, rectal wall repair, hysterectomy 1977, laryngeal surgery for cancer, recent colonoscopy , EGD with bx, nasal deviated septum surgical correction, L knee arthroscopy. Past Anesthesia/Blood Transfusion Reactions: No Reported Reaction Additional Past Anesthesia/Blood Transfusion Reaction / Comment(s): Pt has recieved blood without any reaction. Date of Last Stent Placement:: 2011 Type of Cardiac Device: Permanent Pacemaker Device Placement Date:: 2010 or 2011 in [place], [place] Past Psychological History: No Psychological Hx Reported Smoking Status: Current every day smoker Past Alcohol Use History: None Reported Past Drug Use History: None Reported - Past Family History Father Family Medical History: Congestive Heart Failure (CHF), COPD Additional Family Medical History / Comment(s): Father at age 61 yrs of CHF and COPD. Mother Family Medical History: Congestive Heart Failure (CHF), COPD General Exam Limitations: physical limitation General appearance: alert, in no apparent distress Head exam: Present: atraumatic, normocephalic, normal inspection Eye exam: Present: normal appearance, PERRL, EOMI. Absent: scleral icterus, conjunctival injection, periorbital swelling ENT exam: Present: normal exam, mucous membranes moist Neck exam: Present: normal inspection. Absent: tenderness, meningismus, lymphadenopathy Respiratory exam: Present: normal lung sounds bilaterally. Absent: respiratory distress, wheezes, rales, rhonchi, stridor Cardiovascular Exam: Present: regular rate, normal rhythm, normal heart sounds. Absent: systolic murmur, diastolic murmur, rubs, gallop, clicks GI/Abdominal exam: Present: soft, normal bowel sounds. Absent: distended, tenderness, guarding, rebound, rigid Extremities exam: Present: normal inspection, full ROM, normal capillary refill. Absent: tenderness, pedal edema, joint swelling, calf tenderness Back exam: Present: normal inspection Neurological exam: Present: alert, oriented X3, CN II-XII intact Psychiatric exam: Present: normal affect, normal mood Skin exam: Present: warm, dry, intact, normal color. Absent: rash Course Vital Signs 10/07/17 14:59 Temperature 98 F Pulse Rate 84 Respiratory 18 Rate Blood Pressure 167/71 O2 Sat by Pulse 100 Oximetry - Reevaluation(s) Reevaluation #1: 10/07/17 15:33 Patient well-known to this facility, medical record is reviewed. Patient seen multiple times for different complaints may be resolving and revolving around anxiety Medical Decision Making - Medical Decision Making 72 female the ER for evaluation, elevated blood sugar. Patient observed here in the emergency room for 1 hour, blood sugar remains normal and stable. Patient can be discharged home Disposition Clinical Impression: Hyperglycemia, Anxiety Disposition: HOME SELF-CARE Condition: Good Instructions: Diabetic Hyperglycemia (ED) Is patient prescribed a controlled substance at d/c from ED?: No Referrals: Raven Lara MD [Primary Care Provider] - 1-2 days
[2017-10-07 17:09] VITALS: BP 150/65; PULSE 64; RESP 18; TEMP 98.2
== END 2017-10-07 17:09 | disposition home or self-care (01) ==
LOC: EC 14:50
DX: E11.65 Type 2 diabetes mellitus with hyperglycemia (principal); F41.9 Anxiety disorder, unspecified; I48.91 Unspecified atrial fibrillation; J45.909 Unspecified asthma, uncomplicated; I25.119 Atherosclerotic heart disease of native coronary artery with unspecified angina pectoris; I11.0 Hypertensive heart disease with heart failure; I50.9 Heart failure, unspecified; I25.2 Old myocardial infarction; E11.40 Type 2 diabetes mellitus with diabetic neuropathy, unspecified; E03.9 Hypothyroidism, unspecified; F17.200 Nicotine dependence, unspecified, uncomplicated; Z86.711 Personal history of pulmonary embolism; Z86.14 Personal history of Methicillin resistant Staphylococcus aureus infection; Z85.21 Personal history of malignant neoplasm of larynx; Z85.850 Personal history of malignant neoplasm of thyroid; Z79.01 Long term (current) use of anticoagulants; Z79.899 Other long term (current) drug therapy; Z91.018 Allergy to other foods; Z95.5 Presence of coronary angioplasty implant and graft; Z95.0 Presence of cardiac pacemaker; Z95.1 Presence of aortocoronary bypass graft
CPT/HCPCS: 99284